=== PATIENT | female | born 1955 | race Caucasian/White ===

== ENCOUNTER 2018-03-16 14:16 | Emergency (ER) | payer MEDICAID, SELFPAY ==
[2018-03-16 14:21] VITALS: BP 152/84; PULSE 98; RESP 16; TEMP 36.8; O2SAT 98
--- NOTE | 2018-03-16 14:30 | W.ED.GENAD ---
Discharge Plan Disposition Patient Disposition: HOME Condition: Improving Discharge Details Chief Complaint: Abd Prob Clinical Impression: Odontalgia Primary Care Provider: Onur Liriano ED Provider: Armando Fong Home Meds and New Rx's Prescriptions: New ondansetron HCl [Zofran] 4 mg tablet 4 mg PO QID PRN (Reason: nausea and vomiting) Qty: 10 RF: 0 penicillin V potassium 500 mg tablet 500 mg PO TID 10 Days Qty: 30 RF: 0 No Action amlodipine [Norvasc] 10 MG tablet 10 mg PO DAILY RF: 0 albuterol sulfate [Proventil HFA] 6.7 GM HFA aerosol inhaler 1 - 2 puff Inhalation Q6H PRN RF: 0 losartan 100 MG tablet 100 mg PO DAILY RF: 0 fluticasone 16 GM spray,suspension 50 mcg NS BID RF: 0 levalbuterol tartrate [Xopenex HFA] 15 GM HFA aerosol inhaler 90 mcg Inhalation Q6H PRN RF: 0 Discharge Instructions Instructions: Toothache (ED) Additional Instructions: Home to rest today. Continue all regularly prescribed medications. Take antibiotics as prescribed. May use Zofran, as prescribed, as needed for nausea. Continue small, frequent sips of fluids to maintain hydration. Return to the emergency department for any acute concern Medical Decision Making 62-year-old female states that she had uneventful left upper molar extraction on March 14 and has been suffering with nausea and intermittent episodes of vomiting since that time. She feels lightheaded and dehydrated. She has not had documentation of objective fevers but has noted some chills. The patient had IV access established, given parenteral medications with antiemetic and analgesic as well as parenteral fluids. Patient subsequently felt better and was able to take liquids by mouth. I do feel she oughtr to be treated for residual odontalgia/tooth infection. Will also offer antiemetic for home. Patient stable, improved comfort for discharge at this time. HPI General Mode of arrival: ambulatory. Date/Time Provider Initiated Documentation: 03/16/18 14:17. Limitations to Documentation: no limitations. History of Present Illness 62 year old F presents to the emergency department with the chief complaint of Nausea and vomiting, I feel dehydrated, described as moderate, and is localized to the abdomen. Patient reports no radiation. Patient started experiencing this day(s) and it has been intermittent. No relieving factors improve symptom(s), Eating worsens symptoms . Patient notes no other symptoms.; denies fever/chills. Patient did receive the following treatments prior to arrival, none Related Data Home Medications Medication Instructions Recorded Confirmed albuterol sulfate [Proventil Hfa] 1 - 2 puff INHALATION Q6H PRN 05/21/15 inhaler amlodipine [Norvasc] 10 mg PO DAILY tab-cap 05/21/15 fluticasone 50 mcg NS BID spray 05/21/15 levalbuterol tartrate [Xopenex Hfa] 90 mcg INHALATION Q6H PRN inhaler 05/21/15 losartan 100 mg PO DAILY tab-cap 05/21/15 ondansetron HCl [Zofran] 4 mg PO QID PRN #10 tab 03/16/18 penicillin V potassium 500 mg PO TID 10 Days #30 tab 03/16/18 Previous Rx's Medication Instructions Recorded ondansetron HCl [Zofran] 4 mg PO QID PRN #10 tab 03/16/18 penicillin V potassium 500 mg PO TID 10 Days #30 tab 03/16/18 Allergies Allergy/AdvReac Type Severity Reaction Status Date / Time lisinopril Allergy Unverified 05/21/15 11:09 General Stated Complaint: Abd Prob SOLANGE: 3 Review of Systems Review of Systems 6 systems reviewed and otherwise negative [facility] Social History Smoking/Tobacco Use Status: Current-Occasional Exam Narrative Exam Narrative: GEN: awake, alert, oriented 3. Pleasant, well groomed, interactive. HEAD: Normocephalic, atraumatic ENT: Mucous membranes dry, oropharynx partially edentulous, no fluctuance or swelling appreciated, External ear exam unremarkable EYES: PERRL, EOMI NECK: Full ROM, no RETA, no menigismus CHEST/RESP: Nontender, clear to auscultation bilateral, no wheeze/rhonchi/rales CARDIOVASCULAR: RRR, no murmur, rub sherrie. 2+ Rad pulse bilateral ABDOMEN: Soft, nontender, no mass. +Bowel sounds EXT: Full ROM, no edema, no rash Neuro: Grossly normal neurologic exam, conversant, interactive. Psych: Speech fluent, thoughts congruent, affect normal Course Vital Signs Temperature 36.8 C 03/16/18 14:21 Pulse 98 H 03/16/18 14:21 Respiratory Rate 16 03/16/18 14:21 Blood Pressure 152/84 H 03/16/18 14:21 Pulse Oximetry 98 03/16/18 14:21 Temperature 36.8 C 03/16/18 14:21 Temperature Source Temporal Artery Scan 03/16/18 14:21 Pulse 98 H 03/16/18 14:21 Respiratory Rate 16 03/16/18 14:21 Respiratory Effort 03/16/18 14:23 Blood Pressure 152/84 H 03/16/18 14:21 Blood Pressure Position Sitting 03/16/18 14:21 Pulse Oximetry 98 03/16/18 14:21 Oxygen Delivery Method Room Air 03/16/18 14:21 Oxygen Flow Rate 0 03/16/18 14:21 Pain Level 7 03/16/18 14:21
--- NOTE | 2018-03-16 14:33 | ED.GENADUL_ITS ---
Discharge Plan Disposition Patient Disposition: HOME Condition: Improving Discharge Details Chief Complaint: Abd Prob Clinical Impression: Odontalgia Primary Care Provider: Onur Liriano ED Provider: Armando Fong Home Meds and New Rx's Prescriptions: New ondansetron HCl [Zofran] 4 mg tablet 4 mg PO QID PRN (Reason: nausea and vomiting) Qty: 10 RF: 0 penicillin V potassium 500 mg tablet 500 mg PO TID 10 Days Qty: 30 RF: 0 No Action amlodipine [Norvasc] 10 MG tablet 10 mg PO DAILY RF: 0 albuterol sulfate [Proventil HFA] 6.7 GM HFA aerosol inhaler 1 - 2 puff Inhalation Q6H PRN RF: 0 losartan 100 MG tablet 100 mg PO DAILY RF: 0 fluticasone 16 GM spray,suspension 50 mcg NS BID RF: 0 levalbuterol tartrate [Xopenex HFA] 15 GM HFA aerosol inhaler 90 mcg Inhalation Q6H PRN RF: 0 Discharge Instructions Instructions: Toothache (ED) Additional Instructions: Home to rest today. Continue all regularly prescribed medications. Take antibiotics as prescribed. May use Zofran, as prescribed, as needed for nausea. Continue small, frequent sips of fluids to maintain hydration. Return to the emergency department for any acute concern Medical Decision Making 62-year-old female states that she had uneventful left upper molar extraction on March 14 and has been suffering with nausea and intermittent episodes of vomiting since that time. She feels lightheaded and dehydrated. She has not had documentation of objective fevers but has noted some chills. The patient had IV access established, given parenteral medications with antiemetic and analgesic as well as parenteral fluids. Patient subsequently felt better and was able to take liquids by mouth. I do feel she oughtr to be treated for residual odontalgia/tooth infection. Will also offer antiemetic for home. Patient stable, improved comfort for discharge at this time. HPI General Mode of arrival: ambulatory . Date/Time Provider Initiated Documentation: 03/16/18 14:17 . Limitations to Documentation: no limitations . History of Present Illness 62 year old F presents to the emergency department with the chief complaint of Nausea and vomiting, I feel dehydrated, described as moderate, and is localized to the abdomen. Patient reports no radiation. Patient started experiencing this day(s) and it has been intermittent. No relieving factors improve symptom(s), Eating worsens symptoms . Patient notes no other symptoms.; denies fever/chills. Patient did receive the following treatments prior to arrival, none Related Data Home Medications Medication Instructions Recorded Confirmed albuterol sulfate [Proventil Hfa] 1 - 2 puff INHALATION Q6H PRN 05/21/15 inhaler amlodipine [Norvasc] 10 mg PO DAILY tab-cap 05/21/15 fluticasone 50 mcg NS BID spray 05/21/15 levalbuterol tartrate [Xopenex Hfa] 90 mcg INHALATION Q6H PRN inhaler 05/21/15 losartan 100 mg PO DAILY tab-cap 05/21/15 ondansetron HCl [Zofran] 4 mg PO QID PRN #10 tab 03/16/18 penicillin V potassium 500 mg PO TID 10 Days #30 tab 03/16/18 Previous Rx's Medication Instructions Recorded ondansetron HCl [Zofran] 4 mg PO QID PRN #10 tab 03/16/18 penicillin V potassium 500 mg PO TID 10 Days #30 tab 03/16/18 Allergies Allergy/AdvReac Type Severity Reaction Status Date / Time lisinopril Allergy Unverified 05/21/15 11:09 General Stated Complaint: Abd Prob SOLANGE: 3 Review of Systems Review of Systems 6 systems reviewed and otherwise negative [facility] Social History Smoking/Tobacco Use Status: Current-Occasional Exam Narrative Exam Narrative: GEN: awake, alert, oriented 3. Pleasant, well groomed, interactive. HEAD: Normocephalic, atraumatic ENT: Mucous membranes dry, oropharynx partially edentulous, no fluctuance or swelling appreciated, External ear exam unremarkable EYES: PERRL, EOMI NECK: Full ROM, no RETA, no menigismus CHEST/RESP: Nontender, clear to auscultation bilateral, no wheeze/rhonchi/rales CARDIOVASCULAR: RRR, no murmur, rub sherrie. 2+ Rad pulse bilateral ABDOMEN: Soft, nontender, no mass. +Bowel sounds EXT: Full ROM, no edema, no rash Neuro: Grossly normal neurologic exam, conversant, interactive. Psych: Speech fluent, thoughts congruent, affect normal Course Vital Signs Temperature 36.8 C 03/16/18 14:21 Pulse 98 H 03/16/18 14:21 Respiratory Rate 16 03/16/18 14:21 Blood Pressure 152/84 H 03/16/18 14:21 Pulse Oximetry 98 03/16/18 14:21 Temperature 36.8 C 03/16/18 14:21 Temperature Source Temporal Artery Scan 03/16/18 14:21 Pulse 98 H 03/16/18 14:21 Respiratory Rate 16 03/16/18 14:21 Respiratory Effort 03/16/18 14:23 Blood Pressure 152/84 H 03/16/18 14:21 Blood Pressure Position Sitting 03/16/18 14:21 Pulse Oximetry 98 03/16/18 14:21 Oxygen Delivery Method Room Air 03/16/18 14:21 Oxygen Flow Rate 0 03/16/18 14:21 Pain Level 7 03/16/18 14:21
[2018-03-16 14:56] LABS: Abs Immature Grans 0.05 k/cumm (0.0-0.09); Absolute Basophil Count 0.03 k/cumm (0.0-0.2); Absolute Eosinophil Count 0.02 k/cumm (0.0-0.7); Absolute Lymphocyte Count 2.95 k/cumm (1.2-3.4); Basophils % 0.2; Eosinophils % 0.1; HCT 46.2 % (36.0-46.0); HGB 15.8 g/dL (12.0-15.5); Immature Grans % 0.3; Lymphocytes % 18.5; Mean Corp. HGB Concentration 34.2 g/dL (32.0-36.0); Mean Corpuscular Hemoglobin 28.8 pg (27.0-33.0); Mean Corpuscular Volume 84.2 fL (80-95); Mean Platelet Volume 9.7 fL (8.0-11.0); Monocytes % 3.4; Neutrophils % 77.5; Platelet Count 374 x1000/uL (130-400); RBC 5.49 m/cumm (4.00-5.20); RBC Distribution Width 12.6 % (11.7-14.6); White Blood Cell Count 15.95 k/cumm (4.4-10.8)
[2018-03-16 14:57] LABS: Absolute Monocyte Count 0.54 k/cumm (0.11-0.7); Absolute Neutrophil Count 12.36 k/cumm (1.2-6.7)
[2018-03-16 15:03] LABS: Anion Gap 12.6 mmol/L (3-11); BUN 33 mg/dL (7-18); CO2 28.4 mmol/L (21.0-32.0); CREATININE 1.18 mg/dL (0.55-1.02); Calcium 9.8 mg/dL (8.5-10.1); Chloride 92 mmol/L (98-107); Estimated GFR 46.57 (mL/min/1.73m2); Glucose 349 mg/dL (70-100); Potassium 3.7 mmol/L (3.5-5.1); Sodium 133 mmol/L (136-145)
[2018-03-16] MEDS: LORazepam 2 MG/ML VIAL 1 MG IVP (15:11)
[2018-03-16] MEDS: Ondansetron 4 MG/2 ML VIAL IVP (15:11)
[2018-03-16] MEDS: Lactated Ringers 1,000 ML 1000 ML IV (15:11)
[2018-03-16] MEDS: Ketorolac 30 MG/ML VIAL IVP (15:12)
== END 2018-03-16 16:49 | disposition home or self-care (01) ==
LOC: ER 17:58
PROVIDERS: Emergency Provider Emergency Medicine; PCP Internal Medicine
DX: K08.89 Other specified disorders of teeth and supporting structures (principal); Z98.890 Other specified postprocedural states; F17.210 Nicotine dependence, cigarettes, uncomplicated
CPT/HCPCS: 36415; 80048; 96361; 96374; 96375; 99284; 85025; 99283; J1885; J2060; J2405

== ENCOUNTER 2018-11-28 10:03 | Inpatient (IN) | payer MEDICAID, SELFPAY ==
[2018-11-28] VITALS (41 sets, daily range): BP systolic 124–177; BP diastolic 76–95; PULSE 92–116; RESP 9–39; TEMP 36.6–36.8; O2SAT 91–100
--- NOTE | 2018-11-28 10:47 | DI.RAD_ITS ---
SYMPTOM/DIAGNOSIS: S/P FALL, R/O ACUTE FRACTURE LEFT HIP: 11/28 Two views of the hip and pelvis were obtained. There are degenerative changes of the hips and SI joints. There is no evidence of acute fracture.
--- NOTE | 2018-11-28 10:47 | DI.RAD_ITS ---
SYMPTOM/DIAGNOSIS; CHEST TIGHTNESS R/O ACUTE DISEASE PA AND LATERAL CHEST : 11/28 The heart is normal in size. The lungs are clear. The mediastinal structures and pleura appear intact. CONCLUSION: Normal chest.
--- NOTE | 2018-11-28 10:56 | ED.GENADUL_ITS ---
Discharge Plan Disposition Patient Disposition: [facility] INPATIENT Condition: Stable Discharge Details Chief Complaint: Chest Pain Clinical Impression: Acute kidney injury, Dehydration, Contusion of left hip, Cognitive decline Admit Date/Time: 11/28/18 16:32 Admit Provider: Onur Liriano Attending Provider: Onur Liriano Primary Care Provider: Onur Liriano ED Provider: Alannah Beal Discharge Data Discharge Date/Time-TO BE ENTERED AT DEPARTURE: 11/28/18 18:03 Medical Decision Making 1030 -- 63-year-old female with history of hypertension diabetes who presents with left hip pain and lower back pain since a fall 3 weeks ago. Also admits to chest tightness which she attributes to anxiety for the past 2 days due to the hip pain. Heart rate 116. Blood pressure 156/94. Lungs clear. Abdomen soft nontender. No pain with range of motion in hips bilaterally without evidence of trauma. Midline T/L-spine nontender. No focal deficits. Neurovascular intact. EKG notes a rate of 118, sinus with no acute ST T wave ischemic changes. She denies any chest pain at present. Presentation does not appear consistent with ACS. Suspect most likely left hip spasms/contusion/less likely fracture. Do not suspect PE but will do a cardiac work-up, d-dimer and chest x-ray in addition to left hip and pelvis x-ray, dose of prednisone, Toradol and Valium and reassess. 1315 -- Labs and imaging reviewed. Creatinine 2.45 which is significantly different from last creatinine of 1.18 in February 2018. GFR 19. Glucose 304. pH on VBG 7.3, bicarb 23. Left hip and pelvis and chest x-ray negative. Patient states she feels significantly better after pain meds. She states she would like to go home if possible. We will give 2 L IV fluids, food and reassess. 1545 --repeat BMP notes worsening renal function after 2 L IV fluids. Creatinine now 2.85, GFR 16. Will admit patient for IV fluids, continued monitoring, repeat labs in the a.m. Discussed with hospitalist -accepts patient for admission. Daughter now states she is concerned about patient's memory and what she perceives as cognitive decline over the last 2 months, even worsening since last night. She has no focal deficits. Patient denies head injury with fall a few weeks ago. Symptoms could possibly be due to or exacerbated by dehydration. This was discussed with patient/daughter while hospitalist in room. Plan will be for CT head and cervical spine to rule out any acute process. 11/28/18 pm -- After pt transfer to floor: Per [facility] radiology - CT head noted lacunar infarction of unknown age but no acute findings; CT cervical spine noted DDD but no acute findings. 11/29/18 am -- pt on floor: Per review of CT head by staff radiologist Dr. Velasquez - MRI brain suggested to assess for acute vs subacute infarction periventricular white matter. This was discussed with hospitalist. Medical Records Medical records reviewed: Yes I reviewed the patient's medical records. Imaging Data Radiologic Study: Radiologist's impression: LEFT HIP: 11/28 Two views of the hip and pelvis were obtained. There are degenerative changes of the hips and SI joints. There is no evidence of acute fracture. PA AND LATERAL CHEST : 11/28 The heart is normal in size. The lungs are clear. The mediastinal structures and pleura appear intact. CONCLUSION: Normal chest. Lab Data Lab results reviewed: Yes I reviewed the patient's lab results. Laboratory Tests Range/Units 11/28/18 11/28/18 11/28/18 10:25 10:25 10:25 WBC (4.4-10.8) k/cumm 11.65 H RBC (4.00-5.20) m/cumm 5.54 H Hgb (12.0-15.5) g/dL 15.7 H Hct (36.0-46.0) % 45.5 MCV (80-95) fL 82.1 MCH (27.0-33.0) pg 28.3 MCHC (32.0-36.0) g/dL 34.5 RDW (11.7-14.6) % 13.3 Plt Count (130-400) x1000/uL 367 MPV (8.0-11.0) fL 9.8 Immature Gran % 0.3 Neutrophils % 68.2 Lymphocytes % 23.0 Monocytes % 6.8 Eosinophils % 1.4 Basophils % 0.3 Absolute Neutrophils (1.2-6.7) k/cumm 7.95 H Absolute Lymphocytes (1.2-3.4) k/cumm 2.68 Absolute Monocytes (0.11-0.7) k/cumm 0.79 H Absolute Eosinophils (0.0-0.7) k/cumm 0.16 Absolute Basophils (0.0-0.2) k/cumm 0.03 PT (9.3-11.0) sec 9.9 INR (0.9-1.1) 1.0 APTT (21.0-31.4) sec 22.5 D-Dimer (<500) ng/mlFEU VBG pH (7.32-7.43) VBG pCO2 (34-47) mm/Hg VBG pO2 (28-44) mm/Hg VBG HCO3 (22-28) mmol/L VBG Total CO2 (22-29) mmol/L VBG O2 Saturation (70-80) % VBG Base Excess (-3-3) mmol/L Sodium (136-145) mmol/L 131 L Potassium (3.5-5.1) mmol/L 3.5 Chloride (98-107) mmol/L 94 L Carbon Dioxide (21.0-32.0) mmol/L 20.7 L Anion Gap (3-11) mmol/L 16.3 H BUN (7-18) mg/dL 39 H Creatinine (0.55-1.02) mg/dL 2.47 H Estimated GFR/1.73 m2 (mL/min/1.73m2) 19.79 Glucose (70-100) mg/dL 304 H Calcium (8.5-10.1) mg/dL 9.1 Magnesium (1.8-2.4) mg/dL 1.9 Total Bilirubin (0.2-1.0) mg/dL 0.7 AST (15-37) U/L 12 L ALT (14-59) U/L 26 Alkaline Phosphatase (46-116) U/L 84 Troponin I (0.00-0.06) ng/mL < 0.05 Total Protein (6.4-8.2) g/dL 7.8 Albumin (3.4-5.0) g/dL 3.7 Range/Units 11/28/18 11/28/18 11/28/18 11:14 13:22 15:25 WBC (4.4-10.8) k/cumm RBC (4.00-5.20) m/cumm Hgb (12.0-15.5) g/dL Hct (36.0-46.0) % MCV (80-95) fL MCH (27.0-33.0) pg MCHC (32.0-36.0) g/dL RDW (11.7-14.6) % Plt Count (130-400) x1000/uL MPV (8.0-11.0) fL Immature Gran % Neutrophils % Lymphocytes % Monocytes % Eosinophils % Basophils % Absolute Neutrophils (1.2-6.7) k/cumm Absolute Lymphocytes (1.2-3.4) k/cumm Absolute Monocytes (0.11-0.7) k/cumm Absolute Eosinophils (0.0-0.7) k/cumm Absolute Basophils (0.0-0.2) k/cumm PT (9.3-11.0) sec INR (0.9-1.1) APTT (21.0-31.4) sec D-Dimer (<500) ng/mlFEU 306 VBG pH (7.32-7.43) 7.39 VBG pCO2 (34-47) mm/Hg 38 VBG pO2 (28-44) mm/Hg 48 H VBG HCO3 (22-28) mmol/L 23 VBG Total CO2 (22-29) mmol/L 20 L VBG O2 Saturation (70-80) % 84 H VBG Base Excess (-3-3) mmol/L -2.1 Sodium (136-145) mmol/L 131 L Potassium (3.5-5.1) mmol/L 4.6 D Chloride (98-107) mmol/L 98 Carbon Dioxide (21.0-32.0) mmol/L 21.8 Anion Gap (3-11) mmol/L 11.2 H BUN (7-18) mg/dL 41 H Creatinine (0.55-1.02) mg/dL 2.85 H Estimated GFR/1.73 m2 (mL/min/1.73m2) 16.78 Glucose (70-100) mg/dL 410 H D Calcium (8.5-10.1) mg/dL 7.9 L Magnesium (1.8-2.4) mg/dL Total Bilirubin (0.2-1.0) mg/dL AST (15-37) U/L ALT (14-59) U/L Alkaline Phosphatase (46-116) U/L Troponin I (0.00-0.06) ng/mL Total Protein (6.4-8.2) g/dL Albumin (3.4-5.0) g/dL ECG Data Attestation: I personally reviewed and interpreted this ECG (s) as follows: Interpretation: Rate of 118, sinus, no acute ST elevation or depression. FL 144. QTc 468. QRS 96. HPI General Mode of arrival: ambulatory . Date/Time Provider Initiated Documentation: 11/28/18 10:22 . Limitations to Documentation: no limitations . Information obtained by: patient . HPI Narrative: Patient is a 63-year-old female with history of hypertension diabetes who presents with left hip pain and lower back pain since a fall 3 weeks ago. Patient states she slipped and tripped over something on stairs a few weeks ago and fell down 9 steps onto her left hip. She denies head injury, neck pain, back pain, or other extremity injury. She states she has used Lidoderm patch and aspirin but has not taken any other medication for pain. She also admits to chest tightness which she attributes to anxiety for the past 2 days due to the hip pain. She states she mainly needs a dose of Valium to help with her chest tightness and anxiety. Related Data Home Medications Medication Instructions Recorded Confirmed albuterol sulfate [Proventil HFA] 1 - 2 puff INHALATION Q6H PRN 05/21/15 inhaler fluticasone propionate 50 mcg NS BID spray 05/21/15 11/28/18 levalbuterol tartrate [Xopenex HFA] 90 mcg INHALATION Q6H PRN inhaler 05/21/15 11/28/18 ondansetron HCl [Zofran] 4 mg PO QID PRN #10 tab 03/16/18 11/28/18 aspirin [Aspirin Low Dose] 81 mg PO DAILY 11/28/18 11/28/18 irbesartan 300 mg DAILY 11/28/18 11/28/18 metformin 1,000 mg BID 11/28/18 11/28/18 triamterene-hydrochlorothiazid 1 cap DAILY 11/28/18 11/28/18 Previous Rx's Medication Instructions Recorded ondansetron HCl [Zofran] 4 mg PO QID PRN #10 tab 03/16/18 Allergies Allergy/AdvReac Type Severity Reaction Status Date / Time lisinopril Allergy Unverified 05/21/15 11:09 General Stated Complaint: Chest Pain SOLANGE: 2 Review of Systems Review of Systems All systems reviewed & are unremarkable except as noted in HPI and below Constitutional Reports as per HPI, Denies chills and Denies fever(s) Eyes Denies blurry vision ENT Denies dizziness, Denies sore throat and Denies throat swelling Cardiovascular Reports chest pain and Denies dyspnea Respiratory Denies cough and Denies dyspnea Gastrointestinal Denies abdominal pain, Denies diarrhea and Denies vomiting Genitourinary Denies hematuria and Denies dysuria Musculoskeletal Reports back pain, Denies numbness and Reports other (L hip pain) Integumentary/Breasts Denies lesions and Denies rash Neurologic Denies dizziness, Denies focal weakness and Denies numbness Allergic/Immunologic Denies throat swelling PFSH Medical History Chronic kidney disease (CKD) stage G3a/A1, moderately decreased glomerular filtration rate (GFR) between 45-59 mL/min/1.73 square meter and albuminuria creatinine ratio less than 30 mg/g (Acute) Diabetes (Chronic) HTN (hypertension) (Chronic) Surgical History No significant past surgical history (Acute) Social History Smoking/Tobacco Use Status: Former Tobacco Use Alcohol Intake: never Drug use: Never Do you feel safe at home: Yes Do you feel safe in your relationship?: Yes Exam Const General: cooperative, healthy appearing and no acute distress [facility] Head: normal to inspection Face and sinus: normal facial exam Eyes General: appearance normal, both eyes and all related structures EOM: EOM intact bilaterally Neck Neck: normal visual inspection and No submandibular swelling Lymphatic: no lymphadenopathy noted Chest Chest: normal inspection of the chest and no tenderness Resp Effort & Inspection: normal respiratory effort and able to speak in complete sentences Auscultation: clear to auscultation bilaterally Cardio Rate: regular rate Rhythm: regular rhythm GI Inspection: normal to inspection Palpation: soft, not firm, not rigid and nontender Auscultation: normal bowel sounds Back/Spine/Pelvis Thoracic/Lumbar Spine: thoracic and lumbar spine normal to inspection, No thoracic spinal tenderness and No lumbar spinal tenderness Pelvis: no pain with anterior-posterior compression Skin General skin exam: no rashes or lesions noted Neuro General: alert, awake and oriented x3 Cognition: normal cognition Speech: speech normal Motor: muscle tone normal throughout and strength 5/5 throughout Sensory Exam: no sensory deficits noted DTR's: Rt Patellar: 1+, Lt Patellar: 1+, Rt Ankle: 1+ and Lt Ankle: 1+ Plantar Reflexes: Equivocal: bilateral (Negative Babinski bilaterally.) Extrem General: normal to inspection, full ROM, normal capillary refill, no calf tenderness bilaterally and no edema Other: No pain with range of motion of bilateral hips. No evidence of trauma to bilateral hips. No tenderness to palpation of bilateral buttocks or midline lumbar spine. Bilateral DP/PT pulses intact. Psych Appearance: grossly normal Mental Status: mental status grossly normal Speech and Movement: speech and movement normal Affect: normal affect Course Vital Signs Temperature 98.2 F 11/28/18 10:18 Pulse 116 H 11/28/18 10:18 Respiratory Rate 12 11/28/18 10:18 Blood Pressure 156/94 H 11/28/18 10:18 Pulse Oximetry 100 11/28/18 10:18 Temperature 98.2 F 11/28/18 10:18 Temperature Source Skin 11/28/18 10:18 Pulse 116 H 11/28/18 10:18 Respiratory Rate 12 11/28/18 10:18 Blood Pressure 156/94 H 11/28/18 10:18 Blood Pressure Position Supine 11/28/18 10:18 Pulse Oximetry 100 11/28/18 10:18 Oxygen Delivery Method Room Air 11/28/18 10:18 Oxygen Flow Rate 0 11/28/18 10:18 Pain Level 9 11/28/18 10:18 Comment 11/28/18 10:18
[2018-11-28 11:02] LABS: Abs Immature Grans 0.04 k/cumm (0.0-0.09); Absolute Basophil Count 0.03 k/cumm (0.0-0.2); Absolute Eosinophil Count 0.16 k/cumm (0.0-0.7); Absolute Lymphocyte Count 2.68 k/cumm (1.2-3.4); Absolute Monocyte Count 0.79 k/cumm (0.11-0.7); Absolute Neutrophil Count 7.95 k/cumm (1.2-6.7); Basophils % 0.3; Eosinophils % 1.4; HCT 45.5 % (36.0-46.0); HGB 15.7 g/dL (12.0-15.5); Immature Grans % 0.3; Mean Corp. HGB Concentration 34.5 g/dL (32.0-36.0); Mean Corpuscular Hemoglobin 28.3 pg (27.0-33.0); Mean Corpuscular Volume 82.1 fL (80-95); Mean Platelet Volume 9.8 fL (8.0-11.0); Monocytes % 6.8; Neutrophils % 68.2; Platelet Count 367 x1000/uL (130-400); RBC 5.54 m/cumm (4.00-5.20); RBC Distribution Width 13.3 % (11.7-14.6); White Blood Cell Count 11.65 k/cumm (4.4-10.8)
[2018-11-28] MEDS: diazePAM 5 MG TAB PO (11:03)
[2018-11-28] MEDS: predniSONE 20 MG TAB 60 MG PO (11:03)
[2018-11-28] MEDS: Ketorolac 30 MG/ML VIAL IVP (11:04)
[2018-11-28 11:15] LABS: PTT Activated 22.5 sec (21.0-31.4); Prothrombin Time 9.9 sec (9.3-11.0)
[2018-11-28 11:19] LABS: ALT 26 U/L (14-59); AST 12 U/L (15-37); Albumin 3.7 g/dL (3.4-5.0); Alkaline Phosphatase 84 U/L (46-116); Anion Gap 16.3 mmol/L (3-11); BUN 39 mg/dL (7-18); Bilirubin, Total 0.7 mg/dL (0.2-1.0); CO2 20.7 mmol/L (21.0-32.0); CREATININE 2.47 mg/dL (0.55-1.02); Calcium 9.1 mg/dL (8.5-10.1); Chloride 94 mmol/L (98-107); Estimated GFR 19.79 (mL/min/1.73m2); Glucose 304 mg/dL (70-100); Magnesium 1.9 mg/dL (1.8-2.4); Potassium 3.5 mmol/L (3.5-5.1); Sodium 131 mmol/L (136-145); Total Protein 7.8 g/dL (6.4-8.2)
[2018-11-28 11:28] LABS: Troponin I < 0.05 ng/mL (0.00-0.06)
[2018-11-28 11:54] LABS: D-Dimer 306 ng/mlFEU (<500)
[2018-11-28] MEDS: Normal Saline 1,000 ML 1000 ML IV ×2 (12:10→13:20)
[2018-11-28 13:29] LABS: BE (Venous) -2.1 mmol/L (-3-3); HCO3 (Venous) 23 mmol/L (22-28); O2 Sat (Venous) 84 % (70-80); TCO2 (Venous) 20 mmol/L (22-29); pCO2 (Venous) 38 mm/Hg (34-47); pH (Venous) 7.39 (7.32-7.43); pO2 (Venous) 48 mm/Hg (28-44)
[2018-11-28 15:41] LABS: Anion Gap 11.2 mmol/L (3-11); BUN 41 mg/dL (7-18); CO2 21.8 mmol/L (21.0-32.0); CREATININE 2.85 mg/dL (0.55-1.02); Calcium 7.9 mg/dL (8.5-10.1); Chloride 98 mmol/L (98-107); Estimated GFR 16.78 (mL/min/1.73m2); Glucose 410 mg/dL (70-100); Sodium 131 mmol/L (136-145)
[2018-11-28 15:45] LABS: Potassium 4.6 mmol/L (3.5-5.1)
--- NOTE | 2018-11-28 16:09 | DI.CT_ITS ---
SYMPTOM/DIAGNOSIS: S/P FALL, PROGRESSIVE DECLINE, R/O ACUTE DISEASE CERVICAL SPINE CT: 11/28 CT examination of the cervical spine was performed utilizing multi slice acquisition and multi planar reconstruction. Tracheolaryngeal structures appear intact. No gross cervical mass or adenopathy. There is a torticollis to the right. There is multi level disc space narrowing of the lower cervical spine and there are moderate hypertrophic degenerative changes involving the facet joints and vertebral end plates. No evidence of acute fracture or dislocation. CONCLUSION: No evidence of acute cervical spine fracture or dislocation. CRANIAL CT: 11/[address] was performed. There is mild generalized cerebral atrophy. There are patchy areas of decreased attenuation in periventricular white matter consistent with microvascular ischemic change. Question more focal asymmetric area of decreased attenuation in periventricular white matter medial to the lateral ventricle posteriorly, question of acute or subacute infarct. Probable lacunar infarct present in the right thalamus as well. No evidence of acute intracranial hemorrhage, mass effect or midline shift. The orbital and temporal bone structures appear intact. Mastoid air cells and paranasal sinuses appear well aerated as visualized. CONCLUSION: No evidence of acute intracranial hemorrhage. Question focal white matter decreased attenuation right periventricular occipital region as described above. MRI suggested to rule out acute/subacute infarction.
--- NOTE | 2018-11-28 16:51 | W.PM.HP.N ---
Date of service: 11/28/18 Time of Service: 16:52 Assessment and Plan (1) Acute kidney injury: Current visit: Yes Status: Acute I suspect that she has an element of chronic kidney disease from poorly controlled diabetes and hypertension in the past. More recently has made significant lifestyle changes to improve the control of both of these problems. Superimposed on this is probably an element of dehydration/prerenal azotemia. I think it is unlikely her recent fall, other than resulting in decreased oral intake secondary to nausea secondary to pain, is contributing to her renal insufficiency. She is not on any new medications and has not been taking NSAIDs except for those just given today in the ER. Diagnostically check urinalysis and renal ultrasound. Therapeutically hold diuretic, hold ARB, IV hydration overnight and recheck labs in the morning. Avoid nephrotoxic drugs. (2) Memory deficit: Current visit: Yes Status: Acute Subtle changes in memory recently, may reflect dehydration and nothing more. CT scan to rule out chronic subdural. Check B12, TSH. Monitor clinically and if increased concerns consider MRI, consider neuro consult. (3) Chronic kidney disease (CKD) stage G3a/A1, moderately decreased glomerular filtration rate (GFR) between 45-59 mL/min/1.73 square meter and albuminuria creatinine ratio less than 30 mg/g: Current visit: Yes Status: Acute With history of poorly controlled hypertension and diabetes for many years I suspect there is an element of chronic kidney disease from these 2 etiologies. Management as per acute kidney injury for now. (4) Left hip pain: Current visit: Yes Status: Acute No fractures on x-ray. I wonder if she may have radicular pain contributing? PT consult. Topical lidocaine. I do not want to use NSAIDs given her acute kidney injury. I do not want a repeat prednisone given her diabetes. I discussed the use of opiates with her and she does not wish to use opiates if at all possible. Acetaminophen as needed. (5) Diabetes: Current visit: No Status: Chronic Historically poorly controlled. Metformin contraindicated in light of acute kidney injury. Check hemoglobin A1c. Monitor blood sugars. I am starting her on a low-dose of Levemir and short acting insulin in the short-term. prosthodontist/educator consultation placed that she may need to go home on insulin. (6) HTN (hypertension): Current visit: No Status: Chronic Diuretic and ARB on hold temporarily. I will cover her with amlodipine and monitor blood pressure response. I think resuming irbesartan once kidney function improved is reasonable. If a second agent needed for blood pressure control, perhaps avoiding diuretic and using a calcium channel jennie. History of Present Illness Chief Complaint: Left hip pain, acute kidney injury, memory deficit Narrative: 63-year-old woman with poorly controlled high blood pressure and diabetes presented to the emergency room because of increasing left hip pain. Her daughter also expressed concerns about acute on more subtle or subacute memory changes. About 2 weeks ago she slipped on a water balloon on the top of the stairs falling down a flight, striking her left foot and hip. She is quite sure she did not hit her head. She was dealing with the pain on her own and with the assistance of acupuncture but pain became progressively worse. Last evening she had a meal with her daughter who noted that she was confused, seem to be glassy eyed and had increased trouble walking. Her daughter was able to convince her to come to the emergency room today for further evaluation. Debi herself denies any progressive problems with memory. She does acknowledge last night that she was feeling quite tired. She has not been eating or drinking well since she fell because of the pain and associated nausea. She has not vomited. She has not had diarrhea. She has continued to take her diuretic, metformin and ARB. She is had no hematuria or dysuria. There is been no loss of consciousness, no seizure. ER evaluation notable for absence of any fractures on x-ray but initial labs were notable for a BUN of 39 and a creatinine of 2.47 whereas these have been 33 and 1.18 in February. She has not had any medication changes since February. She reports taking no NSAIDs to help with her left hip pain following this injury. She received Toradol, prednisone and Valium in the ER to help manage her pain. Subsequent lab work 5 hours after the original had BUN up to 41 and creatinine up to 2.85 and blood sugar up to 410. Her bicarb remain normal, her venous pH was normal. She is being admitted now for further assessment of her acute kidney injury and memory changes as well as ongoing management of her hypertension and diabetes. Review of Systems Review of Systems No headache. No vision changes. No trouble swallowing. No paresthesias. No focal weakness. No recent fevers. No cough or wheeze. No chest pain or palpitations. No presyncope. No dysuria or hematuria. No bowel or bladder incontinence. No recent rashes. She has not developed any bruises on the areas where she fell. All systems reviewed & are unremarkable except as noted in HPI and below PFSH Medical History Chronic kidney disease (CKD) stage G3a/A1, moderately decreased glomerular filtration rate (GFR) between 45-59 mL/min/1.73 square meter and albuminuria creatinine ratio less than 30 mg/g (Acute) Diabetes (Chronic) HTN (hypertension) (Chronic) Surgical History No significant past surgical history (Acute) Social History Smoking/Tobacco Use Status: Former Tobacco Use Alcohol Intake: never Drug use: Never Do you feel safe at home: Yes Do you feel safe in your relationship?: Yes Meds Home Medications Medication Instructions Recorded Confirmed Type albuterol sulfate [Proventil HFA] 1 - 2 puff INHALATION Q6H PRN 05/21/15 History inhaler fluticasone propionate 50 mcg NS BID spray 05/21/15 11/28/18 History levalbuterol tartrate [Xopenex HFA] 90 mcg INHALATION Q6H PRN inhaler 05/21/15 11/28/18 History ondansetron HCl [Zofran] 4 mg PO QID PRN #10 tab 03/16/18 11/28/18 Rx aspirin [Aspirin Low Dose] 81 mg PO DAILY 11/28/18 11/28/18 History irbesartan 300 mg DAILY 11/28/18 11/28/18 History metformin 1,000 mg BID 11/28/18 11/28/18 History triamterene-hydrochlorothiazid 1 cap DAILY 11/28/18 11/28/18 History Allergies Allergy/AdvReac Type Severity Reaction Status Date / Time lisinopril Allergy Unverified 05/21/15 11:09 Exam Narrative Exam Narrative: Awake talkative immediately recognizes me (I have seen her once or twice in the office). Sinus tachycardia on monitor with blood pressure 1 50-1 60 systolic. Temperature 36.8 SaO2 on room air 94%. There is no bruising on her face or scalp. Pupils 3 to 4 mm equal and reactive, extraocular movements are normal. Tongue midline. Facial movements normal. No complaints of discomfort with neck movement. No JVD. Lungs clear. Regular heart rhythm without murmur S3 or S4. There is no tenderness to palpation over the thoracic or lumbar spine. No bruising in the flank areas. No CVA tenderness. Abdomen is soft obese nontender with active bowel sounds. Pelvic and rectal exams were not done. She has no tenderness over the left hip area or greater trochanter. No bruising. She has pain-free range of motion (examined after she received pain medication) of the left hip. There is no pain or effusion of the knees. No ankle swelling. Good pulses in both feet. Cold touch sensation slightly diminished in the left lower leg compared to right. No DTR at the left knee or ankle 1+ at the right knee absent at the right ankle. She sits up unassisted. Has symmetric movement of all extremities. Negative straight leg raising bilaterally. Results Pelvic and hip x-rays mild degenerative changes of the hips and SI joints no fracture. CT scan of the head without contrast pending. Urinalysis pending Labs : 11/28/18 10:25 11/28/18 15:25 Laboratory Results - last 24 hr 11/28/18 11/28/18 11/28/18 10:25 10:25 10:25 WBC 11.65 H RBC 5.54 H Hgb 15.7 H Hct 45.5 MCV 82.1 MCH 28.3 MCHC 34.5 RDW 13.3 Plt Count 367 MPV 9.8 Immature Gran % 0.3 Neutrophils % 68.2 Lymphocytes % 23.0 Monocytes % 6.8 Eosinophils % 1.4 Basophils % 0.3 Absolute Neutrophils 7.95 H Absolute Lymphocytes 2.68 Absolute Monocytes 0.79 H Absolute Eosinophils 0.16 Absolute Basophils 0.03 PT 9.9 INR 1.0 APTT 22.5 D-Dimer VBG pH VBG pCO2 VBG pO2 VBG HCO3 VBG Total CO2 VBG O2 Saturation VBG Base Excess Sodium 131 L Potassium 3.5 Chloride 94 L Carbon Dioxide 20.7 L Anion Gap 16.3 H BUN 39 H Creatinine 2.47 H Estimated GFR/1.73 m2 19.79 Glucose 304 H Calcium 9.1 Magnesium 1.9 Total Bilirubin 0.7 AST 12 L ALT 26 Alkaline Phosphatase 84 Troponin I < 0.05 Total Protein 7.8 Albumin 3.7 11/28/18 11/28/18 11/28/18 11:14 13:22 15:25 WBC RBC Hgb Hct MCV MCH MCHC RDW Plt Count MPV Immature Gran % Neutrophils % Lymphocytes % Monocytes % Eosinophils % Basophils % Absolute Neutrophils Absolute Lymphocytes Absolute Monocytes Absolute Eosinophils Absolute Basophils PT INR APTT D-Dimer 306 VBG pH 7.39 VBG pCO2 38 VBG pO2 48 H VBG HCO3 23 VBG Total CO2 20 L VBG O2 Saturation 84 H VBG Base Excess -2.1 Sodium 131 L Potassium 4.6 D Chloride 98 Carbon Dioxide 21.8 Anion Gap 11.2 H BUN 41 H Creatinine 2.85 H Estimated GFR/1.73 m2 16.78 Glucose 410 H D Calcium 7.9 L Magnesium Total Bilirubin AST ALT Alkaline Phosphatase Troponin I Total Protein Albumin Last Vital Signs Temp 36.8 C 11/28/18 10:18 Pulse 101 H 11/28/18 15:20 Resp 28 H 11/28/18 15:21 BP 156/89 H 11/28/18 15:20 Pulse Ox 91 L 11/28/18 15:21
--- NOTE | 2018-11-28 18:20 | DI.VRAD_ITS ---
EXAM: CT Head Without Contrast EXAM DATE/TIME: 11/28/2018 4:10 PM CLINICAL HISTORY: 63 years old, female; Altered mental status/memory loss; Other: Dizziness, incontinence TECHNIQUE: Imaging protocol: Computed tomography of the head without contrast. COMPARISON: No relevant prior studies available. FINDINGS: Brain: No acute intracranial hemorrhage. There is mild diffuse heterogeneity of the white matter attenuation, consistent with chronic white matter ischemic changes. Mild cerebral atrophy Lacunar infarction in the right pelvis of unknown age.. Ventricles: Normal. No ventriculomegaly. Bones/joints: Unremarkable. No acute fracture. Sinuses: Visualized sinuses are unremarkable. No fluid levels. Mastoid air cells: Visualized mastoid air cells are well aerated. Soft tissues: Unremarkable. IMPRESSION: 1. No acute intracranial hemorrhage. 2. 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 EXAM: CT Cervical Spine Without Contrast EXAM DATE/TIME: 11/28/2018 4:10 PM CLINICAL HISTORY: 63 years old, female; Altered mental status/memory loss; Other: Dizziness, incontinence TECHNIQUE: Imaging protocol: Computed tomography images of the cervical spine without contrast. COMPARISON: No relevant prior studies available. FINDINGS: Vertebrae: No acute fracture of the cervical spine. No subluxation or dislocation of the cervical spine. Anterior osteophyte formation C4-C7 Degenerative changes in the facets at multiple levels Discs/Spinal canal/Neural foramina: Intervertebral disc space narrowing C4-C7 may represent degenerative disc disease.. Posterior osteophyte formation C4-C7 Degenerative changes at C1/C2 Soft tissues: Unremarkable. Thyroid: The thyroid is unremarkable Lungs: Lung apices are normal. IMPRESSION: 1. No acute fracture of the cervical spine. 2. No subluxation or dislocation of the cervical spine. 3. Intervertebral disc space narrowing C4-C7 may represent degenerative disc disease. Recommend MRI if clinically indicated. Dictated and Authenticated by: Giselle Ahn MD. Ordering:MARGI Jaffe MD
[2018-11-28] MEDS: Lactated Ringers 1,000 ML 150 ML IV (18:33)
[2018-11-28] MEDS: Insulin Aspart 300 UNITS/3 ML PEN SC (19:06)
--- NOTE | 2018-11-28 22:00 | NUR.NOTE ---
11/28/18 @ 1600--unable to verify medications as pt states she does not have a med list and does not know any of her meds, stating her daughter takes care of her meds and her daughter is not available to verify them at this time. Nursing Note:
[2018-11-29] VITALS (8 sets, daily range): BP systolic 138–188; BP diastolic 91–104; PULSE 72–91; RESP 16–19; TEMP 36–36.8; O2SAT 97–98
[2018-11-29] MEDS: Lactated Ringers 1,000 ML 150 ML IV ×3 (01:28→18:06)
[2018-11-29 07:47] LABS: Anion Gap 12.3 mmol/L (3-11); BUN 50 mg/dL (7-18); CO2 21.7 mmol/L (21.0-32.0); CREATININE 2.14 mg/dL (0.55-1.02); Calcium 7.8 mg/dL (8.5-10.1); Chloride 105 mmol/L (98-107); Estimated GFR 23.35 (mL/min/1.73m2); Glucose 258 mg/dL (70-100); Potassium 3.2 mmol/L (3.5-5.1); Sodium 139 mmol/L (136-145); TSH (W/Ref FT4) 0.79 uIU/mL (0.36-3.74)
[2018-11-29] MEDS: Acetaminophen 325 MG TAB 650 MG PO ×3 (07:48→23:15)
[2018-11-29] MEDS: Aspirin E.C. 81 MG TABEC PO (07:49)
[2018-11-29] MEDS: dilTIAZem CD 180 MG CAPCR PO (07:49)
[2018-11-29] MEDS: Normal Saline Flush 10 ML SYR IVP (07:50)
[2018-11-29] MEDS: Insulin Aspart 300 UNITS/3 ML PEN SC ×3 (07:50→17:53)
--- NOTE | 2018-11-29 08:00 | DI.US_ITS ---
SYMPTOM/DIAGNOSIS: ACUTE KIDNEY INJURY RENAL ULTRASOUND: 11/29 Renal ultrasound was performed according to the usual protocol. The kidneys are normal in size and shape. There is question of slight right hydronephrosis. No left hydronephrosis. No nephrolithiasis on either side. Pre and post void urinary bladder volume measurements are 457 cc and 444 cc respectively. Ureteral jets were not visualized on either side. CONCLUSION: Question mild right hydronephrosis. If clinically indicated additional evaluation with CT urogram may be considered.
[2018-11-29 08:06] LABS: Hemoglobin A1C 12.7 % (4.5-6.2)
[2018-11-29 08:34] LABS: Vitamin B12 613 pg/mL (193-986)
--- NOTE | 2018-11-29 10:05 | INITIAL_ITS ---
- If Service Date Differs Date of service: 11/29/18 Time of Service: 10:05 Care Management Initial Assess REASON FOR HOSPITALIZATION:: Acute Kidney Injury PAST MEDICAL HISTORY/PAST SURGICAL HISTORY:: Medical History . Chronic kidney disease (CKD) stage G3a/A1, moderately decreased glomerular filtration rate (GFR) between 45-59 mL/min/1.73 square meter and albuminuria creatinine ratio less than 30 mg/g (Acute). Diabetes (Chronic). HTN (hypertension) (Chronic). Surgical History . 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 She also has a son who is in the . Debi is independent with all care and ADLs and continues to drive. 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 CURRENT FUNCTIONAL STATUS:: Debi was sitting up in bed when CM came to visit. She had just returned from MRI and was in quite a lot of pain. She stated that she had been medicated with Tylenol and was starting to feel better. Debi s hared that she had fallen down the stairs about a month ago and has been in pain since. She has been using topical ointments and mild, non-narcotic medication to control the pain but on the night of admission, it was out of control so she came to the ED.She does not anticipate needing any services at discharge. ADVANCE DIRECTIVES:: None on file CODE STATUS:: Full Code INSURANCE COVERAGE / FINANCIAL ISSUES:: Medicaid [place] CURRENT HOME/COMMUNITY SERVICES/EQUIPMENT:: none PRIMARY CARE PHYSICIAN:: Onur Liriano MD POTENTIAL DISCHARGE NEEDS:: follow up with PCP and discharge plan of care PATIENT/FAMILY EDUCATION NEEDS:: Discharge plan, limitations, follow up plan. Ask Me Three. ANTICIPATED BARRIERS TO DISCHARGE:: none identified TRANSPORTATION:: via private vehicle with family PLAN:: Debi will likely discharge home with no services when ready. She will transport with family via private vehicle. Debi will follow up with her PCP and discharge plan of care. CM will continue to provide support to patient, family and dicharge planning needs.
--- NOTE | 2018-11-29 12:25 | PHARADMIT ---
Addendum entered by Murray Holder III 12/04/18 10:51: Pharmacy Note Subjective MD still tweaking BP meds Objective BP-168/80 HR-91 K+3.5 Mag-1.7 FSBS- 177 Assessment Chlorthalidone added to BP med regimen. Plan Discharge tomorrow, either home or SNF pending family decision. Addendum entered by Murray Holder III 12/03/18 14:27: Pharmacy Note Subjective MD working on BP and Diabetes, PT continues Objective BP-160/93 HR-91 K+3.4 Mag-1.6 QzD6n-52.7% FSBS-242 Assessment K+ & Mag PO given, to delisa on ASA & Plavix therapy Norvasc DC'd, Irbesartan started Insulins asfdjusted Plan Family to decide Wednesday SNF vs Home Addendum entered by Murray Holder III 12/02/18 15:46: Pharmacy Note Subjective Sub-acute CVA, receiving PT & OT Objective BP-177/85 HR-79 No Labs BM today Assessment Receiving both ASA & Plavix Norvasc & Diltiazem-CD, Insulin covrage while here. Plan Will need a rehab stay and an event monitor upon discharge Addendum entered by Danika Galvez 11/30/18 15:56: Pharmacy Note Subjective Objective BP 160/79, EF 60-65%, Scr 1.23 Assessment MRI revealed new infarct consistent with left hemiparesis - will load with plavix and continue aspirin for dual antiplatelet tx Uncontrolled DM upon admission - better now, levemir increased to 12u at hs Plan Nutrition/signal and communications maintainer consult upon discharge Consider restarting ARB/ACEI upon improvement of LIZETH Original Note: Admission Pharmacy Clinical Review LIZETH, Left hip pain (s/p fall down stairs ~2 weeks ago), memory impairment (observation) Code Status Full Code Current Weight 77.3 kg Renally Cleared and Narrow Therapeutic Index Meds CrCl~24.5ml/min QTc Value / Action Taken QTC 468 BP Control, Fever BP 177/100, Afebrile Pain 7/10 Electrolytes reviewed K+ 3.2 (30meq po x1) Mag 1.9 DVT Prophylaxis NONE Opiate Usage / Scheduled Bowel Regimen Ordered Plt/SCr for Heparin / Enoxaparin Plt 367 SCr 2.14 (down from 2.85)....?dehydration INR for Warfarin INR 1.0 H/H stable, WBC/Bands H/H 15.7/45.5 WBC 11.65 Antibiotic appropriateness Cultures and Sensitivities Surgical ABX d/c within 24 hr DM control / Insulin Dosing BG 258 H1C 12.7 (Levemir/Novolog scale) Heart Failure (Check EF%) (CAPRI's, B-Block, Diuretics) Diltiazem CD 180mg Amlodipine 5mg x1 yesterday....MD knows it's not daily IV to PO Switch Home Meds Reviewed Home Meds Not Ordered Fluticasone, Irbesartan (held for LIZETH), Levalbuterol, Metformin, Dyazide. Home meds Losartan and Amlodipine dc'd by 11/28/18 Comments Renal ultrasound today: question mild right hydromephrosis, may need CT CT of head today: no hemorrhage, unremarkable CT spine: no fractures Hip Xray: no fractures
[2018-11-29] MEDS: POTASSIUM CHLORIDE 20 MEQ, POTASSIUM CHLORIDE 10 MEQ 30 MEQ PO (12:51)
--- NOTE | 2018-11-29 13:52 | DI.MRI_ITS ---
SYMPTOMS/DIAGNOSIS: ACUTE MENTAL STATUS CHANGE, NEW INFARCTS ON CT BRAIN MRI: MRI examination of the brain was performed according to the usual protocol. There is moderate generalized cerebral atrophy. There are patchy areas of abnormal signal in periventricular white matter consistent with microvascular ischemic changes. There is an area of abnormal signal in the left cerebellar hemisphere inferiorly, which shows high signal on T1 and T2 weighted images. This shows decreased signal on diffusion weighted imaging and no abnormality on susceptibility weighted imaging. The findings are most consistent with an old area of infarction. There is an area of abnormal signal on T2 and FLAIR images in the periventricular white matter posteriorly on the right and there are associated areas of abnormal signal in the thalamus on the right. These areas both correspond to areas of diffusion restricted on diffusion weighted imaging consistent with acute or subacute infarction. Decreased signal noted on ADC mapping. Other areas of abnormal diffusion seen in right occipital lobe, also corresponding to decreased signal on ADC map. The findings as described are consistent with acute or subacute infarction in distributions of posterior cerebral arteries and thalamic perforating arteries. No other significant signal abnormality seen. Orbital and temporal bone structures appear intact. There is grossly normal flow in the [place] vasculature including the basilar and posterior cerebral arteries. CONCLUSION: Findings consistent with acute or subacute posterior circulation infarcts as described above on the right. Probable old left cerebellar hemisphere inferiorly located infarct.
--- NOTE | 2018-11-29 15:33 | CHAPLAIN ---
Debi was resting in bed when I visited. She easily engaged in a conversation, sharing personal history. 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 She talked about the challenges of taking care of someone with autism, as well as fostering kids. Debi said she prays to her mom for support and patience, as her mom was a strong example for her. Debi lives in [place] near [facility].
--- NOTE | 2018-11-29 15:34 | W.NEUROCONSU ---
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 Esparza is a 63-year-old, right-handed woman who was admitted for confusion found to have acute on chronic renal insufficiency as well as a subacute ischemic infarct in the right posterior cerebral artery territory including the right occipital lobe and right thalamus manifested by a left homonymous hemianopsia, mild left hemineglect, and mild left hemiparesis. She has also had a previous left cerebellar stroke of which she was unaware. The etiology of her stroke is unknown. The differential includes small vessel disease, large vessel disease, and embolic. I recommend further work-up including an MRA head and neck without contrast as well as a TTE. She should be placed on telemetry. I also recommend an updated lipid panel. I discussed with her the role of diabetes in stroke and the hospitalist team is working on this. Unfortunately we do not have a nutritional services director available at the hospital this week. She will need a nutrition consult as an outpatient. Additionally, I recommend loading 300 mg of Plavix now and continuing 75 mg Plavix daily along with aspirin 81 mg daily for secondary stroke prevention. ADRs were discussed. She will continue this for 30 days pending the previously mentioned work-up which may change the recommendations. I am also starting her on a high-dose statin medication in the acute stroke period (40mg rather than 80mg due to renal status). Continue permissive hypertension through tomorrow at which time her blood pressure medications could be slowly reintroduced. She should also be on fall precautions and will need to physical therapy and Occupational Therapy consultations. Finally, we discussed that she should not drive due to her left homonymous hemianopsia. I will continue to follow along. DISCLAIMER: This note was created using [employer] voice recognition software. History of Present Illness Chief Complaint: stroke Narrative: Handedness: right. HPI: Ms. Esparza is a 63-year-old woman with a past medical history of hypertension and poorly controlled type 2 diabetes. Approximately 2 to 3 weeks ago, she tripped on a water balloon at the top of the stairs. She fell down the stairs and has had increased left hip and low back pain ever since. On the evening of 11/28/2018, her daughter came over to eat dinner with her. She noted significant confusion. She seemed out of it but also when they were navigating the house, the daughter noted that she was not seeing things to the left, particularly the stairs which were on her left. Her daughter brought her to the [facility] emergency room yesterday evening. Her blood pressure was 156/94 and her glucose was greater than 300. She had a white blood cell count of 11.65 and a sodium of 131. Her creatinine was 2.47 compared to a baseline of 1.18 in February 2018. She underwent a CT head which I was able to review and shows an old left cerebellar infarct as well as an evolving infarct in the right occipital lobe and thalamus. She was admitted for further work-up for confusion and acute renal insufficiency. She is on an 81 mg aspirin daily at home. Per daughter, there has been no improvement in her confusion today. Daughter has noted what she calls normal age-related memory problems over the last several months and finds that her mom often asks the same questions repeatedly. This has been worse in the last 24 hours. She underwent a brain MRI earlier this afternoon. I was able to review the images personally. She has a subacute infarct in the right occipital lobe and thalamus with an area of punctate ischemia in the midbrain; all in the right [place] artery distribution. She has an old left cerebellar infarct and fairly extensive white matter disease changes. Further laboratory work-up includes a hemoglobin A1c of 12.7 and a normal B12 and TSH. Consults Requesting physician: Kushal Schmidt Review of Systems Review of Systems All systems reviewed & are unremarkable except as noted in HPI and below PFSH Medical History ADD (attention deficit disorder) (Acute) Asthma (Chronic) Chronic kidney disease (CKD) stage G3a/A1, moderately decreased glomerular filtration rate (GFR) between 45-59 mL/min/1.73 square meter and albuminuria creatinine ratio less than 30 mg/g (Acute) Diabetes (Chronic) HTN (hypertension) (Chronic) Surgical History No significant past surgical history (Acute) Social History (Updated 11/29/18 @ 16:31 by Peg Grewal MD) Smoking/Tobacco Use Status: Former Tobacco Use Alcohol Intake: never Drug use: Never 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 Visit Medication and Allergies Active Medications Generic Name Dose Route Start Last Admin Trade Name Freq PRN Reason Stop Dose Admin Acetaminophen 650 mg 11/28/18 16:32 11/29/18 14:09 Tylenol PO 650 mg Q4H PRN PRN Administration Aspirin 81 mg 11/29/18 08:30 11/29/18 07:49 Ecotrin PO 81 mg DAILY CHANELLE Administration Dextrose 0 gm 11/28/18 16:46 Insta-Glucose PO DIRECTED PRN Dextrose/Water 0 gm 11/28/18 16:46 IVP DIRECTED PRN Diltiazem HCl 180 mg 11/29/18 08:30 11/29/18 07:49 Cardizem Cd PO 180 mg DAILY CHANELLE Administration Dimethicone/Zinc Oxide 0 gm 11/28/18 16:32 Christophe Protect Cream TP PRN PRN Docusate Sodium 100 mg 11/28/18 16:32 Colace PO TID PRN PRN Ringer's Solution 1,000 mls @ 150 mls/hr 11/28/18 16:45 11/29/18 07:51 IV 150 mls/hr INFUSION CHANELLE Administration IV Miscellaneous Supplies 1 each 11/28/18 16:45 IV DIRECTED [facility] Insulin Aspart 0 units 11/28/18 17:00 11/29/18 12:06 Novolog Flexpen SC 6 units 0800,1200,1700 [facility] Administration Protocol Insulin Detemir 10 units 11/28/18 22:00 11/28/18 21:07 Levemir Flextouch Pen SC 10 unit HS CHANELLE Administration Ondansetron HCl 4 mg 11/28/18 16:39 Zofran PO QID PRN PRN nausea and vomiting Polyethylene Glycol 17 gm 11/28/18 16:32 Miralax PO DAILY PRN PRN Constipation Sodium Chloride 0 ml 11/28/18 16:32 11/29/18 07:50 Saline Flush 10 Ml Syringe IVP 10 ml PRN PRN Administration Allergies lisinopril Allergy (Unverified 05/21/15 11:09) Exam Narrative Exam Narrative: Physical Exam: Gen: Patient of apparent stated age, NAD; pressured speech, somewhat tangential Head and face: no facial or cranial abnormalities Neck: Supple, no meningismus, no occipital tenderness CV: + S1, S2, RRR, no murmur Resp: CTA B/L Abd: soft, nontender, nondistended Ext: No edema. No clubbing or cyanosis. No bony deformity. Neuro Exam: Language: fluency, naming, repetition, and comprehension intact; Mental Status: AAOx3, some confusion on current events; initially told me she had been in the hospital multiple nights; Speech: no dysarthria Cranial nerves: Funduscopy: not performed CN II: left homonymous hemianopsia CN III, IV, : extraocular movements intact, no nystagmus, pupils symmetric and reactive to light CN V: face sensation intact to LT and PP CN VII: no facial asymmetry noted CN VIII: hearing intact bilaterally CN IX, X: palate rises symmetrically CN XI: trapezius/SCM 5/5 bilaterally CN XII: protrudes tongue symmetrically Sensory: intact to LT, PP, and joint position in all extremities; absent vibration in the toes bilaterally; mild left hemineglect noted with double simultaneous stimulation; Motor: bulk and tone intact. Fine motor movements reduced on the left. L pronator drift. Strength 5/5 throughout with subtle left proximal hemiparesis 4++/5 which may be part of the hemineglect. Reflexes: 2+ at the biceps, triceps, brachioradialis, and patella; reduced at the achilles tendons bilaterally; Left toe equivocal; toe down going on the right; Coordination: FTN and HTS intact bilaterally Gait: briefly saw out of bed tangled in IV using walker; MMSE 1.Orientation a.Place (Country, State, City, Building, Floor) 07/24 b.Time (Year, Season, Month, Date, day of the week) 07/24 2.Immediate Recall (3 objects) 05/22 3.Attention (Serial 7s or spell world backwards) 07/24 4.Delayed Recall (3 objects) 05/22 5.Language a.Naming (watch and pencil) 2/2 b.Repetition 03/22 c.Comprehension (3-step command) 3/3 d.Reading (Close your eyes) 03/22 e.Writing (sentence) 0/0 6.Visuospatial/Executive (copy drawing) 0/0 TOTAL: Results Last Vital Signs Temp 36.7 C 11/29/18 09:16 Pulse 91 H 11/29/18 09:16 Resp 18 11/29/18 09:16 BP 177/100 H 11/29/18 09:16 Pulse Ox 98 11/29/18 09:16 Labs : 11/28/18 10:25 11/29/18 06:55 Laboratory Results - last 24 hr 11/28/18 11/29/18 11/29/18 15:25 05:35 06:55 Sodium 131 L Cancelled Potassium 4.6 D Cancelled Chloride 98 Cancelled Carbon Dioxide 21.8 Cancelled Anion Gap 11.2 H Cancelled BUN 41 H Cancelled Creatinine 2.85 H Cancelled Estimated GFR/1.73 m2 16.78 Cancelled Glucose 410 H D Cancelled Hemoglobin A1c 12.7 H Calcium 7.9 L Cancelled Vitamin B12 TSH 11/29/18 06:55 Sodium 139 Potassium 3.2 L D Chloride 105 Carbon Dioxide 21.7 Anion Gap 12.3 H BUN 50 H D Creatinine 2.14 H D Estimated GFR/1.73 m2 23.35 Glucose 258 H D Hemoglobin A1c Calcium 7.8 L Vitamin B12 613 TSH 0.79
[2018-11-29 15:58] LABS: Bilirubin Negative (Negative); Blood Negative (Negative); Clarity Clear (Clear); Glucose Negative (Negative); Ketones Negative (Negative); Leukocyte Esterase Negative (Negative); Nitrite Negative (Negative); Urobilinogen 0.2 EU/dL (Up TO 0.2)
[2018-11-29] MEDS: Clopidogrel 300 MG TAB PO (16:22)
--- NOTE | 2018-11-29 16:40 | DI.MRI_ITS ---
SYMPTOM/DIAGNOSIS: NEW CVA MRA NECK: A 2D time of flight study was performed. The exam is quite limited by patient motion. The common, internal and external carotid arteries as well as vertebral arteries are normal in diameter throughout. There is no evidence of dissection, significant stenosis or occlusion. IMPRESSION: Negative MRA of the neck. MRA [place]: A 3D time of flight study was performed. The distal carotid arteries as well as basilar artery show normal diameter. The exam is mildly limited by motion at the level of the [place]. The anterior and middle cerebral arteries are normal in diameter. The posterior cerebral arteries are difficult to evaluate due to transverse orientation and small vessel diameter. There appears to be asymmetry of the posterior cerebral arteries, with the right showing reduced diameter and a question of an area of stenosis within the proximal portion versus artifact. IMPRESSION: Question of severe stenosis versus artifact of the right posterior cerebral artery.
--- NOTE | 2018-11-29 17:17 | DI.VRAD_ITS ---
EXAM: MR Angiography Neck Without Contrast EXAM DATE/TIME: 11/29/2018 4:42 PM CLINICAL HISTORY: 63 years old, female; Dizziness and giddiness; Patient HX: New CVA right post circ distr. TECHNIQUE: Imaging protocol: Magnetic resonance angiography of the neck without contrast. 3D rendering: MIP reconstructed images were created and reviewed. COMPARISON: CT Private^HEAD FACE CSPINE (Adult) 11/28/2018 5:46 PM FINDINGS: Right common carotid artery: Unremarkable. No stenosis. No dissection or occlusion. Right internal carotid artery: Unremarkable extracranial segment. No stenosis. No dissection or occlusion. Right external carotid artery: Unremarkable. No stenosis. No dissection or occlusion of the origin. Right vertebral artery: Unremarkable. No stenosis. No dissection or occlusion. Flow in the right superior cerebellar artery is noted but not the left Left common carotid artery: Unremarkable. No stenosis. No dissection or occlusion. Left internal carotid artery: Unremarkable extracranial segment. No stenosis. No dissection or occlusion. Left external carotid artery: Unremarkable. No stenosis. No dissection or occlusion of the origin. Left vertebral artery: Unremarkable. No stenosis. No dissection or occlusion. IMPRESSION: No hemodynamically significant stenosis. COMMENT: Reference per NASCET criteria for degree of stenosis: Mild: less than 50% stenosis. Moderate: 50-69% stenosis. Severe: 70-94% stenosis. Near occlusion: 95-99% stenosis. Dictated and Authenticated by: Kushal Walker MD. Ordering:DEVORAH Fatima MD
--- NOTE | 2018-11-29 17:23 | DI.VRAD_ITS ---
EXAM: MR Angiogram Head Without Contrast, Arteries EXAM DATE/TIME: 11/29/2018 4:51 PM CLINICAL HISTORY: 63 years old, female; Cognitive deficit; Type not specified; Patient HX: New CVA right post. Circ dist. TECHNIQUE: Imaging protocol: MR angiogram head without contrast. Exam focused on the arteries. 3D rendering: MIP reconstructed images were created and reviewed. COMPARISON: MR HEAD^ROUTINE WO 11/29/2018 1:30 PM FINDINGS: Right internal carotid artery: Unremarkable. Intracranial segment is patent with no significant stenosis. No aneurysm. Right anterior cerebral artery: Unremarkable. No occlusion or significant stenosis. No aneurysm. Right middle cerebral artery: Unremarkable. No occlusion or significant stenosis. No aneurysm. There may be a very tiny right posterior communicating artery. Right posterior cerebral artery: The initial 8 mm of the right posterior cerebral artery is patent but then it appears to become occluded for approximately 4 mm and then reconstituted by collaterals. The peripheral flow is markedly decreased compared to the contralateral side. Right vertebral artery: Unremarkable. No occlusion or significant stenosis. No aneurysm. Left internal carotid artery: Unremarkable. Intracranial segment is patent with no significant stenosis. No aneurysm. Left anterior cerebral artery: Unremarkable. No occlusion or significant stenosis. No aneurysm. Left middle cerebral artery: Unremarkable. No occlusion or significant stenosis. No aneurysm. Left posterior cerebral artery: Unremarkable. No occlusion or significant stenosis. No aneurysm. There is a tiny left posterior taking artery. Left vertebral artery: Unremarkable. No occlusion or significant stenosis. No aneurysm. Basilar artery: Unremarkable. No occlusion or significant stenosis. No aneurysm. IMPRESSION: Occlusion of the proximal right posterior cerebral artery with reconstitution distally. SIGNIFICANT FINDING REPORT Dictated and Authenticated by: Kushal Walker MD. Ordering:DEVORAH Fatima MD
--- NOTE | 2018-11-29 17:24 | PT.INNT ---
Date of service: 11/29/18 Time of Service: 01:25 PT Notes Patient not available upon PT arrival to designated room. Nurse stated that patient was sent down for testing for Brain MRI. Patient will be seen tomorrow morning for physical therapy evaluation and treatment as ordered. Thank you very much for this referral. Kaylee Marie PT, DPT, CLT [facility]
[2018-11-29] MEDS: Lidocaine 5% Patch 1 PATCH TP (17:53)
--- NOTE | 2018-11-29 18:17 | PGE_ITS ---
Date of Service Date of service: 11/29/18 Time of Service: 18:17 Assessment and Plan (1) Left hemiparesis: Current visit: Yes Status: Acute New infarct found on MRI consistent with her left hemiparesis. Plan is for telemetry monitoring, echocardiogram, MRA of the neck, MRA of the brain, Plavix load, continue aspirin therapy (dual antiplatelet x30 days), PT, OT. We will switch her to a regular admit as she will be here a few more days getting rehab. (2) Jhonny-neglect of left side: Current visit: Yes Status: Acute New right sided posterior circulation infarcts as described on the MRI. (3) Left homonymous hemianopsia: Current visit: Yes Status: Acute She has a left-sided neglect. Will work with PT and OT to help her comp ensate. She is at an increased risk for falls. 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 Looking for paroxysmal atrial fibrillation. (5) Memory deficit: Current visit: Yes Status: Acute Patient had normal cognitive testing. (6) Left hip pain: Current visit: Yes Status: Acute Left hip and coccyx pain from the fall over a week ago. There is no evidence of a fracture. Will start on a Lidoderm patch. (7) Diabetes: Current visit: No Status: Chronic Very poor glycemic control. Her blood sugars have come down nicely here on a diabetic diet and current insulin regimen we will continue to monitor her blood sugars. (8) Discharge planning issues: Current visit: Yes Status: Acute Switch to a regular inpatient admission. She will need ongoing PT and OT. She may require a rehab at a rehabilitation center. Subjective Patient reports: feels better and tolerating a regular diet Interval history since last seen: Patient is quite extremely verbose. She is adamant that she follows a diabetic diet and cannot understand why her blood sugars and hemoglobin A1c are running so high. She does not give any history of a left-sided neglect, problem with recurrent falls, any evidence of weakness. She states the fall she had a week ago was because she slipped on a water balloon. She fell down a flight of stairs and was having a significant amount of pain and it was only at her daughter's urging that she presented to the emergency room a week later. Today she had an MRI of the head and follow-up of an abnormal head CT. This led to a neurology consult. He also had a renal ultrasound that demonstrated significant urinary retention. Exam Narrative Exam Narrative: On exam she has somewhat pressured speech. She requires interruption in order to get any communication between us. Her overall lung exam is grossly normal she has still some pain in the left upper chest region but there is no outward sign of bruising or deformity. Her left leg and coccyx region are still somewhat tender but there is no obvious bruising or deformity she demonstrates the ability to flex at the left hip by holding her foot and pulling it in an upright position in front of her without apparent pain. Neurologic testing by Dr. Grewal shows that she has a left homonymous hemianopsia and a left-sided neglect. She has a mild left hemiparesis. Objective Objective Clinical Data: Abnormal lab results 11/29/18 11/29/18 Range/Units 06:55 06:55 Potassium 3.2 L D (3.5-5.1) mmol/L Anion Gap 12.3 H (3-11) mmol/L BUN 50 H D (7-18) mg/dL Creatinine 2.14 H D (0.55-1.02) mg/dL Glucose 258 H D (70-100) mg/dL Hemoglobin A1c 12.7 H (4.5-6.2) % Calcium 7.8 L (8.5-10.1) mg/dL Vital Signs Temperature 36.8 C 11/29/18 15:39 Temperature Source Tympanic 11/29/18 15:39 Pulse 72 11/29/18 15:39 Pulse Rhythm Regular 11/29/18 15:33 Pulse 106 H 11/28/18 17:10 Respiratory Rate 19 11/29/18 15:39 Respiratory Effort 11/29/18 15:33 Respiratory Depth Normal 11/29/18 15:33 Respiratory Pattern Normal 11/29/18 15:33 Blood Pressure 158/91 H 11/29/18 15:39 Blood Pressure Mean 108 11/28/18 17:01 Blood Pressure Position Supine 11/28/18 10:18 Pulse Oximetry 97 11/29/18 15:39 Oxygen Delivery Method Room Air 11/29/18 15:39 Oxygen Flow Rate 0 11/29/18 15:39 Pain Level 0 11/29/18 15:39 Comment 11/28/18 10:18 Intake & Output 11/28/18 11/29/18 11/29/18 23:59 11:59 23:59 Intake Total 1999 1957.5 / 3437.5 1480 / 3437.5 Output Total 300 / 300 Balance 19997.5 / 3137.5 1180 / 3137.5 Weight 77.3 kg Intake: IV 1999 1957.5 / 2957.5 1000 / 2957.5 Oral 480 / 480 Output: Urine 300 / 300 Other: Urine Color Yellow Yellow Yellow Urine Appearance Clear Clear Clear Urine Odor Strong Comment Patient missed hat Voiding Methods Toilet Toilet Toilet Laboratory Results WBC 11.65 k/cumm (4.4-10.8) H 11/28/18 10:25 RBC 5.54 m/cumm (4.00-5.20) H 11/28/18 10:25 Hgb 15.7 g/dL (12.0-15.5) H 11/28/18 10:25 Hct 45.5 % (36.0-46.0) 11/28/18 10:25 MCV 82.1 fL (80-95) 11/28/18 10:25 MCH 28.3 pg (27.0-33.0) 11/28/18 10:25 MCHC 34.5 g/dL (32.0-36.0) 11/28/18 10:25 RDW 13.3 % (11.7-14.6) 11/28/18 10:25 Plt Count 367 x1000/uL (130-400) 11/28/18 10:25 MPV 9.8 fL (8.0-11.0) 11/28/18 10:25 Immature Gran % 0.3 11/28/18 10:25 68.2 11/28/18 10:25 23.0 11/28/18 10:25 6.8 11/28/18 10:25 1.4 11/28/18 10:25 0.3 11/28/18 10:25 Absolute Neutrophils 7.95 k/cumm (1.2-6.7) H 11/28/18 10:25 Absolute Lymphocytes 2.68 k/cumm (1.2-3.4) 11/28/18 10:25 Absolute Monocytes 0.79 k/cumm (0.11-0.7) H 11/28/18 10:25 Absolute Eosinophils 0.16 k/cumm (0.0-0.7) 11/28/18 10:25 Absolute Basophils 0.03 k/cumm (0.0-0.2) 11/28/18 10:25 PT 9.9 sec (9.3-11.0) 11/28/18 10:25 INR 1.0 (0.9-1.1) 11/28/18 10:25 APTT 22.5 sec (21.0-31.4) 11/28/18 10:25 306 ng/mlFEU (<500) 11/28/18 11:14 VBG pH 7.39 (7.32-7.43) 11/28/18 13:22 VBG pCO2 38 mm/Hg (34-47) 11/28/18 13:22 VBG pO2 48 mm/Hg (28-44) H 11/28/18 13:22 VBG HCO3 23 mmol/L (22-28) 11/28/18 13:22 VBG Total CO2 20 mmol/L (22-29) L 11/28/18 13:22 VBG O2 Saturation 84 % (70-80) H 11/28/18 13:22 VBG Base Excess -2.1 mmol/L (-3-3) 11/28/18 13:22 Sodium 139 mmol/L (136-145) 11/29/18 06:55 Potassium 3.2 mmol/L (3.5-5.1) L D 11/29/18 06:55 Chloride 105 mmol/L (98-107) 11/29/18 06:55 Carbon Dioxide 21.7 mmol/L (21.0-32.0) 11/29/18 06:55 12.3 mmol/L (3-11) H 11/29/18 06:55 BUN 50 mg/dL (7-18) H D 11/29/18 06:55 2.14 mg/dL (0.55-1.02) H D 11/29/18 06:55 23.35 (mL/min/1.73m2) 11/29/18 06:55 Glucose 258 mg/dL (70-100) H D 11/29/18 06:55 12.7 % (4.5-6.2) H 11/29/18 06:55 Calcium 7.8 mg/dL (8.5-10.1) L 11/29/18 06:55 Magnesium 1.9 mg/dL (1.8-2.4) 11/28/18 10:25 0.7 mg/dL (0.2-1.0) 11/28/18 10:25 AST 12 U/L (15-37) L 11/28/18 10:25 ALT 26 U/L (14-59) 11/28/18 10:25 84 U/L (46-116) 11/28/18 10:25 < 0.05 ng/mL (0.00-0.06) 11/28/18 10:25 7.8 g/dL (6.4-8.2) 11/28/18 10:25 3.7 g/dL (3.4-5.0) 11/28/18 10:25 Vitamin B12 613 pg/mL (193-986) 11/29/18 06:55 TSH 0.79 uIU/mL (0.36-3.74) 11/29/18 06:55 Yellow (Yellow) 11/29/18 15:46 Clear (Clear) 11/29/18 15:46 5.0 (5-8) 11/29/18 15:46 Ur Specific [place] 1.010 (1.005-1.025) 11/29/18 15:46 Negative mg/dL (Negative) 11/29/18 15:46 Negative mg/dL (Negative) 11/29/18 15:46 Negative (Negative) 11/29/18 15:46 Negative (Negative) 11/29/18 15:46 Negative (Negative) 11/29/18 15:46 0.2 EU/dL (Up TO 0.2) 11/29/18 15:46 Ur Leukocyte Esterase Negative (Negative) 11/29/18 15:46 Negative mg/dL (Negative) 11/29/18 15:46 Objective Narrative Objective Narrative: The MRI of the head today showed right-sided posterior circulation infarcts as well as an old left cerebellar infarct.
[2018-11-29] MEDS: Atorvastatin 40 MG TAB PO (21:07)
[2018-11-30] VITALS (11 sets, daily range): BP systolic 160–216; BP diastolic 75–110; PULSE 60–89; RESP 16–18; TEMP 36–36.7; O2SAT 96–99
[2018-11-30] MEDS: Lactated Ringers 1,000 ML 150 ML IV ×2 (00:30→06:48)
[2018-11-30] MEDS: Acetaminophen 325 MG TAB 650 MG PO ×4 (03:22→21:45)
[2018-11-30] MEDS: dilTIAZem CD 180 MG CAPCR PO (05:53)
[2018-11-30 07:24] LABS: Abs Immature Grans 0.02 k/cumm (0.0-0.09); Absolute Basophil Count 0.04 k/cumm (0.0-0.2); Absolute Eosinophil Count 0.25 k/cumm (0.0-0.7); Absolute Lymphocyte Count 3.06 k/cumm (1.2-3.4); Absolute Monocyte Count 0.45 k/cumm (0.11-0.7); Absolute Neutrophil Count 5.53 k/cumm (1.2-6.7); Basophils % 0.4; Eosinophils % 2.7; HGB 12.8 g/dL (12.0-15.5); Immature Grans % 0.2; Lymphocytes % 32.7; Mean Corp. HGB Concentration 33.7 g/dL (32.0-36.0); Mean Corpuscular Hemoglobin 28.3 pg (27.0-33.0); Mean Corpuscular Volume 83.9 fL (80-95); Mean Platelet Volume 9.8 fL (8.0-11.0); Monocytes % 4.8; Neutrophils % 59.2; Platelet Count 316 x1000/uL (130-400); RBC 4.53 m/cumm (4.00-5.20); RBC Distribution Width 13.2 % (11.7-14.6); White Blood Cell Count 9.35 k/cumm (4.4-10.8)
[2018-11-30 07:33] LABS: Calculated LDL 140 mg/dL; Cholesterol 216 mg/dL (50-200); HDL Cholesterol 26 mg/dL (40-60); Triglyceride 254 mg/dL (30-150)
[2018-11-30 07:43] LABS: Anion Gap 9.5 mmol/L (3-11); BUN 31 mg/dL (7-18); CO2 26.5 mmol/L (21.0-32.0); CREATININE 1.23 mg/dL (0.55-1.02); Calcium 8.4 mg/dL (8.5-10.1); Chloride 107 mmol/L (98-107); Estimated GFR 44.24 (mL/min/1.73m2); Glucose 181 mg/dL (70-100); Potassium 3.4 mmol/L (3.5-5.1); Sodium 143 mmol/L (136-145)
[2018-11-30] MEDS: Aspirin E.C. 81 MG TABEC PO (07:54)
[2018-11-30] MEDS: Insulin Aspart 300 UNITS/3 ML PEN SC ×3 (07:54→17:08)
[2018-11-30] MEDS: Clopidogrel 75 MG TAB PO (07:54)
--- NOTE | 2018-11-30 09:28 | CMPROGNOTE_ITS ---
- If Service Date Differs Date of service: 11/30/18 Time of Service: 09:28 Care Management Progress Note S/O:Debi was sitting up in a recliner during CM visit. She was pleasant and friendly and readily engaged in conversation. She stated that she thinks that she had a mild stroke last Wednesday night. She described sitting up in the chair and feeling a sharp pain in her leg, followed by difficulty breathing and facial numbness. She states she took 3 aspirins and waited until her breathing got easier before she got up. When asked, she stated that Dr. Schmidt has not shared her test results with her yet, so no further discussion on the subject ensued. Debi did bring up the subject of her diabetes. She acknowledged that she does not know much about it and would like more education. A request for a consult with the extension educator was requested by CM. A: Debi is a pleasant 63 year old woman admitted to [facility] on 11/29/18 with LIZETH and memory impairment. P: Debi is undergoing testing to identify the cause of her memory and renal issues. She may need STR upon discharge to regain balance and strength. A consult with the certified lactation educator has been requested by CM. CM will continue to support patient, family and discharge planning needs.
--- NOTE | 2018-11-30 12:25 | MERGE_ITS ---
*[facility]* *[facility]* [address] [place] [address] Date of study: 11/30/2018 Transthoracic Echocardiography M-mode, complete 2D, complete spectral Doppler, and color Doppler *STUDY CONCLUSIONS* Summary: 1. Left ventricle: The cavity size was normal. Wall thickness was increased in a pattern of moderate LVH. Systolic function was normal. The estimated ejection fraction was 60-65%. There was no dynamic obstruction. Wall motion was normal; there were no regional wall motion abnormalities. 2. Mitral valve: Mildly calcified annulus. Mildly thickened leaflets. 3. Left atrium: The atrium was mildly dilated. 4. Right ventricle: The cavity size was normal. Wall thickness was normal. Systolic function was normal. 5. Atrial septum: A patent foramen ovale cannot be excluded. *PATIENT PRESENTATION* Height: 165.1cm (65in ) S/D Pressure: 160 / 79 Weight: 77.1kg (169.6lb ) BSA: 1.9m^2 Test start time: 12:30 PM. Test stop time: 01:30 PM. PERFORMING Unknown PERFORMING [facility] CONSULTING Peg Grewal ORDERING Peg Grewal REFERRING Peg Grewal NEUROLOGY EPILEPSY PHYSICIAN RT Marcos (R)(IVAN), [place] *PROCEDURE DATA* Procedure information: The patient was identified by two identifiers. This study was interpreted by [facility]. Pertinent images and digital data are archived for permanent storage and are available for subsequent review. No prior study was available for comparison. Study status: Routine. Transthoracic echocardiography. M-mode, complete 2D, complete spectral Doppler, and color Doppler. A Transthoracic Echocardiogram was performed. Scanning was performed from the parasternal, apical, subcostal, and suprasternal notch acoustic windows. Images were obtained using an [id number] cardiac ultrasound machine. Image quality was adequate. Study completion: The patient tolerated the procedure well. There were no complications. History: PMH: Stroke *CARDIAC ANATOMY* Left ventricle: The cavity size was normal. Wall thickness was increased in a pattern of moderate LVH. Systolic function was normal. The estimated ejection fraction was 60-65%. There was no dynamic obstruction. Wall motion was normal; there were no regional wall motion abnormalities. Findings consistent with diastolic dysfunction. Aortic valve: Trileaflet; normal thickness leaflets. Mobility was not restricted. Doppler: Transvalvular velocity was within the normal range. There was no stenosis. There was trivial regurgitation. VTI ratio of LVOT to aortic valve: 0.52. Valve area (VTI): 1.7cm^2. Indexed valve area (VTI): 0.9cm^2/m^2. Peak velocity ratio of LVOT to aortic valve: 0.57. Valve area (Vmax): 1.8cm^2. Indexed valve area (Vmax): 1cm^2/m^2. Mean velocity ratio of LVOT to aortic valve: 0.6. Valve area (Vmean): 1.9cm^2. Indexed valve area (Vmean): 1cm^2/m^2. Mean gradient (S): 8.9mm Hg. Peak gradient (S): 16.5mm Hg. Aorta: Aortic root: The aortic root was normal in size. Ascending aorta: The ascending aorta was normal in size. Mitral valve: Mildly calcified annulus. Mildly thickened leaflets. Mobility was not restricted. Doppler: Transvalvular velocity was within the normal range. There was no evidence for stenosis. There was trivial regurgitation. Valve area by pressure half-time: 3.2cm^2. Indexed valve area by pressure half-time: 1.7cm^2/m^2. Peak gradient (D): 2.4mm Hg. Left atrium: The atrium was mildly dilated. Atrial septum: A patent foramen ovale cannot be excluded. Right ventricle: The cavity size was normal. Wall thickness was normal. Systolic function was normal. Pulmonic valve: Doppler: Transvalvular velocity was within the normal range. There was no evidence for stenosis. There was no significant regurgitation. Tricuspid valve: Structurally normal valve. Doppler: Transvalvular velocity was within the normal range. There was no evidence for stenosis. There was trivial regurgitation. Pulmonary artery: Pulmonary systolic pressure was within the normal range, in the range of 25mm Hg to 30mm Hg. Right atrium: The atrium was normal in size. Pericardium: There was no pericardial effusion. Systemic veins: Inferior vena cava: Well visualized. The vessel was patent and normal in size. The respirophasic diameter changes were in the normal range (greater than or equal to 50%). Baseline ECG: Normal sinus rhythm. Measurements Left ventricle Value Reference LV ID, ED, PLAX 3.9 cm 3.5 - 6.0 LV ID, ES, PLAX 2.5 cm 2.1 - 4.0 LV PW thickness, ED, PLAX 1.5 cm LV end-diastolic volume, 1-p A2C 54 ml LV ejection fraction, 1-p A2C 61 % LV end-diastolic volume, 1-p A4C 49 ml LV ejection fraction, 1-p A4C 60 % LV e', lateral 0.059 m/sec LV E/e', lateral 13 LV e', medial 0.043 m/sec LV E/e', medial 18 LV e', average 0.051 m/sec LV E/e', average 15 Ventricular septum Value Reference IVS thickness, ED, PLAX 1.5 cm LVOT Value Reference LVOT ID, A-P 2.0 cm LVOT area 3.2 cm^2 LVOT peak velocity, S 1.16 m/sec LVOT mean velocity, S 0.85 m/sec LVOT VTI, S 23.1 cm LVOT peak gradient, S 5.3 mm Hg LVOT mean gradient, S 3.2 mm Hg Stroke volume (SV), LVOT DP 74 ml Stroke index (SV/bsa), LVOT DP 39 ml/m^2 Aortic valve Value Reference Aortic valve peak velocity, S 2 m/sec Aortic valve mean velocity, S 1.4 m/sec Aortic valve VTI, S 44.0 cm Aortic mean gradient, S 8.9 mm Hg Aortic peak gradient, S 16.5 mm Hg VTI ratio, LVOT/AV 0.52 Aortic valve area, VTI 1.7 cm^2 Velocity ratio, peak, LVOT/AV 0.57 Aortic valve area, peak velocity 1.8 cm^2 Velocity ratio, mean, LVOT/AV 0.6 Aortic valve area, mean velocity 1.9 cm^2 Aortic valve area/bsa, mean velocity 1 cm^2/m^2 Aorta Value Reference Aortic root ID, ED 3.1 cm Ascending aorta ID, A-P, S 3.4 cm Left atrium Value Reference LA ID, A-P, ES 2.8 cm LA ID/bsa, A-P 1.5 cm/m^2 <=2.2 LA volume/bsa, ES, 1-p A4C 22 ml/m^2 LA volume, ES, 2-p 33 ml LA volume/bsa, ES, 2-p 18 ml/m^2 LA/aortic root ratio 0.93 Mitral valve Value Reference Mitral E-wave peak velocity 0.77 m/sec Mitral A-wave peak velocity 1.05 m/sec Mitral deceleration time (H) 237 ms 150 - 230 Mitral pressure half-time 69 ms Mitral peak gradient, D 2.4 mm Hg Mitral E/A ratio, peak 0.74 Mitral valve area, PHT, DP 3.2 cm^2 Pulmonary veins Value Reference Pulmonary vein peak velocity, S 0.59 m/sec Pulmonary vein peak velocity, D 0.32 m/sec Pulmonary vein velocity ratio, peak, 1.85 S/D Tricuspid valve Value Reference Tricuspid regurg peak velocity 2.4 m/sec Tricuspid peak RV-RA gradient 22.7 mm Hg Right atrium Value Reference RA area, ES, A4C 10.3 cm^2 8.3 - 19.5 Legend: (L) and (H) em values outside specified reference range. I have personally reviewed the images and have reviewed and edited the reported findings. Electronically signed by Hal Anthony 11/30/2018 14:44
[2018-11-30] MEDS: Lidocaine 5% Patch 1 PATCH TP (16:03)
--- NOTE | 2018-11-30 16:09 | W.PM.PROGNOT ---
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 Esparza is a 63-year-old, right-handed woman admitted for confusion found to have acute on chronic renal insufficiency as well as a subacute ischemic infarct in the right posterior cerebral artery territory including the right occipital lobe and right thalamus manifested by a left homonymous hemianopsia, mild left hemineglect, and mild left hemiparesis. She has also had a previous left cerebellar stroke of which she was unaware. The etiology of her stroke remains unknown but most likely due to large vessel thrombosis from poorly controlled hypertension and diabetes. An embolic phenomenon cannot be ruled out and is particularly concerning given mildly dilated LA seen on TTE. I recommend a DAGO and 30 day cardiac monitoring as further work-up. Continue aspirin 81mg plus Plavix 75mg daily x 30 days at which point she should stop aspirin and continue Plavix alone. Continue atorvastatin with a long-term LDL goal of <70. Her goal A1c is less than 7. Ok to re-start anti-hypertensives with goal of slowly reducing BP over time to 120-140/80-90. Continue PT/OT. We discussed potential inpatient rehabilitation. She was somewhat reluctant. Again discussed no driving. She should follow-up in the neurology clinic in 4-6 weeks. Please call with any further questions or concerns. DISCLAIMER: This note was created using [email or web address] voice recognition software. Subjective Interval history since last seen: No events overnight. No real clinical improvement. BPs have been running high. Peaked at 210s systolic early this am. Telemetry has been unremarkable. She underwent an MRA head and neck which I was able to review. 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 She underwent a TTE which showed LVH, EF 60-65%, no wall motion abnormalities, and a mildly dilated LA. LDL was 140. Tolerating Plavix and atorvastatin. I was able to watch her walk with PT. She is having significant problems navigating. Exam Narrative Exam Narrative: Physical Exam: Constitutional: Patient of apparent stated age, well nourished, well developed, no acute distress Neuro: MS/Language/Speech: Alert, oriented, clear language (fluency and comprehension), no dysarthria CN: EOMI, left homonymous hemianopsia, trigeminal sensation intact, no facial asymmetry, hearing intact Motor: Normal bulk and tone. FMM slightly reduced on the left with a subtle left pronator drift. 5/5 strength in right hemibody and in LUE. Still proximal RLE 4+/5 weakness - complicated by neglect. Sensation: extinction to DSS on the left Coordination: Finger to nose performed without dysmetria Gait: narrow base; rolling walker; difficulty navigating running into things left and right; Objective Objective Clinical Data: Abnormal lab results 11/30/18 11/30/18 Range/Units 06:30 06:30 Potassium 3.4 L (3.5-5.1) mmol/L BUN 31 H D (7-18) mg/dL Creatinine 1.23 H D (0.55-1.02) mg/dL Glucose 181 H D (70-100) mg/dL Calcium 8.4 L (8.5-10.1) mg/dL Triglycerides 254 H (30-150) mg/dL Total Cholesterol 216 H (50-200) mg/dL HDL Cholesterol 26 L (40-60) mg/dL Vital Signs Temperature 36.5 C 11/30/18 07:10 Temperature Source Tympanic 11/30/18 07:10 Pulse 80 11/30/18 16:01 Pulse Rhythm Regular 11/30/18 09:58 Pulse 106 H 11/28/18 17:10 Respiratory Rate 17 11/30/18 07:10 Respiratory Effort Non-Labored 11/30/18 09:58 Respiratory Depth Normal 11/30/18 09:58 Respiratory Pattern Normal 11/30/18 09:58 Blood Pressure 160/79 H 11/30/18 07:10 Blood Pressure Mean 108 11/28/18 17:01 Blood Pressure Position Supine 11/28/18 10:18 Pulse Oximetry 97 11/30/18 07:10 Oxygen Delivery Method Room Air 11/30/18 07:10 Oxygen Flow Rate 0 11/30/18 07:10 Pain Level 6 11/30/18 16:03 Comment 11/30/18 05:36 Intake & Output 09/01/0711/30/18 11/30/18 23:59 11:59 23:59 Intake Total 2230 / 4187.5 3235 / 4715 1480 / 4715 Output Total 550 / 550 2075 / 2775 700 / 2775 Balance 1680 / 3637.5 1160 / 1940 780 / 1940 Intake: IV 1000 / 2957.5 1905 / 2905 1000 / 2905 Oral 1230 / 1230 1330 / 1810 480 / 1810 Output: Urine 300 / 300 1550 / 2250 700 / 2250 Post Void Residual 250 / 250 525 / 525 Other: Urine Color Yellow Yellow Yellow Urine Appearance Clear Clear Clear Urine Odor Normal Normal Normal Comment Patient voided large amount in toilet Pt voided immediately following straight cath of 150ml. 100 ml void in toilet. Voiding Methods Toilet Toilet Toilet Laboratory Results WBC 9.35 k/cumm (4.4-10.8) 11/30/18 06:30 RBC 4.53 m/cumm (4.00-5.20) 11/30/18 06:30 Hgb 12.8 g/dL (12.0-15.5) D 11/30/18 06:30 Hct 38.0 % (36.0-46.0) 11/30/18 06:30 MCV 83.9 fL (80-95) 11/30/18 06:30 MCH 28.3 pg (27.0-33.0) 11/30/18 06:30 MCHC 33.7 g/dL (32.0-36.0) 11/30/18 06:30 RDW 13.2 % (11.7-14.6) 11/30/18 06:30 Plt Count 316 x1000/uL (130-400) 11/30/18 06:30 MPV 9.8 fL (8.0-11.0) 11/30/18 06:30 Immature Gran % 0.2 11/30/18 06:30 59.2 11/30/18 06:30 32.7 11/30/18 06:30 4.8 11/30/18 06:30 2.7 11/30/18 06:30 0.4 11/30/18 06:30 Absolute Neutrophils 5.53 k/cumm (1.2-6.7) 11/30/18 06:30 Absolute Lymphocytes 3.06 k/cumm (1.2-3.4) 11/30/18 06:30 Absolute Monocytes 0.45 k/cumm (0.11-0.7) 11/30/18 06:30 Absolute Eosinophils 0.25 k/cumm (0.0-0.7) 11/30/18 06:30 Absolute Basophils 0.04 k/cumm (0.0-0.2) 11/30/18 06:30 PT 9.9 sec (9.3-11.0) 11/28/18 10:25 INR 1.0 (0.9-1.1) 11/28/18 10:25 APTT 22.5 sec (21.0-31.4) 11/28/18 10:25 306 ng/mlFEU (<500) 11/28/18 11:14 VBG pH 7.39 (7.32-7.43) 11/28/18 13:22 VBG pCO2 38 mm/Hg (34-47) 11/28/18 13:22 VBG pO2 48 mm/Hg (28-44) H 11/28/18 13:22 VBG HCO3 23 mmol/L (22-28) 11/28/18 13:22 VBG Total CO2 20 mmol/L (22-29) L 11/28/18 13:22 VBG O2 Saturation 84 % (70-80) H 11/28/18 13:22 VBG Base Excess -2.1 mmol/L (-3-3) 11/28/18 13:22 Sodium 143 mmol/L (136-145) 11/30/18 06:30 Potassium 3.4 mmol/L (3.5-5.1) L 11/30/18 06:30 Chloride 107 mmol/L (98-107) 11/30/18 06:30 Carbon Dioxide 26.5 mmol/L (21.0-32.0) 11/30/18 06:30 9.5 mmol/L (3-11) 11/30/18 06:30 BUN 31 mg/dL (7-18) H D 11/30/18 06:30 1.23 mg/dL (0.55-1.02) H D 11/30/18 06:30 44.24 (mL/min/1.73m2) 11/30/18 06:30 Glucose 181 mg/dL (70-100) H D 11/30/18 06:30 12.7 % (4.5-6.2) H 11/29/18 06:55 Calcium 8.4 mg/dL (8.5-10.1) L 11/30/18 06:30 Magnesium 1.9 mg/dL (1.8-2.4) 11/28/18 10:25 0.7 mg/dL (0.2-1.0) 11/28/18 10:25 AST 12 U/L (15-37) L 11/28/18 10:25 ALT 26 U/L (14-59) 11/28/18 10:25 84 U/L (46-116) 11/28/18 10:25 < 0.05 ng/mL (0.00-0.06) 11/28/18 10:25 7.8 g/dL (6.4-8.2) 11/28/18 10:25 3.7 g/dL (3.4-5.0) 11/28/18 10:25 Triglycerides 254 mg/dL (30-150) H 11/30/18 06:30 216 mg/dL (50-200) H 11/30/18 06:30 LDL Cholesterol, Calc 140 mg/dL 11/30/18 06:30 26 mg/dL (40-60) L 11/30/18 06:30 Vitamin B12 613 pg/mL (193-986) 11/29/18 06:55 TSH 0.79 uIU/mL (0.36-3.74) 11/29/18 06:55 Yellow (Yellow) 11/29/18 15:46 Clear (Clear) 11/29/18 15:46 5.0 (5-8) 11/29/18 15:46 Ur Specific [place] 1.010 (1.005-1.025) 11/29/18 15:46 Negative mg/dL (Negative) 11/29/18 15:46 Negative mg/dL (Negative) 11/29/18 15:46 Negative (Negative) 11/29/18 15:46 Negative (Negative) 11/29/18 15:46 Negative (Negative) 11/29/18 15:46 0.2 EU/dL (Up TO 0.2) 11/29/18 15:46 Ur Leukocyte Esterase Negative (Negative) 11/29/18 15:46 Negative mg/dL (Negative) 11/29/18 15:46
--- NOTE | 2018-11-30 17:00 | IN_ITS ---
Date of service: 11/30/18 Time of Service: 11:06 PT Notes Inpatient Physical Therapy Evaluation Date: 11/30/2018 Referring Doctor: Onur Liriano MD PT Orders: PT CONSULT: Limited ability Precautions: Fall. Standard. Activity as tolerated. Patient Profile/Admitting Diagnosis: Patient is a 63-year-old female with past medical history significant for poorly controlled diabetes mellitus and hypertension who presented to the ED on 11/28/2017 with chief complaints of left hip and lower back pain sustained from a fall 3 weeks ago; she also reported chest tightness while at the ED. Patient was negative for fracture in the hip. 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 PMHX: Medical History Chronic kidney disease (CKD) stage G3a/A1, moderately decreased glomerular filtration rate (GFR) between 45-59 mL/min/1.73 square meter and albuminuria creatinine ratio less than 30 mg/g (Acute) Diabetes (Chronic) HTN (hypertension) (Chronic) Social History/Home Situation: Ms. Patel reports she lives with her son in a two story home in [place]. She stated there are six steps to enter the home with bilateral rails, and one set of 10 stairs inside. Patient was independent with all aspects of ADLs without the need for an assitive ambulatory device nor adaptive equipment. Equipment Owned/DME: [facility] Subjective: Debi reports 0/10 pain and denies dizziness, headache and lightheadedness. She says she is happy to participate in PT. She reports an eagerness to begin walking. Objective: General Observation: Debi is seen sitting in a recliner chair with an IV in the L UE (disconnected). Bilateral TEDS on. Mental Status: Alert and oriented x 4 Pain: 0/10. Patient reported mild pain in the back upon standing the first time which she seemed to have subsided with walking activity. ROM: Right Upper Extremity: Shoulder Flexion WFL. Shoulder abduction WFL. Elbow flexion WFL. Wrist flexion WFL. Functional opening and closing of hand WFL. Left Upper Extremity: Shoulder Flexion WFL. Shoulder abduction WFL. Elbow flexion WFL. Wrist flexion WFL. Functional opening and closing of hand WFL. Right Lower Extremity: Hip flexion WFL. Hip abduction WFL. Knee flexion WFL. Ankle dorsiflexion WFL. Ankle plantarflexion WFL. Left Lower Extremity: Hip flexion WFL. Hip abduction WFL. Knee flexion WFL. Ankle dorsiflexion WFL. Ankle plantarflexion WFL. Strength: Right Upper Extremity: Shoulder flexors 5/5. Shoulder abductors 5/5. Elbow flexors 5/5. Elbow extensors 5/5. 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 Left Upper Extremity: Shoulder flexors 4/5. Shoulder abductors 5/5. Elbow flexors 5/5. Elbow extensors 4/5. 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 Right Lower Extremity: Hip flexors 5/5. Hip abductors 5/5. Knee flexors 5/5. Knee extensors 5/5. Ankle dorsiflexors 5/5. Ankle plantarflexors 5/5. Left Lower Extremity:Hip flexors 5/5. Hip abductors 5/5. Knee flexors 5/5. Knee extensors 5/5. Ankle dorsiflexors 4/5. Ankle plantarflexors 5/5. Bed Mobility/Transfers: Bed Mobility/Transfers: Rolling I Supine to sit I Sit to supine I Sit to stand I Stand to sit I Bed to chair CGA Chair to bed CGA Gait: Debi was able to ambulate using a reciprocal gait pattern with a FWW and CGA. She appears to have some muna-neglect causing her to not notice obstacles on her left side. She is also mildly unsteady. She has a decreased tono and gait speed but adequate step length. Mild scissoring noted to Sarahi WOODARD. Balance: Static Sitting: Normal Dynamic Sitting: Normal Static Standing: Fair Dynamic Standing: Fair Special Tests: Mobility Limitations Standardized Measure [facility]-PAC 6 clicks Basic Mobility Inpatient Short Form: Raw Score: 20 CMS Score: 36% Additional Testing: Smooth pursuit: Normal Two-Target VOR: Negative Alternating Hand Coordination: Unable to perform rapid alternating movement. Patient continues to exhibit neglect of left hand. Dysmetria: Positive 4-stage Balance: Completed 2/4 stages indicating risk of falls. Informed Consent/Education: Patient instructed in purpose of PT consult and plan of care. Assessment: Patient is a 63 year old female s/p lacunar stroke day 1. She is a very motivated individual who describes herself as very active. She appears to have difficulty following directions. She tested positive for dysmetria, and shows signs of L muna-neglect. Her daughter has been worried about her potentially declining cognitively over the last couple of months. Patient presents with clinical signs and symptoms consistent with current/admitting diagnoses that have resulted to mobility limitations, gait instability, generalized weakness, and impairment of motor control as demonstrated by the following impairment level findings: 1. Decreased strength to L ankle dorsiflexors, L shoulder flexors, L elbow extensors 2. Impaired standing balance 3. Impaired activity tolerance Impairments are contributing to the following functional limitations: 1. Dependent bed mobility skills 2. Increased dependence with transfers 3. Inability to safely ambulate without assistive device and physical assistance 4. Increase completion time for mobility ADL performance 5. Increased fall risk 6. Inability to negotiate steps alone safely Patient is assessed as a moderate complexity based on the following: History: Patient was diagnosed with subacute ischemic infarct in the right WILLOW WORKER, right occipital lobe, and right thalamus, acute on chronic renal insufficiency, and memory deficit. Examination: Demonstrable impairment in strength, balance, and range of motion with underlying impairments and functional limitations as documented above Presentation: Evolving Decision Making: Moderate complexity Goals: Goals X1 week 1. Supine-Sit independent 2. Sit-Supine independent 3. Sit-Stand independent 4. Stand-Sit independent 5. Bed-Chair independent 6. Chair-Bed independent 7. Independent gait on level surface with use of least restrictive device for at least 300 feet without report of pain nor dyspnea 8. Independent stair negotiation while holding onto bilateral rails for at least 10 steps without report of pain nor dyspnea 9. Independent with home exercise program 10. Good static and dynamic standing balance/tolerance Plan of Care/Treatment Plan: 1-2x/day, 7 days/week x 1 week. Plan of care has been reviewed with the COPY TECHNICIAN providing the service under Physical Therapy direction. Initiate Physical Therapy intervention for strengthening, bed mobility, transfers, gait, stairs, balance training, use of assistive device. DISCHARGE RECOMMENDATIONS: Patient will benefit from half-way facility placement in order to to continue improving coordination, decrease the impairments associated with the muna-neglect as well as to progress mobility level, strength, and balance in preparation for a safe discharge to home. Patient will be recommended to receive home health services. TREATMENT CODE/TIME: 98200 x 32 minutes Thank you very much for this referral. Donnie Pina [facility] With the supervision of: Kaylee Marie PT, DPT, CLT [facility]
[2018-11-30] MEDS: Potassium Chloride 20 MEQ TABCR PO (17:08)
--- NOTE | 2018-11-30 18:44 | W.PM.PROGNOT ---
Date of Service Date of service: 11/30/18 Time of Service: 18:44 Assessment and Plan (1) Left hemiparesis: Current visit: Yes Status: Acute Mild weakness in the left lower extremity. She is ambulating well but the left-sided neglect is considerable and puts her at a high fall risk. Physical therapy and neurology feel that she will probably need correction care after discharge. (2) Left homonymous hemianopsia: Current visit: Yes Status: Acute She has complete left-sided neglect. She is missing objects and tripping. She will need continued physical therapy and Occupational Therapy to help her compensate for this. 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 The plan is for her to get a 30-day event monitor and an outpatient transesophageal echocardiogram. (4) Diabetes: Current visit: No Status: Chronic Very poor diabetic control. She does not seem to be grasping the need for daily insulin in addition to dietary measures. We will set her up for outpatient diabetic education. She will likely go home on Levemir 12 units daily and aspart correction. (5) Discharge planning issues: Current visit: Yes Status: Acute Continue to monitor in acute care on telemetry. Continue to work with physical therapy and Occupational Therapy acutely. Diabetic teaching. Probable referral to correction facility at discharge. Subjective Interval history since last seen: Patient seems to be grasping the new diagnosis of stroke but only partially. She accepts that she cannot drive but would like to ride her horse. She works with physical therapy displaying overt left-sided neglect. She is hugging the right side of the hallway and describes the hallway as crowded. She is not aware of objects to the left of her. She does not seem aware of any significant left-sided weakness. She offers no new complaints today. She reiterates that she is quite careful with her diet. She is asking for more diabetic teaching. Exam Narrative Exam Narrative: On exam visual wadsworth were again reassessed. She has no evident vision on the left of midline consistent with home ominous hemianopsia. Her lower extremity demonstrates slight weakness on the left leg to straight leg raising versus the right. Gl Accountant strength is 5/5 and equal in the upper extremities. Objective Objective Clinical Data: Abnormal lab results 11/30/18 11/30/18 Range/Units 06:30 06:30 Potassium 3.4 L (3.5-5.1) mmol/L BUN 31 H D (7-18) mg/dL Creatinine 1.23 H D (0.55-1.02) mg/dL Glucose 181 H D (70-100) mg/dL Calcium 8.4 L (8.5-10.1) mg/dL Triglycerides 254 H (30-150) mg/dL Total Cholesterol 216 H (50-200) mg/dL HDL Cholesterol 26 L (40-60) mg/dL Vital Signs Temperature 36.5 C 11/30/18 07:10 Temperature Source Tympanic 11/30/18 07:10 Pulse 80 11/30/18 16:01 Pulse Rhythm Regular 11/30/18 16:27 Pulse 106 H 11/28/18 17:10 Respiratory Rate 17 11/30/18 07:10 Respiratory Effort Non-Labored 11/30/18 16:27 Respiratory Depth Normal 11/30/18 16:27 Respiratory Pattern Normal 11/30/18 16:27 Blood Pressure 160/79 H 11/30/18 07:10 Blood Pressure Mean 108 11/28/18 17:01 Blood Pressure Position Supine 11/28/18 10:18 Pulse Oximetry 97 11/30/18 07:10 Oxygen Delivery Method Room Air 11/30/18 07:10 Oxygen Flow Rate 0 11/30/18 07:10 Pain Level 6 11/30/18 16:03 Comment 11/30/18 05:36 Intake & Output 11/29/18 11/30/18 11/30/18 23:59 11:59 23:59 Intake Total 2230 / 4187.5 3235 / 4715 1480 / 4715 Output Total 550 / 550 2075 / 2775 700 / 2775 Balance 1680 / 3637.5 1160 / 1940 780 / 1940 Intake: IV 1000 / 2957.5 1905 / 2905 1000 / 2905 Oral 1230 / 1230 1330 / 1810 480 / 1810 Output: Urine 300 / 300 1550 / 2250 700 / 2250 Post Void Residual 250 / 250 525 / 525 Other: Urine Color Yellow Yellow Yellow Urine Appearance Clear Clear Clear Urine Odor Normal Normal Normal Comment Patient voided large amount in toilet Pt voided immediately following straight cath of 150ml. 100 ml void in toilet. Voiding Methods Toilet Toilet Toilet Laboratory Results WBC 9.35 k/cumm (4.4-10.8) 11/30/18 06:30 RBC 4.53 m/cumm (4.00-5.20) 11/30/18 06:30 Hgb 12.8 g/dL (12.0-15.5) D 11/30/18 06:30 Hct 38.0 % (36.0-46.0) 11/30/18 06:30 MCV 83.9 fL (80-95) 11/30/18 06:30 MCH 28.3 pg (27.0-33.0) 11/30/18 06:30 MCHC 33.7 g/dL (32.0-36.0) 11/30/18 06:30 RDW 13.2 % (11.7-14.6) 11/30/18 06:30 Plt Count 316 x1000/uL (130-400) 11/30/18 06:30 MPV 9.8 fL (8.0-11.0) 11/30/18 06:30 Immature Gran % 0.2 11/30/18 06:30 59.2 11/30/18 06:30 32.7 11/30/18 06:30 4.8 11/30/18 06:30 2.7 11/30/18 06:30 0.4 11/30/18 06:30 Absolute Neutrophils 5.53 k/cumm (1.2-6.7) 11/30/18 06:30 Absolute Lymphocytes 3.06 k/cumm (1.2-3.4) 11/30/18 06:30 Absolute Monocytes 0.45 k/cumm (0.11-0.7) 11/30/18 06:30 Absolute Eosinophils 0.25 k/cumm (0.0-0.7) 11/30/18 06:30 Absolute Basophils 0.04 k/cumm (0.0-0.2) 11/30/18 06:30 PT 9.9 sec (9.3-11.0) 11/28/18 10:25 INR 1.0 (0.9-1.1) 11/28/18 10:25 APTT 22.5 sec (21.0-31.4) 11/28/18 10:25 306 ng/mlFEU (<500) 11/28/18 11:14 VBG pH 7.39 (7.32-7.43) 11/28/18 13:22 VBG pCO2 38 mm/Hg (34-47) 11/28/18 13:22 VBG pO2 48 mm/Hg (28-44) H 11/28/18 13:22 VBG HCO3 23 mmol/L (22-28) 11/28/18 13:22 VBG Total CO2 20 mmol/L (22-29) L 11/28/18 13:22 VBG O2 Saturation 84 % (70-80) H 11/28/18 13:22 VBG Base Excess -2.1 mmol/L (-3-3) 11/28/18 13:22 Sodium 143 mmol/L (136-145) 11/30/18 06:30 Potassium 3.4 mmol/L (3.5-5.1) L 11/30/18 06:30 Chloride 107 mmol/L (98-107) 11/30/18 06:30 Carbon Dioxide 26.5 mmol/L (21.0-32.0) 11/30/18 06:30 9.5 mmol/L (3-11) 11/30/18 06:30 BUN 31 mg/dL (7-18) H D 11/30/18 06:30 1.23 mg/dL (0.55-1.02) H D 11/30/18 06:30 44.24 (mL/min/1.73m2) 11/30/18 06:30 Glucose 181 mg/dL (70-100) H D 11/30/18 06:30 12.7 % (4.5-6.2) H 11/29/18 06:55 Calcium 8.4 mg/dL (8.5-10.1) L 11/30/18 06:30 Magnesium 1.9 mg/dL (1.8-2.4) 11/28/18 10:25 0.7 mg/dL (0.2-1.0) 11/28/18 10:25 AST 12 U/L (15-37) L 11/28/18 10:25 ALT 26 U/L (14-59) 11/28/18 10:25 84 U/L (46-116) 11/28/18 10:25 < 0.05 ng/mL (0.00-0.06) 11/28/18 10:25 7.8 g/dL (6.4-8.2) 11/28/18 10:25 3.7 g/dL (3.4-5.0) 11/28/18 10:25 Triglycerides 254 mg/dL (30-150) H 11/30/18 06:30 216 mg/dL (50-200) H 11/30/18 06:30 LDL Cholesterol, Calc 140 mg/dL 11/30/18 06:30 26 mg/dL (40-60) L 11/30/18 06:30 Vitamin B12 613 pg/mL (193-986) 11/29/18 06:55 TSH 0.79 uIU/mL (0.36-3.74) 11/29/18 06:55 Yellow (Yellow) 11/29/18 15:46 Clear (Clear) 11/29/18 15:46 5.0 (5-8) 11/29/18 15:46 Ur Specific [place] 1.010 (1.005-1.025) 11/29/18 15:46 Negative mg/dL (Negative) 11/29/18 15:46 Negative mg/dL (Negative) 11/29/18 15:46 Negative (Negative) 11/29/18 15:46 Negative (Negative) 11/29/18 15:46 Negative (Negative) 11/29/18 15:46 0.2 EU/dL (Up TO 0.2) 11/29/18 15:46 Ur Leukocyte Esterase Negative (Negative) 11/29/18 15:46 Negative mg/dL (Negative) 11/29/18 15:46 Objective Narrative Objective Narrative: Echocardiogram today shows LV systolic function is normal, LVH, EF 60 to 65%. Triglycerides 254, cholesterol 216, LDL 140, HDL 26.
[2018-11-30] MEDS: Atorvastatin 40 MG TAB PO (20:46)
[2018-12-01] VITALS (8 sets, daily range): BP systolic 158–187; BP diastolic 89–98; PULSE 68–85; RESP 17–19; TEMP 36.4–37.1; O2SAT 96–99
[2018-12-01] MEDS: Acetaminophen 325 MG TAB 650 MG PO ×3 (03:39→14:25)
[2018-12-01] MEDS: Normal Saline Flush 10 ML SYR IVP (06:36)
[2018-12-01 07:15] LABS: Potassium 3.7 mmol/L (3.5-5.1)
[2018-12-01] MEDS: Clopidogrel 75 MG TAB PO (07:51)
[2018-12-01] MEDS: dilTIAZem CD 180 MG CAPCR PO (07:51)
[2018-12-01] MEDS: Aspirin E.C. 81 MG TABEC PO (07:52)
[2018-12-01] MEDS: Insulin Aspart 300 UNITS/3 ML PEN SC ×3 (07:56→16:50)
--- NOTE | 2018-12-01 09:32 | W.PM.PROGNOT ---
Date of Service Date of service: 12/01/18 Time of Service: 09:32 Assessment and Plan Assessment and plan (1) Left hemiparesis: Status: Acute Assessment and plan: secondary to embolic stroke, improving, working with PT (2) 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: Status: Acute Assessment and plan: cont asprin, statin, plavix, event monitor and DAGO as outpatient (3) HTN (hypertension): Status: Chronic Assessment and plan: she is out of the 24hr window following acute stroke, will start low dose amlodipine for gradual BP lowering (4) Diabetes: Status: Chronic Assessment and plan: glucose remains above goal, will slightly increase long acting insulin (5) Acute kidney injury: Status: Acute Assessment and plan: improving from time of admission Subjective Subjective Interval history since last seen: ANTONY overnight, Hypertensive to 180s/90s. Continues to work with PT and is improving greatly. continues to endorse some visual deficits although states this is improving as well. Exam Narrative Exam Narrative: GEN: NAD, appears stated age HEENT: NCAT, EOMI, PERRL CV: RRR, nl s1 and s2 LUNGS: CTAB, no w/r/r ABD: soft, NT, ND NEURO: strength is 5/5 in the b/l UE and LE, sensation is intact, cerbellar testing is intact Objective Objective Clinical Data: Vital Signs Temperature 36.4 C L 12/01/18 07:45 Temperature Source Tympanic 12/01/18 07:45 Pulse 74 12/01/18 07:48 Pulse Rhythm Regular 12/01/18 01:07 Pulse 106 H 11/28/18 17:10 Respiratory Rate 12/01/18 07:45 Respiratory Effort Non-Labored 12/01/18 01:07 Respiratory Depth Normal 12/01/18 01:07 Respiratory Pattern Normal 12/01/18 01:07 Blood Pressure 187/98 H 12/01/18 07:45 Blood Pressure Mean 108 11/28/18 17:01 Blood Pressure Position Supine 11/28/18 10:18 Pulse Oximetry 97 12/01/18 07:45 Oxygen Delivery Method Room Air 12/01/18 07:45 Oxygen Flow Rate 0 12/01/18 07:45 Pain Level 7 12/01/18 07:58 Comment 11/30/18 05:36 Intake & Output 11/30/18 11/30/1819 11:59 23:59 11:59 Intake Total 3235 / 4955 1720 / 4955 Output Total 2075 / 3575 1500 / 3575 500 / 500 Balance 1160 / 1380 220 / 1380 -490 / -490 Intake: IV 1905 / 2905 1000 / 2905 Oral 1330 / 2050 720 / 2050 Output: Urine 1550 / 3050 1500 / 3050 500 / 500 Post Void Residual 525 / 525 Other: Urine Color Yellow Yellow Yellow Urine Appearance Clear Clear Clear Urine Odor Normal Normal None Comment Pt voided immediately following straight cath of 150ml. 100 ml void in toilet. Patient missed hat Voiding Methods Toilet Toilet Toilet Laboratory Results WBC 9.35 k/cumm (4.4-10.8) 11/30/18 06:30 RBC 4.53 m/cumm (4.00-5.20) 11/30/18 06:30 Hgb 12.8 g/dL (12.0-15.5) D 11/30/18 06:30 Hct 38.0 % (36.0-46.0) 11/30/18 06:30 MCV 83.9 fL (80-95) 11/30/18 06:30 MCH 28.3 pg (27.0-33.0) 11/30/18 06:30 MCHC 33.7 g/dL (32.0-36.0) 11/30/18 06:30 RDW 13.2 % (11.7-14.6) 11/30/18 06:30 Plt Count 316 x1000/uL (130-400) 11/30/18 06:30 MPV 9.8 fL (8.0-11.0) 11/30/18 06:30 Immature Gran % 0.2 11/30/18 06:30 Neutrophils % 59.2 11/30/18 06:30 Lymphocytes % 32.7 11/30/18 06:30 Monocytes % 4.8 11/30/18 06:30 Eosinophils % 2.7 11/30/18 06:30 Basophils % 0.4 11/30/18 06:30 Absolute Neutrophils 5.53 k/cumm (1.2-6.7) 11/30/18 06:30 Absolute Lymphocytes 3.06 k/cumm (1.2-3.4) 11/30/18 06:30 Absolute Monocytes 0.45 k/cumm (0.11-0.7) 11/30/18 06:30 Absolute Eosinophils 0.25 k/cumm (0.0-0.7) 11/30/18 06:30 Absolute Basophils 0.04 k/cumm (0.0-0.2) 11/30/18 06:30 PT 9.9 sec (9.3-11.0) 11/28/18 10:25 INR 1.0 (0.9-1.1) 11/28/18 10:25 APTT 22.5 sec (21.0-31.4) 11/28/18 10:25 D-Dimer 306 ng/mlFEU (<500) 11/28/18 11:14 VBG pH 7.39 (7.32-7.43) 11/28/18 13:22 VBG pCO2 38 mm/Hg (34-47) 11/28/18 13:22 VBG pO2 48 mm/Hg (28-44) H 11/28/18 13:22 VBG HCO3 23 mmol/L (22-28) 11/28/18 13:22 VBG Total CO2 20 mmol/L (22-29) L 11/28/18 13:22 VBG O2 Saturation 84 % (70-80) H 11/28/18 13:22 VBG Base Excess -2.1 mmol/L (-3-3) 11/28/18 13:22 Sodium 143 mmol/L (136-145) 11/30/18 06:30 Potassium 3.7 mmol/L (3.5-5.1) 12/01/18 06:30 Chloride 107 mmol/L (98-107) 11/30/18 06:30 Carbon Dioxide 26.5 mmol/L (21.0-32.0) 11/30/18 06:30 Anion Gap 9.5 mmol/L (3-11) 11/30/18 06:30 BUN 31 mg/dL (7-18) H D 11/30/18 06:30 Creatinine 1.23 mg/dL (0.55-1.02) H D 11/30/18 06:30 Estimated GFR/1.73 m2 44.24 (mL/min/1.73m2) 11/30/18 06:30 Glucose 181 mg/dL (70-100) H D 11/30/18 06:30 Hemoglobin A1c 12.7 % (4.5-6.2) H 11/29/18 06:55 Calcium 8.4 mg/dL (8.5-10.1) L 11/30/18 06:30 Magnesium 1.9 mg/dL (1.8-2.4) 11/28/18 10:25 Total Bilirubin 0.7 mg/dL (0.2-1.0) 11/28/18 10:25 AST 12 U/L (15-37) L 11/28/18 10:25 ALT 26 U/L (14-59) 11/28/18 10:25 Alkaline Phosphatase 84 U/L (46-116) 11/28/18 10:25 Troponin I < 0.05 ng/mL (0.00-0.06) 11/28/18 10:25 Total Protein 7.8 g/dL (6.4-8.2) 11/28/18 10:25 Albumin 3.7 g/dL (3.4-5.0) 11/28/18 10:25 Triglycerides 254 mg/dL (30-150) H 11/30/18 06:30 Total Cholesterol 216 mg/dL (50-200) H 11/30/18 06:30 LDL Cholesterol, Calc 140 mg/dL 11/30/18 06:30 HDL Cholesterol 26 mg/dL (40-60) L 11/30/18 06:30 Vitamin B12 613 pg/mL (193-986) 11/29/18 06:55 TSH 0.79 uIU/mL (0.36-3.74) 11/29/18 06:55 Urine Color Yellow (Yellow) 11/29/18 15:46 Urine Clarity Clear (Clear) 11/29/18 15:46 Urine pH 5.0 (5-8) 11/29/18 15:46 Ur Specific [place] 1.010 (1.005-1.025) 11/29/18 15:46 Urine Protein Negative mg/dL (Negative) 11/29/18 15:46 Urine Ketones Negative mg/dL (Negative) 11/29/18 15:46 Urine Blood Negative (Negative) 11/29/18 15:46 Urine Nitrite Negative (Negative) 11/29/18 15:46 Urine Bilirubin Negative (Negative) 11/29/18 15:46 Urine Urobilinogen 0.2 EU/dL (Up TO 0.2) 11/29/18 15:46 Ur Leukocyte Esterase Negative (Negative) 11/29/18 15:46 Urine Glucose Negative mg/dL (Negative) 11/29/18 15:46
[2018-12-01 09:44] LABS: Anion Gap 9.4 mmol/L (3-11); BUN 23 mg/dL (7-18); CO2 27.6 mmol/L (21.0-32.0); CREATININE 1.18 mg/dL (0.55-1.02); Calcium 8.5 mg/dL (8.5-10.1); Chloride 105 mmol/L (98-107); Estimated GFR 46.41 (mL/min/1.73m2); Glucose 198 mg/dL (70-100); Sodium 142 mmol/L (136-145)
[2018-12-01] MEDS: amLODIPine 5 MG TAB PO (09:49)
--- NOTE | 2018-12-01 14:36 | W.INDIABCONS ---
Date of service: 12/01/18 Time of Service: 14:38 Diabetes Inpatient Consult DESCRIPTION/ASSESSMENT: Appreciate diabetes consult for Debi Esparza who is hospitalized with acute kidney injury. BMI 28 A1c 12.7 today She has been managed here with 12u Detemir and moderate insulin correction. Blood sugars recovered below 200 today at breakfast and lunch after 3-400 blood sugars on admission 11/28. She is eating 50-100% of her meals with 40-50 grams carbohydrate at recorded meals. Patient Employment Educational Coord has helped her with her food choices, but she is interested in learning more. Attempted to visit her today and she states she is too tired. Will follow up tomorrow AM with her. INTERVENTION: Postponed at this time. Unclear if insulin injection instruction is appropriate if she is going to fdc. Will assess in AM. PLAN: Will follow blood sugars and meet with her in the morning. Time Spent in Nutritional Counseling and Treatment: 2 minutes
--- NOTE | 2018-12-01 15:46 | PDOC.CMPRO ---
- If Service Date Differs Date of service: 12/01/18 Time of Service: 15:46 Care Management Progress Note S/O:Debi was sitting up in a chair when CM came to visit. She was pleasant and cooperative and engaged readily with CM. Debi shared details of the conversations she had with both Dr. Viveros and Dr. Schmidt. She talked about having had a stroke and the impact this may have on her life. She verbalized that she was a bit angry and upset yesterday but is coming to terms with it and feels fortunate that she is doing as well as she is. She stated that her son and daughter are working on making modest changes at home to make it easier for her to get around once she returns. Debi also informed CM that she is willing to go to rehab since Polo Abrams strongly recommended that she do so. She requested that CM send a referral to [facility]. A: Debi is a pleasant 63 year old woman admitted to [facility] on 11/29/18 with LIZETH and memory impairment. P: Debi is undergoing testing to identify the cause of her memory and renal issues. She will likely need STR upon discharge to regain balance and strength. A referral has been sent to [facility] at Debi's request. A consult with the senior health educator has been requested. CM will continue to support patient, family and discharge planning needs.
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
--- NOTE | 2018-12-01 17:00 | PT.INTREAT ---
Date of service: 12/01/18 Time of Service: 13:17 PT Notes Inpatient Physical Therapy Treatment Note [facility] Date: 12/01/2018 PRECAUTIONS: Standard. Falls. L Hemineglect. SUBJECTIVE: In the morning, Debi says she has really been enjoying PT treatment sessions stating thaat she is getting more confident nd more aware of her left side especially during ambulation activity. Patient denies having any pain and says she has been excited for physical therapy. She agreed to treatment and denied any headache, dizziness, or lightheadedness. She reports that her depth perception has been ?off? but feels she is getting better. In the second session, she says she has a sad afternoon as she said goodbye to her foster daughter today, but took a nap and is now agreeable to PT treatment. OBJECTIVE: Patient continues to be on telemetry monitoring. Bilateral TEDS on. PAIN: 0/10 BED MOBILITY/TRANSFERS Rolling L/R: I Supine-sit: I Sit-supine: I Sit-stand: SBA Stand-sit: SBA Bed-Chair: CGA in the AM; SBA in the PM Chair-bed: CGA in the AM; SBA in the PM GAIT Assistive Device: FWW Weight bearing: FWB Assist: CGA Distance: 120 x 2 Deviation: Patient uses a reciprocal gait pattern with decreased tono and step length. She is still showing signs of hemineglect on the left side. Her L foot has increased tendency to cross midline more than the R specially with fatigue. Patient was unable to prevent the left front wheel of walker from gently hitting the leg of a chair in the hallway and the left door frame of the therapy in-patient room. She also has is less able to discriminate available navigation area on the left side until her arm or her walker touches the wall. THEREX: Bilateral Side-stepping x 18 to increase awareness with L LE movements Ball (foam) toss focusing on L UE catching and throwing 4 minutes to increase with L UE movements Long arc quads with 3 lb ankle weight and mirroring: x 10 ASSESSMENT: Patient is a 63 year old female s/p acute lacunar stroke day 3. She is a highly-motivated individual with a zest for activity. She is very conscientious about things that could make her fall, but only on her right side, as she is continuing to exhibit signs of left hemineglect. Her prognosis is fair. She is showing signs and symptoms consistent with her current/admitting condition. PLAN: 2x/day, 7 days/week, 1 week. Patient is recommended to be discharged to SNF when medically stable. TREATMENT CODE/TIME: 9753 0 x 28 minutes beginning at 13:17 p.m.
[2018-12-01] MEDS: Lidocaine 5% Patch 1 PATCH TP (17:37)
[2018-12-01] MEDS: Atorvastatin 40 MG TAB PO (20:26)
--- NOTE | 2018-12-01 21:38 | OTIE_ITS ---
Occupational Therapy Notes Inpatient Occupational Therapy Evaluation Date: 12/01/18 Referring Doctor:Dr. Grewal OT Orders: Urgent-stroke; (L) HH, (L) hemineglect, mild left hemiparesis Precautions: Fall, Contact PATIENT PROFILE/ADMITTING DIAGNOSIS: Pt is a 63 year old female who was admitted through the ER for dx of hip pain, Acute kidney injury, Dehydration, Contusion of left hip, Cognitive decline with a later dx of Stroke with symptoms related to (L) muna neglect and mild (L) hemiparesis. Past Medical History: Medical History Chronic kidney disease (CKD) stage G3a/A1, moderately decreased glomerular filtration rate (GFR) between 45-59 mL/min/1.73 square meter and albuminuria cre atinine ratio less than 30 mg/g (Acute) Diabetes (Chronic) HTN (hypertension) (Chronic) Surgical History No significant past surgical history (Acute) Social History/Home Situation: Pt lives alone in a private home, she notes that she is totally (I) at baseline and her son and daughter are currently at home and there to (A) her as needed. Pt states that she is able to drive but not at this time per recommendation of MD. 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 Equipment owned/DME: grab bars. SUBJECTIVE: Pt was sitting in chair when OT arrived. She was agreeable to OT session reporting that she has had an interesting journey to get where she is t gianna. Pt states that this all started with hip pain s/p a fall on a water balloon to keep her dog from getting the [employer] man. She states that she thought she was ok but states that she has been confirmed to have had a stroke. OBJECTIVE: General Observation: Pleasant, telemetry, IV (R) UE Mental Status: A&Ox3 pt is consistent with dx of her stroke with minor discrepancies Pain: c/o pain in lower back and hip ROM: RUE AROM WNL L UE AROM WNL STRENGTH: RUE 5/5 throughout LUE 5/5 throughout FUNCTIONAL MOBILITY/ADLS: BATHING Sitting in chair Bathing UE (I) Washing face and (B) UE Bathing LE NT DRESSING Sitting in chair Dressing LE (I) don and doffing (B) socks. GROOMING Sitting in chair (I) With brushing teeth with min vc TOILETING NT EATING Sitting in chair (I) with bringing cup to mouth for liquids with ideal technique. BALANCE: Static sitting Normal Dynamic Sitting Normal Static Standing NT Dynamic Standing NT SPECIAL TESTS: Daily Activity Limitations Standardized Measure [facility] AM -PAC ?6 clicks? Daily Activity Inpatient Short Form: Raw score: 22 INFORMED CONSENT/EDUCATION: Pt instructed in purpose of OT Consult and plan of care. ASSESSMENT: Patient is a 63-year-old female referred to occupational therapy services with diagnosis of of hip pain, Acute kidney injury, Dehydration, Contusion of left hip, Cognitive decline with a later dx of Stroke with symptoms related to (L) muna neglect and mild (L) hemiparesis.. Patient presents with clinical signs and symptoms consistent with dx, as demonstrated by the following impairment level findings/functional limitations: Decreased functional mobility, decreased functional activity tolerance, decreased gross and fine motor control of (B) UE, (L) hemineglect with UE. AMPAC score 22 Patient is assessed as a Low 31533 complexity based on the following: History: See Above Examination: See Functional limitations as listed above Presentation: Evolving Decision Making: AMPAC score 22 GOALS Goals x1 week 1. Transfers LRD (S) 2. Dressing in sitting (I) UE/LE 3. Bathing in sitting (I) UE/LE 4. Toileting (I) on toilet 5. Eating (I) PLAN OF CARE/TREATMENT PLAN: 1x/day, 5 days/ week x 1week Initiate Occupational Therapy Services for bathing, dressing, grooming, toileting, eating, transfer training. DISCHARGE RECOMMENDATIONS Based on pts current level of function OT recommends that pt return home with HHOT when medically cleared per MD for assessment of ADLS in home environment. OT recommends that pt have a transfer bench for tub/shower combination to increase safety and functional (I) in bathing routine. TREATMENT TIME/MINUTES/CODES 00064, 38502, 30 minutes (07:30) Monserrat Carrion OTR/[facility]
[2018-12-02] VITALS (8 sets, daily range): BP systolic 139–177; BP diastolic 79–90; PULSE 62–150; RESP 16–19; TEMP 36.6–36.7; O2SAT 96–97
[2018-12-02] MEDS: Acetaminophen 325 MG TAB 650 MG PO ×2 (03:00→20:17)
[2018-12-02] MEDS: Clopidogrel 75 MG TAB PO (07:44)
[2018-12-02] MEDS: Aspirin E.C. 81 MG TABEC PO (07:45)
[2018-12-02] MEDS: dilTIAZem CD 180 MG CAPCR PO (07:45)
[2018-12-02] MEDS: amLODIPine 5 MG TAB PO (07:45)
[2018-12-02] MEDS: Normal Saline Flush 10 ML SYR IVP ×3 (07:50→16:47)
[2018-12-02] MEDS: Insulin Aspart 300 UNITS/3 ML PEN SC ×4 (07:59→16:47)
--- NOTE | 2018-12-02 10:41 | OTTR_ITS ---
Date of service: 12/02/18 Time of Service: 10:00 Occupational Therapy Notes Occupational Therapy Inpatient Treatment Note Date: 12/02/18 PRECAUTIONS: Fall, Standard SUBJECTIVE: Pt was sitting in chair when OT arrived. She wanted to take a shower today and was agreeable to OT session. OBJECTIVE: PAIN:slight pain in lower back FUNCTIONAL MOBILITY Sit-stand: (S) Stand-sit: (S) Bed-Chair: SBA BATHING: In shower sitting on shower bench Upper Body: (I) with hair, face, (B) UE, abdomen and underarms Lower Body: (I) jeancarlos area, (B) LE and (B) feet DRESSING: Sitting on shower bench Upper Extremity: min (A) don and doffing [facility] gown and robe Lower Extremity: (I) don and doffing (B) socks ASSESSMENT/PLAN: Pt demonstrated increased (I) in bathing routine, she was able to perform UE and LE bathing with increased (I). Pt does have a slight decline in safety awareness in terms of spilling shampoo and not knowing etc.. However pt is able to perform this with min vc provided throughout. Transfer into tub with bench was ideal and pt was able to perform this with min vc for leg placement and grabbing of handrail on (L) side with ideal grasp and release. TREATMENT CODES/TIME: [id number], 40 minutes (10:00) RAYSA June/[facility]
--- NOTE | 2018-12-02 16:27 | W.DIABETESNO ---
Date of service: 12/02/18 Time of Service: 16:28 Diabetes Note NOTE: Follow up visit with Debi. Reviewed food guide for diabetes. Discussed monitoring blood sugars. She has glucometer but has difficulty obtaining sufficient blood. Her son will bring in glucometer tomorrow (Wednesday) and I will follow up with her to troubleshoot barriers to monitoring blood sugars. Will initiate insulin teaching if appropriate per Hospitalist. Time Spent in Nutritional Counseling and Treatment: 15 minutes face to face
[2018-12-02] MEDS: Lidocaine 5% Patch 1 PATCH TP (16:31)
--- NOTE | 2018-12-02 16:40 | W.PM.PROGNOT ---
Date of Service Date of service: 12/02/18 Time of Service: 16:41 Assessment and Plan Assessment and plan (1) CVA (cerebral vascular accident): Status: Chronic Assessment and plan: Evidence of a subacute CVA in the right [employer] territory, with subsequent left homonymous hemianopsia, mild left hemineglect, and left hemiparesis. Also with evidence of a prior left cerebellar CVA. - Etiology of current CVA potentially on the basis of large vessel thrombosis, with evidence of potential severe right [employer] stenosis by MRA in the setting of poorly controlled HTN and DM. - Also with recommendations for an outpatient DAGO to exclude possibility of embolic disease in the setting of a mildly dilated LA on TTE. - Continue DAPT for 30 days, with plans to change to Clopidogrel alone following. Will also plan for outpatient 30 day cardiac monitoring at discharge. - Aim for improved bp with slow decrease in values following some degree of permissive hypertension. Will also need improved glycemic control. - Plan for either SNF vs. Home with PT pending physical therapy recommendations. (2) HTN (hypertension): Status: Chronic Assessment and plan: Continue Cardizem - patient also started on amlodipine, which will be discontinued given chronic Calcium Channel Dee use. Plan on reinitiation of ARB tomorrow as LIZETH seems essentially resolved. (3) Diabetes: Status: Chronic Assessment and plan: Initiated on Insulin with sliding scale coverage. Blood sugars appear improved. Needs vast improvement in control given her current A1C value of 12.7% and evidence of CVA. (4) Acute kidney injury: Status: Acute Assessment and plan: Improved and likely prerenal in etiology. (5) DVT prophylaxis: Status: Acute Assessment and plan: Initiate SC Enoxaparin. Will also initiate PPI therapy given need for DAPT. Subjective Subjective Interval history since last seen: 63-year-old woman with a history of uncontrolled HTN and DM, admitted from [facility] Emergency Department on 11/29, eventually diagnosed with a Subacute CVA and LIZETH. Mrs. Patel has a past Medical History significant for HTN, DM, and CKD. Her comorbidities appear poorly controlled, with an elevated blood pressure and HgA1C of 12.7%. She initially presented to the ED with noted confusion at home that was noted by her daughter, with difficulty with ambulation and note of potential left sided neglect. She also reported a fall approximately 2 weeks prior, with a poor appetite and worsening oral intake since due to pain. Work-up in the ED was significant for LIZTEH, with a creatinine of 2.4 above patient's baseline of approximately 1. There was also a question of a focal white matter change in the right occipital region with request for further work-up. The patient was referred for admission for further evaluation and treatment. Subsequent Neurology evaluation with likely old infarct in the left cerebellum by CT, as well as an evolving infarct in the right occipital lobe and thalamus. MRI of the brain confirmed a subacute right occipital lobe and thalamus infarct, with an area of punctate ischemia in the midbrain all in the distribution of the right posterior cerebral artery. ECHO was unremarkable with the exception of a mildly dilated Left Atrium. She has continued to work with PT, and has no complaints this morning. No overnight events were reported. Exam Narrative Exam Narrative: General: Patient appears comfortable, AAOX3, NAD Neck: Supple CV: Regular, nontachycardic, S1S2, No rubs, murmurs, or gallops. Pulmonary: Clear to auscultation bilaterally, no crackles, wheezing, or rhonchi Abdomen: + Bowel Sounds, soft, nontender, nondistended Vascular: No lower extremity edema Psych: Normal mood and affect. Objective Objective Clinical Data: Vital Signs Temperature 36.7 C 12/02/18 15:56 Temperature Source Tympanic 12/02/18 15:56 Pulse 86 12/02/18 16:10 Pulse Rhythm Regular 12/02/18 15:09 Pulse 106 H 11/28/18 17:10 Respiratory Rate 19 12/02/18 15:56 Respiratory Effort Non-Labored 12/02/18 15:09 Respiratory Depth Normal 12/02/18 15:09 Respiratory Pattern Normal 12/02/18 15:09 Blood Pressure 148/90 H 12/02/18 15:56 Blood Pressure Mean 108 11/28/18 17:01 Blood Pressure Position Supine 11/28/18 10:18 Pulse Oximetry 97 12/02/18 15:56 Oxygen Delivery Method Room Air 12/02/18 15:56 Oxygen Flow Rate 0 12/02/18 15:56 Pain Level 0 12/02/18 07:20 Comment 12/01/18 09:44 Intake & Output 12/01/18 12/02/18 12/02/18 23:59 11:59 23:59 Intake Total 10 / 140 250 / 490 240 / 490 Output Total 1450 / 2150 400 / 800 400 / 800 Balance -1440 / -2010 -150 / -310 -160 / -310 Intake: IV Oral 240 / 480 240 / 480 Output: Urine 1400 / 2100 400 / 800 400 / 800 Post Void Residual 50 / 50 Other: Urine Color Yellow Yellow Yellow Urine Appearance Clear Clear Clear Urine Odor Normal Normal Comment scanned for a max of 675cc post void. straight cathed for 50cc. rebladder scannded for a max of 641cc Stool Size Moderate Stool Characteristics Brown Voiding Methods Toilet Toilet Toilet Laboratory Results WBC 9.35 k/cumm (4.4-10.8) 11/30/18 06:30 RBC 4.53 m/cumm (4.00-5.20) 11/30/18 06:30 Hgb 12.8 g/dL (12.0-15.5) D 11/30/18 06:30 Hct 38.0 % (36.0-46.0) 11/30/18 06:30 MCV 83.9 fL (80-95) 11/30/18 06:30 MCH 28.3 pg (27.0-33.0) 11/30/18 06:30 MCHC 33.7 g/dL (32.0-36.0) 11/30/18 06:30 RDW 13.2 % (11.7-14.6) 11/30/18 06:30 Plt Count 316 x1000/uL (130-400) 11/30/18 06:30 MPV 9.8 fL (8.0-11.0) 11/30/18 06:30 Immature Gran % 0.2 11/30/18 06:30 Neutrophils % 59.2 11/30/18 06:30 Lymphocytes % 32.7 11/30/18 06:30 Monocytes % 4.8 11/30/18 06:30 Eosinophils % 2.7 11/30/18 06:30 Basophils % 0.4 11/30/18 06:30 Absolute Neutrophils 5.53 k/cumm (1.2-6.7) 11/30/18 06:30 Absolute Lymphocytes 3.06 k/cumm (1.2-3.4) 11/30/18 06:30 Absolute Monocytes 0.45 k/cumm (0.11-0.7) 11/30/18 06:30 Absolute Eosinophils 0.25 k/cumm (0.0-0.7) 11/30/18 06:30 Absolute Basophils 0.04 k/cumm (0.0-0.2) 11/30/18 06:30 PT 9.9 sec (9.3-11.0) 11/28/18 10:25 INR 1.0 (0.9-1.1) 11/28/18 10:25 APTT 22.5 sec (21.0-31.4) 11/28/18 10:25 D-Dimer 306 ng/mlFEU (<500) 11/28/18 11:14 VBG pH 7.39 (7.32-7.43) 11/28/18 13:22 VBG pCO2 38 mm/Hg (34-47) 11/28/18 13:22 VBG pO2 48 mm/Hg (28-44) H 11/28/18 13:22 VBG HCO3 23 mmol/L (22-28) 11/28/18 13:22 VBG Total CO2 20 mmol/L (22-29) L 11/28/18 13:22 VBG O2 Saturation 84 % (70-80) H 11/28/18 13:22 VBG Base Excess -2.1 mmol/L (-3-3) 11/28/18 13:22 Sodium 142 mmol/L (136-145) 12/01/18 06:30 Potassium 3.7 mmol/L (3.5-5.1) 12/01/18 06:30 Chloride 105 mmol/L (98-107) 12/01/18 06:30 Carbon Dioxide 27.6 mmol/L (21.0-32.0) 12/01/18 06:30 Anion Gap 9.4 mmol/L (3-11) 12/01/18 06:30 BUN 23 mg/dL (7-18) H 12/01/18 06:30 Creatinine 1.18 mg/dL (0.55-1.02) H 12/01/18 06:30 Estimated GFR/1.73 m2 46.41 (mL/min/1.73m2) 12/01/18 06:30 Glucose 198 mg/dL (70-100) H 12/01/18 06:30 Hemoglobin A1c 12.7 % (4.5-6.2) H 11/29/18 06:55 Calcium 8.5 mg/dL (8.5-10.1) 12/01/18 06:30 Magnesium 1.9 mg/dL (1.8-2.4) 11/28/18 10:25 Total Bilirubin 0.7 mg/dL (0.2-1.0) 11/28/18 10:25 AST 12 U/L (15-37) L 11/28/18 10:25 ALT 26 U/L (14-59) 11/28/18 10:25 Alkaline Phosphatase 84 U/L (46-116) 11/28/18 10:25 Troponin I < 0.05 ng/mL (0.00-0.06) 11/28/18 10:25 Total Protein 7.8 g/dL (6.4-8.2) 11/28/18 10:25 Albumin 3.7 g/dL (3.4-5.0) 11/28/18 10:25 Triglycerides 254 mg/dL (30-150) H 11/30/18 06:30 Total Cholesterol 216 mg/dL (50-200) H 11/30/18 06:30 LDL Cholesterol, Calc 140 mg/dL 11/30/18 06:30 HDL Cholesterol 26 mg/dL (40-60) L 11/30/18 06:30 Vitamin B12 613 pg/mL (193-986) 11/29/18 06:55 TSH 0.79 uIU/mL (0.36-3.74) 11/29/18 06:55 Urine Color Yellow (Yellow) 11/29/18 15:46 Urine Clarity Clear (Clear) 11/29/18 15:46 Urine pH 5.0 (5-8) 11/29/18 15:46 Ur Specific [place] 1.010 (1.005-1.025) 11/29/18 15:46 Urine Protein Negative mg/dL (Negative) 11/29/18 15:46 Urine Ketones Negative mg/dL (Negative) 11/29/18 15:46 Urine Blood Negative (Negative) 11/29/18 15:46 Urine Nitrite Negative (Negative) 11/29/18 15:46 Urine Bilirubin Negative (Negative) 09/10/19 15:46 Urine Urobilinogen 0.2 EU/dL (Up TO 0.2) 11/29/18 15:46 Ur Leukocyte Esterase Negative (Negative) 11/29/18 15:46 Urine Glucose Negative mg/dL (Negative) 11/29/18 15:46
--- NOTE | 2018-12-02 17:45 | PDOC.CMPRO ---
- If Service Date Differs Date of service: 12/02/18 Time of Service: 17:45 Care Management Progress Note S/O:Debi was sitting up in bed during CM visit. She voiced being optimistic about her future and accepting of her diagnoses. 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 She is going to another caregiver's home. Debi stated that she feels a real sense of relief that her client will be well cared for and that she does not have to be the one providing the care. Her children have assured her that she will be fine financially, so she is looking forward to fci. A: Debi is a pleasant 63 year old woman admitted to [facility] on 11/29/18 with LIZETH and memory impairment. P: Debi is undergoing testing to identify the cause of her memory and renal issues. She will likely need STR upon discharge to regain balance and strength. A referral has been sent to [facility] at Debi's request. A consult with the supervisor water treatment plant has been requested. CM will continue to support patient, family and discharge planning needs.
--- NOTE | 2018-12-02 18:00 | PTTR_ITS ---
Date of service: 12/02/18 Time of Service: 11:43 PT Notes Inpatient Physical Therapy Treatment Note [facility] Date: 12/02/2018 PRECAUTIONS: Standard. Falls. L Hemineglect. SUBJECTIVE: In the morning, Debi says she has really been enjoying PT treatment sessions stating thaat she is getting more confident nd more aware of her left side especially during ambulation activity. Patient denies having any pain and says she has been excited for physical therapy. She agreed to treatment and denied any headache, dizziness, or lightheadedness. She reports that her depth perception has been ?off? but feels she is getting better. In the second session, she says she has a sad afternoon as she said goodbye to her foster daughter today, but took a nap and is now agreeable to PT treatment. OBJECTIVE: Patient continues to be on telemetry monitoring. Bilateral TEDS on. PAIN: 0/10 BED MOBILITY/TRANSFERS Rolling L/R: I Supine-sit: I Sit-supine: I Sit-stand: SBA Stand-sit: SBA Bed-Chair: CGA in the AM; SBA in the PM Chair-bed: CGA in the AM; SBA in the PM GAIT Assistive Device: FWW Weight bearing: FWB Assist: SBA Distance: 120 feet x 2 Deviation: Patient uses a reciprocal gait pattern with decreased tono and step length. She is still showing signs of hemineglect on the left side. In the morning, she was unable to prevent the left front wheel of walker from gently hitting the leg of a chair in the hallway and the left door frame of the therapy in-patient room. In the afternoon, with just minimal instrcutions to increase mindfulness/awareness on the L side, patient was able to manage walker without any unnecessary impact against objects in the hallway. THEREX: Session 1 Bilateral Side-stepping x 18 to increase awareness with L LE movements Ball (foam) toss focusing on L UE catching and throwing 4 minutes to increase with L UE movements Long arc quads with 3 lb ankle weight and mirroring: x 10 Session 2 Bilateral step ups: x 10 w/ 4lbs ankle weights with target for left foot to increase awareness of L LE in space during movement. Step ups on left x 10 w/ 4 lb AW with smaller target to increase precision. ASSESSMENT: Patient is a 63 year old female s/p acute lacunar stroke day 4. She is a highly-motivated individual with a zest for activity. She is very conscientious about things that could make her fall, but only on her right side, as she is continuing to exhibit signs of left hemineglect. Her prognosis is fair. She is showing signs and symptoms consistent with her current/admitting condition. PLAN: 2x/day, 7 days/week, 1 week. Patient is recommended to be discharged to SNF when medically stable. TREATMENT CODE/TIME: Session 1- 32453 x 26 minutes beginning at 11:43 AM Session 2- [id number] x 31 minutes beginning at 16:02 PM [facility] With the supervision of: Kaylee Marie PT, DPT, CLT [facility]
[2018-12-02] MEDS: Atorvastatin 40 MG TAB PO (19:41)
[2018-12-03] VITALS (7 sets, daily range): BP systolic 128–170; BP diastolic 71–101; PULSE 66–91; RESP 16–18; TEMP 36.3–36.7; O2SAT 96–100
[2018-12-03 06:53] LABS: Abs Immature Grans 0.03 k/cumm (0.0-0.09); Absolute Basophil Count 0.06 k/cumm (0.0-0.2); Absolute Eosinophil Count 0.39 k/cumm (0.0-0.7); Absolute Monocyte Count 0.64 k/cumm (0.11-0.7); Basophils % 0.5; Eosinophils % 3.5; HCT 40.6 % (36.0-46.0); HGB 13.8 g/dL (12.0-15.5); Immature Grans % 0.3; Lymphocytes % 38.1; Mean Corpuscular Hemoglobin 28.9 pg (27.0-33.0); Mean Corpuscular Volume 84.9 fL (80-95); Mean Platelet Volume 9.3 fL (8.0-11.0); Monocytes % 5.8; Neutrophils % 51.8; Platelet Count 320 x1000/uL (130-400); RBC 4.78 m/cumm (4.00-5.20); RBC Distribution Width 13.2 % (11.7-14.6); White Blood Cell Count 11.02 k/cumm (4.4-10.8)
[2018-12-03 06:55] LABS: Absolute Neutrophil Count 5.71 k/cumm (1.2-6.7)
[2018-12-03 07:31] LABS: Anion Gap 9.9 mmol/L (3-11); BUN 22 mg/dL (7-18); CO2 26.1 mmol/L (21.0-32.0); CREATININE 1.07 mg/dL (0.55-1.02); Calcium 8.4 mg/dL (8.5-10.1); Chloride 105 mmol/L (98-107); Estimated GFR 51.96 (mL/min/1.73m2); Glucose 242 mg/dL (70-100); Magnesium 1.6 mg/dL (1.8-2.4); Potassium 3.4 mmol/L (3.5-5.1); Sodium 141 mmol/L (136-145)
[2018-12-03] MEDS: Acetaminophen 325 MG TAB 650 MG PO ×2 (08:11→20:20)
[2018-12-03] MEDS: dilTIAZem CD 180 MG CAPCR PO (08:12)
[2018-12-03] MEDS: Aspirin E.C. 81 MG TABEC PO (08:13)
[2018-12-03] MEDS: Pantoprazole 40 MG TABCR PO (08:13)
[2018-12-03] MEDS: Clopidogrel 75 MG TAB PO (08:13)
[2018-12-03] MEDS: Enoxaparin 40 MG/0.4 ML SYR SC (08:15)
[2018-12-03] MEDS: Insulin Aspart 300 UNITS/3 ML PEN SC ×3 (08:15→16:56)
--- NOTE | 2018-12-03 12:33 | PT.INTREAT ---
PT Notes Inpatient Physical Therapy Treatment Note [facility] Date: 12/03/18 PRECAUTIONS:Fall, standard and left muna neglect SUBJECTIVE: Feel I am doing better today. Need to focus on my left side more. OBJECTIVE: PAIN: Back pain yesterday after PT. Thinks the weight on her ankles was too much. Requested to skip that exercise today. BED MOBILITY/TRANSFERS Supine-sit: I Sit-supine: I Sit-stand: SBA Stand-sit: SBA GAIT Assistive Device: FWW Weight bearing: FWB Assist: CGA Distance: 80' and 120', worked on looking to the left and right while amubating. THEREX: Focus on static and dynamic balane exercises today. Performed static standing with feet together and in tandem with eyes open and closed. Also, performed rhythmic stabilization activities in seated and standing positions against light resistance with patient able to maintain balance. Dynamic activities included side stepping, backward ambulation and heel to toe ambulation with contact guard. This was noted to be more complicated for patient. See flow sheet for details. STAIRS:UP / down 6 4 inch steps and 2 6 inch steps with handrails and CGA. Utilized reciprocal gait pattern with going up steps, but step to gait pattern going down. ASSESSMENT: Tolerated today's session well with good effort given. Dynamic standing balance is still a bit unstable. PLAN: Continue with current treatment plan, with focus on improved left side of body function and global strengthening for better functional mobility and safety. TREATMENT CODE/TIME: TA x 2, 9:10 to 9:45 (35')
--- NOTE | 2018-12-03 12:52 | PGE_ITS ---
Date of Service Date of service: 12/03/18 Time of Service: 12:52 Assessment and Plan Assessment and plan (1) CVA (cerebral vascular accident): Status: Chronic Assessment and plan: Evidence of a subacute CVA in the right NIGHT SHIFT SUPERVISOR territory, with subsequent left homonymous hemianopsia, mild left hemineglect, and left hemiparesis. Also with evidence of a prior left cerebellar CVA. - Etiology of current CVA potentially on the basis of large vessel thrombosis, with evidence of potential severe right NIGHT SHIFT SUPERVISOR stenosis by MRA in the setting of poorly controlled HTN and DM. - Also with recommendations for an outpatient DAGO to exclude possibility of embolic disease in the setting of a mildly dilated LA on TTE, per neuro recommendations. - Continue DAPT for 30 days, with plans to change to Clopidogrel alone following. Will also plan for outpatient 30 day cardiac monitoring at discharge. - Aim for improved bp with slow decrease in values following some degree of permissive hypertension. Will also need improved glycemic control. - Plan currently for SNF on Wednesday. (2) HTN (hypertension): Status: Chronic Assessment and plan: Continue Cardizem - patient was also started on amlodipine, which will be discontinued given chronic Calcium Channel Dee use. ARB reinitiated this morning. Overall blood pressure is improved but remains suboptimal. Continue to monitor and adjust antihypertensive regimen as able. (3) Diabetes: Status: Chronic Assessment and plan: Initiated on Insulin with sliding scale coverage. Blood sugars appear improved. Will continue to adjust basal insulin. Needs vast improvement in control given her current A1C value of 12.7% and evidence of CVA. Will need insulin education. (4) Acute kidney injury: Status: Acute Assessment and plan: Improved and likely prerenal in etiology. Improved and near baseline. (5) DVT prophylaxis: Status: Acute Assessment and plan: Initiate SC Enoxaparin. Also initiated PPI therapy given need for DAPT. Subjective Subjective Interval history since last seen: 63-year-old woman with a history of uncontrolled HTN and DM, admitted from [facility] Emergency Department on 11/29, diagnosed with a Subacute CVA and LIZETH. Mrs. Patel has a past Medical History significant for HTN, DM, and CKD. Her comorbidities appear poorly controlled, with an elevated blood pressure and HgA1C of 12.7%. She initially presented to the ED with confusion at home that was noted by her daughter, with difficulty with ambulation and note of potential left sided neglect. She also reported a fall approximately 2 weeks prior, with a poor appetite and worsening oral intake since due to pain. Work-up in the ED was significant for LIZETH, with a creatinine of 2.4 above patient's baseline of approximately 1. There was also a question of a focal white matter change in the right occipital region with request for further work-up. The patient was referred for admission for further evaluation and treatment. Subsequent Neurology evaluation with likely old infarct in the left cerebellum by CT, as well as an evolving infarct in the right occipital lobe and thalamus. MRI of the brain confirmed a subacute right occipital lobe and thalamus infarct, with an area of punctate ischemia in the midbrain all in the distribution of the right posterior cerebral artery. MRA confirmed a question of severe stenosis of the right NIGHT SHIFT SUPERVISOR. ECHO was unremarkable with the exception of a mildly dilated Left Atrium. She has continued to work with PT, and has no complaints again this morning. No overnight events were reported. Exam Narrative Exam Narrative: General: Patient appears comfortable, AAOX3, NAD Neck: Supple CV: Regular, nontachycardic, S1S2, No rubs, murmurs, or gallops. Pulmonary: Clear to auscultation bilaterally, no crackles, wheezing, or rhonchi Abdomen: + Bowel Sounds, soft, nontender, nondistended Vascular: No lower extremity edema Psych: Normal mood and affect. Objective Objective Clinical Data: Abnormal lab results 12/03/18 12/03/18 Range/Units 06:42 06:42 WBC 11.02 H (4.4-10.8) k/cumm Absolute Lymphocytes 4.20 H (1.2-3.4) k/cumm Potassium 3.4 L (3.5-5.1) mmol/L BUN 22 H (7-18) mg/dL Creatinine 1.07 H (0.55-1.02) mg/dL Glucose 242 H (70-100) mg/dL Calcium 8.4 L (8.5-10.1) mg/dL Magnesium 1.6 L (1.8-2.4) mg/dL Vital Signs Temperature 36.7 C 12/03/18 08:12 Temperature Source Temporal Artery Scan 12/03/18 08:12 Pulse 91 H 12/03/18 08:12 Pulse Rhythm Regular 12/03/18 09:30 Pulse 106 H 11/28/18 17:10 Respiratory Rate 17 12/03/18 08:12 Respiratory Effort Non-Labored 12/03/18 09:30 Respiratory Depth Normal 12/03/18 09:30 Respiratory Pattern Normal 12/03/18 09:30 Blood Pressure 160/93 H 12/03/18 08:12 Blood Pressure Mean 108 11/28/18 17:01 Blood Pressure Position Supine 11/28/18 10:18 Pulse Oximetry 100 12/03/18 08:12 Oxygen Delivery Method Room Air 12/03/18 08:12 Oxygen Flow Rate 0 12/03/18 08:12 Pain Level 0 12/03/18 09:11 Comment 12/01/18 09:44 Intake & Output 12/02/18 12/03/18 12/03/18 23:59 11:59 23:59 Intake Total 490 / 740 Output Total 400 / 800 700 / 700 Balance 90 / -60 -700 / -700 Intake: IV Oral 480 / 720 Output: Urine 400 / 800 700 / 700 Other: Urine Color Yellow Yellow Urine Appearance Clear Clear Urine Odor Normal Strong Stool Size Moderate Stool Characteristics Brown Voiding Methods Toilet Toilet Laboratory Results WBC 11.02 k/cumm (4.4-10.8) H 12/03/18 06:42 RBC 4.78 m/cumm (4.00-5.20) 12/03/18 06:42 Hgb 13.8 g/dL (12.0-15.5) 12/03/18 06:42 Hct 40.6 % (36.0-46.0) 12/03/18 06:42 MCV 84.9 fL (80-95) 12/03/18 06:42 MCH 28.9 pg (27.0-33.0) 12/03/18 06:42 MCHC 34.0 g/dL (32.0-36.0) 12/03/18 06:42 RDW 13.2 % (11.7-14.6) 12/03/18 06:42 Plt Count 320 x1000/uL (130-400) 12/03/18 06:42 MPV 9.3 fL (8.0-11.0) 12/03/18 06:42 Immature Gran % 0.3 12/03/18 06:42 Neutrophils % 51.8 12/03/18 06:42 Lymphocytes % 38.1 12/03/18 06:42 Monocytes % 5.8 12/03/18 06:42 Eosinophils % 3.5 12/03/18 06:42 Basophils % 0.5 12/03/18 06:42 Absolute Neutrophils 5.71 k/cumm (1.2-6.7) 12/03/18 06:42 Absolute Lymphocytes 4.20 k/cumm (1.2-3.4) H 12/03/18 06:42 Absolute Monocytes 0.64 k/cumm (0.11-0.7) 12/03/18 06:42 Absolute Eosinophils 0.39 k/cumm (0.0-0.7) 12/03/18 06:42 Absolute Basophils 0.06 k/cumm (0.0-0.2) 12/03/18 06:42 PT 9.9 sec (9.3-11.0) 11/28/18 10:25 INR 1.0 (0.9-1.1) 11/28/18 10:25 APTT 22.5 sec (21.0-31.4) 11/28/18 10:25 D-Dimer 306 ng/mlFEU (<500) 11/28/18 11:14 VBG pH 7.39 (7.32-7.43) 11/28/18 13:22 VBG pCO2 38 mm/Hg (34-47) 11/28/18 13:22 VBG pO2 48 mm/Hg (28-44) H 11/28/18 13:22 VBG HCO3 23 mmol/L (22-28) 11/28/18 13:22 VBG Total CO2 20 mmol/L (22-29) L 11/28/18 13:22 VBG O2 Saturation 84 % (70-80) H 11/28/18 13:22 VBG Base Excess -2.1 mmol/L (-3-3) 11/28/18 13:22 Sodium 141 mmol/L (136-145) 12/03/18 06:42 Potassium 3.4 mmol/L (3.5-5.1) L 12/03/18 06:42 Chloride 105 mmol/L (98-107) 12/03/18 06:42 Carbon Dioxide 26.1 mmol/L (21.0-32.0) 12/03/18 06:42 Anion Gap 9.9 mmol/L (3-11) 12/03/18 06:42 BUN 22 mg/dL (7-18) H 12/03/18 06:42 Creatinine 1.07 mg/dL (0.55-1.02) H 12/03/18 06:42 Estimated GFR/1.73 m2 51.96 (mL/min/1.73m2) 12/03/18 06:42 Glucose 242 mg/dL (70-100) H 12/03/18 06:42 Hemoglobin A1c 12.7 % (4.5-6.2) H 11/29/18 06:55 Calcium 8.4 mg/dL (8.5-10.1) L 12/03/18 06:42 Magnesium 1.6 mg/dL (1.8-2.4) L 12/03/18 06:42 Total Bilirubin 0.7 mg/dL (0.2-1.0) 11/28/18 10:25 AST 12 U/L (15-37) L 11/28/18 10:25 ALT 26 U/L (14-59) 11/28/18 10:25 Alkaline Phosphatase 84 U/L (46-116) 11/28/18 10:25 Troponin I < 0.05 ng/mL (0.00-0.06) 11/28/18 10:25 Total Protein 7.8 g/dL (6.4-8.2) 11/28/18 10:25 Albumin 3.7 g/dL (3.4-5.0) 11/28/18 10:25 Triglycerides 254 mg/dL (30-150) H 11/30/18 06:30 Total Cholesterol 216 mg/dL (50-200) H 11/30/18 06:30 LDL Cholesterol, Calc 140 mg/dL 11/30/18 06:30 HDL Cholesterol 26 mg/dL (40-60) L 11/30/18 06:30 Vitamin B12 613 pg/mL (193-986) 11/29/18 06:55 TSH 0.79 uIU/mL (0.36-3.74) 11/29/18 06:55 Urine Color Yellow (Yellow) 11/29/18 15:46 Urine Clarity Clear (Clear) 11/29/18 15:46 Urine pH 5.0 (5-8) 11/29/18 15:46 Ur Specific [place] 1.010 (1.005-1.025) 11/29/18 15:46 Urine Protein Negative mg/dL (Negative) 11/29/18 15:46 Urine Ketones Negative mg/dL (Negative) 11/29/18 15:46 Urine Blood Negative (Negative) 11/29/18 15:46 Urine Nitrite Negative (Negative) 11/29/18 15:46 Urine Bilirubin Negative (Negative) 11/29/18 15:46 Urine Urobilinogen 0.2 EU/dL (Up TO 0.2) 11/29/18 15:46 Ur Leukocyte Esterase Negative (Negative) 11/29/18 15:46 Urine Glucose Negative mg/dL (Negative) 11/29/18 15:46
--- NOTE | 2018-12-03 15:25 | W.DIABETESNO ---
Date of service: 12/03/18 Time of Service: 15:25 Diabetes Note NOTE: Follow up with Debi regarding glucose monitoring. She does not have her glucometer here yet and this was not reviewed. Reviewed food choices with her again. Introduced her to insulin pens and the process for injecting insulin. Discussed hypoglycemia symptoms and treatments. PLAN: Will follow up prior to discharge regarding her self management needs. Time Spent in Nutritional Counseling and Treatment: 20 minutes face to face
[2018-12-03] MEDS: Lidocaine 5% Patch 1 PATCH TP (16:56)
--- NOTE | 2018-12-03 17:15 | PDOC.CMPRO ---
Care Management Progress Note S/O: Visitors in the room and I did not interrupt to interview today. clinical document improvement educator did meet with her today. A: Debi is a pleasant 63 year old woman admitted to [facility] on 11/29/18 with LIZETH and memory impairment. P: Debi will need short term SNF placement to regain balance and strength. Referral was made to [facility] at her request. Anticipate a bed offer on Wednesday if she is medically cleared for discharge.
[2018-12-03] MEDS: Atorvastatin 40 MG TAB PO (20:19)
[2018-12-04] VITALS (10 sets, daily range): BP systolic 118–168; BP diastolic 75–90; PULSE 76–110; RESP 16–18; TEMP 36.3–36.8; O2SAT 97–99
[2018-12-04 07:04] LABS: Abs Immature Grans 0.02 k/cumm (0.0-0.09); Absolute Basophil Count 0.06 k/cumm (0.0-0.2); Absolute Eosinophil Count 0.33 k/cumm (0.0-0.7); Absolute Lymphocyte Count 3.76 k/cumm (1.2-3.4); Absolute Monocyte Count 0.48 k/cumm (0.11-0.7); Absolute Neutrophil Count 5.35 k/cumm (1.2-6.7); Basophils % 0.6; Eosinophils % 3.3; HCT 41.9 % (36.0-46.0); HGB 13.9 g/dL (12.0-15.5); Immature Grans % 0.2; Lymphocytes % 37.6; Mean Corp. HGB Concentration 33.2 g/dL (32.0-36.0); Mean Corpuscular Hemoglobin 28.4 pg (27.0-33.0); Mean Corpuscular Volume 85.5 fL (80-95); Mean Platelet Volume 9.1 fL (8.0-11.0); Monocytes % 4.8; Neutrophils % 53.5; Platelet Count 325 x1000/uL (130-400); RBC Distribution Width 13.4 % (11.7-14.6)
[2018-12-04 07:18] LABS: Anion Gap 8.4 mmol/L (3-11); BUN 18 mg/dL (7-18); CO2 26.6 mmol/L (21.0-32.0); CREATININE 0.92 mg/dL (0.55-1.02); Calcium 8.3 mg/dL (8.5-10.1); Chloride 104 mmol/L (98-107); Glucose 181 mg/dL (70-100); Magnesium 1.7 mg/dL (1.8-2.4); Potassium 3.5 mmol/L (3.5-5.1); Sodium 139 mmol/L (136-145)
[2018-12-04] MEDS: Acetaminophen 325 MG TAB 650 MG PO ×2 (07:25→19:42)
[2018-12-04] MEDS: Pantoprazole 40 MG TABCR PO (07:26)
[2018-12-04] MEDS: Enoxaparin 40 MG/0.4 ML SYR SC (08:28)
[2018-12-04] MEDS: Insulin Aspart 300 UNITS/3 ML PEN SC ×3 (08:28→17:12)
[2018-12-04] MEDS: Chlorthalidone 25 MG TAB PO (08:29)
[2018-12-04] MEDS: dilTIAZem CD 180 MG CAPCR PO (08:29)
[2018-12-04] MEDS: Clopidogrel 75 MG TAB PO (08:29)
[2018-12-04] MEDS: Aspirin E.C. 81 MG TABEC PO (08:29)
[2018-12-04] MEDS: Magnesium Oxide 400 MG TAB 800 MG PO (08:43)
[2018-12-04] MEDS: Potassium Chloride 20 MEQ TABCR 40 MEQ PO (08:43)
--- NOTE | 2018-12-04 11:42 | PGE_ITS ---
Date of Service Date of service: 12/04/18 Time of Service: 11:42 Assessment and Plan Assessment and plan (1) CVA (cerebral vascular accident): Status: Chronic Assessment and plan: Evidence of a subacute CVA in the right CARDIAC EXERCISE PHYSIOLOGIST territory, with subsequent left homonymous hemianopsia, mild left hemineglect, and left hemiparesis. Also with evidence of a prior left cerebellar CVA. - Etiology of current CVA potentially on the basis of large vessel thrombosis, with evidence of potential severe right CARDIAC EXERCISE PHYSIOLOGIST stenosis by MRA in the setting of poorly controlled HTN and DM. - For an outpatient DAGO to exclude possibility of embolic disease in the setting of a mildly dilated LA on TTE, per neuro recommendations. - Continue DAPT for 30 days, with plans to change to Clopidogrel alone f ollowing. Will also plan for outpatient 30 day cardiac monitoring at discharge. - Aim for improved bp with slow decrease in values following some degree of permissive hypertension initially. Will also need improved glycemic control. - Plan currently for SNF on Wednesday. (2) HTN (hypertension): Status: Chronic Assessment and plan: Continue Cardizem - patient was also started on amlodipine, which was discontinued given chronic Calcium Channel Dee use. ARB reinitiated yesterday morning. Will initiate thiazide diuretic with chlorthalidone, and monitor electrolytes and renal function carefully. Overall blood pressure is improved but remains suboptimal on the whole. Continue to monitor and adjust antihypertensive regimen as able. (3) Diabetes: Status: Chronic Assessment and plan: Initiated on Insulin with sliding scale coverage. Blood sugars appear improved. Will continue to adjust basal insulin, with Detemir increased yesterday. Needs vast improvement in control given her current A1C value of 12.7% and evidence of CVA. Will need insulin education. (4) Acute kidney injury: Status: Acute Assessment and plan: Improved and likely prerenal in etiology. Improved and at baseline. (5) DVT prophylaxis: Status: Acute Assessment and plan: Continue SC Enoxaparin. Also initiated PPI therapy given need for DAPT. (6) Discharge planning issues: Status: Acute Assessment and plan: For SNF placement, potentially tomorrow. Subjective Subjective Interval history since last seen: 63-year-old woman with a history of uncontrolled HTN and DM, admitted from [facility] Emergency Department on 11/29, diagnosed with a Subacute CVA and LIZETH. Mrs. Patel has a past Medical History significant for HTN, DM, and CKD. Her comorbidities appear poorly controlled, with an elevated blood pressure and HgA1C of 12.7%. She initially presented to the ED with confusion at home that was noted by her daughter, with difficulty with ambulation and note of potential left sided neglect. She also reported a fall approximately 2 weeks prior, with a poor appetite and worsening oral intake since due to pain. Work-up in the ED was significant for LIZETH, with a creatinine of 2.4 above patient's baseline of approximately 1. There was also a question of a focal white matter change in the right occipital region with request for further work-up. The patient was referred for admission for further evaluation and treatment. Subsequent Neurology evaluation with likely old infarct in the left cerebellum by CT, as well as an evolving infarct in the right occipital lobe and thalamus. MRI of the brain confirmed a subacute right occipital lobe and thalamus infarct, with an area of punctate ischemia in the midbrain all in the distribution of the right posterior cerebral artery. MRA confirmed a question of severe stenosis of the right CARDIAC EXERCISE PHYSIOLOGIST. ECHO was unremarkable with the exception of a mildly dilated Left Atrium. She has continued to work with PT, and has no complaints again this morning - reports feeling improved overall. Blood pressure remains suboptimal, as does blood sugars - but both are overall improved. No overnight events were reported. Exam Narrative Exam Narrative: General: Patient appears comfortable, AAOX3, NAD Neck: Supple CV: Regular, nontachycardic, S1S2, No rubs, murmurs, or gallops. Pulmonary: Clear to auscultation bilaterally, no crackles, wheezing, or rhonchi Abdomen: + Bowel Sounds, soft, nontender, nondistended Vascular: No lower extremity edema Psych: Normal mood and affect. Objective Objective Clinical Data: Abnormal lab results 12/04/18 12/04/18 Range/Units 06:55 06:55 Absolute Lymphocytes 3.76 H (1.2-3.4) k/cumm Glucose 181 H (70-100) mg/dL Calcium 8.3 L (8.5-10.1) mg/dL Magnesium 1.7 L (1.8-2.4) mg/dL Vital Signs Temperature 36.3 C L 12/04/18 11:33 Temperature Source Tympanic 12/04/18 11:33 Pulse 98 H 12/04/18 11:33 Pulse Rhythm Regular 12/04/18 09:07 Pulse 106 H 11/28/18 17:10 Respiratory Rate 18 12/04/18 11:33 Respiratory Effort Non-Labored 12/04/18 09:07 Respiratory Depth Normal 12/04/18 09:07 Respiratory Pattern Normal 12/04/18 09:07 Blood Pressure 128/86 12/04/18 11:33 Blood Pressure Mean 108 11/28/18 17:01 Blood Pressure Position Supine 11/28/18 10:18 Pulse Oximetry 98 12/04/18 11:33 Oxygen Delivery Method Room Air 12/04/18 11:33 Oxygen Flow Rate 0 12/04/18 11:33 Pain Level 0 12/04/18 11:33 Comment 12/03/18 23:33 Intake & Output 12/03/18 12/03/18 12/04/18 11:59 23:59 11:59 Intake Total 600 / 600 740 / 740 Output Total 700 / 1550 850 / 1550 500 / 500 Balance -700 / -950 -250 / -950 240 / 240 Intake: Oral 600 / 600 740 / 740 Output: Urine 700 / 1550 850 / 1550 500 / 500 Other: Urine Color Yellow Yellow Yellow Urine Appearance Clear Clear Clear Urine Odor Strong Normal Voiding Methods Toilet Toilet Toilet Laboratory Results WBC 10.00 k/cumm (4.4-10.8) 12/04/18 06:55 RBC 4.90 m/cumm (4.00-5.20) 12/04/18 06:55 Hgb 13.9 g/dL (12.0-15.5) 12/04/18 06:55 Hct 41.9 % (36.0-46.0) 12/04/18 06:55 MCV 85.5 fL (80-95) 12/04/18 06:55 MCH 28.4 pg (27.0-33.0) 12/04/18 06:55 MCHC 33.2 g/dL (32.0-36.0) 12/04/18 06:55 RDW 13.4 % (11.7-14.6) 12/04/18 06:55 Plt Count 325 x1000/uL (130-400) 12/04/18 06:55 MPV 9.1 fL (8.0-11.0) 12/04/18 06:55 Immature Gran % 0.2 12/04/18 06:55 Neutrophils % 53.5 12/04/18 06:55 Lymphocytes % 37.6 12/04/18 06:55 Monocytes % 4.8 12/04/18 06:55 Eosinophils % 3.3 12/04/18 06:55 Basophils % 0.6 12/04/18 06:55 Absolute Neutrophils 5.35 k/cumm (1.2-6.7) 12/04/18 06:55 Absolute Lymphocytes 3.76 k/cumm (1.2-3.4) H 12/04/18 06:55 Absolute Monocytes 0.48 k/cumm (0.11-0.7) 12/04/18 06:55 Absolute Eosinophils 0.33 k/cumm (0.0-0.7) 12/04/18 06:55 Absolute Basophils 0.06 k/cumm (0.0-0.2) 12/04/18 06:55 PT 9.9 sec (9.3-11.0) 11/28/18 10:25 INR 1.0 (0.9-1.1) 11/28/18 10:25 APTT 22.5 sec (21.0-31.4) 11/28/18 10:25 D-Dimer 306 ng/mlFEU (<500) 11/28/18 11:14 VBG pH 7.39 (7.32-7.43) 11/28/18 13:22 VBG pCO2 38 mm/Hg (34-47) 11/28/18 13:22 VBG pO2 48 mm/Hg (28-44) H 11/28/18 13:22 VBG HCO3 23 mmol/L (22-28) 11/28/18 13:22 VBG Total CO2 20 mmol/L (22-29) L 11/28/18 13:22 VBG O2 Saturation 84 % (70-80) H 11/28/18 13:22 VBG Base Excess -2.1 mmol/L (-3-3) 11/28/18 13:22 Sodium 139 mmol/L (136-145) 12/04/18 06:55 Potassium 3.5 mmol/L (3.5-5.1) 12/04/18 06:55 Chloride 104 mmol/L (98-107) 12/04/18 06:55 Carbon Dioxide 26.6 mmol/L (21.0-32.0) 12/04/18 06:55 Anion Gap 8.4 mmol/L (3-11) 12/04/18 06:55 BUN 18 mg/dL (7-18) 12/04/18 06:55 Creatinine 0.92 mg/dL (0.55-1.02) 12/04/18 06:55 Estimated GFR/1.73 m2 >= 60.00 (mL/min/1.73m2) 12/04/18 06:55 Glucose 181 mg/dL (70-100) H 12/04/18 06:55 Hemoglobin A1c 12.7 % (4.5-6.2) H 11/29/18 06:55 Calcium 8.3 mg/dL (8.5-10.1) L 12/04/18 06:55 Magnesium 1.7 mg/dL (1.8-2.4) L 12/04/18 06:55 Total Bilirubin 0.7 mg/dL (0.2-1.0) 11/28/18 10:25 AST 12 U/L (15-37) L 11/28/18 10:25 ALT 26 U/L (14-59) 11/28/18 10:25 Alkaline Phosphatase 84 U/L (46-116) 11/28/18 10:25 Troponin I < 0.05 ng/mL (0.00-0.06) 11/28/18 10:25 Total Protein 7.8 g/dL (6.4-8.2) 11/28/18 10:25 Albumin 3.7 g/dL (3.4-5.0) 11/28/18 10:25 Triglycerides 254 mg/dL (30-150) H 11/30/18 06:30 Total Cholesterol 216 mg/dL (50-200) H 11/30/18 06:30 LDL Cholesterol, Calc 140 mg/dL 11/30/18 06:30 HDL Cholesterol 26 mg/dL (40-60) L 11/30/18 06:30 Vitamin B12 613 pg/mL (193-986) 11/29/18 06:55 TSH 0.79 uIU/mL (0.36-3.74) 11/29/18 06:55 Urine Color Yellow (Yellow) 11/29/18 15:46 Urine Clarity Clear (Clear) 11/29/18 15:46 Urine pH 5.0 (5-8) 11/29/18 15:46 Ur Specific [place] 1.010 (1.005-1.025) 11/29/18 15:46 Urine Protein Negative mg/dL (Negative) 11/29/18 15:46 Urine Ketones Negative mg/dL (Negative) 11/29/18 15:46 Urine Blood Negative (Negative) 11/29/18 15:46 Urine Nitrite Negative (Negative) 11/29/18 15:46 Urine Bilirubin Negative (Negative) 11/29/18 15:46 Urine Urobilinogen 0.2 EU/dL (Up TO 0.2) 11/29/18 15:46 Ur Leukocyte Esterase Negative (Negative) 11/29/18 15:46 Urine Glucose Negative mg/dL (Negative) 11/29/18 15:46
--- NOTE | 2018-12-04 13:17 | PT.INTREAT ---
Date of service: 12/04/18 Time of Service: 10:10 PT Notes Inpatient Physical Therapy Treatment Note [facility] Date: 12/04/18 PRECAUTIONS:Fall, Standard, and Left muna-neglect SUBJECTIVE: Feel like I am doing better with left foot and leg function. OBJECTIVE: PAIN: Stated her low back is doing better today. Prefers to not use ankle weights. BED MOBILITY/TRANSFERS Supine-sit: SBA Sit-supine: SBA Sit-stand: SBA Stand-sit: SBA GAIT Assistive Device: FWW Weight bearing: FWB Assist: CGA-SBA Distance: 300ft x 2 Neuro-Hugh: Performed side stepping, backward ambulation, heel to toe ambulation, toe tap on 4 inch step x 30 seconds and SLS for 3 reps x 5 seconds each leg. See flow sheet for details. CGA with each of these activities. Worked on turning to the left and slowing down to be in better control of her movements. STAIRS:Up/ down 3 4 inch and 2 6 inch steps with handrails and reciprical gait pattern with CGA. ASSESSMENT: Tolerated today's session very well, with good effort given. PLAN: Continue with current plan of care, with focus on improved safety with functional mobility. To be transferred to SNF tomorrow. TREATMENT CODE/TIME: TAx2, NRx1, 10:10 to 11:00 (50')
[2018-12-04] MEDS: Lidocaine 5% Patch 1 PATCH TP (15:06)
--- NOTE | 2018-12-04 16:19 | CMPROGNOTE_ITS ---
Care Management Progress Note S/O: Debi was working with PT and paused long enough to share that she was looking forward to going over to [facility] so that she could get her strength and balance back. Stated her mind was at ease because her 14 yo Foster son was doing great with taking care of the animals and a former foster son and his were going to move in with her for the winter to help keep the wood stoves going and help with things around the house. She said she hopes to be strong enough when she gets back home that she will be able to take walks outside and enjoy her property using a walker for balance. Says she also had a miniature horse and dog for comfort and support. A: Debi is a pleasant 63 year old woman admitted to [facility] on 11/29/18 with LIZETH and memory impairment. P: Debi will need short term SNF placement to regain balance and strength. Referral was made to [facility] at her request. Anticipate a bed offer on Wednesday if she is medically cleared for discharge.
[2018-12-04] MEDS: Atorvastatin 40 MG TAB PO (19:42)
[2018-12-05] VITALS (10 sets, daily range): BP systolic 151–172; BP diastolic 83–91; PULSE 70–97; RESP 14–20; TEMP 35.8–36.7; O2SAT 97–100
[2018-12-05] MEDS: Acetaminophen 325 MG TAB 650 MG PO ×2 (04:25→17:58)
[2018-12-05 07:07] LABS: Abs Immature Grans 0.02 k/cumm (0.0-0.09); Absolute Basophil Count 0.05 k/cumm (0.0-0.2); Absolute Eosinophil Count 0.35 k/cumm (0.0-0.7); Absolute Lymphocyte Count 3.36 k/cumm (1.2-3.4); Absolute Monocyte Count 0.52 k/cumm (0.11-0.7); Absolute Neutrophil Count 4.69 k/cumm (1.2-6.7); Basophils % 0.6; Eosinophils % 3.9; HCT 40.7 % (36.0-46.0); HGB 13.5 g/dL (12.0-15.5); Immature Grans % 0.2; Lymphocytes % 37.4; Mean Corp. HGB Concentration 33.2 g/dL (32.0-36.0); Mean Corpuscular Hemoglobin 28.5 pg (27.0-33.0); Mean Platelet Volume 9.5 fL (8.0-11.0); Monocytes % 5.8; Neutrophils % 52.1; Platelet Count 318 x1000/uL (130-400); RBC 4.73 m/cumm (4.00-5.20); RBC Distribution Width 13.2 % (11.7-14.6); White Blood Cell Count 8.99 k/cumm (4.4-10.8)
[2018-12-05 07:21] LABS: Anion Gap 9.7 mmol/L (3-11); BUN 21 mg/dL (7-18); CO2 26.3 mmol/L (21.0-32.0); CREATININE 0.95 mg/dL (0.55-1.02); Calcium 8.2 mg/dL (8.5-10.1); Chloride 106 mmol/L (98-107); Estimated GFR 59.61 (mL/min/1.73m2); Glucose 175 mg/dL (70-100); Magnesium 1.8 mg/dL (1.8-2.4); Potassium 3.5 mmol/L (3.5-5.1); Sodium 142 mmol/L (136-145)
[2018-12-05] MEDS: Enoxaparin 40 MG/0.4 ML SYR SC (08:08)
[2018-12-05] MEDS: dilTIAZem CD 180 MG CAPCR PO (08:09)
[2018-12-05] MEDS: Clopidogrel 75 MG TAB PO (08:09)
[2018-12-05] MEDS: Chlorthalidone 25 MG TAB PO (08:09)
[2018-12-05] MEDS: Pantoprazole 40 MG TABCR PO (08:09)
[2018-12-05] MEDS: Insulin Aspart 300 UNITS/3 ML PEN SC ×3 (08:09→16:48)
[2018-12-05] MEDS: Aspirin E.C. 81 MG TABEC PO (08:09)
--- NOTE | 2018-12-05 08:31 | PGE_ITS ---
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 Esparza is a 63-year-old, right-handed woman admitted for confusion found to have acute on chronic renal insufficiency as well as a subacute ischemic infarct in the right posterior cerebral artery territory including the right occipital lobe and right thalamus manifested by a left homonymous hemianopsia, mild left hemineglect, and mild left hemiparesis. She has also had a previous left cerebellar stroke of which she was unaware. The etiology of her stroke remains unknown but most likely due to large ve ssel thrombosis from poorly controlled hypertension and diabetes. An embolic phenomenon cannot be ruled out and is particularly concerning given mildly dilated LA seen on TTE. I recommend a DAGO and 30 day cardiac monitoring as further work-up. Continue aspirin 81mg plus Plavix 75mg daily x 30 days at which point she should stop aspirin and continue Plavix alone. Continue atorvastatin with a l rolando-term LDL goal of <70. Her goal A1c is less than 7. Her long-term BP goal is 120-140/80-90. Continue PT/OT. No driving. She should follow-up in the neurology clinic in 4-6 weeks. DISCLAIMER: This note was created using [employer] voice recognition software. Subjective Subjective Interval history since last seen: No events over the weekend. She reports improved mobility. Will be going to [employer] today. 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 Exam Narrative Exam Narrative: Physical Exam: Constitutional: Patient of apparent stated age, well nourished, well developed, no acute distress Neuro: MS/Language/Speech: Alert, oriented, clear language (fluency and comprehension), no dysarthria CN: left homonymous hemianopsia, trigeminal sensation intact, no facial asymmetry, hearing intact Motor: Normal bulk and tone. Subtle reduced FMM on the left, no pronator drift. 5/5 strength in bilateral upper and lower extremities. Still neglects the left side. Sensation: Intact to light touch throughout with reduced on the left to DSS Coordination: Finger to nose performed without dysmetria Gait: Stable, deferred Objective Objective Clinical Data: Abnormal lab results 12/05/18 Range/Units 06:37 BUN 21 H (7-18) mg/dL Glucose 175 H (70-100) mg/dL Calcium 8.2 L (8.5-10.1) mg/dL Vital Signs Temperature 36.6 C 12/05/18 08:16 Temperature Source Tympanic 12/05/18 08:16 Pulse 75 12/05/18 08:16 Pulse Rhythm Regular 12/05/18 00:15 Pulse 106 H 11/28/18 17:10 Respiratory Rate 18 12/05/18 08:16 Respiratory Effort 12/05/18 00:15 Respiratory Depth Normal 12/05/18 00:15 Respiratory Pattern Normal 12/05/18 00:15 Blood Pressure 172/91 H 12/05/18 08:16 Blood Pressure Mean 108 11/28/18 17:01 Blood Pressure Position Supine 11/28/18 10:18 Pulse Oximetry 98 12/05/18 08:16 Oxygen Delivery Method Room Air 12/05/18 08:16 Oxygen Flow Rate 0 12/05/18 08:16 Pain Level 0 12/05/18 08:16 Comment 12/05/18 03:40 Intake & Output 12/04/18 12/04/18 12/05/18 11:59 23:59 11:59 Intake Total 740 / 980 240 / 980 400 / 400 Output Total 500 / 500 Balance 240 / 480 240 / 480 400 / 400 Intake: Oral 740 / 980 240 / 980 400 / 400 Output: Urine 500 / 500 Other: Urine Color Yellow Yellow Urine Appearance Clear Clear Urine Odor Normal Comment Urine not measured but viewed before flushed. VOID X 1 IN TOILET AND FLUSHED Stool Size Moderate Stool Characteristics Formed Voiding Methods Toilet Toilet Toilet Laboratory Results WBC 8.99 k/cumm (4.4-10.8) 12/05/18 06:37 RBC 4.73 m/cumm (4.00-5.20) 12/05/18 06:37 Hgb 13.5 g/dL (12.0-15.5) 12/05/18 06:37 Hct 40.7 % (36.0-46.0) 12/05/18 06:37 MCV 86.0 fL (80-95) 12/05/18 06:37 MCH 28.5 pg (27.0-33.0) 12/05/18 06:37 MCHC 33.2 g/dL (32.0-36.0) 12/05/18 06:37 RDW 13.2 % (11.7-14.6) 12/05/18 06:37 Plt Count 318 x1000/uL (130-400) 12/05/18 06:37 MPV 9.5 fL (8.0-11.0) 12/05/18 06:37 Immature Gran % 0.2 12/05/18 06:37 Neutrophils % 52.1 12/05/18 06:37 Lymphocytes % 37.4 12/05/18 06:37 Monocytes % 5.8 12/05/18 06:37 Eosinophils % 3.9 12/05/18 06:37 Basophils % 0.6 12/05/18 06:37 Absolute Neutrophils 4.69 k/cumm (1.2-6.7) 12/05/18 06:37 Absolute Lymphocytes 3.36 k/cumm (1.2-3.4) 12/05/18 06:37 Absolute Monocytes 0.52 k/cumm (0.11-0.7) 12/05/18 06:37 Absolute Eosinophils 0.35 k/cumm (0.0-0.7) 12/05/18 06:37 Absolute Basophils 0.05 k/cumm (0.0-0.2) 12/05/18 06:37 PT 9.9 sec (9.3-11.0) 11/28/18 10:25 INR 1.0 (0.9-1.1) 11/28/18 10:25 APTT 22.5 sec (21.0-31.4) 11/28/18 10:25 D-Dimer 306 ng/mlFEU (<500) 11/28/18 11:14 VBG pH 7.39 (7.32-7.43) 11/28/18 13:22 VBG pCO2 38 mm/Hg (34-47) 11/28/18 13:22 VBG pO2 48 mm/Hg (28-44) H 11/28/18 13:22 VBG HCO3 23 mmol/L (22-28) 11/28/18 13:22 VBG Total CO2 20 mmol/L (22-29) L 11/28/18 13:22 VBG O2 Saturation 84 % (70-80) H 11/28/18 13:22 VBG Base Excess -2.1 mmol/L (-3-3) 11/28/18 13:22 Sodium 142 mmol/L (136-145) 12/05/18 06:37 Potassium 3.5 mmol/L (3.5-5.1) 12/05/18 06:37 Chloride 106 mmol/L (98-107) 12/05/18 06:37 Carbon Dioxide 26.3 mmol/L (21.0-32.0) 12/05/18 06:37 Anion Gap 9.7 mmol/L (3-11) 12/05/18 06:37 BUN 21 mg/dL (7-18) H 12/05/18 06:37 Creatinine 0.95 mg/dL (0.55-1.02) 12/05/18 06:37 Estimated GFR/1.73 m2 59.61 (mL/min/1.73m2) 12/05/18 06:37 Glucose 175 mg/dL (70-100) H 12/05/18 06:37 Hemoglobin A1c 12.7 % (4.5-6.2) H 11/29/18 06:55 Calcium 8.2 mg/dL (8.5-10.1) L 12/05/18 06:37 Magnesium 1.8 mg/dL (1.8-2.4) 12/05/18 06:37 Total Bilirubin 0.7 mg/dL (0.2-1.0) 11/28/18 10:25 AST 12 U/L (15-37) L 11/28/18 10:25 ALT 26 U/L (14-59) 11/28/18 10:25 Alkaline Phosphatase 84 U/L (46-116) 11/28/18 10:25 Troponin I < 0.05 ng/mL (0.00-0.06) 11/28/18 10:25 Total Protein 7.8 g/dL (6.4-8.2) 11/28/18 10:25 Albumin 3.7 g/dL (3.4-5.0) 11/28/18 10:25 Triglycerides 254 mg/dL (30-150) H 11/30/18 06:30 Total Cholesterol 216 mg/dL (50-200) H 11/30/18 06:30 LDL Cholesterol, Calc 140 mg/dL 11/30/18 06:30 HDL Cholesterol 26 mg/dL (40-60) L 11/30/18 06:30 Vitamin B12 613 pg/mL (193-986) 11/29/18 06:55 TSH 0.79 uIU/mL (0.36-3.74) 11/29/18 06:55 Urine Color Yellow (Yellow) 11/29/18 15:46 Urine Clarity Clear (Clear) 11/29/18 15:46 Urine pH 5.0 (5-8) 11/29/18 15:46 Ur Specific [place] 1.010 (1.005-1.025) 11/29/18 15:46 Urine Protein Negative mg/dL (Negative) 11/29/18 15:46 Urine Ketones Negative mg/dL (Negative) 11/29/18 15:46 Urine Blood Negative (Negative) 11/29/18 15:46 Urine Nitrite Negative (Negative) 11/29/18 15:46 Urine Bilirubin Negative (Negative) 11/29/18 15:46 Urine Urobilinogen 0.2 EU/dL (Up TO 0.2) 11/29/18 15:46 Ur Leukocyte Esterase Negative (Negative) 11/29/18 15:46 Urine Glucose Negative mg/dL (Negative) 11/29/18 15:46
[2018-12-05] MEDS: Magnesium Oxide 400 MG TAB PO (09:45)
[2018-12-05] MEDS: Potassium Chloride 20 MEQ TABCR 40 MEQ PO (09:45)
--- NOTE | 2018-12-05 10:14 | OT.INDS ---
Date of service: 12/05/18 Time of Service: 09:20 Occupational Therapy Notes Occupational Therapy Inpatient Discharge Summary Date: 12/05/18 Dates of Service: 12/01/18-12/05/18 Referring Doctor:Dr. Grewal OT Orders: Urgent-stroke; (L) HH, (L) hemineglect, mild left hemiparesis Precautions: Fall, Contact PATIENT PROFILE/ADMITTING DIAGNOSIS: Pt is a 63 year old female who was admitted through the ER for dx of hip pain, Acute kidney injury, Dehydration, Contusion of left hip, Cognitive decline with a later dx of Stroke with symptoms related to (L) muna neglect and mild (L) hemiparesis. Past Medical History: Medical History Chronic kidney disease (CKD) stage G3a/A1, moderately decreased glomerular filtration rate (GFR) between 45-59 mL/min/1.73 square meter and albuminuria creatinine ratio less than 30 mg/g (Acute) Diabetes (Chronic) HTN (hypertension) (Chronic) Surgical History No significant past surgical history (Acute) Social History/Home Situation: Pt lives alone in a private home, she notes that she is totally (I) at baseline and her son and daughter are currently at home and there to (A) her as needed. Pt states that she is able to drive but not at this time per recommendation of MD. 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 Equipment owned/DME: grab bars. SUBJECTIVE: Pt was sitting in chair when OT arrived. She was agreeable to OT session reporting that she believes she is being discharged today. She states that she is excepting the fact that she will require (A) at this time. She notes that this is hard for her but her daughter and other children are a huge support for her. OT and pt discuss the importance of asking for help and allowing herself to heal. OBJECTIVE: General Observation: Pleasant, telemetry, IV (R) UE Mental Status: Pt is alert and oriented and able to recall events. Pt does seem to have a slight cognitive deficit and tends to repeat stories throughout session. She has a decline in visual perception and tends to place objects too close or too far away. Pain: no c/o pain ROM: RUE AROM WNL L UE AROM WNL STRENGTH: RUE 5/5 throughout LUE 5/5 throughout FUNCTIONAL MOBILITY/ADLS: BATHING Not performed today, this is based on assessment from other day Bathing UE (I) Washing face, (B) UE, abdomen and underarms sitting on shower bench Bathing LE Sitting on shower bench (I) (B) legs and feet with ideal technique DRESSING Sitting in chair Dressing LE (I) don and doffing (B) socks. Dressing UE- (I) with [facility] hospital gown GROOMING Sitting in chair (I) With brushing teeth with min vc TOILETING on toilet (I) with use of grab bar around toilet for stability for sit-stand EATING Sitting in chair (I) BALANCE: Static sitting Normal Dynamic Sitting Normal Static Standing Good Dynamic Standing Good ASSESSMENT: Patient is a 63-year-old female referred to occupational therapy services with diagnosis of of hip pain, Acute kidney injury, Dehydration, Contusion of left hip, Cognitive decline with a later dx of Stroke with symptoms related to (L) muna neglect and mild (L) hemiparesis. Pt was seen for 4 skilled OT sessions. Pt functionally is able to demonstrate increased functional (I) in her ADL/IADL routines. She does require supervision and min vc at times. OT does feel that if pt returns home she will require HH services to assess her ADLs/IADL in her home environment and assess for safety and need for adaptive equipment in the home setting. Based on pts safety awareness and functional mobility, functional activity tolerance and visual deficit OT does feel that pt may benefit from short term stay at SNF for increased rehabilitation. Plan is for pt to be discharged today when medically cleared per MD. GOALS- Met 1. Transfers LRD (S) 2. Dressing in sitting (I) UE/LE 3. Bathing in sitting (I) UE/LE 4. Toileting (I) on toilet 5. Eating (I) PLAN OF CARE/TREATMENT PLAN: Plan is for pt to be discharged today when medically cleared per MD. DISCHARGE RECOMMENDATIONS OT recommends that pt have a transfer bench for tub/shower combination to increase safety and functional (I) in bathing routine. OT recommends that pt return home with HHOT services if plan is for pt to return home vs. short term stay at SNF due to pts visual and cognitive performance for safety and performance of ADLs/IADLs with increased (I). TREATMENT TIME/MINUTES/CODES [id number], 25 minutes (09:20) Monserrat Carrion OTR/L [facility]
--- NOTE | 2018-12-05 11:25 | W.DIABETESNO ---
Date of service: 12/05/18 Time of Service: 11:25 Diabetes Note NOTE: Attempted to visit Debi this morning but she was not in her room. Will follow up with review of insulin administration and glucose monitoring prior to discharge appreciating she may go to a skilled care facility. Time Spent in Nutritional Counseling and Treatment: 0
--- NOTE | 2018-12-05 13:30 | W.PM.PROGNOT ---
Date of Service Date of service: 12/05/18 Time of Service: 13:30 Assessment and Plan Assessment and plan (1) CVA (cerebral vascular accident): Status: Chronic Assessment and plan: Evidence of a subacute CVA in the right MUSIC COPYIST territory, with subsequent left homonymous hemianopsia, mild left hemineglect, and left hemiparesis. Also with evidence of a prior left cerebellar CVA. - Etiology of current CVA potentially on the basis of large vessel thrombosis, with evidence of potential severe right MUSIC COPYIST stenosis by MRA in the setting of poorly controlled HTN and DM. - For an outpatient DAGO to exclude possibility of embolic disease in the setting of a mildly dilated LA on TTE, per neuro recommendations. - Continue DAPT for 30 days, with plans to change to Clopidogrel alone following. Will also plan for outpatient 30 day cardiac monitoring at discharge. - Aim for improved bp with decrease in values following some degree of permissive hypertension initially. Will also need improved glycemic control. - Plan currently for SNF for continued rehab. (2) HTN (hypertension): Status: Chronic Assessment and plan: Continue Cardizem - patient was also started on amlodipine, which was discontinued given chronic Calcium Channel Dee use. ARB reinitiated, and patient was started on thiazide diuretic with chlorthalidone, and monitor electrolytes and renal function carefully. Overall blood pressure is improved but remains suboptimal on the whole. Continue to monitor and adjust antihypertensive regimen as able. (3) Diabetes: Status: Chronic Assessment and plan: Initiated on Insulin with sliding scale coverage. Blood sugars appear improved but remain suboptimal. Will continue to adjust basal insulin, with Detemir increased 2 days ago. Needs vast improvement in control given her current A1C value of 12.7% and evidence of CVA. Will need insulin education. (4) Acute kidney injury: Status: Acute Assessment and plan: Improved and likely prerenal in etiology. Improved and at baseline. (5) DVT prophylaxis: Status: Acute Assessment and plan: Continue SC Enoxaparin. Also initiated PPI therapy given need for DAPT. (6) Discharge planning issues: Status: Acute Assessment and plan: For SNF placement, potentially tomorrow. Subjective Subjective Interval history since last seen: 63-year-old woman with a history of uncontrolled HTN and DM, admitted from [facility] Emergency Department on 11/29, diagnosed with a Subacute CVA and LIZETH. Mrs. Patel has a past Medical History significant for HTN, DM, and CKD. Her comorbidities appear poorly controlled, with an elevated blood pressure and HgA1C of 12.7%. She initially presented to the ED with confusion at home that was noted by her daughter, with difficulty with ambulation and note of potential left sided neglect. She also reported a fall approximately 2 weeks prior, with a poor appetite and worsening oral intake since due to pain. Work-up in the ED was significant for LIZETH, with a creatinine of 2.4 above patient's baseline of approximately 1. There was also a question of a focal white matter change in the right occipital region with request for further work-up. The patient was referred for admission for further evaluation and treatment. Subsequent Neurology evaluation with likely old infarct in the left cerebellum by CT, as well as an evolving infarct in the right occipital lobe and thalamus. MRI of the brain confirmed a subacute right occipital lobe and thalamus infarct, with an area of punctate ischemia in the midbrain all in the distribution of the right posterior cerebral artery. MRA confirmed a question of severe stenosis of the right MUSIC COPYIST. ECHO was unremarkable with the exception of a mildly dilated Left Atrium. She has continued to work with PT, and has no complaints again this morning - reports feeling improved overall. Blood pressure remains suboptimal, as does blood sugars - but both are overall improved with recent medication titration. No overnight events were reported. Exam Narrative Exam Narrative: General: Patient appears comfortable, AAOX3, NAD Psych: Normal mood and affect. Objective Objective Clinical Data: Abnormal lab results 12/05/18 Range/Units 06:37 BUN 21 H (7-18) mg/dL Glucose 175 H (70-100) mg/dL Calcium 8.2 L (8.5-10.1) mg/dL Vital Signs Temperature 36.0 C L 12/05/18 11:35 Temperature Source Tympanic 12/05/18 08:16 Pulse 82 12/05/18 11:35 Pulse Rhythm Regular 12/05/18 10:11 Pulse 106 H 11/28/18 17:10 Respiratory Rate 14 12/05/18 11:35 Respiratory Effort 12/05/18 10:11 Respiratory Depth Normal 12/05/18 10:11 Respiratory Pattern Normal 12/05/18 10:11 Blood Pressure 154/83 H 12/05/18 11:35 Blood Pressure Mean 108 11/28/18 17:01 Blood Pressure Position Supine 11/28/18 10:18 Pulse Oximetry 99 12/05/18 11:35 Oxygen Delivery Method Room Air 12/05/18 11:35 Oxygen Flow Rate 0 12/05/18 11:35 Pain Level 0 12/05/18 11:35 Comment 12/05/18 11:35 Intake & Output 12/04/18 12/05/18 12/05/18 23:59 11:59 23:59 Intake Total 240 / 980 400 / 400 Balance 240 / 480 400 / 400 Intake: Oral 240 / 980 400 / 400 Other: Urine Color Yellow Yellow Urine Appearance Clear Urine Odor Normal Comment Urine not measured but viewed before flushed. in toilet per PT Stool Size Moderate Stool Characteristics Formed Voiding Methods Toilet Toilet Laboratory Results WBC 8.99 k/cumm (4.4-10.8) 12/05/18 06:37 RBC 4.73 m/cumm (4.00-5.20) 12/05/18 06:37 Hgb 13.5 g/dL (12.0-15.5) 12/05/18 06:37 Hct 40.7 % (36.0-46.0) 12/05/18 06:37 MCV 86.0 fL (80-95) 12/05/18 06:37 MCH 28.5 pg (27.0-33.0) 12/05/18 06:37 MCHC 33.2 g/dL (32.0-36.0) 12/05/18 06:37 RDW 13.2 % (11.7-14.6) 12/05/18 06:37 Plt Count 318 x1000/uL (130-400) 12/05/18 06:37 MPV 9.5 fL (8.0-11.0) 12/05/18 06:37 Immature Gran % 0.2 12/05/18 06:37 Neutrophils % 52.1 12/05/18 06:37 Lymphocytes % 37.4 12/05/18 06:37 Monocytes % 5.8 12/05/18 06:37 Eosinophils % 3.9 12/05/18 06:37 Basophils % 0.6 12/05/18 06:37 Absolute Neutrophils 4.69 k/cumm (1.2-6.7) 12/05/18 06:37 Absolute Lymphocytes 3.36 k/cumm (1.2-3.4) 12/05/18 06:37 Absolute Monocytes 0.52 k/cumm (0.11-0.7) 12/05/18 06:37 Absolute Eosinophils 0.35 k/cumm (0.0-0.7) 12/05/18 06:37 Absolute Basophils 0.05 k/cumm (0.0-0.2) 12/05/18 06:37 PT 9.9 sec (9.3-11.0) 11/28/18 10:25 INR 1.0 (0.9-1.1) 11/28/18 10:25 APTT 22.5 sec (21.0-31.4) 11/28/18 10:25 D-Dimer 306 ng/mlFEU (<500) 11/28/18 11:14 VBG pH 7.39 (7.32-7.43) 11/28/18 13:22 VBG pCO2 38 mm/Hg (34-47) 11/28/18 13:22 VBG pO2 48 mm/Hg (28-44) H 11/28/18 13:22 VBG HCO3 23 mmol/L (22-28) 11/28/18 13:22 VBG Total CO2 20 mmol/L (22-29) L 11/28/18 13:22 VBG O2 Saturation 84 % (70-80) H 11/28/18 13:22 VBG Base Excess -2.1 mmol/L (-3-3) 11/28/18 13:22 Sodium 142 mmol/L (136-145) 12/05/18 06:37 Potassium 3.5 mmol/L (3.5-5.1) 12/05/18 06:37 Chloride 106 mmol/L (98-107) 12/05/18 06:37 Carbon Dioxide 26.3 mmol/L (21.0-32.0) 12/05/18 06:37 Anion Gap 9.7 mmol/L (3-11) 12/05/18 06:37 BUN 21 mg/dL (7-18) H 12/05/18 06:37 Creatinine 0.95 mg/dL (0.55-1.02) 12/05/18 06:37 Estimated GFR/1.73 m2 59.61 (mL/min/1.73m2) 12/05/18 06:37 Glucose 175 mg/dL (70-100) H 12/05/18 06:37 Hemoglobin A1c 12.7 % (4.5-6.2) H 11/29/18 06:55 Calcium 8.2 mg/dL (8.5-10.1) L 12/05/18 06:37 Magnesium 1.8 mg/dL (1.8-2.4) 12/05/18 06:37 Total Bilirubin 0.7 mg/dL (0.2-1.0) 11/28/18 10:25 AST 12 U/L (15-37) L 11/28/18 10:25 ALT 26 U/L (14-59) 11/28/18 10:25 Alkaline Phosphatase 84 U/L (46-116) 11/28/18 10:25 Troponin I < 0.05 ng/mL (0.00-0.06) 11/28/18 10:25 Total Protein 7.8 g/dL (6.4-8.2) 11/28/18 10:25 Albumin 3.7 g/dL (3.4-5.0) 11/28/18 10:25 Triglycerides 254 mg/dL (30-150) H 11/30/18 06:30 Total Cholesterol 216 mg/dL (50-200) H 11/30/18 06:30 LDL Cholesterol, Calc 140 mg/dL 11/30/18 06:30 HDL Cholesterol 26 mg/dL (40-60) L 11/30/18 06:30 Vitamin B12 613 pg/mL (193-986) 11/29/18 06:55 TSH 0.79 uIU/mL (0.36-3.74) 11/29/18 06:55 Urine Color Yellow (Yellow) 11/29/18 15:46 Urine Clarity Clear (Clear) 11/29/18 15:46 Urine pH 5.0 (5-8) 11/29/18 15:46 Ur Specific [place] 1.010 (1.005-1.025) 11/29/18 15:46 Urine Protein Negative mg/dL (Negative) 11/29/18 15:46 Urine Ketones Negative mg/dL (Negative) 11/29/18 15:46 Urine Blood Negative (Negative) 11/29/18 15:46 Urine Nitrite Negative (Negative) 11/29/18 15:46 Urine Bilirubin Negative (Negative) 11/29/18 15:46 Urine Urobilinogen 0.2 EU/dL (Up TO 0.2) 11/29/18 15:46 Ur Leukocyte Esterase Negative (Negative) 11/29/18 15:46 Urine Glucose Negative mg/dL (Negative) 11/29/18 15:46
--- NOTE | 2018-12-05 15:59 | CMPROGNOTE_ITS ---
- If Service Date Differs Date of service: 12/05/18 Time of Service: 15:59 Care Management Progress Note S/O:Debi was sitting up in the chair when CM came to see her. She was smiling, pleasant and cooperative and readily engaged in conversation. Debi states she is looking forward to getting strong enough to go home. 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 He assured Debi that he would bring Flor by to see her and Precious, Debi's daughter, from time to time to continue the diaz that had formed during the 3 years that she was with them. Debi also shared that her son Hung, who is in the [employer], is trying to get her designated as a dependent to help defray Debi's lost income from the stroke. A: Debi is a pleasant 63 year old woman admitted to [facility] on 11/29/18 with LIZETH and memory impairment. P: Debi will likely transfer to [facility] tomorrow to regain balance and strength before returning home. CM will continue to support patient, family and discharge planning needs.
--- NOTE | 2018-12-05 16:00 | PT.INTREAT ---
Date of service: 12/05/18 PT Notes Inpatient Physical Therapy Treatment Note [facility] Date: 12/05/2018 PRECAUTIONS: Standard. Falls. Hemineglect. SUBJECTIVE: Patient denies pain, headache, dizziness, or lightheadedness for both the morning and afternoon sessions. She says she feels ready to go to SNF, and says she is becoming more aware of the things around her that could cause a fall. She says she very much feels inspired by the PT treatments and gains much enjoyment from them and is easily agreeable to treatment today. OBJECTIVE: Patient is seen sitting in recliner chair with alarm system. PAIN: 0/10 BED MOBILITY/TRANSFERS Rolling L/R: Supervision Supine-sit: Supervision Sit-supine: Supervision Sit-stand: Supervision Stand-sit: Supervision Bed-Chair: Supervision Chair-bed: Supervision GAIT Assistive Device: FWW Weight bearing: FWB Assist: SBA Distance: 20?+150?+30?+20? Deviation: Hemineglect improving but still not perfect. THEREX: For the monring session: Long-arc quads w/ 4lbs ankle weights: x 10 Standing hip abduction w/4lbs ankle weights x 10 Standing marches w/4lbs ankle weights x 10 Ball toss with emphasis of left hand catching and throwing x 5 minutes Kicking and stopping cylindrical bolster with L LE x 10 For the afternoon session: Sit to stand: x5 Sit to stand w/sidestep to L: x 5 Sit to stand w/sidestep to R: x 5 ASSESSMENT: Patient is a 63 year old female s/p acute lacunar stroke. She exhibits hemineglect on the L side and requires cues to avoid obstacles on her left during gait activities. She has family and friends to support her recovery, and is a very motivated individual. Her prognosis is good and she presents with signs and symptoms consistent with her admitting and current diagnoses. She is a very motivated individual, and enjoys physical activity and therapy. She desires to return home but is willing to go to SNF for continued therapy. Patient presents with signs and symptoms consistent with admitting diagnoses resulting in impairments such as decreased gait stability, hemineglect, and increased dependence during mobility-related tasks. PLAN: Patient will be discharged to SNF tomorrow (12/06/2018) for continued physical and occupational therapy to further enhance balance and stability during ADLs. Patient will continue developing strength and balance during activities of daily living and decrease the effects of the L hemineglect. TREATMENT CODE/TIME: Session 1- 48912 x 15 minutes, [id number] x 15 minutes beginning at 10:56 AM. Session 2- [id number] x 20 minutes beginning at 16:02 PM.
[2018-12-05] MEDS: Lidocaine 5% Patch 1 PATCH TP (16:19)
[2018-12-05] MEDS: Atorvastatin 40 MG TAB PO (19:19)
[2018-12-05] MEDS: Potassium Chloride 20 MEQ TABCR PO (19:19)
[2018-12-05] MEDS: Normal Saline Flush 10 ML SYR IVP (19:20)
[2018-12-06] VITALS (7 sets, daily range): BP systolic 129–157; BP diastolic 76–87; PULSE 80–140; RESP 16–18; TEMP 36.2–36.7; O2SAT 97–98
[2018-12-06] MEDS: Acetaminophen 325 MG TAB 650 MG PO (04:23)
[2018-12-06 06:52] LABS: Abs Immature Grans 0.03 k/cumm (0.0-0.09); Absolute Eosinophil Count 0.38 k/cumm (0.0-0.7); Absolute Monocyte Count 0.55 k/cumm (0.11-0.7); Absolute Neutrophil Count 4.95 k/cumm (1.2-6.7); HCT 42.5 % (36.0-46.0); HGB 14.1 g/dL (12.0-15.5); Immature Grans % 0.3; Lymphocytes % 37.5; Mean Corp. HGB Concentration 33.2 g/dL (32.0-36.0); Mean Corpuscular Hemoglobin 28.7 pg (27.0-33.0); Mean Corpuscular Volume 86.4 fL (80-95); Mean Platelet Volume 9.6 fL (8.0-11.0); Monocytes % 5.7; Neutrophils % 51.5; Platelet Count 349 x1000/uL (130-400); RBC 4.92 m/cumm (4.00-5.20); RBC Distribution Width 13.2 % (11.7-14.6); White Blood Cell Count 9.61 k/cumm (4.4-10.8)
[2018-12-06 06:55] LABS: Anion Gap 7.6 mmol/L (3-11); BUN 18 mg/dL (7-18); CO2 28.4 mmol/L (21.0-32.0); CREATININE 1.05 mg/dL (0.55-1.02); Calcium 8.6 mg/dL (8.5-10.1); Chloride 104 mmol/L (98-107); Glucose 194 mg/dL (70-100); Magnesium 1.8 mg/dL (1.8-2.4); Potassium 4.2 mmol/L (3.5-5.1); Sodium 140 mmol/L (136-145)
[2018-12-06] MEDS: Enoxaparin 40 MG/0.4 ML SYR SC (08:10)
[2018-12-06] MEDS: dilTIAZem CD 180 MG CAPCR PO (08:11)
[2018-12-06] MEDS: Clopidogrel 75 MG TAB PO (08:11)
[2018-12-06] MEDS: Chlorthalidone 25 MG TAB PO (08:11)
[2018-12-06] MEDS: Insulin Aspart 300 UNITS/3 ML PEN SC ×2 (08:11→12:00)
[2018-12-06] MEDS: Potassium Chloride 20 MEQ TABCR PO (08:11)
[2018-12-06] MEDS: Aspirin E.C. 81 MG TABEC PO (08:11)
[2018-12-06] MEDS: Pantoprazole 40 MG TABCR PO (08:11)
--- NOTE | 2018-12-06 14:15 | NUR.NOTE ---
Pt discharged from Acute to swingbed 1.Nursing Note:
--- NOTE | 2018-12-06 14:52 | DSE_ITS ---
Date of service: 12/06/18 Time of Service: 14:52 DS: Diagnosis Discharge Diagnosis (1) CVA (cerebral vascular accident): Status: Chronic (2) HTN (hypertension): Status: Chronic (3) Diabetes: Status: Chronic (4) Acute kidney injury: Status: Acute (5) Discharge planning issues: Status: Acute Discharge Plan Disposition Patient Disposition: [facility] SWING BED LEVEL 1 Condition: Stable Discharge Details Chief Complaint: Chest Pain Clinical Impression: Acute kidney injury, Dehydration, Contusion of left hip, Cognitive decline Reason For Visit: ACUTE KIDNEY INJURY, MEMORY IMPAIRMENT Admit Date/Time: 11/29/18 18:27 Admit Provider: Onur Liriano Attending Provider: Onur Liriano Primary Care Provider: Onur Liriano ED Provider: Alannah Beal Hospital Course Hospital Course: Chief Complaint: Confusion HPI: 63-year-old woman with a history of uncontrolled HTN and DM, admitted from [facility] Emergency Department on 11/29, diagnosed with a Subacute CVA and LIZETH. Mrs. Patel has a past Medical History significant for HTN, DM, and CKD. Her comorbidities appear poorly controlled, with an elevated blood pressure and HgA1C of 12.7%. She initially presented to the ED with confusion at home that was noted by her daughter, with difficulty with ambulation and note of potential left sided neglect. She also reported a fall approximately 2 weeks prior, with a poor appetite and worsening oral intake since due to pain. Work-up in the ED was significant for LIZETH, with a creatinine of 2.4 above patient's baseline of approximately 1. There was also a question of a focal white matter change in the right occipital region with request for further work-up. The patient was referred for admission for further evaluation and treatment. Subsequent Neurology evaluation with likely old infarct in the left cerebellum by CT, as well as an evolving infarct in the right occipital lobe and thalamus. MRI of the brain confirmed a subacute right occipital lobe and thalamus infarct, with an area of punctate ischemia in the midbrain all in the distribution of the right posterior cerebral artery. MRA confirmed a question of severe stenosis of the right [employer] [place]. ECHO was unremarkable with the exception of a mildly dilated Left Atrium. She has continued to work with PT, and has no complaints again this morning - reports feeling improved overall. Blood pressure remains suboptimal, as does blood sugars - but both are overall improved with recent medication titration. No overnight events were reported. Hospital Course: (1) CVA (cerebral vascular accident): Evidence of a subacute CVA in the right [employer] territory, with subsequent left homonymous hemianopsia, mild left hemineglect, and left hemiparesis. Also with evidence of a prior left cerebellar CVA. - Etiology of current CVA likely on the basis of large vessel thrombosis, with evidence of potential severe right [employer] stenosis by MRA in the setting of poorly controlled HTN and DM. - For an outpatient DAGO to exclude possibility of embolic disease in the setting of a mildly dilated LA on TTE, per neuro recommendations. - Continue DAPT for 30 days, with plans to change to Clopidogrel alone following - today is day #7 of DAPT. Will also plan for outpatient 30 day cardiac monitoring as well. - BP improved but remains suboptimal - Will also need improved glycemic control. - Plan currently for SNF for continued rehab. (2) HTN (hypertension): Continue Cardizem. ARB reinitiated following resolution of LIZETH, and patient was started on thiazide diuretic with chlorthalidone - will be changed to Triamterene / HCTZ. Recommend monitoring of renal function while patient remains in the hospital on Swing Bed status. Overall blood pressure is improved but remains suboptimal on the whole. Continue to monitor and adjust antihypertensive regimen as able. (3) Diabetes: Initiated on Insulin with sliding scale coverage. Blood sugars appear improved but remain suboptimal. Will continue to adjust basal insulin, with Detemir increased 3 days ago - will increase again today. Needs vast improvement in control given her current A1C value of 12.7% and evidence of CVA. Will need insulin education. (4) Acute kidney injury: Likely prerenal in etiology. Improved and at baseline. (5) DVT prophylaxis: Continue SC Enoxaparin. Also initiated PPI therapy given need for DAPT. (6) Discharge planning issues: Was not accepted at SNF due to insurance issues - Discharge to Swing Bed for continued physical therapy. Home Meds and New Rx's Prescriptions: No Action albuterol sulfate [Proventil HFA] 6.7 GM HFA aerosol inhaler 1 - 2 puff Inhalation Q6H PRN RF: 0 fluticasone propionate 16 GM spray,suspension 50 mcg NS BID RF: 0 levalbuterol tartrate [Xopenex HFA] 15 GM HFA aerosol inhaler 90 mcg Inhalation Q6H PRN RF: 0 ondansetron HCl [Zofran] 4 mg tablet 4 mg PO QID PRN (Reason: nausea and vomiting) Qty: 10 RF: 0 aspirin [Aspirin Low Dose] 81 mg Tablet,Delayed Release (Dr/Ec) 81 mg PO DAILY RF: 0 metformin 500 mg Tablet 1,000 mg BID RF: 0 triamterene-hydrochlorothiazid 37.5-25 mg Capsule 1 cap DAILY RF: 0 irbesartan 300 mg Tablet 300 mg DAILY RF: 0 Discharge Instructions Stand Alone Forms: Nursing Discharge Form Activity:: Activity as per PT Equipment/Supplies:: No Equipment Needed Diet:: Carb Counting Discharge Orders Discharge Orders: Discharge Order (Routine); Ordered 12/06/18 Ordered By: Luke Vazquez Other Ambulatory Orders: Cardiac Event Recorder (Outpt) (ONCE) Location: None Selected Ordered By: Luke Vazquez DS: Summary Status at Discharge Functional status at discharge: uses cane/walker Overall status at discharge: patient is back to baseline Mental Status: mental status grossly normal Speech and Movement: speech and movement normal Mood: congruent mood Affect: normal affect Exam Psych Mental Status: mental status grossly normal Speech and Movement: speech and movement normal Mood: congruent mood Affect: normal affect DS: Data Vitals/I&O Vitals and I&O: Vital Signs Temperature 36.3 C L 12/06/18 11:50 Temperature Source Tympanic 12/06/18 11:50 Pulse 140 H 12/06/18 11:57 Pulse Rhythm Regular 12/06/18 09:13 Pulse 106 H 11/28/18 17:10 Respiratory Rate 17 12/06/18 11:50 Respiratory Effort Non-Labored 12/06/18 09:13 Respiratory Depth Normal 12/06/18 09:13 Respiratory Pattern Normal 12/06/18 09:13 Blood Pressure 131/83 12/06/18 11:50 Blood Pressure Mean 108 11/28/18 17:01 Blood Pressure Position Supine 11/28/18 10:18 Pulse Oximetry 97 12/06/18 11:50 Oxygen Delivery Method Room Air 12/06/18 07:40 Oxygen Flow Rate 0 12/06/18 07:40 Pain Level 1 12/06/18 11:50 Comment 12/05/18 11:35 Intake & Output 12/05/18 12/06/18 12/06/18 23:59 11:59 23:59 Intake Total 730 / 1380 440 / 680 240 / 680 Balance 730 / 1380 440 / 680 240 / 680 Intake: IV Oral 720 / 1370 440 / 680 240 / 680 Other: Urine Color Yellow Yellow Urine Appearance Clear Urine Odor Normal Comment no hat in the toilet Voiding Methods Toilet Toilet Data Completed and Pending Completed studies during hospitalization [Text1]: Exam(s) 11/28 a RAD:XR chest 2V PA & lateral SYMPTOM/DIAGNOSIS; CHEST TIGHTNESS R/O ACUTE DISEASE PA AND LATERAL CHEST : 11/28 The heart is normal in size. The lungs are clear. The mediastinal structures and pleura appear intact. CONCLUSION: Normal chest. ------- Exam(s) 11/28 a RAD:XR hip LT complete & AP pelvis SYMPTOM/DIAGNOSIS: S/P FALL, R/O ACUTE FRACTURE LEFT HIP: 11/28 Two views of the hip and pelvis were obtained. There are degenerative changes of the hips and SI joints. There is no evidence of acute fracture. ------- Exam(s) a CT:CT head & cervical spine wo SYMPTOM/DIAGNOSIS: S/P FALL, PROGRESSIVE DECLINE, R/O ACUTE DISEASE CERVICAL SPINE CT: 11/28 CT examination of the cervical spine was performed utilizing multi slice acquisition and multi planar reconstruction. Tracheolaryngeal structures appear intact. No gross cervical mass or adenopa thy. There is a torticollis to the right. There is multi level disc space narrowing of the lower cervical spine and there are moderate hypertrophic degenerative changes involving the facet joints and vertebral end plates. No evidence of acute fracture or dislocation. CONCLUSION: No evidence of acute cervical spine fracture or dislocation. CRANIAL CT: 11/[address] was performed. There is mild generalized cerebral atrophy. There are patchy areas of decreased attenuation in periventricular white matter consistent with microvascular ischemic change. Question more focal asymmetric area of decreased attenuation in periventricular white matter medial to the lateral ventricle posteriorly, question of acute or subacute infarct. Probable lacunar infarct present in the right thalamus as well. No evidence of acute intracranial hemorrhage, mass effect or midline shift. The orbital and temporal bone structures appear intact. Mastoid air cells and paranasal sinuses appear well aerated as visualized. CONCLUSION: No evidence of acute intracranial hemorrhage. Question focal white matter decreased attenuation right periventricular occipital region as described above. MRI suggested to rule out acute/subacute infarction. -------- Exam(s) a US:US renal SYMPTOM/DIAGNOSIS: ACUTE KIDNEY INJURY RENAL ULTRASOUND: 11/29 Renal ultrasound was performed according to the usual protocol. The kidneys are normal in size and shape. There is question of slight right hydronephrosis. No left hydronephrosis. No nephrolithiasis on either side. Pre and post void urinary bladder volume measurements are 457 cc and 444 cc respectively. Ureteral jets were not visualized on either side. CONCLUSION: Question mild right hydronephrosis. If clinically indicated additional evaluation with CT urogram may be considered. -------- Exam(s) a MRI:MR brain wo SYMPTOMS/DIAGNOSIS: ACUTE MENTAL STATUS CHANGE, NEW INFARCTS ON CT BRAIN MRI: MRI examination of the brain was performed according to the usual protocol. There is moderate generalized cerebral atrophy. There are patchy areas of abnormal signal in periventricular white matter consistent with microvascular ischemic changes. There is an area of abnormal signal in the left cerebellar hemisphere inferiorly, which shows high signal on T1 and T2 weighted images. This shows decreased signal on diffusion weighted imaging and no abnormality on susceptibility weighted imaging. The findings are most consistent with an old area of infarction. There is an area of abnormal signal on T2 and FLAIR images in the periventric ular white matter posteriorly on the right and there are associated areas of abnormal signal in the thalamus on the right. These areas both correspond to areas of diffusion restricted on diffusion weighted imaging consistent with acute or subacute infarction. Decreased signal noted on ADC mapping. Other areas of abnormal diffusion seen in right occipital lobe, also corresponding to decreased signal on ADC map. The findings as described are consistent with acute or subacute infarction in distributions of posterior cerebral arteries and thalamic perforating arteries. No other significant signal abnormality seen. Orbital and temporal bone structures appear intact. There is grossly normal flow in the [place] vasculature including the basilar and posterior cerebral arteries. CONCLUSION: Findings consistent with acute or subacute posterior circulation infarcts as described above on the right. Probable old left cerebellar hemisphere inferiorly located infarct. -------- Exam(s) 11/29 a MRI:MR angio brain wo a MRI:MR angio neck wo SYMPTOM/DIAGNOSIS: NEW CVA MRA NECK: A 2D time of flight study was performed. The exam is quite limited by patient motion. The common, internal and external carotid arteries as well as vertebral arteries are normal in diameter throughout. There is no evidence of dissection, significant stenosis or occlusion. IMPRESSION: Negative MRA of the neck. MRA [place]: A 3D time of flight study was performed. The distal carotid arteries as well as basilar artery show normal diameter. The exam is mildly limited by motion at the level of the [place]. The anterior and middle cerebral arteries are normal in diameter. The posterior cerebral arteries are difficult to evaluate due to transverse orientation and small vessel diameter. There appears to be asymmetry of the posterior cerebral arteries, with the right showing reduced diameter and a question of an area of stenosis within the proximal portion versus artifact. IMPRESSION: Question of severe stenosis versus artifact of the right posterior cerebral artery. ------- Exam(s) a US:US echocardiogram *[facility]* *[facility]* [address] [place] [address] Date of study: 11/30/2018 Transthoracic Echocardiography M-mode, complete 2D, complete spectral Doppler, and color Doppler *STUDY CONCLUSIONS* Summary: 1. Left ventricle: The cavity size was normal. Wall thickness was increased in a pattern of moderate LVH. Systolic function was normal. The estimated ejection fraction was 60-65%. There was no dynamic obstruction. Wall motion was normal; there were no regional wall motion abnormalities. 2. Mitral valve: Mildly calcified annulus. Mildly thickened leaflets. 3. Left atrium: The atrium was mildly dilated. 4. Right ventricle: The cavity size was normal. Wall thickness was normal. Systolic function was normal. 5. Atrial septum: A patent foramen ovale cannot be excluded. Labs on day of discharge: Labs from last 24 hours 12/06/18 12/06/18 06:12 06:12 WBC 9.61 RBC 4.92 Hgb 14.1 Hct 42.5 MCV 86.4 MCH 28.7 MCHC 33.2 RDW 13.2 Plt Count 349 MPV 9.6 Immature Gran % 0.3 Neutrophils % 51.5 Lymphocytes % 37.5 Monocytes % 5.7 Eosinophils % 4.0 Basophils % 1.0 Absolute Neutrophils 4.95 Absolute Lymphocytes 3.60 H Absolute Monocytes 0.55 Absolute Eosinophils 0.38 Absolute Basophils 0.10 Sodium 140 Potassium 4.2 Chloride 104 Carbon Dioxide 28.4 Anion Gap 7.6 BUN 18 Creatinine 1.05 H Estimated GFR/1.73 m2 53.10 Glucose 194 H Calcium 8.6 Magnesium 1.8 [facility] Medical History ADD (attention deficit disorder) (Acute) Asthma (Chronic) Chronic kidney disease (CKD) stage G3a/A1, moderately decreased glomerular filtration rate (GFR) between 45-59 mL/min/1.73 square meter and albuminuria creatinine ratio less than 30 mg/g (Acute) Diabetes (Chronic) HTN (hypertension) (Chronic) Urinary retention with incomplete bladder emptying (Chronic) Surgical History No significant past surgical history (Acute) Social History Smoking/Tobacco Use Status: Former Tobacco Use Alcohol Intake: never Drug use: Never 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
[2018-12-06] MEDS: Lidocaine 5% Patch 1 PATCH TP (15:24)
--- NOTE | 2018-12-06 16:19 | INDS_ITS ---
Date of service: 12/06/18 Time of Service: 11:21 PT Notes Inpatient Physical Therapy Discharge Summary Date: 12/06/2018 Dates of Service: 11/30/2018 through 12/06/2018 Referring Doctor: Onur Liriano MD PT Orders: PT CONSULT: Limited ability Precautions: Fall. Standard. Activity as tolerated. Patient Profile/Admitting Diagnosis: Patient is discharged from acute bed level as of today and will be reevaluated under swing bed level 1. Patient is a 63-year-old female with past medical history significant for poorly controlled diabetes mellitus and hypertension who presented to the ED on 11/28/2017 with chief complaints of left hip and lower back pain sustained from a fall 3 weeks ago; she also reported chest tightness while at the ED. Patient was negative for fracture in the hip. 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 PMHX: Medical History Chronic kidney disease (CKD) stage G3a/A1, moderately decreased glomerular filtration rate (GFR) between 45-59 mL/min/1.73 square meter and albuminuria creatinine ratio less than 30 mg/g (Acute) Diabetes (Chronic) HTN (hypertension) (Chronic) Social History/Home Situation: Ms. Patel reports she lives with her son in a two story home in [place]. She stated there are six steps to enter the home with bilateral rails, and one set of 10 stairs inside. Patient was independent with all aspects of ADLs without the need for an assitive ambulatory device nor adaptive equipment. Equipment Owned/DME: [facility] Subjective: Patient is happy and looks contented after having a shower with ursing staff. Patient agreed to a conversion from acute care level to swing bed level as of today. Patient denies pain, headache, dizziness, or lightheadedness. Patient reports cramping pain on L LE last night which she attributes to strengthening exercises she had yesterday afternoon. This morning, she reports her L LE feels okay. Objective: General Observation: Debi is seen sitting in a recliner chair with alarm system. Bilateral TEDS on. Mental Status: Alert and oriented x 4 Pain: 0/10 ROM: Right Upper Extremity: Shoulder Flexion WFL. Shoulder abduction WFL. Elbow fle xion WFL. Wrist flexion WFL. Functional opening and closing of hand WFL. Left Upper Extremity: Shoulder Flexion WFL. Shoulder abduction WFL. Elbow flexion WFL. Wrist flexion WFL. Functional opening and closing of hand WFL. Right Lower Extremity: Hip flexion WFL. Hip abduction WFL. Knee flexion WFL. Ankle dorsiflexion WFL. Ankle plantarflexion WFL. Left Lower Extremity: Hip flexion WFL. Hip abduction WFL. Knee flexion WFL. Ankle dorsiflexion WFL. Ankle plantarflexion WFL. Strength: Right Upper Extremity: Shoulder flexors 5/5. Shoulder abductors 5/5. Elbow flexors 5/5. Elbow extensors 5/5. Business Solutions Consultant strong. Left Upper Extremity: Shoulder flexors 4/5. Shoulder abductors 5/5. Elbow flexors 5/5. Elbow extensors 4/5. Business Solutions Consultant strong. Right Lower Extremity: Hip flexors 5/5. Hip abductors 5/5. Knee flexors 5/5. Knee extensors 5/5. Ankle dorsiflexors 5/5. Ankle plantarflexors 5/5. Left Lower Extremity:Hip flexors 5/5. Hip abductors 5/5. Knee flexors 5/5. Knee extensors 5/5. Ankle dorsiflexors 4/5. Ankle plantarflexors 5/5. Bed Mobility/Transfers: Rolling I Supine to sit I Sit to supineI Sit to stand S Stand to sit S Bed to chair S Chair to bed S THEREX: In the morning- Worked on facilitating increased awareness and control of L UE during bilateral UE activities during reflexive activities of catching an object (ball, bolster) and kicking same ball one foot at a time. In the afternoon- NuStep x 5 minutes for aerobic exercise. Neuromuscular re- education utilizing the 4-stage balance test where patient required CGA in all 3 positions and minimal assist with position 4. Patient also was educated on exercises that she can do in her room consisting of: bilateral shoulder ER/IR and hip/knee flexion and extension with yellow theraband on the sole of her foot. GAIT Assistive Device: FWW Weight bearing: FWB Assist: SBA Distance: 15 feet +120 feet +15 feet Deviation: Hemineglect waning but still apparent with bilateral UE activities. Patient demonstrates increased awareness of her environment, is able to verbalize and identify obstacles on her left side, and has been able to reposition her walker for safety. Step height and length as well as gait velocity are now significantly improved. L LE has lesser tendency to cross midline. Balance: Static Sitting: Normal Dynamic Sitting: Normal Static Standing: Good Dynamic Standing: Fair Special Tests: Mobility Limitations Standardized Measure [facility] AM-PAC 6 clicks Basic Mobility Inpatient Short Form: Raw Score: 22 CMS Score: 21% Informed Consent/Education: Patient instructed in purpose of PT consult and plan of care. Assessment: Patient is a 63-year-old female status post right posterior cerebral artery, right thalamus, and right occipital lobe cerebrovascular accident with resulting left homonymous hemianopsia and left hemineglect. She is a very motivated individual who describes herself as very active. Patient continues to present with clinical signs and symptoms consistent with current/admitting diagnoses that have resulted to mobility limitations, gait instability, generalized weakness, and impairment of motor control as demonstrated by the following impairment level findings: 1. Decreased strength to L ankle dorsiflexors, L shoulder flexors, L elbow extensors 2. Impaired standing balance 3. Impaired activity tolerance Impairments are contributing to the following functional limitations: 1. Inability to safely ambulate without assistive device and physical assistance 2. Increase completion time for mobility ADL performance 3. Increased fall risk 4. Inability to negotiate steps alone safely Patient is assessed as a 76112 moderate complexity based on the following: History: Patient is diagnosed with subacute ischemic infarct in the right GIANT TIRE REPAIRER, right occipital lobe, and right thalamus, acute on chronic renal insufficiency, and memory deficit. Examination: Demonstrable impairment in strength, balance, and range of motion with underlying impairments and functional limitations as documented above Presentation: Evolving Decision Makin moderate complexity Goals: Goals X1 week 1. Supine-Sit independent NOT MET 2. Sit-Supine independent NOT MET 3. Sit-Stand independent NOT MET 4. Stand-Sit independent NOT MET 5. Bed-Chair independent NOT MET 6. Chair-Bed independent NOT MET 7. Independent gait on level surface with use of least restrictive device for at least 300 feet without report of pain nor dyspnea NOT MET 8. Independent stair negotiation while holding onto bilateral rails for at least 10 steps without report of pain nor dyspnea NOT MET 9. Independent with home exercise program NOT MET 10. Good static and dynamic standing balance/tolerance NOT MET DISCHARGE RECOMMENDATIONS: Patient will benefit from home health physical and occupational therapy services in order to continue improving coordination, decrease impairments associated with the muna-neglect as well as to progress mobility level, strength, and balance in preparation for a safe discharge to home. TREATMENT CODE/TIME: 65330 x 37 minutes beginning at 11:21 AM. Thank you very much for this referral. Kaylee Marie PT, DPT, CLT [facility]
== END 2018-12-06 15:12 | disposition swing bed (61) | DRG 65 ==
LOC: ER 16:19 → MS 18:01
PROVIDERS: Family Medicine; Psychiatry & Neurology Neurology; Admitting Provider Internal Medicine; Emergency Provider Physician Assistant; PCP Internal Medicine; Visit Provider Internal Medicine
DX: I63.331 Cerebral infarction due to thrombosis of right posterior cerebral artery (principal); N17.9 Acute kidney failure, unspecified; G81.94 Hemiplegia, unspecified affecting left nondominant side; R41.4 Neurologic neglect syndrome; H53.462 Homonymous bilateral field defects, left side; E11.65 Type 2 diabetes mellitus with hyperglycemia; E11.22 Type 2 diabetes mellitus with diabetic chronic kidney disease; R41.89 Other symptoms and signs involving cognitive functions and awareness; I12.9 Hypertensive chronic kidney disease with stage 1 through stage 4 chronic kidney disease, or unspecified chronic kidney disease; N18.3 Chronic kidney disease, stage 3 (moderate); N32.3 Diverticulum of bladder; R33.9 Retention of urine, unspecified; Z86.73 Personal history of transient ischemic attack (TIA), and cerebral infarction without residual deficits; S70.02XA Contusion of left hip, initial encounter; W10.8XXA Fall (on) (from) other stairs and steps, initial encounter; Z79.84 Long term (current) use of oral hypoglycemic drugs; Z71.3 Dietary counseling and surveillance; I51.7 Cardiomegaly
CPT/HCPCS: 36415; 70544; 70547; 76770; 80048; 80053; 80061; 82805; 93005; 96361; 96374; 97110; 97162; 97165; 97530; 97535; 99220; 99226; 99231; 99232; 99233; 99239; 99253; 99255; 99285; J1650; 70450; 70551; 71046; 72125; 73502; 81003; 82607; 83036; 83735; 84132; 84443; 84484; 85025; 85379; 85610; 85730; 93010; 93306; G0378; J1885; J3490; J7512

== ENCOUNTER 2018-12-06 15:26 | Inpatient (IN) | payer MEDICAID, SELFPAY ==
--- NOTE | 2018-12-06 14:59 | CM.SBPSYCH ---
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 She also has a son who is in the . Debi is independent with all care and ADLs and continues to drive. 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 - Education Highest Grade Completed:: 12 plus several college courses Where did you attend School:: [employer]. 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 - : No [place] Spouse: No - Scientologist Active Sabianist Member:: No Will Sabianist Members or [employer] Ic Layout Designer Visit:: No - Advance Directives for Healthcare If no AD, do you want more information:: Yes - Interests Hobbies:: boarding dogs, raising farm animals Crafts:: knitting Table Games:: none Sports:: four wheeling, skiing Music:: folk TV/Movies:: [employer] movies Outdoor Activities:: walk, ride Gardening:: yes Reading:: loves to read Other Activities:: likes to play pool, has a pool table - Present Functional Status Physical Abilities:: some residual left sided weakness from stroke Cognitive:: alert and oriented Communication:: good verbal communication Sensory Systems: no hearing aides or dentures - Medical History PAST MEDICAL HISTORY/PAST SURGICAL HISTORY:: Medical History . Chronic kidney disease (CKD) stage G3a/A1, moderately decreased glomerular filtration rate (GFR) between 45-59 mL/min/1.73 square meter and albuminuria creatinine ratio less than 30 mg/g (Acute). Diabetes (Chronic). HTN (hypertension) (Chronic). Surgical History . No significant past surgical history (Acute) General Health:: good Past Psychiatric Treatment:: none - Admission Data Reason for Swing Bed Admission:: strengthening, mobility, balance Discharge Plan:: home with new HH services of PT and possibly nursing Assessment: Debi is a very pleasant admitted with evidence of both old and new cerebral infarcts. There were some memory issues noted on admission but those seem to have improved. She is independent at baseline and is working hard with PT to return to that level of functioning. Truck Driving Instructor: Kina Jamil Date Assessment was completed:: 12/06/18
--- NOTE | 2018-12-06 15:27 | W.PM.HP.N ---
Date of service: 12/06/18 Time of Service: 15:28 History of Present Illness History of Present Illness Chief Complaint: Subacute CVA Narrative: Chief Complaint: Confusion HPI: 63-year-old woman with a history of uncontrolled HTN and DM, admitted from [facility] Emergency Department on 11/29, diagnosed with a Subacute CVA and LIZETH. Mrs. Patel has a past Medical History significant for HTN, DM, and CKD. Her comorbidities appear poorly controlled, with an elevated blood pressure and HgA1C of 12.7%. She initially presented to the ED with confusion at home that was noted by her daughter, with difficulty with ambulation and note of potential left sided neglect. She also reported a fall approximately 2 weeks prior, with a poor appetite and worsening oral intake since due to pain. Work-up in the ED was significant for LIZETH, with a creatinine of 2.4 above patient's baseline of approximately 1. There was also a question of a focal white matter change in the right occipital region with request for further work-up. The patient was referred for admission for further evaluation and treatment. Subsequent Neurology evaluation with likely old infarct in the left cerebellum by CT, as well as an evolving infarct in the right occipital lobe and thalamus. MRI of the brain confirmed a subacute right occipital lobe and thalamus infarct, with an area of punctate ischemia in the midbrain all in the distribution of the right posterior cerebral artery. MRA confirmed a question of severe stenosis of the right SENIOR CORPORATE ACCOUNTANT. ECHO was unremarkable with the exception of a mildly dilated Left Atrium. She has continued to work with PT, and has no complaints again this morning - reports feeling improved overall. Blood pressure remains suboptimal, as does blood sugars - but both are overall improved with recent medication titration. No overnight events were reported. Hospital Course: (1) CVA (cerebral vascular accident): Evidence of a subacute CVA in the right SENIOR CORPORATE ACCOUNTANT territory, with subsequent left homonymous hemianopsia, mild left hemineglect, and left hemiparesis. Also with evidence of a prior left cerebellar CVA. - Etiology of current CVA likely on the basis of large vessel thrombosis, with evidence of potential severe right SENIOR CORPORATE ACCOUNTANT stenosis by MRA in the setting of poorly controlled HTN and DM. - For an outpatient DAGO to exclude possibility of embolic disease in the setting of a mildly dilated LA on TTE, per neuro recommendations. - Continue DAPT for 30 days, with plans to change to Clopidogrel alone following - today is day #7 of DAPT. Will also plan for outpatient 30 day cardiac monitoring as well. - BP improved but remains suboptimal - Will also need improved glycemic control. - Plan currently for SNF for continued rehab. (2) HTN (hypertension): Continue Cardizem. ARB reinitiated following resolution of LIZETH, and patient was started on thiazide diuretic with chlorthalidone - will be changed to Triamterene / HCTZ. Recommend monitoring of renal function while patient remains in the hospital on Swing Bed status. Overall blood pressure is improved but remains suboptimal on the whole. Continue to monitor and adjust antihypertensive regimen as able. (3) Diabetes: Initiated on Insulin with sliding scale coverage. Blood sugars appear improved but remain suboptimal. Will continue to adjust basal insulin, with Detemir increased 3 days ago - will increase again today. Needs vast improvement in control given her current A1C value of 12.7% and evidence of CVA. Will need insulin education. (4) Acute kidney injury: Likely prerenal in etiology. Improved and at baseline. (5) DVT prophylaxis: Continue SC Enoxaparin. Also initiated PPI therapy given need for DAPT. (6) Discharge planning issues: Was not accepted at [facility] due to insurance issues - Discharge to Swing Bed for continued physical therapy. 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 Meds Home Medications and Allergies Home Medications Medication Instructions Recorded Confirmed Type albuterol sulfate [Proventil HFA] 1 - 2 puff INHALATION Q6H PRN 05/21/15 History inhaler fluticasone propionate 50 mcg NS BID spray 05/21/15 11/28/18 History levalbuterol tartrate [Xopenex HFA] 90 mcg INHALATION Q6H PRN inhaler 05/21/15 11/28/18 History ondansetron HCl [Zofran] 4 mg PO QID PRN #10 tab 03/16/18 11/28/18 Rx aspirin [Aspirin Low Dose] 81 mg PO DAILY 11/28/18 11/28/18 History irbesartan 300 mg DAILY 11/28/18 11/28/18 History metformin 1,000 mg BID 11/28/18 11/28/18 History triamterene-hydrochlorothiazid 1 cap DAILY 11/28/18 11/28/18 History Allergies Allergy/AdvReac Type Severity Reaction Status Date / Time lisinopril Allergy Unverified 05/21/15 11:09
--- NOTE | 2018-12-06 15:37 | CMSCP_ITS ---
- If Service Date Differs Date of service: 12/06/18 Time of Service: 15:37 Swingbed Plan of Care Plan of care: SWING BED PROGRAM ACTIVITIES/DISCHARGE PLAN OF CARE ACTIVITIES PLAN Date:12/06/18 Identified Need: individualized activity plan Intervention/Plan: Debi enjoys watching tv, visiting with friends and family and reading. She has books of her own and will be offered books from the [employer]. Debi also enjoys word finds and has been provided with a puzzle book from the activity cart. She will be offered music and pet therapy when available. She will also be given the opportunity to go out on pass for rides in the country and for short visits with friends and family. Initials [facility] DISCHARGE PLAN Date:12/06/18 Identified Need:safe Discharge plan Intervention/Plan: Debi with work with PT daily and more often when available to improve strength, mobility and ambulation. She will return home with new services and transport via private vehicle. Initials: [facility]
--- NOTE | 2018-12-06 15:46 | PT.INTREAT ---
Date of service: 12/06/18 Time of Service: 11:21 PT Notes Inpatient Physical Therapy Treatment Note [facility] Date: 12/06/2018 PRECAUTIONS: Standard. Falls. Hemineglect. SUBJECTIVE: Patient denies pain, headache, dizziness, or lightheadedness in the morning. Patient reports cramping pain on L LE last night which she attributes to strengthening exercises she had yesterday afternoon. OBJECTIVE: Patient is seen sitting in recliner chair with alarm system. PAIN: 0/10 BED MOBILITY/TRANSFERS Rolling L/R: Independent Supine-sit: Independent Sit-supine: Independent Sit-stand: Supervision Stand-sit: Supervision Bed-Chair: Supervision Chair-bed: Supervision GAIT Assistive Device: FWW Weight bearing: FWB Assist: SBA Distance: 65' from room to therapy gym Deviation: Hemineglect waning but still apparent with bilateral UE activities. THEREX: In the morning- Worked on facilitating increased awareness and control of L UE during bilateral UE activities during reflexive activities of catching an object (ball, bolster) and kicking same ball one foot at a time. In the afternoon- NuStep x 5 minutes for aerobic exercise. Neuromuscular re-education utilizing the 4-stage balance test where patient required CGA in all 3 positions and minimal assist with position 4. Patient also was educated on exercises that she can do in her room consisting of: bilateral shoulder ER/IR and hip/knee flexion and extension with yellow theraband on the sole of her foot. ASSESSMENT: Patient is a 63 year old female s/p acute lacunar stroke. She exhibits hemineglect on the L side and requires cues to avoid obstacles on her left during gait activities. She has family and friends to support her recovery, and is a very motivated individual. Her prognosis is good and she presents with signs and symptoms consistent with her admitting and current diagnoses. She is a very motivated individual, and enjoys physical activity and therapy. She desires to return home but is willing to go to SNF for continued therapy. Patient presents with signs and symptoms consistent with admitting diagnoses resulting in impairments such as decreased gait stability, hemineglect, and increased dependence during mobility-related tasks. PLAN: Patient decided to convert to swing level as of today for continued PT skilling to promote independence with ambulation/mobility performance TREATMENT CODE/TIME: Session 1- 24729 x 20 minutes, 77046 x 17 minutes beginning at 11:21 AM. Session 2- 59527 x 10 minutes, 40350 x 14 minutes beginning at 15:38 PM.
--- NOTE | 2018-12-06 15:50 | NUR.NOTE ---
Pt admitted from acute to swingbed Nursing Note:
--- NOTE | 2018-12-06 16:05 | CHAPLAIN ---
I had a few minutes to spend with Debi before she worked with PT this afternoon. She was happy about becoming a swing patient, getting to stay here and go out on pass to her home and see her horse. She said she is feeling happier, and was enthusiastic about working with PT. I will try to visit again tomorrow.
[2018-12-06] MEDS: Insulin Aspart 300 UNITS/3 ML PEN SC (16:49)
--- NOTE | 2018-12-06 17:09 | PT.INIE ---
Date of service: 12/06/18 Time of Service: 15:38 PT Notes Inpatient Physical Therapy Evaluation Date: 12/06/2018 Referring Doctor: Luke Vazquez MD PT Orders: PT CONSULT: Limited ability Precautions: Fall. Standard. Activity as tolerated. L hemineglect. Patient Profile/Admitting Diagnosis: Patient is reevaluated under swing bed level 1 as of today. Patient is a 63-year-old female with past medical history significant for poorly controlled diabetes mellitus and hypertension who presented to the ED on 11/28/2017 with chief complaints of left hip and lower back pain sustained from a fall 3 weeks ago; she also reported chest tightness while at the ED. Patient was negative for fracture in the hip. Patient was diagnosed with subacute ischemic infarct in the right [employer], right occipital lobe, and right thalamus, acute on chronic renal insufficiency, and memory deficit. PMHX: Medical History Chronic kidney disease (CKD) stage G3a/A1, moderately decreased glomerular filtration rate (GFR) between 45-59 mL/min/1.73 square meter and albuminuria creatinine ratio less than 30 mg/g (Acute) Diabetes (Chronic) HTN (hypertension) (Chronic) Social History/Home Situation: Ms. Patel reports she lives with her son in a two story home in [place]. She stated there are six steps to enter the home with bilateral rails, and one set of 10 stairs inside. Patient was independent with all aspects of ADLs without the need for an assitive ambulatory device nor adaptive equipment. Equipment Owned/DME: [facility] Subjective: Patient agreed to a conversion from acute care level to swing bed level as of today. She continues to deny pain, headache, dizziness, or lightheadedness. She states that her L hip got irritated a little bit from the exercises done early today which is why she requested for a Fentanyl patch. Objective: General Observation: Debi is seen resting in bed, alarm system on. Bilateral TEDS on. Mental Status: Alert and oriented x 4 Pain: 1/10 on L hip ROM: Right Upper Extremity: Shoulder Flexion WFL. Shoulder abduction WFL. Elbow flexion WFL. Wrist flexion WFL. Functional opening and closing of hand WFL. Left Upper Extremity: Shoulder Flexion WFL. Shoulder abduction WFL. Elbow flexion WFL. Wrist flexion WFL. Functional opening and closing of hand WFL. Right Lower Extremity: Hip flexion WFL. Hip abduction WFL. Knee flexion WFL. Ankle dorsiflexion WFL. Ankle plantarflexion WFL. Left Lower Extremity: Hip flexion WFL. Hip abduction WFL. Knee flexion WFL. Ankle dorsiflexion WFL. Ankle plantarflexion WFL. Strength: Right Upper Extremity: Shoulder flexors 5/5. Shoulder abductors 5/5. Elbow flexors 5/5. Elbow extensors 5/5. [employer] strong. Left Upper Extremity: Shoulder flexors 4/5. Shoulder abductors 5/5. Elbow flexors 5/5. Elbow extensors 4/5. [employer] strong. Right Lower Extremity: Hip flexors 5/5. Hip abductors 5/5. Knee flexors 5/5. Knee extensors 5/5. Ankle dorsiflexors 5/5. Ankle plantarflexors 5/5. Left Lower Extremity:Hip flexors 5/5. Hip abductors 5/5. Knee flexors 5/5. Knee extensors 5/5. Ankle dorsiflexors 4/5. Ankle plantarflexors 5/5. Bed Mobility/Transfers: Rolling I Supine to sit I Sit to supineI Sit to stand S Stand to sit S Bed to chair S Chair to bed S THEREX: In the morning- Worked on facilitating increased awareness and control of L UE during bilateral UE activities during reflexive activities of catching an object (ball, bolster) and kicking same ball one foot at a time. In the afternoon- NuStep x 5 minutes for aerobic exercise. Neuromuscular re-education utilizing the 4-stage balance test where patient required CGA in all 3 positions and minimal assist with position 4. Patient also was educated on exercises that she can do in her room consisting of: bilateral shoulder ER/IR and hip/knee flexion and extension with yellow theraband on the sole of her foot. GAIT Assistive Device: FWW Weight bearing: FWB Assist: SBA Distance: 65 feet from room to the gym Deviation: Hemineglect waning but still apparent with bilateral UE activities. Patient demonstrates increased awareness of her environment, is able to verbalize and identify obstacles on her left side, and has been able to reposition her walker for safety. Step height and length as well as gait velocity are now significantly improved. L LE has lesser tendency to cross midline. Balance: Static Sitting: Normal Dynamic Sitting: Normal Static Standing: Good Dynamic Standing: Fair Special Tests: Mobility Limitations Standardized Measure [facility]-PAC 6 clicks Basic Mobility Inpatient Short Form: Raw Score: 22 CMS Score: 21% Informed Consent/Education: Patient instructed in purpose of PT consult and plan of care. Patient was also educated on exercises that she can do inside her room consisting bilateral shoulder ER and IR using yellow Thera-Band as well as BLE unilateral push downs with yellow Thera-Band hinged on the sole of each foot to work on strengthening hip and knee extensors. Assessment: Patient is a 63-year-old female status post right posterior cerebral artery, right thalamus, and right occipital lobe cerebrovascular accident with resulting left homonymous hemianopsia and left hemineglect. She is a very motivated individual who describes herself as very active. Patient continues to present with clinical signs and symptoms consistent with current/admitting diagnoses that have resulted to mobility limitations, gait instability, generalized weakness, and impairment of motor control as demonstrated by the following impairment level findings: 1. Decreased strength to L ankle dorsiflexors, L shoulder flexors, L elbow extensors 2. Impaired standing balance 3. Impaired activity tolerance Impairments are contributing to the following functional limitations: 1. Inability to safely ambulate without assistive device and physical assistance 2. Increase completion time for mobility ADL performance 3. Increased fall risk 4. Inability to negotiate steps alone safely Patient is assessed as a 14682 moderate complexity based on the following: History: Patient is diagnosed with subacute ischemic infarct in the right [employer], right occipital lobe, and right thalamus, acute on chronic renal insufficiency, and memory deficit. Examination: Demonstrable impairment in strength, balance, and range of motion with underlying impairments and functional limitations as documented above Presentation: Evolving Decision Makin moderate complexity Goals: Goals X1 week 1. Sit-Stand independent 2. Stand-Sit independent 3. Bed-Chair independent 4.Chair-Bed independent 5. Independent gait on level surface with use of least restrictive device for at least 300 feet without report of pain nor dyspnea 6. Independent stair negotiation while holding onto bilateral rails for at least 10 steps without report of pain nor dyspnea 7. Independent with home exercise program 8. Good static and dynamic standing balance/tolerance DISCHARGE RECOMMENDATIONS: Patient will benefit from home health physical and occupational therapy services in order to continue improving coordination, decrease impairments associated with the muna-neglect as well as to progress mobility level, strength, and balance in preparation for a safe discharge to home. TREATMENT CODE/TIME: 9716 2 x 24 minutes beginning at 15:38 PM. Thank you very much for this referral. Kaylee Marie PT, DPT, CLT [facility] l
--- NOTE | 2018-12-06 17:28 | PHARADMIT ---
Addendum entered by Murray Holder III 12/08/18 12:50: Pharmacy Note Subjective Patient goes out to home on pass. Getting OT & PT here Objective VS-OK BP-123/80 HR-71 FSBS-240 No Labs Assessment no med changes Plan swing bed patient, PT thinks she can continue PT & OT from home at this point. Original Note: SWINGBED 12/06/18 for physical therapy Vitals ok, labs ok, SCr up 1.05, BG 194 CM seeking placement Addendum entered by Murray Holder III 12/04/18 10:51: Pharmacy Note Subjective MD still tweaking BP meds Objective BP-168/80 HR-91 K+3.5 Mag-1.7 FSBS- 177 Assessment Chlorthalidone added to BP med regimen. Plan Discharge tomorrow, either home or SNF pending family decision. Addendum entered by Murray Holder III 12/03/18 14:27: Pharmacy Note Subjective MD working on BP and Diabetes, PT continues Objective BP-160/93 HR-91 K+3.4 Mag-1.6 NoZ2i-17.7% FSBS-242 Assessment K+ & Mag PO given, to delisa on ASA & Plavix therapy Norvasc DC'd, Irbesartan started Insulins asfdjusted Plan Family to decide Wednesday SNF vs Home Addendum entered by Murray Holder III 12/02/18 15:46: Pharmacy Note Subjective Sub-acute CVA, receiving PT & OT Objective BP-177/85 HR-79 No Labs BM today Assessment Receiving both ASA & Plavix Norvasc & Diltiazem-CD, Insulin covrage while here. Plan Will need a rehab stay and an event monitor upon discharge Addendum entered by Danika Galvez 11/30/18 15:56: Pharmacy Note Subjective Objective BP 160/79, EF 60-65%, Scr 1.23 Assessment MRI revealed new infarct consistent with left hemiparesis - will load with plavix and continue aspirin for dual antiplatelet tx Uncontrolled DM upon admission - better now, levemir increased to 12u at hs Plan Nutrition/adaptive physical educator consult upon discharge Consider restarting ARB/ACEI upon improvement of LIZETH Original Note: Admission Pharmacy Clinical Review LIZETH, Left hip pain (s/p fall down stairs ~2 weeks ago), memory impairment (observation) Code Status Full Code Current Weight 77.3 kg Renally Cleared and Narrow Therapeutic Index Meds CrCl~24.5ml/min QTc Value / Action Taken QTC 468 BP Control, Fever BP 177/100, Afebrile Pain 7/10 Electrolytes reviewed K+ 3.2 (30meq po x1) Mag 1.9 DVT Prophylaxis NONE Opiate Usage / Scheduled Bowel Regimen Ordered Plt/SCr for Heparin / Enoxaparin Plt 367 SCr 2.14 (down from 2.85)....?dehydration INR for Warfarin INR 1.0 H/H stable, WBC/Bands H/H 15.7/45.5 WBC 11.65 Antibiotic appropriateness Cultures and Sensitivities Surgical ABX d/c within 24 hr DM control / Insulin Dosing BG 258 H1C 12.7 (Levemir/Novolog scale) Heart Failure (Check EF%) (CAPRI's, B-Block, Diuretics) Diltiazem CD 180mg Amlodipine 5mg x1 yesterday.... knows it's not daily IV to PO Switch Home Meds Reviewed Home Meds Not Ordered Fluticasone, Irbesartan (held for LIZETH), Levalbuterol, Metformin, Dyazide. Home meds Losartan and Amlodipine dc'd by 11/28/18 Comments Renal ultrasound today: question mild right hydromephrosis, may need CT CT of head today: no hemorrhage, unremarkable CT spine: no fractures Hip Xray: no fractures
[2018-12-06] MEDS: Atorvastatin 40 MG TAB PO (20:04)
[2018-12-06 21:30] VITALS: BP 124/82; PULSE 86; RESP 20; TEMP 36.7; O2SAT 98
[2018-12-07 07:30] VITALS: BP 163/99; PULSE 85; RESP 18; TEMP 36.6; O2SAT 99
[2018-12-07] MEDS: Enoxaparin 40 MG/0.4 ML SYR SC (08:10)
[2018-12-07] MEDS: Insulin Aspart 300 UNITS/3 ML PEN SC ×2 (08:11→16:50)
[2018-12-07] MEDS: Clopidogrel 75 MG TAB PO (08:12)
[2018-12-07] MEDS: Triamterene 37.5/HCTZ 25 CAP PO (08:12)
[2018-12-07] MEDS: dilTIAZem CD 180 MG CAPCR PO (08:12)
[2018-12-07] MEDS: Aspirin E.C. 81 MG TABEC PO (08:12)
[2018-12-07] MEDS: Pantoprazole 40 MG TABCR PO (08:13)
--- NOTE | 2018-12-07 09:39 | OTIE_ITS ---
Occupational Therapy Notes Inpatient Occupational Therapy Evaluation Date: 12/07/18 Referring Doctor: Luke Vazquez MD OT Orders: Urgent-stroke; (L) HH, (L) hemineglect, mild left hemiparesis Precautions: Fall, Contact PATIENT PROFILE/ADMITTING DIAGNOSIS: Pt is a 63 year old female who was admitted through the ER for dx of hip pain, Acute kidney injury, Dehydration, Contusion of left hip, Cognitive decline with a later dx of Stroke with symptoms related to (L) muna neglect and mild (L) hemiparesis. On 12/06/18 she transitioned to [facility] bed 1 status for 1 week and is seen for continued care. Past Medical History: Medical History Chronic kidney disease (CKD) stage G3a/A1, moderately decreased glomerular filtration rate (GFR) between 45-59 mL/min/1.73 square meter and albuminuria creatinine ratio less than 30 mg/g (Acute) Diabetes (Chronic) HTN (hypertension) (Chronic) Surgical History No significant past surgical history (Acute) Social History/Home Situation: Pt lives alone in a private home, she notes that she is totally (I) at baseline and her son and daughter are currently at home and there to (A) her as needed. Pt states that she is able to drive but not at this time per recommendation of MD. 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 She has a 14 year old foster son and a young lady who she cares for in her home who has autism. She has great community support and she states that she has a friend who is willing to (A) her with getting what she needs. Her son is getting ready to leave to return to the but she has a local 23 year old daughter who is helping facilitate services in her home at this time. Pt notes that she is receptive to services when she returns home. Equipment owned/DME: grab bars. SUBJECTIVE: Pt was sitting in bed when OT arrived. She reports that she has been working on her PT exercises and that she gets to go home for a couple hours today. She notes that she has been working on mindfulness and states that she is coming to terms with her stroke. She is getting rid of some of her animals like her goats and pig. She has friends in the room who indicate that the plan is for her to sit on her porch and not move. Pt states that she is a little nervous to leave the hospital but is excited to go home and breathe. OBJECTIVE: General Observation: Pleasant, heart monitor over breast bone being placed for 30 days Mental Status: A&Ox3 pt is consistent with dx of her stroke with minor discrepancies Pain:no c/o pain ROM: RUE AROM WNL L UE AROM WNL STRENGTH: RUE 5/5 throughout LUE 5/5 throughout FUNCTIONAL MOBILITY/ADLS: Functional mobility performed with FWW Sit-stand (S) Stand-sit (S) Chair-toilet (S) Toilet-chair (S) BATHING Standing at sink with FWW Bathing UE (I) Washing face and (B) UE Bathing LE Pt denied at todays session. DRESSING Sitting in chair Dressing LE (I) don and doffing (B) socks and (B) shoes. Pt required min (A) with don and doffing hospital pants. Dressing UE Min (A) with don and doffing hospital gown GROOMING Standing at sink with FWW (I) with brushing teeth with min vc for FWW placement and weight shifting functionally. TOILETING on toilet (I) with toileting and toileting hygiene with min vc EATING Sitting in chair (I) with bringing cup to mouth for liquids with ideal technique, (I) with cutting food BALANCE: Static sitting Normal Dynamic Sitting Normal Static Standing Good Dynamic Standing Good SPECIAL TESTS: Daily Activity Limitations Standardized Measure [facility] AM PAC ?6 clicks? Daily Activity Inpatient Short Form: Raw score: 22 INFORMED CONSENT/EDUCATION: Pt instructed in purpose of OT Consult and plan of care. ASSESSMENT: Patient is a 63-year-old female referred to occupational therapy services with diagnosis of of hip pain, Acute kidney injury, Dehydration, Contusion of left hip, Cognitive decline with a later dx of Stroke with symptoms related to (L) muna neglect and mild (L) hemiparesis. Pt was recently transitioned to [facility] bed 1 status. Patient presents with clinical signs and symptoms consistent with dx, as demonstrated by the following impairment level findings/functional limitations: Decreased functional mobility, decreased functional activity tolerance, decreased gross and fine motor control of (B) UE, (L) hemineglect with UE, slight cognitive deficit in functional sequencing, decreased safety awareness with ADLs/IADLs and functional activities. AMPAC score 22 Patient is assessed as a Low 49434 complexity based on the following: History: See Above Examination: See Functional limitations as listed above Presentation: Evolving Decision Making: AMPAC score 22 GOALS Goals x1 week 1. Transfers FWW (S) 2. Dressing in sitting (I) UE/LE 3. Bathing standing at sink with FWW (I) UE/LE 4. Pt will be able to (I) perform functional mobility to get dressing and bathing supplies 5. Pt will be able to demonstrate energy conservation techniques with ideal technique PLAN OF CARE/TREATMENT PLAN: 1x/day, 5 days/ week x 1week Initiate Occupational Therapy Services for bathing, dressing, grooming, toileting, eating, transfer training. DISCHARGE RECOMMENDATIONS Based on pts current level of function OT recommends that pt return home with HHOT when medically cleared per MD for assessment of ADLS in home environment. OT recommends that pt have a transfer bench for tub/shower combination to increase safety and functional (I) in bathing routine. TREATMENT TIME/MINUTES/CODES 57982, 73756, 37 minutes (09:00) Monserrat Carrion OTR/[facility]
--- NOTE | 2018-12-07 13:21 | W.DIABETESNO ---
Date of service: 12/07/18 Time of Service: 13:21 Diabetes Note NOTE: Attempted to visit Debi both yesterday and today and she was not in her room. Intend to continue diabetes self management support and review insulin injection and self monitoring of blood sugars. Blood sugars rise as the day progresses indicating inadequate mealtime insulin coverage. Suggest adding insulin:carbohydrate at 1 unit for 10 grams carbohydrate in addition to insulin correction. Additionally, increasing basal insulin is suggested insulin by 2 units to 19 units after initiation of mealtime Will continue to follow blood sugars and attempt to see her tomorrow. Time Spent in Nutritional Counseling and Treatment: 0
--- NOTE | 2018-12-07 16:00 | PT.INNT ---
Date of service: 12/07/18 Time of Service: 10:05 PT Notes Patient is unavailable as she is out of facility as of 10 am this morning. She will be seen for her afternoon session for continued skilled PT services.
[2018-12-07] MEDS: Lidocaine 5% Patch 1 PATCH TP (16:49)
[2018-12-07 17:20] VITALS: BP 124/87; PULSE 102; RESP 19; TEMP 36.3; O2SAT 99
[2018-12-07 19:30] VITALS: BP 126/88; PULSE 99; RESP 18; TEMP 36.9; O2SAT 97
[2018-12-07] MEDS: Atorvastatin 40 MG TAB PO (19:30)
[2018-12-08 03:40] VITALS: BP 103/71; PULSE 93; RESP 18; TEMP 36.8; O2SAT 99
--- NOTE | 2018-12-08 04:33 | PT.INTREAT ---
Date of service: 12/07/18 Time of Service: 16:10 PT Notes Inpatient Physical Therapy Treatment Note [facility] Date: 12/07/2018 PRECAUTIONS: Standard. Falls. L Hemineglect. SUBJECTIVE: Patient is expressing her gratefulness about being able to go home and have a feel of how she is going to be managing at home when she discharges from this hospital. She states that she will continue to be mindful and safe about her L side while doing her daily activities. She continues to be agreeable with HH PT/OT in order to ensure her smooth transition back to home. OBJECTIVE: Patient is seen sitting in recliner chair with alarm system in place. PAIN: 0/10 BED MOBILITY/TRANSFERS Rolling L/R: Independent Supine-sit: Independent Sit-supine: Independent Sit-stand: Independent Stand-sit: Independent Bed-Chair: Supervision Chair-bed: Supervision GAIT Assistive Device: FWW Weight bearing: FWB Assist: Supervision Distance: 65' from room to therapy gym Deviation: Hemineglect waning but still apparent with bilateral UE activities. THEREX: NuStep x 3 minutes for aerobic exercise. Neuromuscular re-education utilizing cones to increase step height and minimize base of support while maximizing awareness on L side and increasing dynamic standing balance. ASSESSMENT: Patient is a 63 year old female s/p acute lacunar stroke. She continues to exhibit hemineglect albeit less now on the L side and now only requires minimal cues to avoid obstacles on her left during gait activities. She has family and friends to support her recovery, and is a very motivated individual. Her prognosis is good. PLAN/DISCHARGE RECOMMENDATIONS: Continue with BID treatments to achive goals. Patient will benefit from home health PT services in order to progress mobility level using least restrictive assistive ambulatory device, assess home safety, identify additional equipment needs, and establish a functional maintenance program that will increase ability of patient to remain at home. TREATMENT CODE/TIME: Session 1- [id number] x minutes, [id number] x minutes beginning at PM.
[2018-12-08 07:30] VITALS: BP 123/80; PULSE 77; RESP 18; TEMP 36.6; O2SAT 99
[2018-12-08] MEDS: Triamterene 37.5/HCTZ 25 CAP PO (08:18)
[2018-12-08] MEDS: Clopidogrel 75 MG TAB PO (08:18)
[2018-12-08] MEDS: Enoxaparin 40 MG/0.4 ML SYR SC (08:18)
[2018-12-08] MEDS: Pantoprazole 40 MG TABCR PO (08:18)
[2018-12-08] MEDS: dilTIAZem CD 180 MG CAPCR PO (08:18)
[2018-12-08] MEDS: Aspirin E.C. 81 MG TABEC PO (08:19)
[2018-12-08] MEDS: Insulin Aspart 300 UNITS/3 ML PEN SC ×3 (08:19→17:06)
[2018-12-08] MEDS: Sodium Chloride-Nasal SPRAY-ADULT 44 ML BTL NS (08:20)
--- NOTE | 2018-12-08 09:34 | OT.INTREAT ---
Date of service: 12/08/18 Time of Service: 08:40 Occupational Therapy Notes Occupational Therapy Inpatient Treatment Note Date: 12/08/18 PRECAUTIONS: Fall, Standard SUBJECTIVE: Pt was sitting in chair, she reports that she wants to go home today for a couple hours and is reporting that she feels better. OBJECTIVE: PAIN:no c/o pain FUNCTIONAL MOBILITY Sit-stand: (S) FWW Stand-sit: (S) FWW Bed-Chair: (S) FWW Chair-bed: (S) FWW BATHING: Standing at sink with FWW Upper Body: (I) Lower Body: Pt denies reporting that she already performed prior to OT arrival. DRESSING: Upper Extremity: Sitting in chair (I) with don and doffing tank top with min (A) for getting tank top in right position. Lower Extremity: Sitting in chair (I) with don and doffing pants, (B) socks and shoes GROOMING: Standing at the sink with FWW and min vc for walker placement (I) with brushing teeth and hair. TOILETING: Pt verbalizes step by step cue to perform this out loud but is able to perform this with vc provided. Device: Toilet Assist: (I) EATING: (I) sitting in chair, able to cut her own food and food to mouth with ideal technique. ASSESSMENT/PLAN: Pt functionally is progressing in terms of her ADL/IADL routines. OT does feel that pt is able to return home with OT services at this time. OT does recommend a home assessment from and an assessment of pts home safety with concerns towards pt's (I) in cooking routines and bathing routine safely in the shower. With assessment I do feel that pt is appropriate to return home when medically cleared per MD. TREATMENT CODES/TIME: [id number], 25 minutes (08:40) Monserrat Carrion OTR/[facility]
--- NOTE | 2018-12-08 16:31 | PTTR_ITS ---
Date of service: 12/08/18 Time of Service: 11:41 PT Notes Inpatient Physical Therapy Treatment Note [facility] Date: 12/08/2018 PRECAUTIONS: Standard. Falls. L Hemineglect. SUBJECTIVE: Patient is agreeable to a second PT session this afternoon. She looks forward to going home tomorrow with HH PT/OT services in place. She also states that she has a lot of friends who will be able to help her out as she transitions back to home. She elaborates that she will not be alone in the house and will have somebody with her 12/10. OBJECTIVE: Patient is seen sitting in recliner chair with alarm system in place. PAIN: 0/10 BED MOBILITY/TRANSFERS Rolling L/R: Independent Supine-sit: Independent Sit-supine: Independent Sit-stand: Independent Stand-sit: Independent Bed-Chair: Independent Chair-bed: Independent GAIT IN AM Assistive Device: FWW Weight bearing: FWB Assist: Distant supervision Distance: 150' + 65' feet from room to therapy gym Deviation: Crossing of L LE through midline only with fatigue. Gait speed significantly improved. Minimal verbal cues for directions only from room to gym using the long route (through bigger nursing unit loop) as patient missed her two left turns to the gym. GAIT IN PM Assistive Device: FWW Weight bearing: FWB Assist: Distant supervision Distance: 150' + 65 feet from room to therapy gym Deviation: Crossing of L LE trough midline only with fatigue. Gait speed significantly improved. Minimal verbal cues for directions only from room to gym using the long route (through bigger nursing unit loop) as patient missed her tw o left turns to the gym. THERAEX IN AM NuStep x 3 minutes for aerobic exercise. Neuromuscular re-education utilizing the [id number] test to maximize awareness on L side while increasing dynamic standing balance. Patient required holding onto horizontal bar and maximum verbal, tactile, and visual cues for sequence, accuracy of movement and overall safety. THERA EX IN PM Combined neuromuscular re-education, B LE strengthening, and dynamic balance training working on kinesthetic awareness of the left side of the body in relation to space, facilitated trungin/directional changes left/right, side stepping while wearing 4 lb ankle weights to B sides. ASSESSMENT: Earl Cognitive Assessment (MOCA) done for patient today which yielded a score of 14/30 indicating moderate to severe cognitive impairment. A score of 26 or greater is considered normal. Patient will require supervision for safety at home. She will require continued skilling at discharge destination in order to reorient patient to home environment, progress patient to unassisted ambulation, and facilitate functional carryover. PLAN/DISCHARGE RECOMMENDATIONS: Continue with BID treatments to achieve goals. Patient will benefit from home health PT services in order to progress mobility level using least restrictive assistive ambulatory device, assess home safety, identify additional equipment needs, and establish a functional maintenance program that will increase ability of patient to remain at home. TREATMENT CODE/TIME: Session 1- 16476 x 10 minutes, 61490 x 35 minutes, 80720 x 10 beginning at 11:41 AM. Session 2- 99565 x 10 minutes, 37102 x 15 minutes, 99712 x 14 beginning at 15:41 PM.
[2018-12-08 16:36] VITALS: BP 130/83; PULSE 94; RESP 18; TEMP 36.2; O2SAT 97
[2018-12-08] MEDS: Lidocaine 5% Patch 1 PATCH TP (17:06)
--- NOTE | 2018-12-08 17:37 | PDOC.CMACT ---
- If Service Date Differs Date of service: 12/08/18 Time of Service: 17:37 Care Management Activity Note S/O: Debi continues to work with PT, and she is meeting goals that are being set for her. She has been able to go on drives with her friends and family who have picked her up and brought her home. She has enjoyed being able to sit on her porch in the sunshine. She communicated to CM that she is making changes to her lifestyle to accommodate her needs. She has been able to watch tv and visit with friends and family often. She was pleasant and engaged in conversation with CM, and is very happy about her care at [facility]. P: Debi is meeting her goals with PT and will return home when ready. CM is coordinating new orders for VNA, PT, OT & OCCUPATIONAL THERAPIST PER DIEM. CM is also sending a referral to [facility] for options counseling and [facility]. Debi is agreeable to the plan to return home and has identified many social supports including her son, daughter, and many neighbors and friends. CM will continue to follow.
[2018-12-08] MEDS: Atorvastatin 40 MG TAB PO (20:02)
[2018-12-08 21:55] VITALS: BP 122/75; PULSE 89; RESP 20; TEMP 37.2; O2SAT 95
[2018-12-08 22:10] VITALS: O2SAT 95
[2018-12-09 07:12] LABS: Platelet Count 339 x1000/uL (130-400)
[2018-12-09 07:25] LABS: Anion Gap 12.3 mmol/L (3-11); BUN 30 mg/dL (7-18); CO2 24.7 mmol/L (21.0-32.0); CREATININE 1.19 mg/dL (0.55-1.02); Calcium 8.9 mg/dL (8.5-10.1); Chloride 102 mmol/L (98-107); Estimated GFR 45.96 (mL/min/1.73m2); Glucose 226 mg/dL (70-100); Magnesium 1.9 mg/dL (1.8-2.4); Potassium 3.6 mmol/L (3.5-5.1); Sodium 139 mmol/L (136-145)
[2018-12-09 08:06] VITALS: BP 115/81; PULSE 95; RESP 20; TEMP 36.6; O2SAT 95
[2018-12-09] MEDS: Insulin Aspart 300 UNITS/3 ML PEN SC ×2 (08:09→17:03)
[2018-12-09] MEDS: dilTIAZem CD 180 MG CAPCR PO (08:11)
[2018-12-09] MEDS: Pantoprazole 40 MG TABCR PO (08:12)
[2018-12-09] MEDS: Triamterene 37.5/HCTZ 25 CAP PO (08:12)
[2018-12-09] MEDS: Clopidogrel 75 MG TAB PO (08:12)
[2018-12-09] MEDS: Aspirin E.C. 81 MG TABEC PO (08:12)
[2018-12-09] MEDS: Enoxaparin 40 MG/0.4 ML SYR SC (08:13)
--- NOTE | 2018-12-09 09:44 | OT.INDS ---
Date of service: 12/09/18 Time of Service: 09:05 Occupational Therapy Notes Occupational Therapy Inpatient Discharge Summary Date: 12/09/18 Dates of Service: 12/07/18-12/09/18 Referring Doctor: Luke Vazquez MD OT Orders: Urgent-stroke; (L) HH, (L) hemineglect, mild left hemiparesis Precautions: Fall, Contact PATIENT PROFILE/ADMITTING DIAGNOSIS: Pt is a 63 year old female who was admitted through the ER for dx of hip pain, Acute kidney injury, Dehydration, Contusion of left hip, Cognitive decline with a later dx of Stroke with symptoms related to (L) muna neglect and mild (L) hemiparesis. On 12/06/18 she transitioned to [facility] bed 1 status for 1 week and is seen for continued care. Past Medical History: Medical History Chronic kidney disease (CKD) stage G3a/A1, moderately decreased glomerular filtration rate (GFR) between 45-59 mL/min/1.73 square meter and albuminuria creatinine ratio less than 30 mg/g (Acute) Diabetes (Chronic) HTN (hypertension) (Chronic) Surgical History No significant past surgical history (Acute) Social History/Home Situation: Pt lives alone in a private home, she notes that she is totally (I) at baseline and her son and daughter are currently at home and there to (A) her as needed. Pt states that she is able to drive but not at this time per recommendation of MD. 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 She has a 14 year old foster son and a young lady who she cares for in her home who has autism. She has great community support and she states that she has a friend who is willing to (A) her with getting what she needs. Her son is getting ready to leave to return to the but she has a local 23 year old daughter who is helping facilitate services in her home at this time. Pt notes that she is receptive to HH services when she returns home. Equipment owned/DME: grab bars. SUBJECTIVE: Pt was sitting in chair when OT arrived. She reports that she is going home today and is looking forward to having HH services. She states that she is happy to be able to go home and notes that she is a little anxious about her medications. OBJECTIVE: General Observation: Pleasant, heart monitor over breast bone for next 30 days. Mental Status: A&Ox3 pt is consistent with dx of her stroke with multiple vc needed to remind her of tasks and performance of functional mobility and functional activities. Pain:no c/o pain ROM: RUE AROM WNL L UE AROM WNL STRENGTH: RUE 5/5 throughout LUE 5/5 throughout FUNCTIONAL MOBILITY/ADLS: Requires vc for visual deficit with (L) foot and performance of ADLs/IADLs. Functional mobility performed with FWW Sit-stand (S) Stand-sit (S) Chair-toilet (S) Toilet-chair (S) BATHING Performed (I) prior to OT session DRESSING Performed (I) prior to OT session GROOMING Pt states that she brushed her teeth (I) with FWW prior to OT session. TOILETING on toilet (I) with toileting and toileting hygiene with min vc EATING Sitting in chair (I) with bringing cup to mouth for liquids with ideal technique, (I) with cutting food Therapeutic Activities [id number]: OT educated pt on functional mobility with FWW in the kitchen. OT and pt performed a simulated situation which pt required vc throughout for performance of this. She is able to verbalize this if she can talk it out. OT also educated pt on energy conservation techniques. Pt was receptive to education and was able to demonstrate them in her room with ADL routines, utilizing walker, sitting when tired and being aware of her surroundings. Pt was able to demonstrate energy conservation techniques but did require vc in order to do this effectively. OT does feel that pt would benefit from a schedule planner scheduler to keep track of days and bills. OT educates pt to sit down with her daughter to make a plan for each month so that this can ease the responsibility from her daughter to manage bills of the home. BALANCE: Static sitting Normal Dynamic Sitting Normal Static Standing Good Dynamic Standing Good ASSESSMENT: Patient is a 63-year-old female referred to occupational therapy services with diagnosis of of hip pain, Acute kidney injury, Dehydration, Contusion of left hip, Cognitive decline with a later dx of Stroke with symptoms related to (L) muna neglect and mild (L) hemiparesis. Pt was recently transitioned to [facility] bed 1 status. Pt is motivated to be (I), she is receptive to all education and training and she is willing to participate in each session. Pts goal when she returns home is that she does not want to be a burden on her 23 year old daughter. Plan is for pt to be discharged home today with HH services. OT does feel that pt would benefit from assessment of her home and ADLs/IADLs in her home setting. OT will plan to formally discharge pt from skilled OT services at this time. GOALS-Met unless specified. 1. Transfers FWW (S) 2. Dressing in sitting (I) UE/LE 3. Bathing standing at sink with FWW (I) UE/LE 4. Pt will be able to (I) perform functional mobility to get dressing and bathing supplies-progressing pt requires vc for performance of this. 5. Pt will be able to demonstrate energy conservation techniques with ideal technique PLAN OF CARE/TREATMENT PLAN: Discharge pt from skilled OT services. DISCHARGE RECOMMENDATIONS Based on pts current level of function OT recommends that pt return home with HHOT when medically cleared per MD for assessment of ADLS in home environment. OT recommends that pt have a transfer bench for tub/shower combination to increase safety and functional (I) in bathing routine. TREATMENT TIME/MINUTES/CODES [id number], 30 minutes (09:05) [facility]
--- NOTE | 2018-12-09 09:54 | INDS_ITS ---
Date of service: 12/09/18
--- NOTE | 2018-12-09 09:54 | PT.INDS ---
Date of service: 12/09/18
--- NOTE | 2018-12-09 09:56 | INDS_ITS ---
Date of service: 12/09/18 Time of Service: 09:41 PT Notes Inpatient Physical Therapy Discharge Summary Dates: 12/09/2018 Dates of Service: 12/06/2018 through 12/09/2018 Referring Doctor: Luke Vazquez MD PT Orders: PT CONSULT: Limited ability Precautions: Fall. Standard. Activity as tolerated. L hemineglect. Patient Profile/Admitting Diagnosis: Patient is re-evaluated under swing bed level 1 as of 12/06/2018. Patient is a 63-year-old female with past medical history significant for poorly controlled diabetes mellitus and hypertension who presented to the ED on 11/28/2017 with chief complaints of left hip and lower back pain sustained from a fall 3 weeks ago; she also reported chest tightness while at the ED. Patient was negative for fracture in the hip. Patient was diagnosed with subacute ischemic infarct in the right SECTION [employer], right occipital lobe, and right thalamus, acute on chronic renal insufficiency, and memory deficit. PMHX: Medical History Chronic kidney disease (CKD) stage G3a/A1, moderately decreased glomerular filtration rate (GFR) between 45-59 mL/min/1.73 square meter and albuminuria creatinine ratio less than 30 mg/g (Acute) Diabetes (Chronic) HTN (hypertension) (Chronic) Social History/Home Situation: Ms. Patel reports she lives with her son in a two story home in [place]. She stated there are six steps to enter the home with bilateral rails, and one set of 10 stairs inside. Patient was independent with all aspects of ADLs without the need for an assitive ambulatory device nor adaptive equipment. Equipment Owned/DME: [facility] Subjective: Patient looks forward to going home today. She states that she has enough family, friends, and neighbors, on top of HH PT/OT, who will be there for her to help out when she goes home. She denies headache, dizziness, and chest pain throughout PT session. She continues to be very positive about her continued improvement in terms of functional mobility performance as well as strength, balance, and activity tolerance. Objective: General Observation: Debi is seen resting in bed, alarm system on. Bilateral TEDS on. Mental Status: Alert and oriented x 4 Pain: 0/10 ROM: Right Upper Extremity: Shoulder Flexion WFL. Shoulder abduction WFL. Elbow flexion WFL. Wrist flexion WFL. Functional opening and closing of hand WFL. Left Upper Extremity: Shoulder Flexion WFL. Shoulder abduction WFL. Elbow flexion WFL. Wrist flexion WFL. Functional opening and closing of hand WFL. Right Lower Extremity: Hip flexion WFL. Hip abduction WFL. Knee flexion WFL. Ankle dorsiflexion WFL. Ankle plantarflexion WFL. Left Lower Extremity: Hip flexion WFL. Hip abduction WFL. Knee flexion WFL. Ankle dorsiflexion WFL. Ankle plantarflexion WFL. Strength: Right Upper Extremity: Shoulder flexors 5/5. Shoulder abductors 5/5. Elbow flexors 5/5. Elbow extensors 5/5. Cylinder Block Hole Reliner strong. Left Upper Extremity: Shoulder flexors 4/5. Shoulder abductors 5/5. Elbow flexors 5/5. Elbow extensors 5/5. Cylinder Block Hole Reliner strong. Right Lower Extremity: Hip flexors 5/5. Hip abductors 5/5. Knee flexors 5/5. Knee extensors 5/5. Ankle dorsiflexors 5/5. Ankle plantarflexors 5/5. Left Lower Extremity: Hip flexors 5/5. Hip abductors 5/5. Knee flexors 5/5. Knee extensors 5/5. Ankle dorsiflexors 4/5. Ankle plantarflexors 5/5. Bed Mobility/Transfers: Rolling I Supine to sit I Sit to supineI Sit to stand I Stand to sit I Bed to chair I Chair to bed I THEREX: NuStep x 5 minutes for aerobic exercise. Neuromuscular re-education utilizing balance foam, changing base of support on level surface, and walking unsupported. Patient also tolerated. Patient also was educated on exercises that she can do in her room consisting of: bilateral shoulder ER/IR and hip/knee flexion and extension with yellow theraband on the sole of her foot. GAIT Assistive Device: FWW Weight bearing: FWB Assist: SBA Distance: 65 feet from room to the gym Deviation: Hemineglect waning but still apparent with bilateral UE activities. Patient demonstrates increased awareness of her environment, is able to ve rbalize and identify obstacles on her left side, and has been able to reposition her walker for safety. Step height and length as well as gait velocity are now significantly improved. L LE has lesser tendency to cross midline. Balance: Static Sitting: Normal Dynamic Sitting: Normal Static Standing: Good Dynamic Standing: Fair Special Tests: Mobility Limitations Standardized Measure [facility] AM-PAC 6 clicks Basic Mobility Inpatient Short Form: Raw Score: 22 CMS Score: 21% Informed Consent/Education: Patient instructed in purpose of PT consult and plan of care. Patient was also educated on exercises that she can do inside her room consisting bilateral shoulder ER and IR using yellow Thera-Band as well as BLE unilateral push downs with yellow Thera-Band hinged on the sole of each foot to work on strengthening hip and knee extensors. Assessment: Patient is a 63-year-old female status post right posterior cerebral artery, right thalamus, and right occipital lobe cerebrovascular accident with resulting left homonymous hemianopsia and left hemineglect. She is a very motivated individual who describes herself as very active. Patient continues to present with clinical signs and symptoms consistent with current/admitting diagnoses that have resulted to mobility limitations, gait instability, generalized weakness, and impairment of motor control as demo nstrated by the following impairment level findings: 1. Decreased strength to L ankle dorsiflexors, L shoulder flexors, L elbow extensors 2. Impaired standing balance 3. Impaired activity tolerance Impairments are contributing to the following functional limitations: 1. Inability to safely ambulate without assistive device and physical assistance 2. Increase completion time for mobility ADL performance 3. Increased fall risk 4. Inability to negotiate steps alone safely Patient is assessed as a 40115 moderate complexity based on the following: History: Patient is diagnosed with subacute ischemic infarct in the right SECTION [employer], right occipital lobe, and right thalamus, acute on chronic renal insufficiency, and memory deficit. Examination: Demonstrable impairment in strength, balance, and range of motion with underlying impairments and functional limitations as documented above Presentation: Evolving Decision Makin moderate complexity Goals: Goals X1 week 1. Sit-Stand independent 2. Stand-Sit independent 3. Bed-Chair independent 4.Chair-Bed independent 5. Independent gait on level surface with use of least restrictive device for at least 300 feet without report of pain nor dyspnea 6. Independent stair negotiation while holding onto bilateral rails for at least 10 steps without report of pain nor dyspnea 7. Independent with home exercise program 8. Good static and dynamic standing balance/tolerance DISCHARGE RECOMMENDATIONS: Patient will benefit from home health physical and occupational therapy services in order to continue improving coordination, decrease impairments associated with the muna-neglect as well as to progress mobility level, strength, and balance in preparation for a safe discharge to home. TREATMENT CODE/TIME: 59044 x 24 minutes beginning at 9:41 AM. Thank you very much for this referral. Kaylee Marie PT, DPT, CLT [facility]
[2018-12-09] MEDS: Potassium Chloride 20 MEQ TABCR 40 MEQ PO (10:44)
[2018-12-09] MEDS: Magnesium Oxide 400 MG TAB PO (10:44)
--- NOTE | 2018-12-09 12:13 | PT.INTREAT ---
Date of service: 12/09/18 Time of Service: 09:41 PT Notes Inpatient Physical Therapy Treatment Note [facility] Date: 12/09/2018 Precautions: Fall. Standard. Activity as tolerated. L hemineglect. Subjective: Patient looks forward to going home today. She states that she has enough family, friends, and neighbors, along with HH PT/OT, who will be there for her to help out when she goes home. She denies headache, dizziness, and chest pain throughout PT session. She continues to be very positive about her continued improvement in terms of functional mobility performance, strength, balance, and activity tolerance. Objective: General Observation: Debi is seen resting in bed, alarm system on. Bilateral TEDS on. Mental Status: Alert and oriented x 4 Pain: 0/10 Bed Mobility/Transfers: Rolling I Supine to sit I Sit to supineI Sit to stand I Stand to sit I Bed to chair I Chair to bed I GAIT Assistive Device: No AD Weight bearing: FWB Assist: SBA. Minimal verbal cues given for directions only. Distance: 65 feet from room to the gym. With FWW, at least 300 feet on [facility]. Deviation: Hemineglect waning but still apparent with bilateral UE activities. Patient demonstrates increased awareness of her environment, is able to verbalize and identify obstacles on her left side, and has been able to reposition her walker for safety. Step height and length as well as gait velocity are now significantly improved. L LE has lesser tendency to cross midline. THEREX: NuStep x 5 minutes for aerobic exercise. Neuromuscular re-education utilizing balance foam. balance retraining while changing base of support on level surface, and walking unsupported. Patient also tolerated shoulder/elbow flexion/extension with 6 lb DB; sit<>stand at EOB with 6 lb DB; trunk lateral flexion R/L with 6 lb DB. ASSESSMENT: Patient is made modified independent with FWW on [facility] as of today. DISCHARGE RECOMMENDATIONS: Patient will benefit from home health physical and occupational therapy services in order to continue improving coordination, decrease impairments associated with the muna-neglect as well as to progress mobility level, strength, and balance in preparation for a safe discharge to home. TREATMENT CODE/TIME: 9753 0 x 1 unit, 9711 0 x 1 unit beginning at 9:41 AM.
[2018-12-09 15:50] VITALS: BP 100/67; PULSE 94; RESP 16; TEMP 36.4; O2SAT 99
--- NOTE | 2018-12-09 16:30 | W.DIABETESNO ---
Date of service: 12/09/18 Time of Service: 16:30 Diabetes Note NOTE: Worked with Debi on insulin administration. She is able to do all necessary steps to inject, however she is unable to follow the written directions and unable to do all steps without coaching. I will come in Wednesday to work with her and her daughter on injection as well as glucometer testing. Time Spent in Nutritional Counseling and Treatment: 30 minutes
[2018-12-09] MEDS: Atorvastatin 40 MG TAB PO (20:16)
[2018-12-09] MEDS: Lidocaine 5% Patch 1 PATCH TP (20:16)
[2018-12-10 03:45] VITALS: BP 100/68; PULSE 97; RESP 18; TEMP 37.2; O2SAT 98
[2018-12-10 07:25] VITALS: BP 112/64; PULSE 95; RESP 18; TEMP 36.8; O2SAT 99
[2018-12-10] MEDS: dilTIAZem CD 180 MG CAPCR PO (08:12)
[2018-12-10] MEDS: Pantoprazole 40 MG TABCR PO (08:12)
[2018-12-10] MEDS: Aspirin E.C. 81 MG TABEC PO (08:12)
[2018-12-10] MEDS: Insulin Aspart 300 UNITS/3 ML PEN SC ×4 (08:13→17:14)
[2018-12-10] MEDS: Clopidogrel 75 MG TAB PO (08:13)
[2018-12-10] MEDS: Enoxaparin 40 MG/0.4 ML SYR SC (08:13)
[2018-12-10] MEDS: Triamterene 37.5/HCTZ 25 CAP PO (08:13)
--- NOTE | 2018-12-10 09:56 | PT.INTREAT ---
Date of service: 12/10/18 Time of Service: 09:56 PT Notes 12/10/18 SUBJECTIVE: Pt feeling well today. He is very motivated to improve on her condition. OBJECTIVE: Seated in recliner. Agreeable to PT treatment. TRANSFERS Sit to stand: I Stand to sit: I GAIT Pt ambulates 65' without assistive device, CGA with decreased stride length and wide LANCE. Pt ambulates 120' with FWW, supervision only without LOB or increase in fatigue. THEREX: Balance re-training program performed for dynamic gait activities, CGA throughout and min A at times for recovery of LOB with small LANCE activities. She also performs light LE strengthening, step ups and nustep x 8 minutes. See flow sheet for specifics. ASSESSMENT: Pt tolerating PT well and she is benefitting from advance balance exercise re-training. She is very aware of her unsteadiness and takes her time to avoid LOB or fall. PLAN: Continue current POC progressing toward's established goals. Treatment time: 30 minutes [id number] Angela Coy PTA Clinic location: [facility] [place], [place]
--- NOTE | 2018-12-10 11:17 | W.DIABETESNO ---
Date of service: 12/10/18 Time of Service: 11:17 Diabetes Note NOTE: Reviewed insulin injection procedure with Debi and she is able to perform insulin injection with limited coaching. Demonstrated use of One Touch Verio glucometer and she was able to return demonstration with some coaching. Blood sugars remain elevated with fasting in 200s. Suggest increasing Lantus dose by 2 units every 2 days until fasting blood sugar closer to 130mg/dl. Discussed her vision problems; explained she will need eye exam in the near future, especially when blood sugars are consistently closer to goal. PLAN: We will review both processes of injection and blood sugar monitoring Wednesday and will review with her daughter Wednesday when she comes in. SUGGEST 19units Lantus and consider insulin:carbohydrate for insulin correction to be effective. Time Spent in Nutritional Counseling and Treatment: 45 minutes face to face.
[2018-12-10 16:26] VITALS: BP 132/76; PULSE 94; RESP 17; TEMP 36.6; O2SAT 96
[2018-12-10] MEDS: Lidocaine 5% Patch 1 PATCH TP (19:41)
[2018-12-10] MEDS: Atorvastatin 40 MG TAB PO (19:41)
[2018-12-10 19:44] VITALS: BP 118/76; PULSE 94; RESP 16; TEMP 36.8; O2SAT 96
[2018-12-11 03:18] VITALS: BP 122/79; PULSE 95; RESP 17; TEMP 36.5; O2SAT 97
[2018-12-11 08:00] VITALS: BP 119/81; PULSE 107; RESP 18; TEMP 36.6; O2SAT 98
[2018-12-11] MEDS: Clopidogrel 75 MG TAB PO (08:04)
[2018-12-11] MEDS: Pantoprazole 40 MG TABCR PO (08:05)
[2018-12-11] MEDS: dilTIAZem CD 180 MG CAPCR PO (08:05)
[2018-12-11] MEDS: Aspirin E.C. 81 MG TABEC PO (08:05)
[2018-12-11] MEDS: Triamterene 37.5/HCTZ 25 CAP PO (08:05)
[2018-12-11] MEDS: Enoxaparin 40 MG/0.4 ML SYR SC (08:06)
[2018-12-11] MEDS: Insulin Aspart 300 UNITS/3 ML PEN SC ×4 (08:07→17:03)
--- NOTE | 2018-12-11 09:36 | PT.INTREAT ---
Date of service: 12/11/18 Time of Service: 09:36 PT Notes 12/11/18 SUBJECTIVE: Debi stating she is bored and has been up cleaning her room this morning. She notes she may want to get a commode for home so she does not have to go upstairs to use the bathroom. OBJECTIVE: Seated in recliner. Agreeable to PT treatment. TRANSFERS Sit to stand: I Stand to sit: I GAIT 120' with FWW, Supervision only 180' without assistive device, CGA with minor LOB with self recovery THEREX: Balance re-training exercises performed with CGA, light LE strengthening and cardiovascular re-training. See flow sheet. ASSESSMENT: Tolerating PT well today with increase in gait distance without use of assistive device. She continues to have minor LOB which she can self recover from. She would benefit from continued walker use with independent ambulation to avoid falls. PLAN: Continue current POC progressing toward's established goals. Treatment time: 35 minutes [id number] Angela Coy PTA Clinic location: [facility] [place], [place]
--- NOTE | 2018-12-11 15:24 | NUR.NOTE ---
Nursing Note: Patient left this AM around 0900 without letting this nurse know she planned on going out. Full nursing assessment not done prior to the patient leaving. Patient returned after 1400. Patient did not take her glucometer or ask how to address her blood glucose and insulin for lunch. When the patient was asked upon her return if she had checked her blood sugar she stated no, because the nurse did it before she left. Reminded again that she needed to do her blood sugar before every meal and take her insulin. Patient stated that she has no idea how to do the above but that she will do great on learning. This patient forgets every day that she had diabetic teaching the day before or even the hour before.
[2018-12-11 16:59] VITALS: BP 125/78; PULSE 107; RESP 18; TEMP 37; O2SAT 95
[2018-12-11] MEDS: Atorvastatin 40 MG TAB PO (20:28)
[2018-12-11] MEDS: Lidocaine 5% Patch 1 PATCH TP (20:29)
[2018-12-12 00:54] VITALS: BP 152/85; PULSE 97; RESP 17; TEMP 36.6; O2SAT 95
[2018-12-12 04:41] VITALS: BP 125/83; PULSE 91; RESP 17; TEMP 36.7; O2SAT 95
[2018-12-12] MEDS: Enoxaparin 40 MG/0.4 ML SYR SC (08:16)
[2018-12-12] MEDS: Triamterene 37.5/HCTZ 25 CAP PO (08:16)
[2018-12-12] MEDS: dilTIAZem CD 180 MG CAPCR PO (08:17)
[2018-12-12] MEDS: Aspirin E.C. 81 MG TABEC PO (08:17)
[2018-12-12] MEDS: Clopidogrel 75 MG TAB PO (08:17)
[2018-12-12] MEDS: Insulin Aspart 300 UNITS/3 ML PEN SC ×5 (08:17→17:17)
[2018-12-12] MEDS: Pantoprazole 40 MG TABCR PO (08:17)
[2018-12-12] MEDS: Acetaminophen 325 MG TAB 650 MG PO ×2 (08:25→15:55)
[2018-12-12 09:23] VITALS: BP 148/75; PULSE 91; RESP 18; TEMP 36.7; O2SAT 98
--- NOTE | 2018-12-12 15:02 | PTTR_ITS ---
Date of service: 12/12/18 Time of Service: 14:46 PT Notes Inpatient Physical Therapy Treatment Note [facility] Date: 12/12/2018 Precautions: Fall. Standard. Activity as tolerated. L hemineglect. Subjective: Patient reports that she has the bug saying that she has been having diarrhea episodes since last noc and that she was febrile last noc. She states I was sick last night and was dehydrated. She requested to be seen later today as she feels like she needed to rest. She reports thaty she wants to master insulin administration. She states that Rig built a railing on her stairs to make it safe for her at home. Objective: General Observation: Debi is seen resting in bed, alarm system on. Bilateral TEDS on. Mental Status: Alert and oriented as to person, place, time and purpose Pain: 0/10 Bed Mobility/Transfers: Rolling I Supine to sit I Sit to supineI Sit to stand I Stand to sit I Bed to chair I Chair to bed I GAIT Assistive Device: No AD Weight bearing: FWB Assist: SBA. Minimal verbal cues given for directions only. Distance: 65 feet from room to the gym. With FWW, at least 300 feet on [facility]. Deviation: Hemineglect waning but still apparent with bilateral UE activities. Patient demonstrates increased awareness of her environment, is able to verbalize and identify obstacles on her left side, and has been able to reposition her walker for safety. Step height and length as well as gait velocity are now significantly improved. L LE has lesser tendency to cross midline. THEREX: NuStep x 5 minutes for aerobic exercise. Neuromuscular re-education utilizing balance foam; balance retraining while changing base of support on level surface, and walking unsupported. Patient also tolerated shoulder/elbow flexion/extension with 6 lb DB; sit<>stand at EOB with 6 lb DB; trunk lateral flexion R/L with 6 lb DB. ASSESSMENT: Patient is made modified independent with FWW on [facility] as of today. DISCHARGE RECOMMENDATIONS: Patient will benefit from home health physical and occupational therapy services in order to continue improving coordination, decrease impairments associated with the muna-neglect as well as to progress mobility level, strength, and balance in preparation for a safe discharge to home. TREATMENT CODE/TIME: 9753 0 x 1 unit, 53611 x 1 unit beginning at 9:41 AM.
[2018-12-12 18:10] VITALS: BP 117/83; PULSE 93; RESP 18; TEMP 36.6; O2SAT 96
[2018-12-12] MEDS: Atorvastatin 40 MG TAB PO (20:07)
[2018-12-12] MEDS: Lidocaine 5% Patch 1 PATCH TP (20:10)
[2018-12-13] VITALS: BP 126/68; PULSE 84; RESP 17; TEMP 36.5; O2SAT 95
[2018-12-13] MEDS: Aspirin E.C. 81 MG TABEC PO (07:48)
[2018-12-13] MEDS: dilTIAZem CD 180 MG CAPCR PO (07:48)
[2018-12-13] MEDS: Pantoprazole 40 MG TABCR PO (07:48)
[2018-12-13] MEDS: Triamterene 37.5/HCTZ 25 CAP PO (07:48)
[2018-12-13] MEDS: Acetaminophen 325 MG TAB 650 MG PO ×2 (07:48→16:57)
[2018-12-13] MEDS: Enoxaparin 40 MG/0.4 ML SYR SC (07:49)
[2018-12-13] MEDS: Clopidogrel 75 MG TAB PO (07:49)
[2018-12-13] MEDS: Insulin Aspart 300 UNITS/3 ML PEN SC ×5 (07:55→17:08)
[2018-12-13 08:37] VITALS: BP 118/79; PULSE 96; RESP 18; TEMP 36.7; O2SAT 99
--- NOTE | 2018-12-13 10:44 | PT.INTREAT ---
Date of service: 12/13/18 Time of Service: 10:40 PT Notes Date: 12/13/2018 Precautions: Fall. Standard. Activity as tolerated. L hemineglect. Subjective: Patient reports she is feeling better today. She states that she received Tylenol at 7AM due to a headache. Sickness stuff, you know? Objective: General Observation: Debi is seen sitting in a recliner chair. Mental Status: Alert and oriented as to person, place, time and purpose Pain: 0/10 Bed Mobility/Transfers: Rolling I Supine to sit I Sit to supineI Sit to stand I Stand to sit I Bed to chair I Chair to bed I GAIT Assistive Device: No AD Weight bearing: FWB Assist: SBA. Minimal verbal cues given for directions only. Distance: 65 feet from room to the gym. Patient ambulated 125' with 4lbs ankle weights bilaterally with one LOB with recovery. Deviation: Increased gait velocity. Incident of L LE crossing midline now signiificantly reduced. THEREX: NuStep x 5 minutes for aerobic exercise. Visual search strategy training with 4 lbs ankle weights bilaterally x 5 minutes. Patient ambulated up and down three 4-inch steps, and two 6-inch steps. ASSESSMENT: Patient is a 63 year old female s/p lacunar stroke. She is functionally independent but has severe cognitive impairment which often scatters her train of thought. She moves well and is getting stronger and more conditioned. DISCHARGE RECOMMENDATIONS: Patient will benefit from home health physical and occupational therapy services in order to continue improving coordination, decrease impairments associated with the muna-neglect as well as to progress mobility level, strength, and balance in preparation for a safe discharge to home. TREATMENT CODE/TIME: 87000 x 2 units beginning at 10:35AM.
[2018-12-13 15:30] VITALS: BP 100/64; PULSE 86; RESP 18; TEMP 36.6; O2SAT 96
--- NOTE | 2018-12-13 18:00 | PT.INPN ---
Date of service: 12/13/18 Time of Service: 10:35 PT Notes Inpatient Physical Therapy Progress Note Date: 12/13/2018 Dates of Service: 12/06/2018 through 12/13/2018 Precautions: Fall. Standard. Activity as tolerated. L hemineglect. Subjective: Patient reports she is feeling better today. She states that she received Tylenol at 7AM due to a headache. Sickness stuff, you know? Patient Profile/Admitting Diagnosis: Patient is reevaluated under swing bed level 1 as of today. Patient is a 63-year-old female with past medical history significant for poorly controlled diabetes mellitus and hypertension who presented to the ED on 11/28/2017 with chief complaints of left hip and lower back pain sustained from a fall 3 weeks ago; she also reported chest tightness while at the ED. Patient was negative for fracture in the hip. Patient was diagnosed with subacute ischemic infarct in the right PRESCHOOL AIDE, right occipital lobe, and right thalamus, acute on chronic renal insufficiency, and memory deficit. PMHX: Medical History Chronic kidney disease (CKD) stage G3a/A1, moderately decreased glomerular filtration rate (GFR) between 45-59 mL/min/1.73 square meter and albuminuria creatinine ratio less than 30 mg/g (Acute) Diabetes (Chronic) HTN (hypertension) (Chronic) Objective: General Observation: Debi is seen sitting in a recliner chair. Mental Status: Alert and oriented as to person, place, time and purpose Pain: 0/10 ROM: Right Upper Extremity: Shoulder Flexion WFL. Shoulder abduction WFL. Elbow flexion WFL. Wrist flexion WFL. Functional opening and closing of hand WFL. Left Upper Extremity: Shoulder Flexion WFL. Shoulder abduction WFL. Elbow flexion WFL. Wrist flexion WFL. Functional opening and closing of hand WFL. Right Lower Extremity: Hip flexion WFL. Hip abduction WFL. Knee flexion WFL. Ankle dorsiflexion WFL. Ankle plantarflexion WFL. Left Lower Extremity: Hip flexion WFL. Hip abduction WFL. Knee flexion WFL. Ankle dorsiflexion WFL. Ankle plantarflexion WFL. Strength: Right Upper Extremity: Shoulder flexors 5/5. Shoulder abductors 5/5. Elbow flexors 5/5. Elbow extensors 5/5. 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 Left Upper Extremity: Shoulder flexors 5/5. Shoulder abductors 5/5. Elbow flexors 5/5. Elbow extensors 4/5. 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 Right Lower Extremity: Hip flexors 5/5. Hip abductors 5/5. Knee flexors 5/5. Knee extensors 5/5. Ankle dorsiflexors 5/5. Ankle plantarflexors 5/5. Left Lower Extremity:Hip flexors 5/5. Hip abductors 5/5. Knee flexors 5/5. Knee extensors 5/5. Ankle dorsiflexors 4/5. Ankle plantarflexors 5/5. Bed Mobility/Transfers: Rolling I Supine to sit I Sit to supineI Sit to stand I Stand to sit I Bed to chair I Chair to bed I GAIT Assistive Device: No AD Weight bearing: FWB Assist: SBA. Minimal verbal cues given for directions only. Distance: 65 feet from room to the gym. Patient ambulated 125' with 4lbs ankle weights bilaterally with one LOB with recovery. Deviation: Increased gait velocity. Incident of L LE crossing midline now signiificantly reduced. THEREX: NuStep x 5 minutes for aerobic exercise. Visual search strategy training with 4 lbs ankle weights bilaterally x 5 minutes. Patient ambulated up and down three 4-inch steps, and two 6-inch steps. Assessment: Patient is a 63-year-old female status post right posterior cerebral artery, right thalamus, and right occipital lobe cerebrovascular accident with resulting left homonymous hemianopsia and left hemineglect. She is a very motivated individual who describes herself as very active. Patient continues to present with clinical signs and symptoms consistent with current/admitting diagnoses that have resulted to mobility limitations, gait instability, generalized weakness, and impairment of motor control as demonstrated by the following impairment level findings: 1. Decreased strength to L ankle dorsiflexors, L shoulder flexors, L elbow extensors 2. Impaired standing balance 3. Impaired activity tolerance Impairments are contributing to the following functional limitations: 1. Inability to safely ambulate without assistive device and physical assistance 2. Increase completion time for mobility ADL performance 3. Increased fall risk 4. Inability to negotiate steps alone safely Patient is assessed as a 01889 moderate complexity based on the following: History: Patient is diagnosed with subacute ischemic infarct in the right PRESCHOOL AIDE, right occipital lobe, and right thalamus, acute on chronic renal insufficiency, and memory deficit. Examination: Demonstrable impairment in strength, balance, and range of motion with underlying impairments and functional limitations as documented above Presentation: Evolving Decision Makin moderate complexity Goals: Goals X1 week 1. Sit-Stand independent 2. Stand-Sit independent 3. Bed-Chair independent 4.Chair-Bed independent 5. Independent gait on level surface with use of least restrictive device for at least 300 feet without report of pain nor dyspnea 6. Independent stair negotiation while holding onto bilateral rails for at least 10 steps without report of pain nor dyspnea 7. Independent with home exercise program 8. Good static and dynamic standing balance/tolerance DISCHARGE RECOMMENDATIONS: Patient will benefit from home health physical and occupational therapy services in order to continue improving coordination, decrease impairments associated with the muna-neglect as well as to progress mobility level, strength, and balance in preparation for a safe discharge to home. TREATMENT CODE/TIME: 28861 x 2 units, 87927 x 1 unit beginning at 10:35 AM. Thank you very much for this referral. Kaylee Marie PT, DPT, CLT [facility] l
--- NOTE | 2018-12-13 19:01 | CMPROGNOTE_ITS ---
- If Service Date Differs Date of service: 12/13/18 Time of Service: 19:01 Care Management Progress Note S/O: CM met with Debi in her room she states she will be ready to discharged home on with support services. She states that her daughter Precious is going to help her with insulin they both have been able to meet with DM educator and Debi feels she becomes more confident throughout her stay. According to DM educator's note Debi is doing well with the teaching and with some coaching successful in checking and administering insulin. Debi will need ongoing supports from family and home health. P: Debi will plan to be discharged on with her daughter and new home health services through [facility], nursing, PT/OT and [employer].
[2018-12-13] MEDS: Lidocaine 5% Patch 1 PATCH TP (19:57)
[2018-12-13] MEDS: Atorvastatin 40 MG TAB PO (19:57)
[2018-12-13 23:33] VITALS: BP 109/69; PULSE 85; RESP 16; TEMP 36.9; O2SAT 96
[2018-12-14 07:16] LABS: Platelet Count 332 x1000/uL (130-400)
[2018-12-14 07:57] VITALS: BP 130/79; PULSE 88; RESP 17; TEMP 36.2; O2SAT 99
[2018-12-14] MEDS: Clopidogrel 75 MG TAB PO (08:30)
[2018-12-14] MEDS: Enoxaparin 40 MG/0.4 ML SYR SC (08:30)
[2018-12-14] MEDS: Aspirin E.C. 81 MG TABEC PO (08:30)
[2018-12-14] MEDS: Triamterene 37.5/HCTZ 25 CAP PO (08:30)
[2018-12-14] MEDS: dilTIAZem CD 180 MG CAPCR PO (08:30)
[2018-12-14] MEDS: Pantoprazole 40 MG TABCR PO (08:30)
[2018-12-14] MEDS: Insulin Aspart 300 UNITS/3 ML PEN SC ×2 (08:30→08:31)
[2018-12-14 10:15] VITALS: BP 152/42; PULSE 108; RESP 17; TEMP 36.2; O2SAT 98
--- NOTE | 2018-12-14 11:09 | DI.CT_ITS ---
EXAM: CT HEAD WO CLINICAL HISTORY: L facial paresthesias. TECHNIQUE: A cranial CT was carried out without contrast enhancement. COMPARISON: HEAD_FACE_CSPINE (adult) from 11/28/2018 FINDINGS: There is no evidence of an intra or extra-axial hemorrhage. There is no evidence of a mass. The cisneros- white matter differentiation is intact. The ventricles are unremarkable. There is no evidence of a skull fracture. The paranasal sinuses are intact. There is no mastoid effusion. IMPRESSION: Normal cranial CT. If there is further specific clinical question, then an MRI may be obtained.
[2018-12-14 11:25] LABS: Abs Immature Grans 0.02 k/cumm (0.0-0.09); Absolute Eosinophil Count 0.25 k/cumm (0.0-0.7); Absolute Lymphocyte Count 2.93 k/cumm (1.2-3.4); Absolute Monocyte Count 0.82 k/cumm (0.11-0.7); Absolute Neutrophil Count 6.89 k/cumm (1.2-6.7); Basophils % 0.5; Eosinophils % 2.3; HCT 42.1 % (36.0-46.0); HGB 14.4 g/dL (12.0-15.5); Immature Grans % 0.2; Lymphocytes % 26.7; Mean Corp. HGB Concentration 34.2 g/dL (32.0-36.0); Mean Corpuscular Hemoglobin 28.2 pg (27.0-33.0); Mean Corpuscular Volume 82.5 fL (80-95); Mean Platelet Volume 9.6 fL (8.0-11.0); Monocytes % 7.5; Neutrophils % 62.8; Platelet Count 362 x1000/uL (130-400); RBC Distribution Width 12.8 % (11.7-14.6); White Blood Cell Count 10.97 k/cumm (4.4-10.8)
[2018-12-14 11:26] LABS: Absolute Basophil Count 0.05 k/cumm (0.0-0.2)
[2018-12-14 11:34] LABS: BUN 28 mg/dL (7-18); Calcium 9.4 mg/dL (8.5-10.1); Chloride 96 mmol/L (98-107); Estimated GFR 50.33 (mL/min/1.73m2); Glucose 157 mg/dL (70-100); Magnesium 1.9 mg/dL (1.8-2.4); Potassium 3.3 mmol/L (3.5-5.1); Sodium 132 mmol/L (136-145)
[2018-12-14] MEDS: Potassium Chloride 20 MEQ TABCR 40 MEQ PO (12:16)
[2018-12-14 12:46] LABS: Troponin I < 0.05 ng/mL (0.00-0.06)
--- NOTE | 2018-12-14 13:40 | DI.MRI_ITS ---
EXAM: MR BRAIN WO CLINICAL HISTORY: suspected recurrent CVA. TECHNIQUE: Multiplanar multisequence MRI was performed. The examination was carried out according to the usual protocol without contrast enhancement. FINDINGS: Comparison with the previous study of 11/29/2018 shows no major interval change. Subacute ischemic in farcts are noted in the right posterior cerebral artery vascular territory, in the right thalamus, ri ght corpus callosum, right occipital lobe. Old chronic infarct is noted in the medial inferior left cerebellar hemisphere. There is moderate patchy periventricular leukomalacia in both cerebral hemisp heres. These findings would be consistent with chronic underlying small vessel ischemic disease. Th ere is mild age-appropriate cerebral atrophy. The ventricles are normal. No bony abnormality is seen. The soft tissues are unremarkable. The sinuses are normal as visualized. There is no evidence of a mastoid effusion. The orbits are unremarkable. IMPRESSION: Comparison to the previous MRI of 11/29/2018 shows no major interval change. Acute ischemic infarcts a re noted in the right posterior cerebral artery vascular territory and in the right thalamus, the rig ht corpus callosum and right occipital lobe. Old chronic infarct is noted in the medial inferior left cerebellar hemisphere. There is moderate patchy periventricular leukomalacia in both cerebral hemisp heres consistent with small vessel disease. Atrophic changes consistent with age-appropriate atrophy is demonstrated. There is no evidence of an acute intracerebral abnormality or injury.
[2018-12-14] MEDS: SITagliptin 100 MG TAB PO (14:28)
--- NOTE | 2018-12-14 15:27 | DI.VRAD_ITS ---
PROCEDURE INFORMATION: Exam: MR Head Without Contrast Exam date and time: 12/14/2018 1:40 PM Clinical history: 63 years old, female; Other: Suspected reccurent CVA TECHNIQUE: Imaging protocol: MR of the head without contrast. COMPARISON: MR HEAD^ROUTINE WO 11/29/2018 1:30 PM FINDINGS: Brain: Comparison to the previous MRI brain study from 11/29/2018 shows no major interval change. Subacute ischemic infarcts are noted in the right posterior cerebral artery vascular territory in the right thalamus, right corpus callosal rostrum and the right occipital lobe. An old chronic infarct is noted in the medial inferior left cerebellar hemisphere. Moderate patchy periventricular leukomalacia in both cerebral hemispheres, consistent with chronic underlying small vessel ischemic disease. Mild age-appropriate cerebral atrophy. Ventricles: Normal. No ventriculomegaly. Bones/joints: Unremarkable. Soft tissues: Unremarkable. Sinuses: Normal as visualized. No acute sinusitis. Mastoid air cells: Normal as visualized. No mastoid effusion. Orbits: Unremarkable. Other findings: No new acute intracerebral abnormality or injury. IMPRESSION: 1. Comparison to the previous MRI brain study from 11/29/2018 shows no major interval change. Subacute ischemic infarcts are noted in the right posterior cerebral artery vascular territory in the right thalamus, right corpus callosal rostrum and the right occipital lobe. An old chronic infarct is noted in the medial inferior left cerebellar hemisphere. Moderate patchy periventricular leukomalacia in both cerebral hemispheres, consistent with chronic underlying small vessel ischemic disease. Mild age-appropriate cerebral atrophy. 2. No new acute intracerebral abnormality or injury. Dictated and Authenticated by: Jules Whyte MD. Ordering:KIANNA Pereira MD
[2018-12-14 15:59] VITALS: BP 136/79; PULSE 101; RESP 18; TEMP 36.7; O2SAT 96
[2018-12-14] MEDS: Atorvastatin 40 MG TAB PO (19:23)
[2018-12-14 19:24] VITALS: BP 116/79; PULSE 96; RESP 16; TEMP 36.7; O2SAT 95
[2018-12-14] MEDS: Lidocaine 5% Patch 1 PATCH TP (19:24)
--- NOTE | 2018-12-14 19:33 | PGE_ITS ---
Date of Service Date of service: 12/14/18 Time of Service: 10:25 Assessment and Plan Assessment and plan (1) Paresthesias: Status: Acute Assessment and plan: No evidence of acute CVA. However, I wonder if the paresthesias of the face and hands could be related to the blood sugar which is relatively low for the patient (perhaps, 200's are when she starts to feel hypoglycemic). Alternatively, her hand symptoms could be explained by cervical stenosis, but this does not explain L facial paresthesias. Will monitor overnight. (2) CVA (cerebral vascular accident): Status: Chronic Assessment and plan: I spoke with Dr Grewal on the phone in regards to the patient's presentation today, and it sounds significantly improved since the day of her original CVA. MRI is negative for any acute CVA's. Continue monitoring with a cardiac event monitor. (3) Diabetes: Status: Chronic Assessment and plan: Discussed with Special Effects Technician - the patient's daughter can reliably be there to inject insulin once a day, but not with every meal. For this reason, we have started januvia today in addition to increasing basal insulin. I d/'heather corrective and scheduled prandial insulin in an attempt to see what her blood sugars would look like at home. (4) HTN (hypertension): Status: Chronic Assessment and plan: Controlled. No change in therapy. (5) Chronic kidney disease (CKD) stage G3a/A1, moderately decreased glomerular filtration rate (GFR) between 45-59 mL/min/1.73 square meter and albuminuria creatinine ratio less than 30 mg/g: Status: Acute Assessment and plan: Replete potassium and recheck lytes in am. (6) Discharge planning issues: Status: Acute Assessment and plan: Planned for discharge tomorrow Subjective Subjective Interval history since last seen: The patient states that she had had a GI bug over the weekend, had soaked through her sheets overnight, and this morning, at about 10 am, she started to have L facial tingling as well as tingling at the tips of the fingers in both her hands. She did report neck pain. Denied numbness/tingling/weakness/visual changes. Stated she had a slight headache earlier, but it was gone by the time I had examined her. Exam Narrative Exam Narrative: General: middle-aged female, appears to be seated in a strange position in a chair, A&Ox3 HEENT: EOMI, MMM, CN II-XII intact Heart: RRR, mildly tachycardic, no murmurs/rubs/gallops Lungs: CTAB GI: abdomen is soft, nontender, nondistended Extremities: no e/c/c BLE's, 5/5 strength throughout. Objective Objective Clinical Data: Abnormal lab results 12/14/18 12/14/18 Range/Units 11:10 11:10 WBC 10.97 H (4.4-10.8) k/cumm Absolute Neutrophils 6.89 H (1.2-6.7) k/cumm Absolute Monocytes 0.82 H (0.11-0.7) k/cumm Sodium 132 L (136-145) mmol/L Potassium 3.3 L (3.5-5.1) mmol/L Chloride 96 L (98-107) mmol/L BUN 28 H (7-18) mg/dL Creatinine 1.10 H (0.55-1.02) mg/dL Glucose 157 H (70-100) mg/dL Vital Signs Temperature 36.7 C 12/14/18 19:24 Temperature Source Tympanic 12/14/18 19:24 Pulse 96 H 12/14/18 19:24 Pulse Rhythm Regular 12/14/18 19:24 Respiratory Rate 16 12/14/18 19:24 Respiratory Effort Non-Labored 12/14/18 19:24 Respiratory Depth Normal 12/14/18 19:24 Respiratory Pattern Normal 12/14/18 19:24 Blood Pressure 116/79 12/14/18 19:24 Pulse Oximetry 95 12/14/18 19:24 Oxygen Delivery Method Room Air 12/14/18 19:24 Oxygen Flow Rate 0 12/14/18 19:24 Pain Level 0 12/14/18 19:24 Comment 12/10/18 03:45 Intake & Output 12/13/18 12/14/18 12/14/18 23:59 11:59 23:59 Intake Total 480 / 1320 650 / 900 250 / 900 Balance 480 / 1320 650 / 900 250 / 900 Intake: Oral 480 / 1320 650 / 900 250 / 900 Other: Urine Color Yellow Urine Appearance Clear Urine Odor Normal Comment voiding independently Voiding Methods Toilet Toilet Laboratory Results WBC 10.97 k/cumm (4.4-10.8) H 12/14/18 11:10 RBC 5.10 m/cumm (4.00-5.20) 12/14/18 11:10 Hgb 14.4 g/dL (12.0-15.5) 12/14/18 11:10 Hct 42.1 % (36.0-46.0) 12/14/18 11:10 MCV 82.5 fL (80-95) 12/14/18 11:10 MCH 28.2 pg (27.0-33.0) 12/14/18 11:10 MCHC 34.2 g/dL (32.0-36.0) 12/14/18 11:10 RDW 12.8 % (11.7-14.6) 12/14/18 11:10 Plt Count 362 x1000/uL (130-400) 12/14/18 11:10 MPV 9.6 fL (8.0-11.0) 12/14/18 11:10 Immature Gran % 0.2 12/14/18 11:10 Neutrophils % 62.8 12/14/18 11:10 Lymphocytes % 26.7 12/14/18 11:10 Monocytes % 7.5 12/14/18 11:10 Eosinophils % 2.3 12/14/18 11:10 Basophils % 0.5 12/14/18 11:10 Absolute Neutrophils 6.89 k/cumm (1.2-6.7) H 12/14/18 11:10 Absolute Lymphocytes 2.93 k/cumm (1.2-3.4) 12/14/18 11:10 Absolute Monocytes 0.82 k/cumm (0.11-0.7) H 12/14/18 11:10 Absolute Eosinophils 0.25 k/cumm (0.0-0.7) 12/14/18 11:10 Absolute Basophils 0.05 k/cumm (0.0-0.2) 12/14/18 11:10 Sodium 132 mmol/L (136-145) L 12/14/18 11:10 Potassium 3.3 mmol/L (3.5-5.1) L 12/14/18 11:10 Chloride 96 mmol/L (98-107) L 12/14/18 11:10 Carbon Dioxide 26.0 mmol/L (21.0-32.0) 12/14/18 11:10 Anion Gap 10.0 mmol/L (3-11) 12/14/18 11:10 BUN 28 mg/dL (7-18) H 12/14/18 11:10 Creatinine 1.10 mg/dL (0.55-1.02) H 12/14/18 11:10 Estimated GFR/1.73 m2 50.33 (mL/min/1.73m2) 12/14/18 11:10 Glucose 157 mg/dL (70-100) H 12/14/18 11:10 Calcium 9.4 mg/dL (8.5-10.1) 12/14/18 11:10 Magnesium 1.9 mg/dL (1.8-2.4) 12/14/18 11:10 Troponin I < 0.05 ng/mL (0.00-0.06) 12/14/18 11:10 CT head without contrast: Normal cranial CT. If there is further specific clinical question, then an MRI may be obtained. Comparison to the previous MRI of 11/29/2018 shows no major interval change. Subacute ischemic infarcts are noted in the right posterior cerebral artery vascular territory and in the right thalamus, the right corpus callosum and right occipital lobe. Old chronic infarct is noted in the medial inferior left cerebellar hemisphere. There is moderate patchy periventricular leukomalacia in both cerebral hemispheres consistent with small vessel disease. Atrophic changes consistent with age-appropriate atrophy is demonstrated. There is no evidence of an acute intracerebral abnormality or injury.
[2018-12-14] MEDS: Melatonin 3 MG TAB PO (21:21)
[2018-12-15 02:49] VITALS: BP 112/76; PULSE 83; RESP 16; TEMP 36; O2SAT 95
[2018-12-15 07:35] VITALS: BP 123/63; PULSE 51; RESP 16; TEMP 36.3; O2SAT 98
[2018-12-15 07:43] LABS: Anion Gap 9.1 mmol/L (3-11); BUN 32 mg/dL (7-18); CO2 27.9 mmol/L (21.0-32.0); CREATININE 1.29 mg/dL (0.55-1.02); Calcium 9.1 mg/dL (8.5-10.1); Estimated GFR 41.88 (mL/min/1.73m2); Glucose 245 mg/dL (70-100); Magnesium 1.9 mg/dL (1.8-2.4)
[2018-12-15 08:02] LABS: Chloride 97 mmol/L (98-107); Potassium 3.9 mmol/L (3.5-5.1); Sodium 134 mmol/L (136-145)
[2018-12-15] MEDS: Triamterene 37.5/HCTZ 25 CAP PO (09:34)
[2018-12-15] MEDS: Pantoprazole 40 MG TABCR PO (09:34)
[2018-12-15] MEDS: SITagliptin 100 MG TAB PO (09:34)
[2018-12-15] MEDS: dilTIAZem CD 180 MG CAPCR PO (09:34)
[2018-12-15] MEDS: Enoxaparin 40 MG/0.4 ML SYR SC (09:34)
[2018-12-15] MEDS: Aspirin E.C. 81 MG TABEC PO (09:34)
[2018-12-15] MEDS: Clopidogrel 75 MG TAB PO (09:34)
--- NOTE | 2018-12-15 10:37 | PT.INTREAT ---
Date of service: 12/15/18 Time of Service: 09:55 PT Notes Inpatient Physical Therapy Treatment Note [facility] Date: Precautions: Fall. Standard. Activity as tolerated. L hemineglect. Subjective: Patient reports she is feeling better today. She is agreeable toa PT session. Reports continued tingling sensation on her L half of face albeit less now. Objective: General Observation: Debi is seen sitting in a recliner chair. Mental Status: Alert and oriented as to person, place, time and purpose Pain: 0/10 Bed Mobility/Transfers: Rolling I Supine to sit I Sit to supineI Sit to stand I Stand to sit I Bed to chair I Chair to bed I GAIT Assistive Device: FWW from room to therapy fym. NO AD from room therapy gym back to room. Weight bearing: FWB Assist: To therapy gym I. Back to room supervision. Distance: 65 feet from room to the gym. Patient ambulated 125' with no AD without LOB nor L LE crossing midline. Deviation: Increased gait velocity. No crossing of L LE beyond midline observed. THEREX: NuStep x 5 minutes for aerobic exercise. Therapeutic activity to increase balance skills and awareness in space utilizing balance perturbations while on balance foam, sit<>stand activity with arms acros chest, tandem stance, and unassisted walking on level surface. patiet also toelrated dumbell squats usng 5 lb AW. ASSESSMENT: Patient is a 63 year old female s/p lacunar stroke. She is functionally independent but cotninues to have decreased high executive functioning requiring assiatnce with medication/insulin management to control diabetes. Patient continues to present with severe cognitive impairment which often scatters her train of thought. DISCHARGE RECOMMENDATIONS: Patient will benefit from home health physical and occupational therapy services in order to continue improving coordination, decrease impairments associated with the muna-neglect as well as to progress mobility level, strength, and balance in preparation for a safe discharge to home. TREATMENT CODE/TIME: 92991 x 1 unit, 71865 x 1 unit beginning at 9:55 AM.
--- NOTE | 2018-12-15 11:46 | W.PM.DS.N ---
Date of service: 12/15/18 Time of Service: 11:46 DS: Diagnosis Discharge Diagnosis (1) Paresthesias: Status: Acute (2) CVA (cerebral vascular accident): Status: Chronic (3) Diabetes: Status: Chronic (4) HTN (hypertension): Status: Chronic (5) Chronic kidney disease (CKD) stage G3a/A1, moderately decreased glomerular filtration rate (GFR) between 45-59 mL/min/1.73 square meter and albuminuria creatinine ratio less than 30 mg/g: Status: Acute (6) Discharge planning issues: Status: Acute Discharge Plan Disposition Patient Disposition: HOME W/HOME HEALTH SERVICE Condition: Improving Discharge Details Reason For Visit: SUBACUTE CVA Admit Date/Time: 12/06/18 15:26 Admit Provider: Luke Vazquez Attending Provider: Luke Vazquez Primary Care Provider: Onur Liriano Hospital Course Hospital Course: Debi Patel is a very pleasant 63-year-old female with a past medical history significant for uncontrolled hypertension and diabetes with a hemoglobin A1c of 12.7%, and chronic kidney disease. She presented to the emergency department on 11/28/2018 after her daughter went to visit her at home and found her to be confused and having difficulty with ambulation and possible left-sided neglect. At that time, she also reported a fall approximately 2 weeks prior and a subsequent leave poor appetite and worsening oral intake due to pain. In the emergency department, her work-up was significant for acute kidney injury with a creatinine of 2.4, with a baseline of approximately 1. There is a question on imaging of a focal white matter change in the right occipital region with request for further work-up. She was admitted to the [facility] floor. During her acute hospitalization, Subsequent Neurology evaluation with likely old infarct in the left cerebellum by CT, as well as an evolving infarct in the right occipital lobe and thalamus. MRI of the brain confirmed a subacute right occipital lobe and thalamus infarct, with an area of punctate ischemia in the midbrain all in the distribution of the right posterior cerebral artery. 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 ECHO was unremarkable with the exception of a mildly dilated Left Atrium. During her acute hospitalization, she worked with physical therapy, her hypertension was brought under control, she was initiated on an insulin regimen and her acute kidney injury improved. The plan was for her to be discharged to a halfway facility for ongoing rehab, however, she was not accepted due to apparent insurance issues. She transition to a swing bed status on 12/06/2018. She continued to work with physical therapy and progressed well. At the time of discharge, physical therapy states that this patient would benefit from home health physical and occupational therapy services in order to continue improving coordination, decrease impairments associated with the muna-neglect as well as to progress mobility level, strength, and balance. While on swing bed status, the day prior to her discharge home, she reported paresthesias of the face and hands, neurology was consulted. Dr. Grewal recommended repeat MRI brain. MRI was negative for acute CVA she recommended continuing cardiac catheterization technician. There is question as to whether the paresthesias of the face and hands could be related to her relatively low blood sugar, as compared to her baseline blood sugar. On the morning of discharge, her blood glucose was noted to be 219 and the patient did not have any increased paresthesias. Also consider cervical stenosis as a a possible contributor to the paresthesias of her hands. It was noted that the patient would have difficulty at home maintaining an insulin regimen that included multiple injections per day. The case was discussed with the adaptive physical educator, she was transitioned to once daily basal insulin injections as well as Januvia. She will not be discharged home with scheduled prandial or corrective short acting insulin. She will monitor her blood glucose at home. As mentioned previously, her blood glucose was in the low 200s this morning, it appears that this patient will need to slowly reduce her glucose. Debi is discharged home today, she will be referred to home health physical therapy, occupational therapy, nursing and social work. She is also arranging for additional help at home. She will follow-up with her primary care provider as scheduled on 12/20/2018. She will follow-up with neurology as scheduled. She is currently wearing an extended cardiac catheterization technician, this will be continued at discharge. Additional recommendations by neurology include DAGO and continuous cardiac monitoring, Continue aspirin 81mg plus Plavix 75mg daily x 30 days at which point she should stop aspirin and continue Plavix alone. Continue atorvastatin with a long-term LDL goal of <70. Her goal A1c is less than 7. Her long-term BP goal is 120-140/80-90. Continue PT/OT. No driving. Home Meds and New Rx's Prescriptions: New atorvastatin [Lipitor] 40 mg Tablet 40 mg PO QPM Qty: 30 RF: 0 diltiazem HCl 180 mg Capsule,Extended Release 24hr 180 mg PO DAILY Qty: 30 RF: 0 clopidogrel [Plavix] 75 mg Tablet 75 mg PO DAILY Qty: 30 RF: 0 Levemir FlexTouch U-100 Insuln 100 unit/mL (3 mL) Insulin Pen 30 unit subcut HS Qty: 300 RF: 0 (DME) blood-glucose meter [Blood Glucose Monitoring] Kit See Rx Instructions .ROUTE .MEDSUPPLY Qty: 1 RF: 0 (DME) lancets 30 gauge misc See Rx Instructions .ROUTE .MEDSUPPLY Qty: 100 RF: 0 Continued albuterol sulfate [Proventil HFA] 6.7 GM HFA aerosol inhaler 1 - 2 puff Inhalation Q6H PRN RF: 0 fluticasone propionate 16 GM spray,suspension 50 mcg NS BID RF: 0 levalbuterol tartrate [Xopenex HFA] 15 GM HFA aerosol inhaler 90 mcg Inhalation Q6H PRN RF: 0 ondansetron HCl [Zofran] 4 mg tablet 4 mg PO QID PRN (Reason: nausea and vomiting) Qty: 10 RF: 0 aspirin [Aspirin Low Dose] 81 mg Tablet,Delayed Release (Dr/Ec) 81 mg PO DAILY Qty: 30 RF: 0 triamterene-hydrochlorothiazid 37.5-25 mg Capsule 1 cap PO DAILY Qty: 30 RF: 0 irbesartan 300 mg Tablet 300 mg PO DAILY Qty: 30 RF: 0 Discontinued metformin 500 mg Tablet 1,000 mg PO BID RF: 0 Discharge Instructions Stand Alone Forms: Nursing Discharge Form Referrals: Onur Liriano MD [Primary Care Provider] - 12/20/18 10:30 am Peg Grewal MD [ [facility] STAFF PHYSICIAN] - (Please call the office to schedule an appointment) Activity:: Activity as Tolerated Equipment/Supplies:: No Equipment Needed Diet:: Carb Counting Discharge Orders Discharge Orders: Discharge Order (Routine); Ordered 12/15/18 Ordered By: Mariella Bonner Other Ambulatory Orders: Basic Metabolic Panel (Routine) Timeframe: 1 Week Location: None Selected Ordered By: Mariella Bonner DS: Summary Status at Discharge Functional status at discharge: uses cane/walker Overall status at discharge: patient is progressing back to baseline Mental Status: mental status grossly normal Speech and Movement: speech and movement normal Mood: congruent mood Affect: normal affect Exam Narrative Exam Narrative: General: Very pleasant, talkative female. Alert and oriented, answers questions appropriately, difficulty with short-term memory at times. Sitting up in the chair. HEENT: Normocephalic, atraumatic, pupils equal and round, EOMI, mucous membranes moist, speech clear and articulate, able to move all 4 extremities freely, decreased sensation to touch on left cheek. Neck: Supple, no JVD. Cardiovascular: Heart sounds regular, non-tachycardic, no murmur appreciated. Respiratory: Respirations appear even and unlabored, lung sounds clear to auscultation bilaterally. Speaking in complete sentences with no shortness of breath. Abdomen: Soft, nontender on palpation, nondistended. Extremities: No clubbing, cyanosis or edema. Pedal pulses are palpable bilaterally. Psych Mental Status: mental status grossly normal Speech and Movement: speech and movement normal Mood: congruent mood Affect: normal affect DS: Data Vitals/I&O Vitals and I&O: Vital Signs Temperature 36.3 C L 12/15/18 07:35 Temperature Source Tympanic 12/15/18 07:35 Pulse 51 L 12/15/18 07:35 Pulse Rhythm Regular 12/15/18 10:19 Respiratory Rate 16 12/15/18 07:35 Respiratory Effort Non-Labored 12/15/18 10:19 Respiratory Depth Normal 12/15/18 10:19 Respiratory Pattern Normal 12/15/18 10:19 Blood Pressure 123/63 12/15/18 07:35 Pulse Oximetry 98 12/15/18 07:35 Oxygen Delivery Method Room Air 12/15/18 07:35 Oxygen Flow Rate 0 12/15/18 07:35 Pain Level 0 12/15/18 07:35 Comment 12/10/18 03:45 Intake & Output 12/14/18 12/14/18 12/15/18 11:59 23:59 11:59 Intake Total 650 / 900 250 / 900 240 / 240 Balance 650 / 900 250 / 900 240 / 240 Intake: Oral 650 / 900 250 / 900 240 / 240 Other: Urine Color Yellow Urine Appearance Clear Clear Urine Odor Normal Comment voiding independently voiding independently in toilet Voiding Methods Toilet Data Completed and Pending Completed studies during hospitalization [Text1]: 12/14/18: EXAM: CT HEAD WO CLINICAL HISTORY: L facial paresthesias. TECHNIQUE: A cranial CT was carried out without contrast enhancement. COMPARISON: HEAD_FACE_CSPINE (adult) from 11/28/2018 FINDINGS: There is no evidence of an intra or extra-axial hemorrhage. There is no evidence of a mass. The icsneros-white matter differentiation is intact. The ventricles are unremarkable. There is no evidence of a skull fracture. The paranasal sinuses are intact. There is no mastoid effusion. IMPRESSION: Normal cranial CT. If there is further specific clinical question, then an MRI may be obtained. EXAM: MR BRAIN WO CLINICAL HISTORY: suspected recurrent CVA. TECHNIQUE: Multiplanar multisequence MRI was performed. The examination was carried out according to the usual protocol without contrast enhancement. FINDINGS: Comparison with the previous study of 11/29/2018 shows no major interval change. Subacute ischemic infarcts are noted in the right posterior cerebral artery vascular territory, in the right thalamus, right corpus callosum, right occipital lobe. Old chronic infarct is noted in the medial inferior left cerebellar hemisphere. There is moderate patchy periventricular leukomalacia in both cerebral hemispheres. These findings would be consistent with chronic underlying small vessel ischemic disease. There is mild age-appropriate cerebral atrophy. The ventricles are normal. No bony abnormality is seen. The soft tissues are unremarkable. The sinuses are normal as visualized. There is no evidence of a mastoid effusion. The orbits are unremarkable. IMPRESSION: Comparison to the previous MRI of 11/29/2018 shows no major interval change. Acute ischemic infarcts are noted in the right posterior cerebral artery vascular territory and in the right thalamus, the right corpus callosum and right occipital lobe. Old chronic infarct is noted in the medial inferior left cerebellar hemisphere. There is moderate patchy periventricular leukomalacia in both cerebral hemispheres consistent with small vessel disease. Atrophic changes consistent with age-appropriate atrophy is demonstrated. There is no evidence of an acute intracerebral abnormality or injury. *See acute account for additional testing* Labs on day of discharge: Labs from last 24 hours 12/15/18 12/14/18 07:07 11:10 Sodium 134 L 132 L Potassium 3.9 3.3 L Chloride 97 L 96 L Carbon Dioxide 27.9 26.0 Anion Gap 9.1 10.0 BUN 32 H 28 H Creatinine 1.29 H 1.10 H Estimated GFR/1.73 m2 41.88 50.33 Glucose 245 H D 157 H Calcium 9.1 9.4 Magnesium 1.9 1.9 Troponin I < 0.05 [facility] Medical History ADD (attention deficit disorder) (Acute) Asthma (Chronic) Chronic kidney disease (CKD) stage G3a/A1, moderately decreased glomerular filtration rate (GFR) between 45-59 mL/min/1.73 square meter and albuminuria creatinine ratio less than 30 mg/g (Acute) Diabetes (Chronic) HTN (hypertension) (Chronic) Urinary retention with incomplete bladder emptying (Chronic) Surgical History No significant past surgical history (Acute) Social History Smoking/Tobacco Use Status: Former Tobacco Use Alcohol Intake: never Drug use: Never 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
--- NOTE | 2018-12-15 13:29 | PDOC.HHF2F ---
Home Health Certification Home Health Certification: 1. Encounter Date and Reason I certify that KING ROSS was seen by Mariella Bonner on 12/15/18 and that I had a [id number] encounter with this patient that meets the physician face to face encounter requirements. 2. Clinical Findings Supporting Skilled Need and Homebound Status I certify that home health services are medically necessary, include either intermittent half-way and/or physical/speech therapy, and that this patient is homebound in that absences from the home require considerable and taxing effort and are infrequent or of short duration, or are attributable to the need to receive medical care. [X] (a) Attached documentation from encounter provides clinical findings supporting skilled need and homebound status (including what assistance patient requires to leave the home). The encounter with the patient was in whole, or in part, for the following medical condition, which is the primary reason for home health care: SUBACUTE CVA, HTN, diabetes Halfway: Needed for assistance with medication management, including diabetes education and insulin injection. As well as monitoring of medical conditions including hypertension, diabetes, status post CVA. Please draw basic metabolic panel on 12/19/2018, with results to primary care provider. Physical Therapy: Needed for ongoing therapy status post CVA to continue improving coordination, decrease impairments associated with the muna-neglect as well as to progress mobility level, strength, and balance. OT: Needed to evaluate home setting and make recommendations for assisted devices as needed. RED HAT LINUX ADMINISTRATOR: Needed for assistance with getting connected with resources in the community. Speech Therapy: Needed for speech and swallow evaluation status post CVA. Initially had difficulty with swallowing. Homebound: Unable to leave home without assistance. 3. Certification and Authentication I certify that I composed the above information based on my clinical judgement relating to this patient's medical condition and, if applicable, clinical findings communicated to me by the NPP or inpatient physician who performed the Home Health Referral. All further orders will be obtained through Dr. Liriano (Community Based Physician - PCP)
--- NOTE | 2018-12-15 17:08 | CMDISCH_ITS ---
- If Service Date Differs Date of service: 12/15/18 Time of Service: 17:08 LACE Index Scoring Tool - Questions: Length of Stay (in days): 14 or more Acuity (Admit via E.D.?): Yes Comorbidities: Cerebrovascular Disease, Diabetes w/o Complication, Liver or Renal Disease E.D. Visits: 2 - Answers: Total Score: 17 Risk of Readmission: High Risk Care Management Discharge Reason for Hospitalization: Acute kidney injury, CVA Discharge Plan: Debi is being discharged home with new home health services of PT, OT, RN and USER INTERFACE DEVELOPER. She will follow up with her PCP and discharge plan of care. Debi has an extensive support system at home which includes her daughter Precious and many friends and neighbors. Debi will transport home with her friend later today. Patient/Family Education Needs: Discharge plan, diabetic teaching including fi ngersticks and insulin administration, limitations, follow up plan and Ask Me Three.
--- NOTE | 2018-12-16 13:22 | PT.INDS ---
Date of service: 12/16/18 PT Notes Inpatient Physical Therapy Discharge Summary Dates: 12/16/2018 Dates of Service: 12/06/2018 through 12/15/2018 Referring Doctor: Luke Vazquez MD PT Orders: PT CONSULT: Limited ability Precautions: Fall. Standard. Activity as tolerated. L hemineglect. Patient Profile/Admitting Diagnosis: Patient is reevaluated under swing bed level 1 as of today. Patient is a 63-year-old female with past medical history significant for poorly controlled diabetes mellitus and hypertension who presented to the ED on 11/28/2017 with chief complaints of left hip and lower back pain sustained from a fall 3 weeks ago; she also reported chest tightness while at the ED. Patient was negative for fracture in the hip. Patient was diagnosed with subacute ischemic infarct in the right GEOSPATIAL ENGINEER, right occipital lobe, and right thalamus, acute on chronic renal insufficiency, and memory deficit. PMHX: Medical History Chronic kidney disease (CKD) stage G3a/A1, moderately decreased glomerular filtration rate (GFR) between 45-59 mL/min/1.73 square meter and albuminuria creatinine ratio less than 30 mg/g (Acute) Diabetes (Chronic) HTN (hypertension) (Chronic) Social History/Home Situation: Ms. Patel reports she lives with her son in a two story home in [place]. She stated there are six steps to enter the home with bilateral rails, and one set of 10 stairs inside. Patient was independent with all aspects of ADLs without the need for an assitive ambulatory device nor adaptive equipment. Equipment Owned/DME: [facility] Subjective: Patient looks forward to going home with support services in place. Today, she denies any tingling sensation on the lower half of her face. She feels more confident about her ability to manage her insulin medications and about having the help that she needs at home for it. Objective: General Observation: Debi is seen resting on recliner chair, alarm system on. Bilateral TEDS on. Mental Status: Alert and oriented x 4 Pain: 0/10 ROM: Right Upper Extremity: Shoulder Flexion WFL. Shoulder abduction WFL. Elbow flexion WFL. Wrist flexion WFL. Functional opening and closing of hand WFL. Left Upper Extremity: Shoulder Flexion WFL. Shoulder abduction WFL. Elbow flexion WFL. Wrist flexion WFL. Functional opening and closing of hand WFL. Right Lower Extremity: Hip flexion WFL. Hip abduction WFL. Knee flexion WFL. Ankle dorsiflexion WFL. Ankle plantarflexion WFL. Left Lower Extremity: Hip flexion WFL. Hip abduction WFL. Knee flexion WFL. Ankle dorsiflexion WFL. Ankle plantarflexion WFL. Strength: Right Upper Extremity: Shoulder flexors 5/5. Shoulder abductors 5/5. Elbow flexors 5/5. Elbow extensors 5/5. Microgrinder Operator strong. Left Upper Extremity: Shoulder flexors 4/5. Shoulder abductors 5/5. Elbow flexors 5/5. Elbow extensors 4/5. Microgrinder Operator strong. Right Lower Extremity: Hip flexors 5/5. Hip abductors 5/5. Knee flexors 5/5. Knee extensors 5/5. Ankle dorsiflexors 5/5. Ankle plantarflexors 5/5. Left Lower Extremity:Hip flexors 5/5. Hip abductors 5/5. Knee flexors 5/5. Knee extensors 5/5. Ankle dorsiflexors 4/5. Ankle plantarflexors 5/5. Bed Mobility/Transfers: Rolling I Supine to sit I Sit to supineI Sit to stand I Stand to sit I Bed to chair I Chair to bed I THEREX: Worked on facilitating increased awareness and dynamic standing balance on stable and unstable surfaces without an assistive device GAIT Assistive Device: FWW Weight bearing: FWB Assist: SBA Distance: 65 feet from room to the gym Deviation: Improved step height and length. Gait velocity improved. No crossing of left LE seen throughout gait activity today. Balance: Static Sitting: Normal Dynamic Sitting: Normal Static Standing: Good Dynamic Standing: Good Assessment: Patient is a 63-year-old female status post right posterior cerebral artery, right thalamus, and right occipital lobe cerebrovascular accident with resulting left homonymous hemianopsia and left hemineglect. She is a very motivated individual who describes herself as very active. Physical therapy interventions for this episode of care consisted of therapeutic exercises, therapeutic activity, neuromuscular reeducation, functional mobility training, balance training, patient/caregiver/family education training. Patient continues to present with clinical signs and symptoms consistent with current/admitting diagnoses that have resulted to mobility limitations, gait instability, generalized weakness, and impairment of motor control as demonstrated by the following impairment level findings: 1. Impaired activity tolerance Impairments are contributing to the following functional limitations: 1. Increase completion time for mobility ADL performance 2. Increased fall risk 3. Inability to negotiate steps alone safely Goals: Goals X1 week 1. Sit-Stand independent MET 2. Stand-Sit independent MET 3. Bed-Chair independent MET 4.Chair-Bed independent MET 5. Independent gait on level surface with use of least restrictive device for at least 300 feet without report of pain nor dyspnea MET 6. Independent stair negotiation while holding onto bilateral rails for at least 10 steps without report of pain nor dyspnea MET 7. Independent with home exercise program MET 8. Good static and dynamic standing balance/tolerance MET DISCHARGE RECOMMENDATIONS: Patient will benefit from home health physical and occupational therapy services in order to continue improving coordination, decrease impairments associated with the muna-neglect as well as to progress mobility level, strength, and balance in preparation for a safe discharge to home. TREATMENT CODE/TIME: 76361 x 37 minutes beginning at 9:55 AM. Thank you very much for this referral. Kaylee Marie PT, DPT, CLT [facility]
== END 2018-12-15 16:10 | disposition home health service (06) | DRG 65 ==
PROVIDERS: Internal Medicine; Admitting Provider Internal Medicine; PCP Internal Medicine; Visit Provider Psychiatry & Neurology Neurology
DX: I63.331 Cerebral infarction due to thrombosis of right posterior cerebral artery (principal); G81.94 Hemiplegia, unspecified affecting left nondominant side; R41.4 Neurologic neglect syndrome; R20.2 Paresthesia of skin; H53.462 Homonymous bilateral field defects, left side; E11.22 Type 2 diabetes mellitus with diabetic chronic kidney disease; R41.89 Other symptoms and signs involving cognitive functions and awareness; N18.3 Chronic kidney disease, stage 3 (moderate); I12.9 Hypertensive chronic kidney disease with stage 1 through stage 4 chronic kidney disease, or unspecified chronic kidney disease; N32.3 Diverticulum of bladder; R33.9 Retention of urine, unspecified; Z86.73 Personal history of transient ischemic attack (TIA), and cerebral infarction without residual deficits; Z79.84 Long term (current) use of oral hypoglycemic drugs; Z71.3 Dietary counseling and surveillance
CPT/HCPCS: 36415; 80048; 93270; 97110; 97112; 97162; 97165; 97530; 97535; 99239; 99305; 99310; 99316; J1650; NC; 36600; 70450; 70551; 83735; 84484; 85025; 85049; 93005; 93010; J3490

== ENCOUNTER 2018-12-30 00:16 | Outpatient (CLI) | payer MEDICAID, SELFPAY ==
--- NOTE | 2018-12-30 09:30 | DI.US_ITS ---
APPROVED REPORT EXAM: Comprehensive 2D, Doppler, and color-flow Echocardiogram Patient Location: Out-Patient City Treasurer: ELIJAH Card (AE) Indications: Stroke, CVA Left Ventricle The left ventricle is grossly normal size. Left ventricular systolic function is normal. There is nor mal left ventricular wall thickness. The posterior wall thickness is normal. There is normal LV segme ntal wall motion. There is indeterminant diastolic function. The Left Ventricular Ejection Fraction i s 70% Right Ventricle Right ventricle is grossly normal in size. Right ventricular systolic function is grossly normal. Atria The left atrium size is normal. The right atrium size is normal. Aortic Valve The aortic valve is normal in structure. Aortic valve is trileaflet. There is no aortic valvular sten osis. Trace aortic regurgitation. Mitral Valve The mitral valve is normal in structure. No evidence of mitral valve stenosis. Trace mitral regurgita tion. Tricuspid Valve Tricuspid valve is grossly normal in structure and function. There is no tricuspid valve stenosis. Tr josias tricuspid regurgitation. TR V-max =1.72 m/s. RVSP is within normal limits Pulmonic Valve Pulmonic valve is not well visualized. Great Vessels The aortic root is normal in size. The ascending aorta size is dilated. The IVC is normal in size and collapses >50% with inspiration. Pericardium No pericardial effusion. 2D Dimensions IVSd 0.8 cm F: 0.6-1.0 PWd 0.8 cm F: 0.6 - 1.0 LVDd 4.0 cm F: 3.9 - 5.3 LVDs 2.4 cm F: 2.2 - 3.5 Aortic Root 2.6 cm F: 2.7 - 3.3 Left Atrium 3.2 cm F: 2.7 - 3.8 LVOT 1.9 cm (M/F) 1.5-2.5 Ascending Aorta 3.8 cm F: 2.3 - 3.1 LVEF (Teich) 70.0 % LV Diastology E Decel Time 267.0 (160-240 msec) E/A Ratio 0.7 Aortic Valve LVOT Area 2.8 cm2 LVOT Peak Yimi. 1.0 m/s LVOT Mean Yimi. 0.6 m/s LVOT Peak Gr. 4.1 mmHg LVOT Mean Gr. 1.8 mmHg AoV Peak Yimi. 1.3 (0.5-1.3 m/s) AoV Mean Yimi. 0.9 m/s AO Peak GR. 7.1 mmHg AO Mean GR. 3.5 (<5 mmHg) ANNI (VTI) 2.5 (2.5-4.5 cm2) Mitral Valve MV E Max Yimi. 0.6 (0.4-1.3 m/s) MV A Velocity 0.9 (0.4-1.3 m/s) E/A Ratio 0.7 MV Decel. Time 267.0 (160-240 msec) Pulmonary Valve PV Peak Velocity 0.8 (0.5-1.5 m/s) Tricuspid Valve TR P. Velocity 1.7 m/s TR P. Gradient 11.8 mmHg Conclusion Left Ventricle : The left ventricle is grossly normal size. Left ventricular systolic function is no rmal. The Left Ventricular Ejection Fraction is 70% There is indeterminant diastolic function. Right Ventricle : Right ventricle is grossly normal in size. Atria : The left atrium size is normal. The right atrium size is normal. Aortic Valve : The aortic valve is normal in structure. Aortic valve is trileaflet. Trace aortic regu rgitation. There is no aortic valvular stenosis. Mitral Valve : The mitral valve is normal in structure. Trace mitral regurgitation. No evidence of mi tral valve stenosis. Tricuspid Valve : Tricuspid valve is grossly normal in structure and function. Trace tricuspid regurg itation. TR V-max =1.72 m/s. RVSP is within normal limits. Great Vessels : The IVC is normal in size and collapses >50% with inspiration.
--- NOTE | 2019-01-10 12:18 | W.CARDEVENT ---
Cardiac Event Recorder Cardiac Event Note: There is a 4-week event recorder worn for the indication of stroke. ?The predominant rhythm was normal sinus with and average heart rate of 104 bpm. ?There were no episodes of atrial fibrillation detected. ?There were no episodes of supraventricular tachycardia. ?There were no episodes of ventricular tachycardia. There were rare (less than 1%) ventricular ectopic beats. ?Patient triggered events were associated with sinus tachycardia. ?There were no pauses greater than 3 seconds and no instances of high degree heart block Date of service: 01/10/19 Time of Service: 12:18
== END 2018-12-30 00:36 ==
PROVIDERS: PCP Internal Medicine; Visit Provider Specialist/Technologist Athletic Trainer
DX: I63.9 Cerebral infarction, unspecified (principal); I35.8 Other nonrheumatic aortic valve disorders
CPT/HCPCS: 93306

== ENCOUNTER 2019-07-20 09:16 | Outpatient (REF) | payer MEDICAID, SELFPAY ==
[2019-07-20 20:52] LABS: ALT 46 U/L (14-59); AST 22 U/L (15-37); Albumin 4.1 g/dL (3.4-5.0); Alkaline Phosphatase 71 U/L (46-116); Anion Gap 8.1 mmol/L (3-11); BUN 31 mg/dL (7-18); Bilirubin, Total 0.4 mg/dL (0.2-1.0); CO2 27.9 mmol/L (21.0-32.0); CREATININE 1.13 mg/dL (0.55-1.02); Calcium 9.7 mg/dL (8.5-10.1); Chloride 103 mmol/L (98-107); Estimated GFR 48.63 (mL/min/1.73m2); Glucose 124 mg/dL (74-106); Potassium 4.7 mmol/L (3.5-5.1); Sodium 139 mmol/L (136-145); Total Protein 7.4 g/dL (6.4-8.2)
[2019-07-20 21:08] LABS: Hemoglobin A1C 6.2 % (3.8-5.6)
[2019-07-20 21:39] LABS: Calculated LDL 80 mg/dL (<100); Cholesterol 144 mg/dL (<200); HDL Cholesterol 43 mg/dL (40-60); Triglyceride 106 mg/dL (<150)
== END 2019-07-20 09:36 ==
LOC: NCHCN 09:16
PROVIDERS: PCP Internal Medicine; Visit Provider Nurse Practitioner Family
DX: E78.2 Mixed hyperlipidemia (principal); I10 Essential (primary) hypertension; E11.9 Type 2 diabetes mellitus without complications
CPT/HCPCS: 80053; 80061; 83036

== ENCOUNTER 2020-06-04 15:53 | Outpatient (REF) | payer MEDICAID, SELFPAY ==
[2020-06-04 12:28] LABS: ALT 29 U/L (14-59); AST 12 U/L (15-37); Albumin 3.7 g/dL (3.4-5.0); Alkaline Phosphatase 72 U/L (46-116); Anion Gap 6.3 mmol/L (3-11); BUN 24 mg/dL (7-18); Bilirubin, Total 0.3 mg/dL (0.2-1.0); CO2 30.7 mmol/L (21.0-32.0); CREATININE 1.2 mg/dL (0.55-1.02); Calcium 8.9 mg/dL (8.5-10.1); Chloride 105 mmol/L (98-107); Estimated GFR 45.37 (mL/min/1.73m2); Glucose 129 mg/dL (74-106); Potassium 3.9 mmol/L (3.5-5.1); Sodium 142 mmol/L (136-145)
== END 2020-06-04 15:54 | disposition home or self-care (01) ==
LOC: NCHCN 15:53
PROVIDERS: PCP Internal Medicine; Visit Provider Nurse Practitioner Family
DX: I10 Essential (primary) hypertension (principal)
CPT/HCPCS: 80053

== ENCOUNTER 2021-04-18 12:37 | Outpatient (REF) | payer MEDICAID, SELFPAY ==
[2021-04-18 16:03] LABS: ALT 63 U/L (14-59); AST 21 U/L (15-37); Alkaline Phosphatase 82 U/L (46-116); Anion Gap 11.4 mmol/L (3-11); BUN 25 mg/dL (7-18); Bilirubin, Total 0.3 mg/dL (0.2-1.0); CO2 26.6 mmol/L (21.0-32.0); Calcium 9.4 mg/dL (8.5-10.1); Chloride 101 mmol/L (98-107); Estimated GFR 55.82 (mL/min/1.73m2); Glucose 132 mg/dL (74-106); Potassium 3.4 mmol/L (3.5-5.1); Sodium 139 mmol/L (136-145); Total Protein 7.6 g/dL (6.4-8.2)
== END 2021-04-18 12:38 | disposition home or self-care (01) ==
LOC: NCHCN 12:37
PROVIDERS: PCP Internal Medicine; Visit Provider Nurse Practitioner Family
DX: N18.30 Chronic kidney disease, stage 3 unspecified (principal); E78.5 Hyperlipidemia, unspecified; I10 Essential (primary) hypertension; E11.319 Type 2 diabetes mellitus with unspecified diabetic retinopathy without macular edema
CPT/HCPCS: 80053

== ENCOUNTER → 2021-09-25 01:51 | Outpatient (CLI) | payer MEDICARE, MEDICAID, SELFPAY ==
--- NOTE | 2021-09-25 | DI.MAMMO_ITS ---
Exam(s) MAMMO SCREENING EXAM: MAMMO SCREENING CLINICAL HISTORY: SCREENING, Z12.31. TECHNIQUE: Bilateral full field digital CC and MLO mammographic images were obtained with 3D tomosyn thesis and utilizing computer aided detection (CAD). COMPARISON: None. Last mammogram was apparently 2010 and not available. FINDINGS: Benign calcified oil cysts noted bilaterally. There are no new spiculated masses nor malignant appearing microcalcification groups. There is no significant architectural distortion nor skin thickening-retraction. IMPRESSION: No radiographic evidence of malignancy. BI-RADS Category 1 - Negative Breast Density - Category B - Scattered areas of fibroglandular density Breast density Category C or D implies that the patient has dense breast tissue. Dense breast tissue can make it harder to find cancer on a mammogram. Dense breast tissue is also associated with an incr eased risk of breast cancer. This information about the result of the mammogram report was provided to the patient to raise their awareness. Use this report when you speak with the patient about their risks for breast cancer, which includes their family history. At that time, you may recommend additional screening tests (Ultrasoun d or MRI) as these tests may add significant information. A negative radiographic report should not delay biopsy if a dominant or clinically suspicious mass is present. Up to ten percent of cancers are not identified on mammography. A negative report may reinforce clinical impression. Adenosis and dense breasts may obscure an underlying neoplasm. False positive reports average 6 to 10%. Patient will receive a letter notifying them of these results.
== END ==
PROVIDERS: PCP Internal Medicine; Visit Provider Nurse Practitioner Family
DX: Z12.31 Encounter for screening mammogram for malignant neoplasm of breast (principal)
CPT/HCPCS: 77063; 77067

== ENCOUNTER 2022-01-29 18:25 | Outpatient (REF) | payer MEDICARE, MEDICAID, SELFPAY ==
[2022-01-29 15:09] LABS: ALT 45 U/L (14-59); AST 34 U/L (15-37); Albumin 4.2 g/dL (3.4-5.0); Alkaline Phosphatase 62 U/L (46-116); BUN 43 mg/dL (7-18); Bilirubin, Total 0.5 mg/dL (0.2-1.0); CREATININE 1.8 mg/dL (0.55-1.02); Calcium 9.4 mg/dL (8.5-10.1); Chloride 102 mmol/L (98-107); Estimated GFR 30.88 (mL/min/1.73m2); Glucose 125 mg/dL (74-106); Potassium 4.8 mmol/L (3.5-5.1); Sodium 142 mmol/L (136-145); Total Protein 7.5 g/dL (6.4-8.2)
== END 2022-01-29 18:26 | disposition home or self-care (01) ==
LOC: NCHCN 18:25
PROVIDERS: PCP Internal Medicine; Visit Provider Nurse Practitioner Family
DX: R74.8 Abnormal levels of other serum enzymes (principal)
CPT/HCPCS: 80053

== ENCOUNTER → 2022-03-02 09:26 | Outpatient (BNVA) | payer MEDICARE, MEDICAID, SELFPAY | PROVIDERS: PCP Internal Medicine; Referring Provider Internal Medicine; Visit Provider Physical Therapy Assistant | DX: Z12.11 Encounter for screening for malignant neoplasm of colon (principal) ==

== ENCOUNTER 2022-04-20 06:16 | Day surgery (SDC) | payer MEDICARE, MEDICAID, SELFPAY ==
--- NOTE | 2022-04-19 21:14 | W.COLOREPORT ---
Date of service: 04/20/22 Time of Service: 08:52 Colonoscopy Report Date of procedure: 04/20/22 Pre-op diagnosis general: Screening for colorectal cancer Post-op diagnosis procedure note: other (Colon polyps; diverticulosis) Procedure: 1. Colonoscopy 2. polypectomy by cold snare Surgeon: Fuentes Fisher Anesthesia Type: MAC Estimated blood loss (mL): 5 Pathology: other (1. cecal polyp 2. proximal transverse colon polyp 3. polyp @ 1m 4. polyp @40cm) Complications: None Disposition: same day Indications: Screening for colorectal cancer Prep: Miralax/Dulcolax Retraction Time: 38 minutes Findings: Small adenomatous-appearing polyps in the cecum, proximal transverse colon, at 1 meter, and at 40cm; Scattered very mild diverticulosis Procedure Description: After informed consent was obtained, the patient was taken to the procedure room and placed in a left decubitus position. Monitors were applied and a time out was done. The patient's name, date of , procedure, allergies to medications, and metal in their body were reviewed. The patient was then sedated. Once sedated and comfortable, a digital rectal exam was done. External exam revealed skin tags. Internal exam revealed normal sphincter tone, and no palpable masses or gross blood. The colonoscope was then introduced and advanced to the cecum under direct visualization without difficulty. The ileocecal valve and appendiceal orifice were visualized. The prep was adequate.? ?The scope was then slowly withdrawn over 38 minutes in a circumferential manner to the rectum. In doing so, polyps were encountered and resected by cold snare in the cecum, proximal transverse colon, at 1 meter, and at 40cm;.? There? was very mild sigmoid diverticulosis noted. The mucosa is pink and healthy.? In the rectum, the scope was retroflexed, and mild internal hemorrhoids were noted.? The scope was straightened and withdrawn from the anus. The patient tolerated the procedure well, and there were no immediate complications.? The patient was taken to the Day Surgery Unit recovery?area in good condition. Follow up: 3-5 years; await pathology
--- NOTE | 2022-04-19 21:19 | W.PREOPHP ---
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 She denies a family history of colon cancer. She denies any changes in bowel habits including bloody or black tarry stools, abdominal pain, diarrhea or constipation. She denies constitutional symptoms. Denies use of marijuana or any other recreational or illegal drugs. She denies chest pain, palpitations, dyspnea or dyspnea with exertion. She denies prior history or family history of adverse reactions or complications with anesthesia. The patient denies any history of? MO, seizures, bleeding or clotting disorders. She denies having any implanted metal in her body. 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 (Acute) Left homonymous hemianopsia (Acute) Jhonny-neglect of left side (Acute) Left hemiparesis (Acute) CVA (cerebral vascular accident) (Chronic) DVT prophylaxis (Acute) Paresthesias (Acute) Screening for colon cancer (Acute) Medical History Acute kidney injury ADD (attention deficit disorder) Asthma Chronic kidney disease (CKD) stage G3a/A1, moderately decreased glomerular filtration rate (GFR) between 45-59 mL/min/1.73 square meter and albuminuria creatinine ratio less than 30 mg/g Diabetes Discharge planning issues HTN (hypertension) Hyperlipidemia Left hip pain Urinary retention with incomplete bladder emptying Surgical History H/O section No significant past surgical history Family History Father Diabetes Mother Diabetes Brother Diabetes Social History (Updated 03/02/22 @ 12:53 by DA[address]) Smoking/Tobacco Use Status: Current-Occasional Tobacco Type: cigarettes Smoking risk assessment performed?: Yes Alcohol Intake: never Drug use: Daily Substance use type: marijuana Details: t-2 Household members: family Number of Children: 2 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 Meds Allergies and Home Medications Allergies Allergy/AdvReac Type Severity Reaction Status Date / Time lisinopril AdvReac Intermediate cough Unverified 04/20/22 06:43 Home Medications Medication Instructions Recorded Confirmed Type albuterol sulfate 90 mcg/actuation 1 - 2 puff inhalation Q6H PRN 05/21/15 04/20/22 History aerosol inhaler (Proventil HFA) fluticasone propionate 50 50 mcg NS BID 05/21/15 04/20/22 History mcg/actuation nasal spray,suspension levalbuterol tartrate 45 90 mcg inhalation Q6H PRN 05/21/15 04/20/22 History mcg/actuation aerosol inhaler (Xopenex HFA) atorvastatin 40 mg tablet (Lipitor) 40 mg PO QPM #30 tabs 12/15/18 04/20/22 Rx blood-glucose meter (Blood Glucose #1 ea 12/15/18 04/17/22 Rx Monitoring kit) clopidogrel 75 mg tablet (Plavix) 75 mg PO DAILY #30 tabs 12/15/18 04/20/22 Rx diltiazem HCl 180 mg 180 mg PO DAILY #30 caps 12/15/18 04/20/22 Rx capsule,extended release 24 hr irbesartan 300 mg tablet 300 mg PO DAILY #30 tabs 12/15/18 04/20/22 Rx lancets 30 gauge #100 ea 12/15/18 04/17/22 Rx triamterene 37.5 1 cap PO DAILY #30 caps 12/15/18 04/20/22 Rx mg-hydrochlorothiazide 25 mg capsule bisacodyl 5 mg tablet,delayed 5 mg PO ONCE colonscopy bowel prep 03/02/22 04/17/22 Rx release (Dulcolax (bisacodyl)) #4 tabs insulin detemir U-100 100 unit/mL 10 unit subcut HS 03/02/22 04/20/22 History (3 mL) subcutaneous pen (Levemir FlexTouch U-100 Insulin) polyethylene glycol 3350 17 238 g PO ONCE colonoscopy prep 03/02/22 04/17/22 Rx gram/dose oral powder #238 grams sitagliptin phosphate 100 mg 50 mg PO DAILY 03/02/22 04/20/22 History tablet (Januvia) Exam Const General: cooperative, healthy appearing, comfortable and no acute distress Orientation: alert, awake and oriented x3 Resp Effort & Inspection: normal respiratory effort and able to speak in complete sentences Auscultation: clear to auscultation bilaterally Cardio Rate: regular rate Rhythm: regular rhythm GI Palpation: soft, no guarding and nontender Auscultation: normal bowel sounds Psych Mental Status: mental status grossly normal
--- NOTE | 2022-04-19 21:23 | W.PM.DSUDISC ---
Date of service: 04/20/22 Time of Service: 08:58 Discharge Plan Disposition Patient Disposition: Home Condition: Stable Discharge Details Attending Provider: Fuentes Fisher Primary Care Provider: Milly Davies Home Meds and New Rx's Prescriptions: No Action Levemir FlexTouch U-100 Insuln 100 unit/mL (3 mL) insulin pen 10 unit subcut HS Rx Instructions: please dispense 3 levemir flextouch U-100 pens Januvia 100 mg tablet 50 mg PO DAILY polyethylene glycol 3350 17 gram/dose powder 238 g PO ONCE Qty: 238 0RF Rx Instructions: take per colonoscopy instructions bisacodyl [Dulcolax (bisacodyl)] 5 mg tablet,delayed release (DR/EC) 5 mg PO ONCE Qty: 4 0RF Rx Instructions: take per colonoscopy instructions albuterol sulfate [Proventil HFA] 6.7 GM HFA aerosol inhaler 1 - 2 puff Inhalation Q6H PRN fluticasone propionate 16 GM spray,suspension 50 mcg NS BID levalbuterol tartrate [Xopenex HFA] 15 GM HFA aerosol inhaler 90 mcg Inhalation Q6H PRN atorvastatin [Lipitor] 40 mg Tablet 40 mg PO QPM Qty: 30 0RF diltiazem HCl 180 mg Capsule,Extended Release 24hr 180 mg PO DAILY Qty: 30 0RF clopidogrel [Plavix] 75 mg Tablet 75 mg PO DAILY Qty: 30 0RF (DME) blood-glucose meter [Blood Glucose Monitoring] Kit See Rx Instructions .ROUTE .MEDSUPPLY Qty: 1 0RF Rx Instructions: As directed (DME) lancets 30 gauge misc See Rx Instructions .ROUTE .MEDSUPPLY Qty: 100 0RF Rx Instructions: As directed triamterene-hydrochlorothiazid 37.5-25 mg Capsule 1 cap PO DAILY Qty: 30 0RF irbesartan 300 mg Tablet 300 mg PO DAILY Qty: 30 0RF Discharge Instructions Instructions: Diverticulosis (DC), Colorectal Polyps (DC), Diverticulosis Diet (GEN), Colonoscopy (DC) Activity:: Activity as Tolerated Diet:: As Tolerated Discharge Orders Discharge Orders: Discharge Order (Routine); Ordered 04/20/22 Ordered By: Fuentes Fisher DS: Diagnosis Discharge Diagnosis (1) Colon polyps: Status: Acute Asessment and Plan: --await pathology --repeat colonoscopy in 3-5 years (2) Diverticulosis: Status: Acute Asessment and Plan: --high fiber diet --drink plenty of water
[2022-04-20 06:18] VITALS: BP 133/80; PULSE 83; RESP 18; TEMP 36.7; O2SAT 98
--- NOTE | 2022-04-20 07:02 | W.ANESPRE ---
General Info Date of Service Date Performed: 04/20/22 Height: 5 ft 5 in Weight: 71.2 kg Body Mass Index (BMI): 26.1 Surgical Procedure: Operation Date: 04/20/22 07:35 Proposed Procedure Side Surgeon zeus Fisher MD Meds Allergies and Home Medications Allergies Allergy/AdvReac Type Severity Reaction Status Date / Time lisinopril AdvReac Intermediate cough Unverified 04/20/22 06:43 Home Medication Medication Instructions Recorded albuterol sulfate 90 mcg/actuation 1 - 2 puff inhalation Q6H PRN 05/21/15 aerosol inhaler (Proventil HFA) fluticasone propionate 50 50 mcg NS BID 05/21/15 mcg/actuation nasal spray,suspension levalbuterol tartrate 45 90 mcg inhalation Q6H PRN 05/21/15 mcg/actuation aerosol inhaler (Xopenex HFA) atorvastatin 40 mg tablet (Lipitor) 40 mg PO QPM #30 tabs 12/15/18 blood-glucose meter (Blood Glucose #1 ea 12/15/18 Monitoring kit) clopidogrel 75 mg tablet (Plavix) 75 mg PO DAILY #30 tabs 12/15/18 diltiazem HCl 180 mg 180 mg PO DAILY #30 caps 12/15/18 capsule,extended release 24 hr irbesartan 300 mg tablet 300 mg PO DAILY #30 tabs 12/15/18 lancets 30 gauge #100 ea 12/15/18 triamterene 37.5 1 cap PO DAILY #30 caps 12/15/18 mg-hydrochlorothiazide 25 mg capsule bisacodyl 5 mg tablet,delayed 5 mg PO ONCE colonscopy bowel prep 03/02/22 release (Dulcolax (bisacodyl)) #4 tabs insulin detemir U-100 100 unit/mL 10 unit subcut HS 03/02/22 (3 mL) subcutaneous pen (Levemir FlexTouch U-100 Insulin) polyethylene glycol 3350 17 238 g PO ONCE colonoscopy prep 03/02/22 gram/dose oral powder #238 grams sitagliptin phosphate 100 mg 50 mg PO DAILY 03/02/22 tablet (Januvia) Current Visit Medications: Current Medications Generic Name Dose Route Start Last Admin Trade Name Freq PRN Reason Stop Dose Admin Ringer's Solution 1,000 mls @ 80 mls/hr 04/20/22 06:00 IV 04/20/22 23:59 INFUSION [facility] IV Miscellaneous Supplies 1 each 04/20/22 06:00 Iv Access IV 04/20/22 23:59 DIRECTED CHANELLE Sodium Chloride 0 ml 04/20/22 06:00 Normal Saline Flush 10 Ml Syr IV 04/20/22 23:59 PRN PRN Sodium Chloride 0 ml 04/20/22 06:00 Normal Saline 10 Ml Vial IJ 04/20/22 23:59 DIRECTED PRN Sterile Water 0 ml 04/20/22 06:00 Water,Injection,Sterile 10 Ml Vial IJ 04/20/22 23:59 DIRECTED PRN PFSH Active Problems Active Problems: Problem Status Onset Code Memory deficit R41.3 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 I63.331 Left homonymous hemianopsia H53.462 Jhonny-neglect of left side R41.4 Left hemiparesis G81.94 CVA (cerebral vascular accident) I63.9 DVT prophylaxis Z29.9 Paresthesias R20.2 Screening for colon cancer Z12.11 Medical History Medical History Acute kidney injury ADD (attention deficit disorder) Asthma Chronic kidney disease (CKD) stage G3a/A1, moderately decreased glomerular filtration rate (GFR) between 45-59 mL/min/1.73 square meter and albuminuria creatinine ratio less than 30 mg/g Diabetes Discharge planning issues HTN (hypertension) Hyperlipidemia Left hip pain Urinary retention with incomplete bladder emptying Surgical History Surgical History H/O section No significant past surgical history Tobacco Smoking/Tobacco Use Status: Current-Occasional Tobacco Type: cigarettes Alcohol Alcohol Intake: never Substance Use Substance use: Daily Substance use type: marijuana Details: t-2 Vital Signs and Lab Results Vital Signs Most Recent Vital Signs in EMR: Most Recent Vital Signs Temp Pulse Resp BP Pulse Ox 36.7 C 83 18 133/80 98 04/20/22 06:18 04/20/22 06:18 04/20/22 06:18 04/20/22 06:18 04/20/22 06:18 Point of Care Results Point of Care Results: Finger Stick Blood Glucose 141 04/20/22 06:49 Lab Results Blood Type / Crossmatch: No Data to Display Complete Blood Count: No Data to Display Complete Metabolic Panel: No Data to Display Liver Function Panel: No Data to Display Coagulation Panel: No Data to Display Cardiac Panel: No Data to Display Arterial Blood Gas: No Data to Display Venous Blood Gas: No Data to Display Pancreas Panel: No Data to Display Thyroid Panel: No Data to Display Infectious Disease: No Data to Display Blood Cultures: No Data to Display Toxicology Panel: No Data to Display Imaging and Studies Imaging and Studies Study information below may be from another EMR and interpreted by another provider. Please see original notes in EMR for more complete details. Echocardiogram Summary: Date of Exam: 12/30/18Sex: F Admission Date: 12/30/18 : 1955 Age: 63 Exam(s) a US:US echocardiogram APPROVED REPORT EXAM: Comprehensive 2D, Doppler, and color-flow Echocardiogram Patient Location: Out-Patient Casting Finisher: ELIJAH Card (AE) Indications: Stroke, CVA Left Ventricle The left ventricle is grossly normal size. Left ventricular systolic function is normal. There is normal left ventricular wall thickness. The posterior wall thickness is normal. There is normal LV segmental wall motion. There is indeterminant diastolic function. The Left Ventricular Ejection Fraction is 70% Right Ventricle Right ventricle is grossly normal in size. Right ventricular systolic function is grossly normal. Atria The left atrium size is normal. The right atrium size is normal. Aortic Valve The aortic valve is normal in structure. Aortic valve is trileaflet. There is no aortic valvular stenosis. Trace aortic regurgitation. Mitral Valve The mitral valve is normal in structure. No evidence of mitral valve stenosis. Trace mitral regurgitation. Tricuspid Valve Tricuspid valve is grossly normal in structure and function. There is no tricuspid valve stenosis. Trace tricuspid regurgitation. TR V-max =1.72 m/s. RVSP is within normal limits Pulmonic Valve Pulmonic valve is not well visualized. Great Vessels The aortic root is normal in size. The ascending aorta size is dilated. The IVC is normal in size and collapses >50% with inspiration. Pericardium No pericardial effusion. Carotid Artery Summary:: Date of Exam: 11/29/18Sex: F Admission Date: 11/29/18 : 1955 Age: 63 Exam(s) a MRI:MR angio brain wo a MRI:MR angio neck wo SYMPTOM/DIAGNOSIS: NEW CVA MRA NECK: A 2D time of flight study was performed. The exam is quite limited by patient motion. The common, internal and external carotid arteries as well as vertebral arteries are normal in diameter throughout. There is no evidence of dissection, significant stenosis or occlusion. IMPRESSION: Negative MRA of the neck. MRA [place]: A 3D time of flight study was performed. The distal carotid arteries as well as basilar artery show normal diameter. The exam is mildly limited by motion at the level of the [place]. The anterior and middle cerebral arteries are normal in diameter. The posterior cerebral arteries are difficult to evaluate due to transverse orientation and small vessel diameter. There appears to be asymmetry of the posterior cerebral arteries, with the right showing reduced diameter and a question of an area of stenosis within the proximal portion versus artifact. IMPRESSION: Question of severe stenosis versus artifact of the right posterior cerebral artery. Anesthesia Assessment and Plan Anesthesia History Personal History: No History of Anesthesia Complications Family History: Family History Unknown Exercise Tolerance Exercise Tolerance: Metabolic Equivalents>4 Pertinent Negatives Pertinent Negatives: No Symptoms of GERD and No Major Cardiovascular Symptoms or Complaints Cardiac & Pulmonary Exam Cardiac Exam: Normal S1/S2 Heart Sounds Pulmonary Exam: Clear Bilateral Breath Sounds Implantable Cardiac Device Does patient have a Pacemaker or an ICD?: No Airway Exam Known Difficult Airway: No Mallampati Class: 1 Mouth Opening: Normal (> 3cm) Thyromental Distance: Greater than 3 cm Neck Range of Motion: Full ROM Neck Circumference: Normal Teeth Condition: Removable Dentures/Plates Upper ASA Classification ASA Score: ASA 3 Emergency Case?: No NPO Status NPO Status: NPO Clears >2 hours, Solids >8 hours Anesthesia Plan Resuscitation Status: Full Code Anesthesia Technique: General Anesthesia Airway Planned: Natural Airway Monitors Used: Standard Monitors
[2022-04-20 07:05] VITALS: BMI 26.1
[2022-04-20] MEDS: Lactated Ringers 1,000 ML 80 ML IV (07:19)
--- NOTE | 2022-04-20 08:12 | BOWEL_PTH ---
PATIENT: Debi Patel LOC: CAN U#:[id number] AGE/SX: 66/F ROOM: RE04/20/[address]: Fuentes Fisher : 1955 BED: DIS: 04/20/2022 SPEC #: [id number] RECD: 04/20/22 12:44 STATUS: TAYE REQ #: [id number] KEISHA: 04/20/22 08:[address]: Fuentes Fisher DEPT: Surgical Specimen RECD BY: Edelmira Almaraz ENTERED: 04/20/22 12:45 SP TYPE: Bowel OTHR DR: Milly Davies Tissues: 1 - BIOPSY BOWEL 2 - BIOPSY BOWEL 3 - BIOPSY BOWEL 4 - BIOPSY BOWEL Procedures: GROSS AND MICRO LEVEL 4 Comments: [id number]
[2022-04-20 08:49] VITALS: BP 124/67; PULSE 72; RESP 16; TEMP 36.4; O2SAT 97
[2022-04-20 09:16] VITALS: BP 146/76; PULSE 65; RESP 16; TEMP 36.5; O2SAT 100
--- NOTE | 2022-04-20 09:23 | W.ANESPOSTOP ---
Postoperative Evaluation Date, Time and Location Date Performed: 04/20/22 Time Performed: 09:12 Patient Location: Day Surgery Unit Vital Signs Most Recent Imported Vital Signs: Most Recent Vital Signs Temp Pulse Resp BP Pulse Ox 36.5 C 65 16 146/76 H 100 04/20/22 09:16 04/20/22 09:16 04/20/22 09:16 04/20/22 09:16 04/20/22 09:16 Pain Score Most Recent Pain Score: Most Recent Pain Score Pain Level 0 04/20/22 09:16 Assessment Mental Status: Awake (Alert & Oriented to Patient Baseline) Airway and Respiratory Function: Patent airway with normal (patient baseline) respiratory exam Cardiovascular Function: Hemodynamically Stable Hydration Status: Adequately Hydrated Nausea & Vomiting: No Nausea or Vomiting Pain: Pt. Denies Any Pain Peripheral Nerve Block: Patient did not receive a nerve block
== END 2022-04-20 09:28 | disposition home or self-care (01) ==
PROVIDERS: PCP Nurse Practitioner Family; Visit Provider Surgery
PROC: 0DJD8ZZ Inspection of Lower Intestinal Tract, Via Natural or Artificial Opening Endoscopic (ICD-10-PCS; CPT 45378; principal; 2022-04-20 07:30)
DX: Z12.11 Encounter for screening for malignant neoplasm of colon (principal); K63.5 Polyp of colon; K57.30 Diverticulosis of large intestine without perforation or abscess without bleeding; N18.30 Chronic kidney disease, stage 3 unspecified; I12.9 Hypertensive chronic kidney disease with stage 1 through stage 4 chronic kidney disease, or unspecified chronic kidney disease; E11.22 Type 2 diabetes mellitus with diabetic chronic kidney disease
CPT/HCPCS: 45385; 88305

== ENCOUNTER 2022-07-06 09:12 | Outpatient (REF) | payer MEDICARE, MEDICAID, SELFPAY ==
--- NOTE | 2022-07-06 08:45 | PAPFT_PTH ---
PATIENT: Debi Patel LOC: [facility]#:[id number] AGE/SX: 67/F ROOM: RE07/06/[address]: Milly Davies : 1955 BED: DIS: 07/06/2022 SPEC #: [id number] RECD: 07/06/22 18:18 STATUS: TAYE REQ #: [id number] KEISHA: 07/06/22 08:[address]: Milly Davies DEPT: [facility] Cytology RECD BY: Edelmira Almaraz Tissues: 1 - CX/ENDOCX FOR PAP SMEARS Procedures: PAP THIN PREP/UVM Screening HPV DNA PROBE Comments: [id number]
== END 2022-07-06 09:13 | disposition home or self-care (01) ==
LOC: NCHCN 09:12
PROVIDERS: PCP Nurse Practitioner Family; Visit Provider Nurse Practitioner Family
DX: Z11.51 Encounter for screening for human papillomavirus (HPV) (principal); Z01.419 Encounter for gynecological examination (general) (routine) without abnormal findings
CPT/HCPCS: 88142; 87624

== ENCOUNTER 2022-08-21 13:19 | Outpatient (REF) | payer MEDICARE, MEDICAID, SELFPAY ==
[2022-08-21 14:44] LABS: ALT 31 U/L (14-59); AST 16 U/L (15-37); Albumin 4.3 g/dL (3.4-5.0); Alkaline Phosphatase 75 U/L (46-116); Anion Gap 6.5 mmol/L (3-11); BUN 21 mg/dL (7-18); Bilirubin, Total 0.6 mg/dL (0.2-1.0); CO2 30.5 mmol/L (21.0-32.0); CREATININE 1.2 mg/dL (0.55-1.02); Chloride 103 mmol/L (98-107); Estimated GFR 49.92 (mL/min/1.73m2); Glucose 136 mg/dL (74-106); Potassium 5.4 mmol/L (3.5-5.1); Sodium 140 mmol/L (136-145); Total Protein 7.8 g/dL (6.4-8.2)
[2022-08-21 15:08] LABS: Hemoglobin A1C 6.3 % (<5.7)
== END 2022-08-21 13:20 | disposition home or self-care (01) ==
LOC: NCHCN 13:19
PROVIDERS: PCP Nurse Practitioner Family; Visit Provider Nurse Practitioner Family
DX: E11.9 Type 2 diabetes mellitus without complications (principal); R74.8 Abnormal levels of other serum enzymes; N18.30 Chronic kidney disease, stage 3 unspecified
CPT/HCPCS: 80053; 83036

== ENCOUNTER 2022-10-29 18:26 | Outpatient (REF) | payer MEDICARE, MEDICAID, SELFPAY ==
[2022-10-29 16:38] LABS: Anion Gap 12.1 mmol/L (3-11); BUN 17 mg/dL (7-18); CO2 27.9 mmol/L (21.0-32.0); Calcium 9.7 mg/dL (8.5-10.1); Chloride 102 mmol/L (98-107); Estimated GFR 62.13 (mL/min/1.73m2); Glucose 156 mg/dL (74-106); Potassium 3.6 mmol/L (3.5-5.1); Sodium 142 mmol/L (136-145)
== END 2022-10-29 18:27 | disposition home or self-care (01) ==
LOC: NCHCN 18:26
PROVIDERS: PCP Nurse Practitioner Family; Visit Provider Nurse Practitioner Family
DX: I10 Essential (primary) hypertension (principal); E11.9 Type 2 diabetes mellitus without complications; E78.2 Mixed hyperlipidemia; N18.30 Chronic kidney disease, stage 3 unspecified
CPT/HCPCS: 80048

== ENCOUNTER 2023-08-13 17:42 | Outpatient (REF) | payer MEDICARE, MEDICAID, SELFPAY ==
[2023-08-13 21:22] LABS: ALT 37 U/L (14-59); AST 20 U/L (15-37); Albumin 4.1 g/dL (3.4-5.0); Alkaline Phosphatase 86 U/L (46-116); Anion Gap 7.6 mmol/L (3-11); BUN 19 mg/dL (7-18); Bilirubin, Total 0.4 mg/dL (0.2-1.0); CO2 29.4 mmol/L (21.0-32.0); CREATININE 1.2 mg/dL (0.55-1.02); Calcium 9.7 mg/dL (8.5-10.1); Calculated LDL 89 mg/dL (<100); Chloride 104 mmol/L (98-107); Cholesterol 172 mg/dL (<200); Estimated GFR 49.61 (mL/min/1.73m2); Glucose 135 mg/dL (74-106); HDL Cholesterol 55 mg/dL (40-60); Potassium 4.2 mmol/L (3.5-5.1); Sodium 141 mmol/L (136-145); Total Protein 8.2 g/dL (6.4-8.2); Triglyceride 140 mg/dL (<150)
== END 2023-08-13 17:43 | disposition home or self-care (01) ==
LOC: NCHCN 17:42
PROVIDERS: PCP Nurse Practitioner Family; Visit Provider Nurse Practitioner Family
DX: I10 Essential (primary) hypertension (principal)
CPT/HCPCS: 80053; 80061

== ENCOUNTER 2024-04-08 10:51 | Emergency (ER) | payer MEDICARE, MEDICAID, SELFPAY ==
[2024-04-08 10:54] VITALS: BP 190/108; PULSE 113; RESP 18; TEMP 36.4; O2SAT 94
[2024-04-08 11:14] VITALS: BP 190/108; PULSE 113; RESP 18; TEMP 36.4; O2SAT 94
[2024-04-08 11:29] LABS: Abs Immature Grans 0.07 10^3/uL (0.0-0.06); Absolute Basophil Count 0.06 10^3/uL (0.0-0.2); Absolute Eosinophil Count 0.21 10^3/uL (0.0-0.7); Absolute Lymphocyte Count 2.58 10^3/uL (1.2-3.4); Absolute Monocyte Count 0.67 10^3/uL (0.1-0.8); Absolute Neutrophil Count 8.53 10^3/uL (1.2-6.7); Basophils % 0.5 %; Eosinophils % 1.7 %; HCT 48.6 % (36.0-46.0); HGB 16.4 g/dL (11.2-15.7); Immature Grans % 0.6 %; Lymphocytes % 21.3 %; MCH 28.6 pg (27.0-33.0); MCHC 33.7 % (32.0-36.0); MCV 85 fL (80-95); MPV 9.3 fL (8.0-11.0); Monocytes % 5.5 %; Neutrophils % 70.4 %; Platelet Count 308 10^3/uL (130-400); RBC 5.74 10^6/uL (3.93-5.22); RDW 12.8 % (11.7-14.6); RDW-SD 39.5 fL; WBC 12.12 10^3/uL (4.4-10.8)
[2024-04-08 11:40] LABS: Hemoglobin A1C 10.2 % (<5.7)
[2024-04-08 11:45] LABS: ALT 37 U/L (14-59); AST 20 U/L (15-37); Albumin 3.9 g/dL (3.4-5.0); Alkaline Phosphatase 115 U/L (46-116); Anion Gap 10.9 mmol/L (3-11); BUN 19 mg/dL (7-18); Bilirubin, Total 0.75 mg/dL (0.2-1.0); CO2 28.1 mmol/L (21.0-32.0); CREATININE 1.2 mg/dL (0.55-1.02); Calcium 9.7 mg/dL (8.5-10.1); Chloride 98 mmol/L (98-107); Estimated GFR 49.61 (mL/min/1.73m2); Glucose 219 mg/dL (74-106); Potassium 3.9 mmol/L (3.5-5.1); Sodium 137 mmol/L (136-145); Total Protein 8.7 g/dL (6.4-8.2)
[2024-04-08 12:06] LABS: Bilirubin Negative (Negative); Blood Negative (Negative); Clarity Clear (Clear); Glucose Negative (Negative); Ketones Negative (Negative); Leukocyte Esterase Negative (Negative); Nitrite Negative (Negative); Specific Gravity <= 1.005 (1.005-1.025); Urobilinogen 0.2 mg/dL (Up to 0.2); pH 5.5 (5-8)
[2024-04-08 12:27] VITALS: BP 150/86; PULSE 95; RESP 14; O2SAT 97
--- NOTE | 2024-04-08 12:31 | ED.GENADUL_ITS ---
Discharge Plan Disposition Patient Disposition: Home Condition: Stable Discharge Details Clinical Impression: Hyperglycemia Primary Care Provider: Milly Davies ED Provider: Yasmine Santos Home Meds and New Rx's Prescriptions: New insulin detemir U-100 100 unit/mL (3 mL) insulin pen 30 unit subcut HS Qty: 15 0RF Continued Januvia 100 mg tablet 50 mg PO DAILY (DME) blood-glucose meter [Blood Glucose Monitoring] Kit See Rx Instructions .ROUTE .MEDSUPPLY Qty: 1 0RF Rx Instructions: As directed (DME) lancets 30 gauge misc See Rx Instructions .ROUTE .MEDSUPPLY Qty: 100 0RF Rx Instructions: As directed No Action polyethylene glycol 3350 17 gram/dose powder 238 g PO ONCE Qty: 238 0RF Rx Instructions: take per colonoscopy instructions bisacodyl [Dulcolax (bisacodyl)] 5 mg tablet,delayed release (DR/EC) 5 mg PO ONCE Qty: 4 0RF Rx Instructions: take per colonoscopy instructions albuterol sulfate [Proventil HFA] 6.7 GM HFA aerosol inhaler 1 - 2 puff Inhalation Q6H PRN diltiazem HCl [Tiadylt ER] 240 mg capsule,extended release 24 hr 240 mg PO DAILY cannabidiol 100 mg/mL solution 150 mg PO BID atorvastatin [Lipitor] 40 mg Tablet 40 mg PO QPM Qty: 30 0RF clopidogrel [Plavix] 75 mg Tablet 75 mg PO DAILY Qty: 30 0RF triamterene-hydrochlorothiazid 37.5-25 mg Capsule 1 cap PO DAILY Qty: 30 0RF irbesartan 300 mg Tablet 300 mg PO DAILY Qty: 30 0RF Discharge Instructions Instructions: High Blood Sugar, Adult ED Additional Instructions: Your hemoglobin A1c is 10 today I would recommend restarting your insulin and a prescription has been sent to the pharmacy for this. Continue your Januvia, please contact your primary care provider on Wednesday to schedule an appointment for further management and medication adjustments as needed Please check your blood sugar regularly and keep a log HPI General Date/Time Provider Initiated Documentation: 04/08/24 10:53 . Limitations to Documentation: no limitations . Information obtained by: patient . HPI Narrative: 68-year-old female with past medical history including CVA, diabetes presents for evaluation of elevated blood sugar. She reports that she has had a lot going on recently and has not been doing a good job taking her blood sugar. She was taken off insulin about a year ago but continues on oral medication. She states that she has been compliant with all of her medications. She states the last few days she has been feeling a little unwell and shaky. No vomiting, no abdominal pain, no fever. Reports that she does feel very thirsty. She checked her blood sugar has been running in the 200s. Related Data Home Medications ?Medication ?Instructions ?Recorded ?Confirmed albuterol sulfate 90 mcg/actuation 1 - 2 puff inhalation Q6H PRN 05/21/15 04/08/24 aerosol inhaler (Proventil HFA) atorvastatin 40 mg tablet (Lipitor) 40 mg PO QPM #30 tabs 12/15/18 04/08/24 clopidogrel 75 mg tablet (Plavix) 75 mg PO DAILY #30 tabs 12/15/18 04/08/24 irbesartan 300 mg tablet 300 mg PO DAILY #30 tabs 12/15/18 04/08/24 triamterene 37.5 1 cap PO DAILY #30 caps 12/15/18 04/08/24 mg-hydrochlorothiazide 25 mg capsule bisacodyl 5 mg tablet,delayed 5 mg PO ONCE colonscopy bowel prep 03/02/22 04/08/24 release (Dulcolax (bisacodyl)) #4 tabs polyethylene glycol 3350 17 238 g PO ONCE colonoscopy prep 03/02/22 04/08/24 gram/dose oral powder #238 grams sitagliptin phosphate 100 mg 50 mg PO DAILY 03/02/22 04/08/24 tablet (Januvia) diltiazem HCl 240 mg capsule,24 240 mg PO DAILY 08/26/23 04/08/24 hr,extended release (Tiadylt ER) cannabidiol 100 mg/mL oral solution 150 mg PO BID 02/23/24 04/08/24 blood-glucose meter (Blood Glucose #1 ea 04/08/24 Monitoring kit) insulin detemir U-100 100 unit/mL 30 unit (0.3 mL) subcut HS #15 mL 04/08/24 (3 mL) subcutaneous pen lancets 30 gauge #100 ea 04/08/24 Previous Rx's ?Medication ?Instructions ?Recorded atorvastatin 40 mg tablet (Lipitor) 40 mg PO QPM #30 tabs 12/15/18 clopidogrel 75 mg tablet (Plavix) 75 mg PO DAILY #30 tabs 12/15/18 irbesartan 300 mg tablet 300 mg PO DAILY #30 tabs 12/15/18 triamterene 37.5 1 cap PO DAILY #30 caps 12/15/18 mg-hydrochlorothiazide 25 mg capsule bisacodyl 5 mg tablet,delayed 5 mg PO ONCE colonscopy bowel prep 03/02/22 release (Dulcolax (bisacodyl)) #4 tabs polyethylene glycol 3350 17 238 g PO ONCE colonoscopy prep 03/02/22 gram/dose oral powder #238 grams blood-glucose meter (Blood Glucose #1 ea 04/08/24 Monitoring kit) insulin detemir U-100 100 unit/mL 30 unit (0.3 mL) subcut HS #15 mL 04/08/24 (3 mL) subcutaneous pen lancets 30 gauge #100 ea 04/08/24 Allergies Allergy/AdvReac Type Severity Reaction Status Date / Time lisinopril AdvReac Intermediate cough Unverified 04/08/24 10:59 General Stated Complaint: GenMedical SOLANGE: 3 Exam Narrative Exam Narrative: Review of Systems: All systems reviewed & are unremarkable except as noted in HPI and below Well-developed, no acute distress NCAT PERRL, normal conjunctiva RRR Unlabored respiratory effort Nondistended abdomen no focal neurologic deficits Course Vital Signs Vital signs: Vital Signs Temperature 36.4 C 04/08/24 10:54 Pulse 113 H 04/08/24 10:54 Respiratory Rate 18 04/08/24 10:54 Blood Pressure 190/108 H 04/08/24 10:54 Pulse Oximetry 94 04/08/24 10:54 Temperature 36.4 C 04/08/24 11:14 Pulse 95 H 04/08/24 12:27 Respiratory Rate 14 04/08/24 12:27 Blood Pressure 150/86 H 04/08/24 12:27 Pulse Oximetry 97 04/08/24 12:27 Lab/Test Results Lab/Test Results: Laboratory Tests Range/Units 04/08/24 04/08/24 11:12 11:55 WBC (4.4-10.8) 10^3/uL 12.12 H RBC (3.93-5.22) 10^6/uL 5.74 H Hgb (11.2-15.7) g/dL 16.4 H Hct (36.0-46.0) % 48.6 H MCV (80-95) fL 85 MCH (27.0-33.0) pg 28.6 MCHC (32.0-36.0) % 33.7 RDW (11.7-14.6) % 12.8 Plt Count (130-400) 10^3/uL 308 MPV (8.0-11.0) fL 9.3 Immature Gran % % 0.6 Neutrophils % % 70.4 Lymphocytes % % 21.3 Monocytes % % 5.5 Eosinophils % % 1.7 Basophils % % 0.5 Nucleated RBC % (0.0-0.3) % 0.0 Absolute Neutrophils (1.2-6.7) 10^3/uL 8.53 H Absolute Lymphocytes (1.2-3.4) 10^3/uL 2.58 Absolute Monocytes (0.1-0.8) 10^3/uL 0.67 Absolute Eosinophils (0.0-0.7) 10^3/uL 0.21 Absolute Basophils (0.0-0.2) 10^3/uL 0.06 Sodium (136-145) mmol/L 137 Potassium (3.5-5.1) mmol/L 3.9 Chloride (98-107) mmol/L 98 Carbon Dioxide (21.0-32.0) mmol/L 28.1 Anion Gap (3-11) mmol/L 10.9 BUN (7-18) mg/dL 19 H Creatinine (0.55-1.02) mg/dL 1.2 H Est GFR (CKD-EPI 2020) (mL/min/1.73m2) 49.61 Glucose (74-106) mg/dL 219 H Hemoglobin A1c (<5.7) % 10.2 H Calcium (8.5-10.1) mg/dL 9.7 Total Bilirubin (0.2-1.0) mg/dL 0.75 AST (15-37) U/L 20 ALT (14-59) U/L 37 Alkaline Phosphatase (46-116) U/L 115 Total Protein (6.4-8.2) g/dL 8.7 H Albumin (3.4-5.0) g/dL 3.9 Urine Color (Yellow) Yellow Urine Clarity (Clear) Clear Urine pH (5-8) 5.5 Ur Specific [place] (1.005-1.025) <= 1.005 Urine Protein (Neg-Trace) mg/dL Negative Urine Ketones (Negative) mg/dL Negative Urine Blood (Negative) Negative Urine Nitrite (Negative) Negative Urine Bilirubin (Negative) Negative Urine Urobilinogen (Up to 0.2) mg/dL 0.2 Ur Leukocyte Esterase (Negative) Negative Urine Glucose (Negative) mg/dL Negative Medical Decision Making Emergent evaluation of unwell feeling. Initial differential includes hyperglycemia, DKA, electrolyte derangement, dehydration. Patient is hemodynamically stable. She is slightly hypertensive at triage, but this improves when brought back to the room. She does have a history of CVA. She is currently only on an oral diabetes medication. Lab work was obtained. Mild leukocytosis though nonspecific given the also elevation of hemoglobin and hematocrit possible mild dehydration. Creatinine 1.2 is at baseline. Her glucose is elevated at 219 without evidence of DKA. An A1c was obtained and this is elevated at 10. Given this, we will restart insulin. I have sent a new prescription of the patient's prior regimen to the pharmacy. She will check her blood sugar and keep a log and has a scheduled follow-up appointment with her PCP. Return precautions advised. 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 (Acute) Left homonymous hemianopsia (Acute) Jhonny-neglect of left side (Acute) Left hemiparesis (Acute) CVA (cerebral vascular accident) (Chronic) DVT prophylaxis (Acute) Paresthesias (Acute) Screening for colon cancer (Acute) Medical History Retinopathy Genuine stress incontinence, female CKD (chronic kidney disease), stage III Constipation Allergic rhinitis Late effects of cerebrovascular disease Essential hypertension Hemiplegia Adjustment disorder Mixed hyperlipidemia Type 2 diabetes mellitus Hyperlipidemia Urinary retention with incomplete bladder emptying Discharge planning issues Asthma ADD (attention deficit disorder) Left hip pain Chronic kidney disease (CKD) stage G3a/A1, moderately decreased glomerular filtration rate (GFR) between 45-59 mL/min/1.73 square meter and albuminuria creatinine ratio less than 30 mg/g Acute kidney injury Diabetes HTN (hypertension) Surgical History Hx of cataract surgery History of colonoscopy (~03/2022) H/O section No significant past surgical history Family History Father Diabetes Stroke Mother Diabetes Kidney disorder Brother Diabetes Brother Hypertension Sister Cancer Diabetes Social History Smoking/Tobacco Use Status: Current-Occasional Tobacco Type: cigarettes Smoking risk assessment performed?: Yes Alcohol Intake: never Drug use: Daily Substance use type: marijuana Details: t-2 Household members: family Number of Children: 2 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
--- OUTSIDE RECORDS SUMMARY | 2024-04-08 12:34 | XMS_ITS | Encounter Summary ---
Author Organization [facility] Address [address] [place] [address] Care Team Providers Care Bandage Maker Name Role Phone Kaylah Raymundo PETER Primary Care Provider [phone] Reason for Visit * Reason Onset Date Comments Medications Refill 03/26/2014 Encounter Details Date Type Department Care Team (Late st Contact Info) Description 03/26/2014 Refill [facility] Ophthalmology [facility] [address] [place] [address] Kaila Pulido [address] [place] [address] Medications Refill Social History Tobacco Use Types Packs/Day Years Used Date Smoking Tobacco: Former Smokeless Tobacco: Never Alcohol Use Standard Drinks/Week Comments Not Asked 0 (1 standard drink = 0.6 oz pur e alcohol) Comments Unknown Sex and Gender Information Value Date Recorded Sex Assigned at Not on file Legal Sex Female 18:12 EST Gender Identity Not on file Sexual Orientation Not on file Occupation Industry Job Start Date Job End Date Not on file Not on file Not on file Not on file documented as of this encounter Ordered Prescriptions Prescription Sig Dispense Quantity Refills Last Filled Start Date End Date prednisoLONE (PRED FORTE) 1 % ophthalmic suspension Place 1 Drop into the right eye 4 times daily. 1 Bottle 0 03/26/2014 04/24/2014 documented in this encounter Miscellaneous Notes * Telephone Encounter - Kaila Pulido - 03/26/2014 1631 EST Pt called to get another bottle of Prednisolone Acetate as she lost her bottle. documented in this encounter Plan of Treatment Not on file documented as of this encounter Visit Diagnoses Not on filedocumented in this encounter Discontinued Medications Medication Sig Discontinue Reason Start Date End Da te prednisoLONE (PRED FORTE) 1 % ophthalmic suspension Place 1 Drop into the right eye 4 times daily. Reorder 03/26/2014 documented as of this encounter Care Teams Bandage Maker Relationship Specialty Start Date End Date Kaylah Raymundo FNP [address] [place] [address] PCP - General 09/12/13 documented as of this encounter
--- OUTSIDE RECORDS SUMMARY | 2024-04-08 12:34 | XMS_ITS | Encounter Summary ---
Author Organization [facility] Address [address] [place] [address] Care Team Providers Care Front Office Administrator Name Role Phone Kaylah Raymundo PETER Primary Care Provider [phone] Encounter Details Date Type Department Care Team (Late st Contact Info) Description 12/19/2018 Results Only [facility] - Main [place] [address] [place] [id number] Onur Liriano MD [address] [place] [id number] Social History Tobacco Use Types Packs/Day Years [...] on file documented as of this encounter Functional Status * Because of a physical, mental, or emotional condition, does this person have difficulty doing errands alone such as visiting a doctor's office or shopping? Answer Date of Assessment Author No 01/21/2015 11:39 EST documented as of this encounter Mental Status * Because of a physical, mental, or emotional condition, does this person have serious difficulty concentrating, remembering, or making decisions? Answer Entry Date Author No 01/21/2015 11:39 EST documented in this encounter Plan of Treatment Not on file documented as of this encounter Procedures Procedure Name Priority Date/Time Associated Diagnosis Comments BASIC METABOLIC PANEL (BMP) Routine 12/19/2018 14:15 EDT documented in this encounter Results * (ABNORMAL) BASIC METABOLIC PANEL (BMP) (12/19/2018 14:15 EDT) [place] [facility] [place](H) 10 - 26 mg/dL 12/19/2018 18:31 EDT [facility] CALCIUM [place] [facility] [place] 9.2 8.5 - 10.5 mg/dL 12/19/2018 18:31 EDT [facility] Chloride 99 96 - 110 mmol/L 12/19/2018 18:31 EDT [facility] CO2 Total 26 22 - 32 mEq/L 12/19/2018 18:31 [facility] CREATININE 1.98(H) 0.52 - 1.04 mg/dL 12/19[facility]2018 [facility] 26 12/19/2018 18:31 [facility] Comment: Stage 4: Severe renal impairment is defined as GFR 15-29 Multiply result by 1.210 for patients. eGFR calculated using the IDMS-traceable MDRD Study Equation. ??(effective 01/22/2014) Anion Gap 14 0 - 18 12/19/2018 18:31 [facility] GLUCOSE [place] [facility] [place] 156(H) 70 - 100 mg/dL 12/19/2018 18:31 [facility] Potassium 4.3 3.5 - 5.0 mEq/L 12/19/2018 18:31 [facility] Sodium 139 136 - 145 mEq/L 12/19/2018 18:31 [facility] 12/19/2018 14:1 5 EDT 12/19/2018 17:46 EDT us Onur Liriano MD CHEMISTRY & BLOOD GAS ORDERABL ES Final Result [facility] documented in this encounter Visit Diagnoses Not on filedocumented in this encounter Care Teams Front Office Administrator Relationship Specialty Start Date End Date Kaylah Raymundo FNP [address] [place] [address] PCP - General 09/12/13 documented as of this encounter
--- OUTSIDE RECORDS SUMMARY | 2024-04-08 12:34 | XMS_ITS | Encounter Summary ---
Author Organization [facility] Address [address] [place] [address] Care Team Providers Care Partition Assembler Name Role Phone Kaylah Raymundo PETER Primary Care Provider [phone] Encounter Details Date Type Department Care Team (Late st Contact Info) Description 10/05/2017 Historical Results Only [facility] - Main [address] [id number] Jules Mancini MD [address] [place] [id number] Social History Tobacco Use Types Packs/Day Years [...] Procedure Name Priority Date/Time Associated Diagnosis Comments POCT GLUCOSE, INTERFACED Routine 10/05/2017 20:37 EDT POCT GLUCOSE, INTERFACED Routine 10/05/2017 16:58 EDT POCT GLUCOSE, INTERFACED Routine 10/05/2017 11:06 EDT POCT GLUCOSE, INTERFACED Routine 10/05/2017 7:12 EDT COMPLETE BLOOD COUNT WITH DIFFERENTIAL (AUTO) Routine 10/05/2017 6:00 EDT MAGNESIUM Routine 10/05/2017 6:00 EDT BASIC METABOLIC PANEL (BMP) Routine 10/05/2017 6:00 EDT documented in this encounter Results * (ABNORMAL) POCT GLUCOSE (10/05/2017 20:37 EDT) Glucose, POC 249(H) 70 - 100 mg/dL 10/05/2017 20:40 EDT [facility] 10/05/2017 20:3 7 EDT 10/05/2017 20:40 EDT Jules Mancini MD POINT OF CARE TEST ORDERABL ES Final Result Performing Organization Address [facility]/ZIP Co de Phone Number [facility] * (ABNORMAL) POCT GLUCOSE (10/05/2017 16:58 EDT) Glucose, POC 239(H) 70 - 100 mg/dL 10/05/2017 16:59 EDT [facility] 10/05/2017 16:5 8 EDT 10/05/2017 16:59 EDT us Jules Mancini MD POINT OF CARE TEST ORDERABL ES Final Result Performing Organization Address [facility]/ZIP Co de Phone Number [facility] * (ABNORMAL) POCT GLUCOSE (10/05/2017 11:06 EDT) Glucose, POC 291(H) 70 - 100 mg/dL 10/05/2017 11:07 EDT [facility] 10/05/2017 11:0 6 EDT 10/05/2017 11:07 EDT us Robert Castañeda MD POINT OF CARE TEST OR DERABLES Final Result [facility] * (ABNORMAL) POCT GLUCOSE (10/05/2017 7:12 EDT) Glucose, POC 214(H) 70 - 100 mg/dL 10/05/2017 7:15 EDT [facility] 10/05/2017 7:12 EDT 10/05/2017 7:15 EDT us Robert Castañeda MD POINT OF CARE TEST OR DERABLES Final Result Performing Organization Address City/[facility]/ZIP Co de Phone Number [facility] * MAGNESIUM (10/05/2017 6:00 EDT) Magnesium 1.90 1.7 - 2.8 mg/dL 10/05/2017 7:32 EDT [facility] 10/05/2017 6:00 EDT 10/05/2017 6:43 EDT us Christoph Stockton MD CHEMISTRY & BLOOD GAS ORDERABLES Final Result [facility] * (ABNORMAL) BASIC METABOLIC PANEL (BMP) (10/05/2017 6:00 EDT) BUN - CV 24 10 - 26 mg/dL 10/05/2017 7:32 EDT [facility] CALCIUM - CV 9.1 8.5 - 10.5 mg/dL 10/05/2017 7:32 EDT [facility] Chloride 99 96 - 110 mmol/L 10/05/2017 7:32 EDT [facility] CO2 Total 27 22 - 32 mEq/L 10/05/2017 7:32 T [facility] CREATININE 0.63 0.52 - 1.04 mg/dL 10/05/2017 7:32 EDT [facility] eGFR >60 10/05/2017 7:32 [facility] Comment: Chronic renal impairment is defined as GFR <60 Multiply result by 1.210 for patients. eGFR calculated using the IDMS-traceable MDRD Study Equation. ??(effective 01/22/2014) Anion Gap 11 0 - 18 10/05/2017 7:32 EDT [facility] [place] [facility] [place](H) 70 - 100 mg/dL 10/05/2017 7:32 [facility] Potassium 3.6 3.5 - 5.0 mEq/L 10/05/2017 7:32 [facility] Sodium 137 136 - 145 mEq/L 10/05/2017 7:32 [facility] 10/05/2017 6:00 EDT 10/05/2017 6:43 EDT us Christoph Stockton MD CHEMISTRY & BLOOD GAS ORDERABLES Final Result [facility] * (ABNORMAL) COMPLETE BLOOD COUNT WITH DIFFERENTIAL (AUTO) (10/05/2017 6:00 EDT) ABSOLUTE NEUTROPHIL COUN - CV 16.86(H) 1.7 - 7.0 10e3/ul 10/05/2017 7:30 EDT [facility] BASO # - [facility] 0.02 0.0 - 0.3 10e3/uL 10/05/2017 7:30 EDT [facility] BASO % - [facility] 0 0 - 2 % 10/05/2017 7:30 [facility] EOS # - [facility] 0.02(L) 0.05 - 0.5 10e3/uL 10/05/2017 7:30 EDT [facility] EOS % - [facility] 0 0 - 5 % 10/05/2017 7:30 [facility] GRAN % - [facility] 76 40 - 80 % 10/05/2017 7:30 [facility] [place] [facility] [place] 43.3 34.0 - 47.0 % 10/05/2017 7:30 [facility] [place] [facility] [place] 14.9 11.2 - 15.7 g/dl 10/05/2017 7:30 [facility] IG# - [facility] 0.10(H) 0 - 0.07 10e3/uL 10/05/2017 7:30 [facility] IG% - MC 0.5 0 - 0.9 % 10/05/2017 7:30 [facility] LYMPH # - MC 3.92(H) 0.9 - 2.9 10e3/uL 10/05/2017 7:30 [facility] LYMPH% - [facility] 18(L) 20 - 40 % 10/05/2017 7:30 [facility] MEAN CORPUSCULAR HGB [place] [facility] [place] 28.8 26 - 34 pg 10/05/2017 7:30 [facility] MEAN CORPUSCULAR HGB CONC [place] [facility] [place] 34.4 31 - 36 g/dL 10/05/2017 7:30 [facility] MEAN CELL VOLUME [place] [facility] [place] 83.6 77 - 100 fl 10/05/2017 7:30 [facility] MONO # - [facility] 1.20(H) 0.3 - 0.9 10e3/uL 10/05/2017 7:30 [facility] MONO% - MC 5 0 - 12 % 10/05/2017 7:30 [facility] PLATELET COUNT 276 150 - 400 10e3/ul 10/05/2017 7:30 [facility] RED BLOOD [place] [facility] [place] 5.18 3.8 - 5.2 10e6/ul 10/05/2017 7:30 [facility] RED CELL DISTRI WIDTH [place] [facility] [place] 13.4 11.8 - 15.6 % 10/05/2017 7:30 [facility] WHITE BLOOD [place] [facility] 22.1(H) 3.5 - 10.5 10e3/ul 10/05/2017 7:30 EDT [facility] 10/05/2017 6:00 EDT 10/05/2017 6:43 EDT us Christoph Stockton MD HEMATOLOGY & PF4 O RDERABLES Final Result [facility] documented in this encounter Visit Diagnoses Not on filedocumented in this encounter Care Teams Partition Assembler Relationship Specialty Start Date End Date Kaylah Raymundo FNP [address] [place] [address] PCP - General 09/12/13 documented as of this encounter
--- OUTSIDE RECORDS SUMMARY | 2024-04-08 12:34 | XMS_ITS | Encounter Summary ---
Author Organization [facility] Address [address] [place] [address] Care Team Providers Care Commercial Management Accountant Name Role Phone Kaylah Raymundo PETER Primary Care Provider [phone] Reason for Visit * Reason Comments Post-OP Follow Up s/p CE/PCIOL, right eye Encounter Details Date Type Department Care Team (Late st Contact Info) Description 04/24/2014 8:30 EST Office Visit [facility] [address], [place] [id number] Carter Martinez MD [address] [place] [phone] Social History Tobacco Use Types Packs/Day Years [...] on file documented as of this encounter Progress Notes * Carter Martinez MD - 04/24/2014 0921 EST Chief Complaint: Pseudophakia, Cataract Post-Op Month 1, right eye(s) HPI POM #1 s/p CE/PCIOL, right eye(s). Location: Pain: Quality: Severity: Duration: Timing: Lasts: Context: Modifying factors: Associated Signs & Symptoms: Visual Fluctuations: Attestation: Not recorded IMPRESSION & PLAN: POM # 1 s/p CE/IOL, right eye (02/28/14) -The patient is doing well -Finished with eye drops -artifical tears as needed -Pt will return for refraction (no refraction today, pt recovering from sinus infection) -Return 1 year or sooner as needed I have reviewed the patient's past medical, family, social and surgical history. I have also reviewed the patient's medications, allergies, and problem list. I performed my own HPI and have reviewed the tech's ROS as well. I personally completed this exam myself. Carter Martinez MD documented in this encounter Plan of Treatment Not on file documented as of this encounter Visit Diagnoses Diagnosis Lens replaced by other means- Primary documented in this encounter Discontinued Medications Medication Sig Discontinue Reason Start Date End Da te ketOROLAC (ACULAR) 0.5 % ophthalmic solution Place 1 Drop into the right eye 4 times daily. Therapy completed 04/24/2014 ofloxacin (OCUFLOX) 0.3 % ophthalmic solution Place 1 Drop into the right eye 4 times daily. Therapy completed 04/24/2014 prednisoLONE (PRED FORTE) 1 % ophthalmic suspension Place 1 Drop into the right eye 4 times daily. Therapy completed 03/26/2014 04/24/2014 documented as of this encounter Eye Exam Visual Acuity (Snellen - Linear) Right eye Left eye Dist sc 20/25 +2 20/60 Tonometry (Applanation, 9:31) Right eye Left eye Pressure 16 Pupils Pupils APD Right eye PERRL None Left eye PERRL None Visual Elkins (Counting fingers) Right eye Left eye Full Full Extraocular Movement Right eye Left eye Full Full Neuro/Psych Oriented x3: Yes Mood/Affect: Normal Dilation Right eye: 1.0% Mydriacyl, 2 .5% Phenylephrine @ 9:31 Slit Lamp Exam Right eye Left eye Lids/Lashes Normal Normal Conjunctiva/Sclera White and quiet White and gene et Cornea Clear Clear Anterior Chamber Deep and quiet Deep and quiet Iris Round and reactive Round and parker ctive Lens Centered posterior c hamber intraocular lens Centered posterior chamber intraocular lens Vitreous Normal Fundus Exam Right eye Left eye Disc Normal C/D Ratio 0.3 Macula Normal Vessels Normal Periphery Normal Care Teams Commercial Management Accountant Relationship Specialty Start Date End Date Kaylah Raymundo FNP [address] [place] [address] PCP - General 09/12/13 documented as of this encounter
--- OUTSIDE RECORDS SUMMARY | 2024-04-08 12:34 | XMS_ITS | Encounter Summary ---
Author Organization [facility] Address [address] [place] [address] Care Team Providers Care Director Of Intercollegiate Athletics Name Role Phone Kaylah Raymundo PETER Primary Care Provider [phone] Encounter Details Date Type Department Care Team (Latest Contact Info) Description 10/04/2017 8:34 EDT - 10/04/2017 23:59 EDT Hospital Encounter [facility] [address] [place] [address] Unknown, Provider, MD Discharge Disposition: Home or Self Care Social History Tobacco Use Types Packs/Day Years [...] 01/21/2015 11:39 EST documented in this encounter Medications at Time of Discharge amLODIPine (NORVASC) 10 mg tablet Take 10 mg by mouth daily. chlorthalidone (HYGROTON) 25 mg tablet Take 25 mg by mouth daily. documented as of this encounter Discharge Disposition Disposition Code Departure Means Destination Home or Self Retirement documented in this encounter Plan of Treatment Not on file documented as of this encounter Visit Diagnoses Not on filedocumented in this encounter Care Teams Director Of Intercollegiate Athletics Relationship Specialty Start Date End Date Kaylah Raymundo FNP [address] [place] [address] PCP - General 09/12/13 documented as of this encounter
--- OUTSIDE RECORDS SUMMARY | 2024-04-08 12:34 | XMS_ITS | Referral Summary ---
Author Organization [facility] Address [address] [place] [address] Care Team Providers Care Informatica Mdm Developer Name Role Phone Kaylah Raymundo PETER Primary Care Provider [phone] Allergies No known active allergies Medications chlorthalidone (HYGROTON) 25 mg tablet Take 25 mg by mouth daily. Active amLODIPine (NORVASC) 10 mg tablet Take 10 mg by mouth daily. Active Active Problems No known active problems Social History Tobacco Use Types Packs/Day Years Used Date Smoking Tobacco: Former Smokeless Tobacco: Never Alcohol Use Standard Drinks/Week Comments Not Asked 0 (1 standard drink = 0.6 oz pur e alcohol) Interpersonal Safety Answer Date Record ed Physically Hurt Never 10/22/2019 Verbally Threaten Not on file 10/22/2019 Comments Unknown Sex and Gender Information Value Date Recorded Sex Assigned at Not on file Legal Sex Female 18:12 EST Gender Identity Not on file Sexual Orientation Not on file Occupation Industry Job Start Date Job End Date Not on file Not on file Not on file Not on file Functional Status * Because of a physical, mental, or emotional condition, does this person have difficulty doing errands alone such as visiting a doctor's office or shopping? Answer Date of Assessment Author No 01/21/2015 11:39 EST Mental Status * Because of a physical, mental, or emotional condition, does this person have serious difficulty concentrating, remembering, or making decisions? Answer Entry Date Author No 01/21/2015 11:39 EST Plan of Treatment Not on file Insurance [place]ARE [place] Care Teams Informatica Mdm Developer Relationship Specialty Start Date End Date Kaylah Raymundo FNP [address] [place] [address] PCP - General 09/12/13
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
--- OUTSIDE RECORDS SUMMARY | 2024-04-08 12:34 | XMS_ITS | Encounter Summary ---
Author Organization [facility] Address [address] [place] [address] Care Team Providers Care Truss Driver Helper Name Role Phone Kaylah Raymundo PETER Primary Care Provider [phone] Encounter Details Date Type Department Care Team (Late st Contact Info) Description 12/28/2018 Results Only [facility] - Main [place] [address] [place] [id number] Onur Liriano MD [address] [place] [phone] Social History Tobacco Use Types Packs/Day Years [...] Diagnosis Comments BASIC METABOLIC PANEL (BMP) Routine 12/28/2018 9:35 EDT documented in this encounter Results * (ABNORMAL) BASIC METABOLIC PANEL (BMP) (12/28/2018 9:35 EDT) BUN - [facility] 28(H) 10 - 26 mg/dL 12/28/2018 13:55 EDT [facility] CALCIUM - [facility] 9.1 8.5 - 10.5 mg/dL 12/28/2018 [facility] Chloride 104 96 - 110 mmol/L 12/28/2018 [facility] CO2 Total 26 22 - 32 mEq/L 12/28/2018 13:55 [facility] CREATININE 1.16(H) 0.52 - 1.04 mg/dL 12/28/2018 13:55 [facility] eGFR 47 12/28/2018 13:55 [facility] Comment: Stage 3: Moderate renal impairment is defined as GFR 30-59 Multiply result by 1.210 for patients. eGFR calculated using the IDMS-traceable MDRD Study Equation. ??(effective 01/22/2014) Anion Gap 12 0 - 18 12/28/2018 13:55 [facility] GLUCOSE - [facility] 113(H) 70 - 100 mg/dL 12/28/2018 13:55 [facility] Potassium 3.9 3.5 - 5.0 mEq/L 12/28/2018 13:55 [facility] Sodium 142 136 - 145 mEq/L 12/28/2018 13:55 [facility] 12/28/2018 9:35 EDT 12/28/2018 13:25 EDT us Onur Liriano MD CHEMISTRY & BLOOD GAS ORDERABL ES Final Result [facility] documented in this encounter Visit Diagnoses Not on filedocumented in this encounter Care Teams Truss Driver Helper Relationship Specialty Start Date End Date Kalyah Raymundo FNP [address] [place] [phone] PCP - General 09/12/13 documented as of this encounter
--- OUTSIDE RECORDS SUMMARY | 2024-04-08 12:34 | XMS_ITS | Encounter Summary ---
Author Organization [facility] Address [address] [place] [address] Care Team Providers Care Cooker Helper Name Role Phone Kaylah Raymundo PETER Primary Care Provider [phone] Encounter Details Date Type Department Care Team (Latest Contact Info) Description 07/07/2022 Lab Requisition [facility] Pathology & Laboratory Medicine - [facility] [address] [place] [address] Milly Davies, RESTAURANT AREA MANAGER [address] [phone] Encounter for gynecological examination (general) (routine) without abnormal findings; Encounter for screening for malignant neoplasm of cervix Social History Tobacco Use Types Packs/Day Years [...] Procedure Name Priority Date/Time Associated Diagnosis Comments PAP TEST Today 07/06/2022 8:45 EDT Encounter for gynecological examination (general) (routine) without abnormal findings Encounter for screening for malignant neoplasm of cervix HPV DNA DETECTION WITH GENOTYPING, PCR Today 07/06/2022 8:45 EDT Encounter for gynecological examination (general) (routine) without abnormal findings Encounter for screening for malignant neoplasm of cervix documented in this encounter Results * HUMAN PAPILLOMAVIRUS (HPV) DETECTION-HIGH RISK TYPES (07/06/2022 8:45 EDT) HPV other High Risk types, PCR Negative Negative 07/17/2022 15:54 EDT [facility] Comment:No E6 or E7 mRNA is detected from HPV types 16,18,31,33,35,39,45,51,52,56,58,59,66, and 68 by publication distributor mediated amplification. Papanicolaou smear specimen (specimen) CERVIX UTERI STRUCTURE / Unknown 07/06/2022 8:45 EDT 07/16/2022 10:24 EDT us Milly Davies RESTAURANT AREA MANAGER MICROBIOLOGY - GENERAL OR DERABLES Final Result Performing Organization Address City/State/[facility] Co de Phone Number [facility] [address] [place] [address] * PAP TEST (07/06/2022 8:45 EDT) Specimens A. Cervix and/or Endocervix , ThinPrep Imaging System with Manual Evaluation 07/17/2022 15:54 EDT [facility] Specimen Adequacy Satisfactory for Evaluation - assessment of transformation zone component not applicable ( e.g. atrophy, vaginal sample, hysterectomy) 07/17/2022 15:54 EDT [facility] General Categorization Negative for intraepithelial lesion or malignancy 07/17/2022 15:54 EDT [facility] Attestation . 07/17/2022 15:54 EDT [facility] at 1554 Clinical History SEE BELOW 07/18/19 15:54 EDT [facility] HPV The result for the Human Papillomavirus (HPV) Detection-High Risk Types is Negative. No E6 or E7 mRNA is detected from HPV types 16,18,31,33,35,39 ,45,51,52,56,58,5 9,66, and 68 by publication distributor mediated amplification.Shakira ting was performed on specimen [id number] and was resulted on 07/17/2022 1554 EDT by ESTEPHANIA, LAB INSTRUMENT RESULTS IN 07/17/2022 15:54 EDT [facility] Performing Lab [facility] 07/17/2022 15:54 EDT [facility] Scanned Images 07/17/2022 15:54 EDT [facility] Papanicolaou smear specimen (specimen) CERVIX UTERI STRUCTURE / Unknown 07/06/2022 8:45 EDT 07/07/2022 14:15 EDT us Milly Davies RESTAURANT AREA MANAGER PATHOLOGY ORDERABLES Divine thompson Result Performing Organization Address City/State/[facility] Co de Phone Number [facility] [address] [place] [address] documented in this encounter Visit Diagnoses Diagnosis Encounter for gynecological examination (general) (routine) without abnormal findings Encounter for screening for malignant neoplasm of cervix Screening for malignant neoplasm of the cervix documented in this encounter Care Teams Cooker Helper Relationship Specialty Start Date End Date Kaylah Raymundo FNP [address] [place] [address] PCP - General 09/12/13 documented as of this encounter
--- OUTSIDE RECORDS SUMMARY | 2024-04-08 12:34 | XMS_ITS | Encounter Summary ---
Author Organization [facility] Address [address] [place] [address] Care Team Providers Care Color Receiver Name Role Phone Kaylah Raymundo PETER Primary Care Provider [phone] Encounter Details Date Type Department Care Team (Late st Contact Info) Description 04/20/2022 Lab Requisition [facility] Pathology & Laboratory Medicine - [facility] [address] [place] [address] Fuentes Fisher MD Encounter for screening for malignant neoplasm of colon Social History Tobacco Use Types Packs/Day Years [...] Procedure Name Priority Date/Time Associated Diagnosis Comments SURGICAL PATHOLOGY Today 04/20/2022 8:12 EST Encounter for screening for malignant neoplasm of colon documented in this encounter Results * SURGICAL PATHOLOGY (04/20/2022 8:12 EST) Note to Patient The following pathology results have been interpreted by your pathologist and may be available to you before your health provider has had the opportunity to review them. Please allow time for your provider to receive these results and explore management options, if applicable. 04/23/2022 13:25 [facility] Final Diagnosis A. CECUM, BIOPSY: - Tubular adenoma B. PROXIMAL TRANSVERSE COLON, BIOPSY: - Tubular adenoma C. COLON, 1 METER, BIOPSY: - No significant pathologic abnormality - Deeper levels examined D. COLON, 40CM, BIOPSY: - Hyperplastic polyp - Deeper levels examined 04/23/2022 13:25 [facility] Attestation By the signature below, the attending physician certifies that they have 1) personally conducted a gross and/or microscopic examination of the described specimen(s), and/or personally interpreted the results of laboratory testing of the described specimen(s), and 2) personally rendered or confirmed the above diagnosis. 04/23/2022 13:25 [facility] at 1325 Clinical History Colorectal screening 04/23/2022 13:25 [facility] Gross Description A. Received in formalin labelled with proper patient identification (initials M, C) and cecal polyp is a single hollins tissue fragment (0.6 x 0.2 x 0.1 cm). Submitted intact in A1. B. Received in formalin labelled with proper patient identification (initials M, C) and proximal transverse colon polyp is a single hollins tissue fragment (0.5 x 0.2 x 0.1 cm). Submitted intact in B1. C. Received in formalin labelled with proper patient identification (initials M, C) and colon polyp at 1 meter is a single hollins tissue fragment (0.3 x 0.1 x 0.1 cm). Submitted intact in C1. D. Received in formalin labelled with proper patient identification (initials M, C) and colon polyp at 40 cm is a single hollins tissue fragment (0.4 x 0.1 x 0.1 cm). Submitted intact in D1. Ly Healyr 04/21/2022 5:35 04/23/2022 13:25 EST [facility] Performing Lab [facility] 04/23/2022 13:25 EST [facility] Scanned Images 04/23/2022 13:25 EST [facility] Tissue ENTIRE COLON / Unknown 04/20/2022 8:12 EST 04/20/2022 17:01 EST Tissue specimen (specimen) TRANSVERSE COLON STRUCTURE / Unknown 04/20/2022 8:12 EST 04/20/2022 17:01 EST Tissue specimen (specimen) COLON STRUCTURE / Unknown 04/20/2022 8:12 EST 04/20/2022 17:01 EST Tissue specimen (specimen) COLON STRUCTURE / Unknown 04/20/2022 8:12 EST 04/20/2022 17:01 EST us Fuentes Fisher MD PATHOLOGY ORDERABLES Final Resul t [facility] [address] [place] [address] documented in this encounter Visit Diagnoses Diagnosis Encounter for screening for malignant neoplasm of colon Special screening for malignant neoplasms, colon documented in this encounter Care Teams Color Receiver Relationship Specialty Start Date End Date Kaylah Raymundo FNP [address] [place] [address] PCP - General 09/12/13 documented as of this encounter
--- OUTSIDE RECORDS SUMMARY | 2024-04-08 12:34 | XMS_ITS | Encounter Summary ---
Author Organization [facility] Address [address] [place] [address] Care Team Providers Care Water Vessel Captain Name Role Phone Kaylah Raymundo PETER Primary Care Provider [phone] Encounter Details Date Type Department Care Team (Late st Contact Info) Description 10/04/2017 Historical Results Only [facility] Radiology Results [address] [place] [address] Ander Landeros MD [address] [place] [address] Social History Tobacco Use Types Packs/Day Years [...] Associated Diagnosis Comments POCT GLUCOSE, INTERFACED Routine 10/04/2017 20:44 EDT COMPLETE BLOOD COUNT WITH DIFFERENTIAL (AUTO) Routine 10/04/2017 18:00 EDT LACTIC ACID Routine 10/04/2017 18:00 EDT BASIC METABOLIC PANEL (BMP) Routine 10/04/2017 18:00 EDT POCT GLUCOSE, INTERFACED Routine 10/04/2017 16:22 EDT BLOOD CULTURE - [facility] Routine 10/04/2017 12:40 EDT BLOOD CULTURE - CV Routine 10/04/2017 12:30 EDT LACTIC ACID Routine 10/04/2017 12:30 EDT POCT GLUCOSE, INTERFACED Routine 10/04/2017 11:58 EDT TROPONIN I Routine 10/04/2017 11:45 EDT POCT GLUCOSE, INTERFACED Routine 10/04/2017 7:08 EDT COMPLETE BLOOD COUNT WITH DIFFERENTIAL (AUTO) Routine 10/04/2017 6:15 EDT PROCALCITONIN Routine 10/04/2017 6:15 EDT TROPONIN I Routine 10/04/2017 6:15 EDT LACTIC ACID Routine 10/04/2017 6:15 EDT ALDOSTERONE, SERUM Routine 10/04/2017 6: 15 EDT RENIN ACTIVITY, PLASMA Routine 8 6:15 EDT HEMOGLOBIN A1C Routine 10/04/2017 6:15 EDT COMPREHENSIVE METABOLIC PANEL (CMP) Routine 10/04/2017 6:15 EDT TRANSTHORACIC ECHO (TTE) COMPLETE 10/04/2017 6:14 EDT MISCELLANEOUS TEST, LAMAR Routine 10/04/2017 6:00 EDT MISCELLANEOUS TEST, LAMAR Routine 10/04/2017 6:00 EDT POCT GLUCOSE, INTERFACED Routine 10/04/2017 4:53 EDT URINALYSIS/COMPLETE - [facility] Routine 10/04/2017 4:20 EDT MISCELLANEOUS TEST, LAMAR Routine 10/04/2017 4:20 EDT LEGIONELLA ANTIGEN DETECTION, URINE Routine 10/04/2017 4:[address] ANGIO CHEST PE PROTOCOL 10/04/2017 4:12 EDT XR CHEST 1 VIEW 10/04/2017 3:09 EDT BLOOD GASES, VENOUS WITH CHEMISTRIES Routine 10/04/2017 2:40 EDT THYROID CASCADE Routine 10/04/2017 1:50 EDT D-DIMER Routine 10/04/2017 1:50 EDT T4 FREE Routine 10/04/2017 1:50 EDT COMPLETE BLOOD COUNT WITH DIFFERENTIAL (AUTO) Routine 10/04/2017 1:08 EDT TROPONIN I Routine 10/04/2017 1:08 EDT C REACTIVE PROTEIN Routine 10/04/2017 1: 08 EDT NT PRO BNP Routine 10/04/2017 1:08 EDT MAGNESIUM Routine 10/04/2017 1:08 EDT COMPREHENSIVE METABOLIC PANEL (CMP) Routine 10/04/2017 1:08 EDT documented in this encounter Results * (ABNORMAL) POCT GLUCOSE (10/04/2017 20:44 EDT) [facility] Glucose, POC 327(H) 70 - 100 mg/dL 10/04/2017 20:54 EDT [facility] 10/04/2017 20:4 4 EDT 10/04/2017 20:54 EDT us Robert Ulrich MD POINT OF CARE TEST OR DERABLES Final Result [facility] * (ABNORMAL) BASIC METABOLIC PANEL (BMP) (10/04/2017 18:00 EDT) [facility] BUN - [facility] 20 10 - 26 mg/dL 10/04/2017 18:23 [facility] CALCIUM - [facility] 9.0 8.5 - 10.5 mg/dL 10/04/2017 18:23 [facility] Chloride 97 96 - 110 mmol/L 10/04/2017 18:23 [facility] CO2 Total 26 22 - 32 mEq/L 10/04/2017 18:23 [facility] CREATININE 0.88 0.52 - 1.04 mg/dL 10/04/2017 18:23 [facility] eGFR >60 10/04/2017 18:23 [facility] Comment: Chronic renal impairment is defined as GFR <60 Multiply result by 1.210 for patients. eGFR calculated using the IDMS-traceable MDRD Study Equation. ??(effective 01/22/2014) Anion Gap 10 0 - 18 10/04/2017 18:23 [facility] GLUCOSE - [facility] 311(H) 70 - 100 mg/dL 10/04/2017 18:23 [facility] Potassium 3.5 3.5 - 5.0 mEq/L 10/04/2017 18:23 [facility] Sodium 133(L) 136 - 145 mEq/L 10/04/2017 18:23 EDT [facility] 10/04/2017 18:0 0 EDT 10/04/2017 18:04 EDT us Christoph Stockton MD CHEMISTRY & BLOOD GAS ORDERABLES Final Result [facility] * LACTIC ACID (10/04/2017 18:00 EDT) Pathologist [facility] LACTIC ACID - [facility] 1.9 <2.0 mmol/L 10/04/2017 18:22 EDT [facility] 10/04/2017 18:0 0 EDT 10/04/2017 18:04 EDT us Christoph Stockton MD CHEMISTRY & BLOOD GAS ORDERABLES Final Result Performing Organization Address City/[facility]/ZIP Co de Phone Number [facility] * (ABNORMAL) COMPLETE BLOOD COUNT WITH DIFFERENTIAL (AUTO) (10/04/2017 18:00 EDT) [facility] ABSOLUTE NEUTROPHIL COUN - [facility] 18.49(H) 1.7 - 7.0 10e3/ul 10/04/2017 18:12 EDT [facility] BASO # - [facility] 0.01 0.0 - 0.3 10e3/uL 10/04/2017 18:12 EDT [facility] BASO % - [facility] 0 0 - 2 % 10/04/2017 18:12 EDT [facility] EOS # - [facility] 0(L) 0.05 - 0.5 10e3/uL 10/04/2017 18:12 EDT [facility] EOS % - [facility] 0 0 - 5 % 10/04/2017 18:12 EDT [facility] GRAN % - [facility] 90(H) 40 - 80 % 10/04/2017 18:12 EDT [facility] HEMATOCRIT - [facility] 42.7 34.0 - 47.0 % 10/04/2017 18:12 [facility] HEMOGLOBIN - [facility] 14.5 11.2 - 15.7 g/dl 10/04/2017 18:12 [facility] IG# - [facility] 0.09(H) 0 - 0.07 10e3/uL 10/04/2017 18:12 [facility] IG% - [facility] 0.4 0 - 0.9 % 10/04/2017 18:12 [facility] LYMPH # - [facility] 1.68 0.9 - 2.9 10e3/uL 10/04/2017 18:12 [facility] LYMPH% - [facility] 8(L) 20 - 40 % 10/04/2017 18:12 [facility] MEAN CORPUSCULAR HGB - [facility] 28.3 26 - 34 pg 10/04/2017 18:12 [facility] MEAN CORPUSCULAR HGB CONC - [facility] 34.0 31 - 36 g/dL 10/04/2017 18:12 [facility] MEAN CELL VOLUME - [facility] 83.4 77 - 100 fl 10/04/2017 18:12 [facility] MONO # - [facility] 0.41 0.3 - 0.9 10e3/uL 10/04/2017 18:12 [facility] MONO% - [facility] 2 0 - 12 % 10/04/2017 18:12 [facility] PLATELET COUNT 272 150 - 400 10e3/ul 10/04/2017 18:12 [facility] RED BLOOD COUNT - [facility] 5.12 3.8 - 5.2 10e6/ul 10/04/2017 18:12 [facility] RED CELL DISTRI WIDTH - [facility] 13.3 11.8 - 15.6 % 10/04/2017 18:12 [facility] WHITE BLOOD COUNT - [facility] 20.7(H) 3.5 - 10.5 10e3/ul 10/04/2017 18:12 [facility] 10/04/2017 18:0 0 EDT 10/04/2017 18:04 EDT us Christoph Stockton MD HEMATOLOGY & PF4 O RDERABLES Final Result Performing Organization Address [facility]/ZIP Co de Phone Number [facility] * (ABNORMAL) POCT GLUCOSE (10/04/2017 16:22 EDT) Pathologist [facility] Glucose, POC 305(H) 70 - 100 mg/dL 10/04/2017 16:24 EDT [facility] 10/04/2017 16:2 2 EDT 10/04/2017 16:24 EDT us Robert Ulrich MD POINT OF CARE TEST OR DERABLES Final Result Performing Organization Address [facility] Co de Phone Number [facility] * BLOOD CULTURE - [facility] (10/04/2017 12:40 EDT) Pathologist [facility] BLOOD CULTURE - [facility] 10/09/2017 12:49 EDT [facility] BLOOD CULTURE - [facility] NO GROWTH AT 5 DAYS 10/09/2017 12:49 EDT [facility] 10/04/2017 12:4 0 EDT 10/04/2017 12:43 EDT Comment:PERIP Narrative [facility] - 10/09/2017 12:49 EDT SECOND SET, LEFT HAND us Christoph Stockton MD CHEMISTRY & BLOOD GAS ORDERABLES Edited Result - Final Performing Organization Address [facility]/ZIP Co de Phone Number [facility] * BLOOD CULTURE - [facility] (10/04/2017 12:30 EDT) Pathologist [facility] BLOOD CULTURE - [facility] 10/09/2017 12:49 EDT [facility] BLOOD CULTURE - [facility] NO GROWTH AT 5 DAYS 10/09/2017 12:49 EDT [facility] 10/04/2017 12:3 0 EDT 10/04/2017 12:43 EDT Comment:PERIP Narrative [facility] - 10/09/2017 12:49 EDT FIRST SET, LEFT AC us Christoph Stockton MD CHEMISTRY & BLOOD GAS ORDERABLES Edited Result - Final Performing Organization Address [facility]/ZIP Co de Phone Number [facility] * (ABNORMAL) LACTIC ACID (10/04/2017 12:30 EDT) [facility] LACTIC ACID - [facility] 3.7(HH) <2.0 mmol/L 10/04/2017 13:03 EDT [facility] Comment: Result called to MARCUS LESTER IN DSCU 10/04/17 1303 Result called by LG 10/04/2017 12:3 0 EDT 10/04/2017 12:42 EDT us Christoph Stcokton MD CHEMISTRY & BLOOD GAS ORDERABLES Final Result Performing Organization Address [facility]/ZIP Co de Phone Number [facility] * (ABNORMAL) POCT GLUCOSE (10/04/2017 11:58 EDT) [facility] Glucose, POC 364(H) 70 - 100 mg/dL 10/04/2017 12:04 EDT [facility] 10/04/2017 11:5 8 EDT 10/04/2017 12:04 EDT us Robert Ulrich MD POINT OF CARE TEST OR DERABLES Final Result Performing Organization Address [facility]/ZIP Co de Phone Number [facility] * TROPONIN I (10/04/2017 11:45 EDT) [facility] Troponin I (ng/mL) <0.012 0.000 - 0.034 ng/mL 10/04/2017 12:15 EDT [facility] Comment: Interpretation comments: ??Cutoff for a positive troponin result is set at the 99th percentile of the upper reference limit. ??Elevated troponin must always be interpreted in the context of the clinical presentation. ?Serial troponin testing 3-6 hr from baseline is favored over relying on a single troponin level. 10/04/2017 11:4 5 EDT 10/04/2017 11:45 EDT us Robert Ulrich MD CHEMISTRY & BLOOD GAS ORDERABLES Final Result [facility] * (ABNORMAL) POCT GLUCOSE (10/04/2017 7:08 EDT) [facility] Glucose, POC 408(H) 70 - 100 mg/dL [facility]2017 [facility] 10[facility]04/2017 7:08 EDT 10/04/2017 7:11 EDT Robert Ulrich MD POINT OF CARE TEST OR DERABLES Final Result Performing Organization Address City/[facility]/ZIP Co de Phone Number [facility] * (ABNORMAL) COMPREHENSIVE METABOLIC PANEL (CMP) (10/04/2017 6:15 EDT) [facility] Albumin % 3.3(L) 3.4 - 4.9 g/dL 10/04/2017 7:15 [facility] ALKALINE PHOSPHATASE - [facility] 83 38 - 126 U/L 10/04/2017 7:15 [facility] BILIRUBIN TOTAL 0.4 0.2 - 1.3 mg/dL 10/04/2017 7:15 [facility] BUN - [facility] 15 10 - 26 mg/dL 10/04/2017 7:15 [facility] CALCIUM - [facility] 8.9 8.5 - 10.5 mg/dL 10/04/2017 7:15 [facility] Chloride 99 96 - 110 mmol/L 10/04/2017 7:15 [facility] CO2 Total 27 22 - 32 mEq/L 10/04/2017 7:15 [facility] CREATININE 0.63 0.52 - 1.04 mg/dL 10/04/2017 7:15 [facility] eGFR >60 10/04/2017 7:15 EDT [facility] Comment: Chronic renal impairment is defined as GFR <60 Multiply result by 1.210 for patients. eGFR calculated using the IDMS-traceable MDRD Study Equation. ??(effective 01/22/2014) Anion Gap 10 0 - 18 10/04/2017 7:15 EDT [facility] GLUCOSE - [facility] 501(HH) 70 - 100 mg/dL 10/04/2017 7:53 EDT [facility] Comment: Result called to MARCUS LESTER RN ??(DSCU) 10/04/17 0753 Result called by MRW Potassium 3.8 3.5 - 5.0 mEq/L 10/04/2017 7:15 EDT [facility] Sodium 136 136 - 145 mEq/L 10/04/2017 7:15 EDT [facility] TOTAL PROTEIN - [facility] 6.1(L) 6.2 - 8.2 gm/dL 10/04/2017 7:15 EDT [facility] SGOT/AST - [facility] 38(H) 14 - 36 U/L 10/04/2017 7:15 [facility] SGPT/ALT - [facility] 76(H) 9 - 52 U/L 8 7:15 [facility] 10/04/2017 6:15 EDT 10/04/2017 6:19 EDT Narrative [facility] - 10/04/2017 7:53 EDT AOT: 10/04/17 1117: QFP- LAMAR Q FEVER ANTIBODY IGG,IGM us Robert Ulrich MD CHEMISTRY & BLOOD GAS ORDERABLES Final Result [facility] * TROPONIN I (10/04/2017 6:15 EDT) Troponin I (ng/mL) <0.012 0.000 - 0.034 ng/mL 10/04/2017 9:33 EDT [facility] Comment: Interpretation comments: ??Cutoff for a positive troponin result is set at the 99th percentile of the upper reference limit. ??Elevated troponin must always be interpreted in the context of the clinical presentation. ?Serial troponin testing 3-6 hr from baseline is favored over relying on a single troponin level. 10/04/2017 6:15 EDT 10/04/2017 6:19 EDT us Robert Ulrich MD CHEMISTRY & BLOOD GAS ORDERABLES Final Result Performing Organization Address [facility] Co de Phone Number [facility] * (ABNORMAL) HEMOGLOBIN A1C (10/04/2017 6:15 EDT) [facility] Hemoglobin A1c 12.7(H) 4.0 - 6.0 % 10/04/2017 12:41 EDT [facility] Est Avg Glucose 318 mg/dL 8 12:41 EDT [facility] 10/04/2017 6:15 EDT 10/04/2017 6:19 EDT us Robert Ulrich MD CHEMISTRY & BLOOD GAS ORDERABLES Final Result Performing Organization Address [facility] Phone Number [facility] * (ABNORMAL) LACTIC ACID (10/04/2017 6:15 EDT) [facility] LACTIC ACID - CV 2.4(HH) <2.0 mmol/L 10/04/2017 6:44 EDT [facility] Comment: Result called to JULIANN GUY IN DSCU 10/04/17 0644 Result called by 10/04/2017 6:15 EDT 10/04/2017 6:19 EDT us Robert Ulrich MD CHEMISTRY & BLOOD GAS ORDERABLES Final Result Performing Organization Address [facility] Co de Phone Number [facility] * PROCALCITONIN, INFECTIOUS DISEASE USE ONLY (10/04/2017 6:15 EDT) [facility] Procalcitonin 0.24 < or = 0.5 ng/mL 10/04/2017 7:51 T [facility] Comment: Interpretation: ??Systemic infection (sepsis) is not likely. Local bacterial infection is possible. 10/04/2017 6:15 EDT 10/04/2017 6:19 EDT us Robert Ulrich MD CHEMISTRY & BLOOD GAS ORDERABLES Final Result [facility] * (ABNORMAL) COMPLETE BLOOD COUNT WITH DIFFERENTIAL (AUTO) (10/04/2017 6:15 EDT) ABSOLUTE NEUTROPHIL COUN - [facility] 16.21(H) 1.7 - 7.0 10e3/ul 10/04/2017 6:31 [facility] BASO # - [facility] 0.03 0.0 - 0.3 10e3/uL 10/04/2017 6:31 [facility] BASO % - [facility] 0 0 - 2 % 10/04/2017 6:31 [facility] EOS # - [facility] 0(L) 0.05 - 0.5 10e3/uL 10/04/2017 6:31 [facility] EOS % - [facility] 0 0 - 5 % 10/04/2017 6:31 [facility] GRAN % - [facility] 92(H) 40 - 80 % 10/04/2017 6:31 [facility] HEMATOCRIT - [facility] 44.1 34.0 - 47.0 % 10/04/2017 6:31 [facility] HEMOGLOBIN - [facility] 14.9 11.2 - 15.7 g/dl 10/04/2017 6:31 [facility] IG# - [facility] 0.07 0 - 0.07 10e3/uL 10/04/2017 6:31 [facility] IG% - [facility] 0.4 0 - 0.9 % 10/04/2017 6:31 [facility] LYMPH # - [facility] 0.97 0.9 - 2.9 10e3/uL 10/04/2017 6:31 [facility] LYMPH% - [facility] 6(L) 20 - 40 % 10/04/2017 6:31 [facility] MEAN CORPUSCULAR HGB - [facility] 28.6 26 - 34 pg 10/04/2017 6:31 [facility] MEAN CORPUSCULAR HGB CONC - [facility] 33.8 31 - 36 g/dL 10/04/2017 6:31 [facility] MEAN CELL VOLUME - [facility] 84.6 77 - 100 fl 10/04/2017 6:31 [facility] MONO # - [facility] 0.31 0.3 - 0.9 10e3/uL 10/04/2017 6:31 [facility] MONO% - [facility] 2 0 - 12 % 10/04/2017 6:31 [facility] PLATELET COUNT 276 150 - 400 10e3/ul 10/04/2017 6:31 [facility] RED BLOOD COUNT - [facility] 5.21(H) 3.8 - 5.2 10e6/ul 10/04/2017 6:31 [facility] RED CELL DISTRI WIDTH - [facility] 13.4 11.8 - 15.6 % 10/04/2017 6:31 [facility] WHITE BLOOD COUNT - [facility] 17.6(H) 3.5 - 10.5 10e3/ul 10/04/2017 6:31 [facility] 10/04/2017 6:15 EDT 10/04/2017 6:19 EDT us Robert Ulrich MD HEMATOLOGY & PF4 AZEEM MAR Final Result [facility] * RENIN ACTIVITY, PLASMA (10/04/2017 6:15 EDT) Renin 1.1 () ng/mL/h 10/06/2017 19:46 [facility] Comment: REFERENCE VALUE (Peripheral vein specimen) Na-deplete, upright: ??Mean: 5.9 ??Range: 2.9-10.8 Na-replete, upright: ??Mean: 1.0 ??Range: < or =0.6-3.0 ADDITIONAL INFORMATION Testing performed by Liquid Chromatography-Tandem Mass Spectrometry (LC-MS/MS). This test was developed and its performance characteristics determined by [facility] in a manner consistent with CLIA requirements. This test has not been cleared or approved by the U.S. Food and Drug Administration. Test Performed by: [facility] - [address] [address] 10/04/2017 6:15 EDT 10/04/2017 6:19 EDT us Robert Ulrich MD CHEMISTRY & BLOOD GAS ORDERABLES Final Result [facility] * ALDOSTERONE, SERUM (10/04/2017 6:15 EDT) Aldosterone, S 4.9 <=21 ng/dL 10/06/2017 19:46 EDT [facility] Comment: ADDITIONAL INFORMATION Reference range for patients 11 years and older is based on upright A.M. collection from subjects without sodium restrictions. This test was developed and its performance characteristics determined by [facility] in a manner consistent with CLIA requirements. This test has not been cleared or approved by the U.S. Food and Drug Administration. Test Performed by: [facility] - [address] [address] 10/04/2017 6:15 EDT 10/04/2017 6:19 EDT us Robert Ulrich MD CHEMISTRY & BLOOD GAS ORDERABLES Final Result [facility] * TRANSTHORACIC ECHO (TTE) COMPLETE (10/04/2017 6:14 EDT) Anatomical Region Laterality Modality Ultrasound 10/04/2017 6:14 EDT Narrative 10/04/2017 6:14 EDT ?[facility] ?[address] [address] ? [id number] ? E C H O C A R D I O G R A M ? R E P O R T NAME: DEBI PATEL ? : 57 ? LOCATION: DSCU ? TELEPHONE: [phone] ?MR#: [id number] ? *[facility] [place]* *[facility]* [address] [place] [address] Date of study: 10/04/2017 Transthoracic Echocardiography M-mode, complete 2D, complete spectral Doppler, and color Doppler *STUDY CONCLUSIONS* Impressions: ??Severe LVH, preserved systolic LV function. Summary: 1. Left ventricle: The cavity size was at the lower limits of normal. ?? Wall thickness was increased in a pattern of severe LVH. Systolic ?? function was normal. Possible mild hypokinesis of the basalinferior ?? myocardium. 2. Right ventricle: The cavity size was normal. Wall thickness was ?? normal. Systolic function was normal. *PATIENT PRESENTATION* Height: ? 165.1cm ((65in) ) S/D Pressure: 145 / 75 Weight: ? 83.2kg ((183lb) ) BSA: ?1.98m S 2 Test start time: ??06:14 AM. Test stop time: ??07:26 AM. ORDERING ? Robert Ulrich REFERRING ?Robert Ulrich DIGITAL SOLUTION ARCHITECT ??Sue Gillis PERFORMING ?? [facility] [place]PROCEDURE DATA* Procedure information: ??The patient was identified by two identifiers. This study was interpreted by [facility]. Pertinent images and digital data are archived for permanent storage and are available for subsequent review. No prior study was available for comparison. ??Study status: Routine. Transthoracic echocardiography. ??M-mode, complete 2D, complete spectral Doppler, and color Doppler. A Transthoracic Echocardiogram was performed. Scanning was performed from the parasternal, apical, ?[facility] ?[facility] [address], [place] [address] ? [id number] ? E C H O C A R D I O G R A M ? R E P O R T NAME: DEBI PATEL ? : 57 ? [facility] ? TELEPHONE: [phone] ?MR#: [id number] ? subcostal, and suprasternal notch acoustic windows. Images were obtained using a [facility] IE33 1 cardiac ultrasound machine. Image quality was fair. Study completion: ??The patient tolerated the procedure well. *INDICATIONS AND HISTORY* Indications: ??DYSPNEA *CARDIAC ANATOMY* Left ventricle: ??The cavity size was at the lower limits of normal. Wall thickness was increased in a pattern of severe LVH. Systolic function was normal. The outflow tract was widely patent. ??Regional wall motion abnormalities: ?? Possible mild hypokinesis of the basalinferior myocardium. Aortic valve: ?? Trileaflet; mildly thickened leaflets. Mobility was not restricted. ??Doppler: ??Transvalvular velocity was within the normal range. There was no stenosis. There was no significant regurgitation. Aorta: ??Aortic root: The aortic root was normal in size. Ascending aorta: The ascending aorta was normal in size. Mitral valve: ?? Mildly thickened leaflets. Mobility was not restricted. Doppler: ??Transvalvular velocity was within the normal range. There was no evidence for stenosis. There was no significant regurgitation. Peak gradient (D): 4.2mm Hg. Left atrium: ??The atrium was at the upper limits of normal in size. Right ventricle: ??The cavity size was normal. Wall thickness was normal. Systolic function was normal. Pulmonic valve: ?? Poorly visualized. ??Doppler: ??Transvalvular velocity was within the normal range. There was no evidence for stenosis. There was no significant regurgitation. Tricuspid valve: ?? Structurally normal valve. ?Doppler: ??Transvalvular velocity was within the normal range. There was no evidence for stenosis. There was no significant regurgitation. Pulmonary artery: ?? Poorly visualized. ??Systolic pressure could not be accurately estimated. Right atrium: ??The atrium was normal in size. Pericardium: ??There was no pericardial effusion. Systemic veins: Inferior vena cava: The vessel was normal in size. The respirophasic diameter changes were in the normal range (greater than or equal to 50%), consistent with normal central venous pressure. Measurements Left ventricle ? Value ?Reference LV ID, ED, PLAX ?4.2 ?? cm ? 3.5 - 6.0 LV ID, ES, PLAX ?2.9 ?? cm ? 2.1 - 4.0 LV PW thickness, ED, PLAX ?1.6 ?? cm ?[facility] ?[address] [place], [place] [address] ? [id number] ? E C H O C A R D I O G R A M ? R E P O R T NAME: DEBI PATEL ? : 57 ? LOCATION: [facility] ? TELEPHONE: [phone] ?MR#: [id number] ? LV end-diastolic volume, 1-p A2C ? 51 ?ml ? LV end-diastolic volume, 1-p A4C ? 55 ?ml ? LV ejection fraction, 1-p A4C ?56 ?% ? LV e', medial ?0.1 ?? m/sec ?? LV E/e', medial ?10 ? Ventricular septum ? Value ?Reference IVS thickness, ED, PLAX ?1.7 ?? cm ? Aorta ?Value ?Reference Aortic root ID ? 3.1 ?? cm ? Ascending aorta ID, A-P ?3.0 ?? cm ? Ascending aorta ID, A-P, S ? 3.0 ?? cm ? Left atrium ?Value ?Reference LA ID, A-P, ES ? 3.2 ?? cm ? LA ID/bsa, A-P ? 1.6 ?? cm/m S 2 <=2.2 LA area, ES, A4C ? 19.8 ??cm S 2 ?? 8.8 - 23.4 LA area, ES, A2C ? 19 ?cm S 2 ?? LA volume, ES, 2-p ? 54 ?ml ? LA volume/bsa, ES, 2-p ? 27 ?ml/m S 2 LA/aortic root ratio ? 1.03 ? Mitral valve ? Value ?Reference Mitral E-wave peak velocity ?1.03 ??m/sec ?? Mitral deceleration time ? 208 ?? ms ? 150 - 230 Mitral peak gradient, D ?4.2 ?? mm Hg ?? Systemic veins ? Value ?Reference Estimated CVP ?10 ?mm Hg ?? Legend: (L) ??and ??(H) ??em values outside specified reference range. I have personally reviewed the images and have reviewed and edited the reported findings. Electronically signed by Mary Sylvester 10/04/2017 13:34 Procedure Note Mary Sylvester MD - 01/08/2019 [facility] [address] [place] [address] [phone] [id number] E C H O C A R D I O G R A M R E P O R T NAME: DEBI PATEL : 57LOCATION: [facility] TELEPHONE: [phone] MR#: [id number] *[facility] [place]* *[facility]* [address] [place] [address] Date of study: 10/04/2017 Transthoracic Echocardiography M-mode, complete 2D, complete spectral Doppler, and color Doppler *STUDY CONCLUSIONS* Impressions: Severe LVH, preserved systolic LV function. Summary: 1. Left ventricle: The cavity size was at the lower limits of normal. Wall thickness was increased in a pattern of severe LVH. Systolic function was normal. Possible mild hypokinesis of the basalinferior myocardium. 2. Right ventricle: The cavity size was normal. Wall thickness was normal. Systolic function was normal. *PATIENT PRESENTATION* Height: 165.1cm ((65in) ) S/D Pressure: 145 / 75 Weight: 83.2kg ((183lb) ) BSA: 1.98m S 2 Test start time: 06:14 AM. Test stop time: 07:26 AM. ORDERING Robert Ulrich REFERRING Robert Ulrich DIGITAL SOLUTION ARCHITECT Sue Gillis PERFORMING [employer] *PROCEDURE DATA* Procedure information: The patient was identified by two identifiers. This study was interpreted by [facility] [place] [facility]. Pertinent images and digital data are archived for permanent storage and are available for subsequent review. No prior study was available for comparison. Study status: Routine. Transthoracic echocardiography. M-mode, complete 2D, complete spectral Doppler, and color Doppler. A Transthoracic Echocardiogram was performed. Scanning was performed from the parasternal, apical, [facility] [address] [place], [place] [address] [id number] E C H O C A R D I O G R A M R E P O R T NAME: VARSHASANDYNGOZIDEBI Castaneda : 57LOCATION: [facility] TELEPHONE: [phone] MR#: [id number] subcostal, and suprasternal notch acoustic windows. Images were obtained using a [facility] IE33 1 cardiac ultrasound machine. Image quality was fair. Study completion: The patient tolerated the procedure well. *INDICATIONS AND HISTORY* Indications: DYSPNEA *CARDIAC ANATOMY* Left ventricle: The cavity size was at the lower limits of normal. Wall thickness was increased in a pattern of severe LVH. Systolic function was normal. The outflow tract was widely patent. Regional wall motion abnormalities: Possible mild hypokinesis of the basalinferior myocardium. Aortic valve: Trileaflet; mildly thickened leaflets. Mobility was not restricted. Doppler: Transvalvular velocity was within the normal range. There was no stenosis. There was no significant regurgitation. Aorta: Aortic root: The aortic root was normal in size. Ascending aorta: The ascending aorta was normal in size. Mitral valve: Mildly thickened leaflets. Mobility was not restricted. Doppler: Transvalvular velocity was within the normal range. There was no evidence for stenosis. There was no significant regurgitation. Peak gradient (D): 4.2mm Hg. Left atrium: The atrium was at the upper limits of normal in size. Right ventricle: The cavity size was normal. Wall thickness was normal. Systolic function was normal. Pulmonic valve: Poorly visualized. Doppler: Transvalvular velocity was within the normal range. There was no evidence for stenosis. There was no significant regurgitation. Tricuspid valve: Structurally normal valve. Doppler: Transvalvular velocity was within the normal range. There was no evidence for stenosis. There was no significant regurgitation. Pulmonary artery: Poorly visualized. Systolic pressure could not be accurately estimated. Right atrium: The atrium was normal in size. Pericardium: There was no pericardial effusion. Systemic veins: Inferior vena cava: The vessel was normal in size. The respirophasic diameter changes were in the normal range (greater than or equal to 50%), consistent with normal central venous pressure. Measurements Left ventricle Value Reference LV ID, ED, PLAX 4.2 cm 3.5 - 6.0 LV ID, ES, PLAX 2.9 cm 2.1 - 4.0 LV PW thickness, ED, PLAX 1.6 cm [facility] [address] [place] [id number] E C H O C A R D I O G R A M R E P O R T NAME: DEBI PATEL : 56[facility] TE[facility]PHONE: [phone] MR#: [id number] [facility]#:[id number] LV end-diastolic volume, 1-p A2C 51 ml LV end-diastolic volume, 1-p A4C 55 ml LV ejection fraction, 1-p A4C 56 % LV e', medial 0.1 m/sec LV E/e', medial 10 Ventricular septum Value Reference IVS thickness, ED, PLAX 1.7 cm Aorta Value Reference Aortic root ID 3.1 cm Ascending aorta ID, A-P 3.0 cm Ascending aorta ID, A-P, S 3.0 cm Left atrium Value Reference LA ID, A-P, ES 3.2 cm LA ID/bsa, A-P 1.6 cm/m S 2 <=2.2 LA area, ES, A4C 19.8 cm S 2 8.8 - 23.4 LA area, ES, A2C 19 cm S 2 LA volume, ES, 2-p 54 ml LA volume/bsa, ES, 2-p 27 ml/m S 2 LA/aortic root ratio 1.03 Mitral valve Value Reference Mitral E-wave peak velocity 1.03 m/sec Mitral deceleration time 208 ms 150 - 230 Mitral peak gradient, D 4.2 mm Hg Systemic veins Value Reference Estimated CVP 10 mm Hg Legend: (L) and (H) em values outside specified reference range. I have personally reviewed the images and have reviewed and edited the reported findings. Electronically signed by Mary Sylvester 10/04/2017 13:34 us Provider Unknown CARDIAC ECHO ORDERABLES Divine thompson Result * MISCELLANEOUS TEST, LAMAR (10/04/2017 6:00 EDT) [facility] MISCELLANEOUS TEST - [facility] SEE BELOW () 10/06/2017 19:46 EDT [facility] Comment: Test ? Result ?? Flag ??Unit ??RefValue Q Fever Ab, IgG and IgM, S ??Q Fever Phase I Ab, IgG ?<1:16 ?<1:16 ?Q Fever Phase II Ab, IgG ? <1:16 ?<1:16 ?Q Fever Phase I Ab, IgM ?<1:16 ?<1:16 ?Q Fever Phase II Ab, IgM ? <1:16 ?<1:16 ?Interpretation ? SEE BELOW Negative. No antibody detected. This result is seen in persons with either no previous C. burnetii infection or with early infection. If early acute Q-fever infection is suspected, obtain a second serum sample 2-3 weeks later and retest. Test Performed by: [facility] [place] [address] 10/04/2017 6:00 EDT 10/04/2017 11:17 EDT Narrative [facility] - 10/06/2017 19:46 EDT AOT: 10/04/17 1117: [facility] Q FEVER ANTIBODY IGG,IGM us Robert Ulrich MD CHEMISTRY & BLOOD GAS ORDERABLES Final Result [facility] * MISCELLANEOUS TEST, PRYOR (10/04/2017 6:00 EDT) [facility] MISCELLANEOUS TEST - [facility] SEE BELOW () 10/06/2017 7:43 EDT [facility] Comment: Test ? Result ?? Flag ??Unit ??RefValue Cryptococcus Ag Screen ? Negative ? Negative ??w/Titer, S A single negative result does not exclude the diagnosis of cryptococcosis. Repeat testing on a new sample if clinically indicated. Test Performed by: [facility] [address], [place] [address] 10/04/2017 6:00 EDT 10/04/2017 11:18 EDT Narrative [facility] - 10/06/2017 7:43 EDT AOT: 10/04/17 1118: [facility] CRYPTOCOCCUS AG SERUM Robert Ulrich MD CHEMISTRY & BLOOD GAS ORDERABLES Final Result Performing Organization Address [facility]/ZIP Co de Phone Number [facility] * (ABNORMAL) POCT GLUCOSE (10/04/2017 4:53 EDT) [facility] Glucose, POC 392(H) 70 - 100 mg/dL 10/04/2017 4:54 EDT [facility] 10/04/2017 4:53 EDT 10/04/2017 4:54 EDT Robert Ulrich MD POINT OF CARE TEST OR DERABLES Final Result Performing Organization Address [facility]/State/ZIP Co de Phone Number [facility] * LEGIONELLA ANTIGEN DETECTION, URINE (10/04/2017 4:20 EDT) [facility] Legionella Antigen Detection Negative Negative 10/05/2017 16:48 EDT [facility] Comment: Negative for L. pneumophila serogroup 1 antigen, suggesting no recent or current infection. Infection due to Legionella cannot be ruled out since other serogroups and species may cause disease, antigen may not be present in urine in early infection, and the level of antigen present in the urine may be below the detection limit of the test. Test Performed by: [facility] [address], [place] [address] 10/04/2017 4:20 EDT 10/04/2017 5:02 EDT us Robert Ulrich MD MICROBIOLOGY - GENERA L ORDERABLES Final Result [facility] * MISCELLANEOUS TEST, LAMAR (10/04/2017 4:20 EDT) [facility] MISCELLANEOUS TEST - [facility] SEE BELOW () 10/07/2017 14:59 EDT [facility] Comment: Test ?Result ? Flag ??Unit ?? RefValue Histoplasma Ag, U ??Histoplasma Ag Result ? Negative ?Negative No Histoplasma antigen detected. Repeat testing on a new sample if clinically indicated. This test was performed using the [employer] Histoplasma capsulatum galactomannan EIA. ??Histoplasma Ag Value ?0.00 ? ng/mL ? REFERENCE VALUE 0.00 - 0.10 = Negative 0.11 - 0.49 = Indeterminate >=0.50 = Positive ADDITIONAL INFORMATION This test was developed and its performance characteristics determined by [facility] in a manner consistent with CLIA requirements. This test has not been cleared or approved by the U.S. Food and Drug Administration. Test Performed by: [facility] [address] [place] [address] 10/04/2017 4:20 EDT 10/04/2017 11:11 EDT [facility] - 10/07/2017 14:59 EDT AOT: 10/04/17 1110: [facility] HISTOPLASMA URINE us Robert Ulrich MD CHEMISTRY & BLOOD GAS ORDERABLES Final Result [facility] * URINALYSIS/COMPLETE - [facility] (10/04/2017 4:20 EDT) URINE APPEARANCE - [facility] Clear CLEAR 10/04/2017 5:17 [facility] URINE AMORPH CRYSTAL - [facility] RARE 10/04/2017 5:21 [facility] URINE BACTERIA - [facility] NEG 10/04/2017 5:21 [facility] URINE BILIRUBIN - DIPSTICK - [facility] Negative NEGATIVE 10/04/2017 5:17 [facility] URINE BLOOD - [facility] Trace NEG 10/04/2017 5:17 [facility] URINE COLOR - [facility] Yellow YELLOW 10/04/2017 5:17 [facility] URINE GLUCOSE - DIPSTICK - [facility] 3+ NEGATIVE 10/04/2017 5:17 [facility] URINE KETONE - [facility] Negative NEGATIVE 10/04/2017 5:17 [facility] URINE LEUK ESTERASE - [facility] Negative NEG 10/04/2017 5:17 [facility] URINE NITRITE - DIPSTICK - [facility] Negative NEG 10/04/2017 5:17 [facility] URINE PH - [facility] 5.5 4.0 - 8.0 8 5:17 [facility] URINE PROTEIN - DIPSTICK - [facility] 1+ NEG 10/04/2017 5:17 EDT [facility] URINE RBC - [facility] RARE rbc/hpf 10/05/19 18 5:21 EDT [facility] URCULTIF+? - [facility] No Culture Indicated 10/04/2017 5:21 EDT [facility] Comment:CULTURE IS NOT INDIC ATED, BASED ON RESULTS OF THE URINALYSIS URINE SPECIFIC GRAVITY - [facility] <=1.005 1.001 - 1.035 10/04/2017 5:17 EDT [facility] URINE SQUAMOUS CELLS - [facility] NEG NEG #/hpf 10/04/2017 5:21 EDT [facility] URINE UROBILINOGEN - DIPSTICK - [facility] 0.2 0.2 - 1.0 10/04/2017 5:17 EDT [facility] URINE WBC - [facility] NEG NEG wbc/hpf 018 5:21 EDT [facility] 10/04/2017 4:20 EDT 10/04/2017 5:02 EDT Narrative [facility] - 10/04/2017 5:21 EDT AOT: 10/04/17 1110: [facility] HISTOPLASMA URINE us Robert Ulrich MD CHEMISTRY & BLOOD GAS ORDERABLES Final Result [facility] * CT ANGIO CHEST PE PROTOCOL (10/04/2017 4:12 EDT) Anatomical Region Laterality Modality Chest Other 10/04/2017 4:12 EDT Narrative 10/04/2017 4:12 EDT ? EXAM: CAT SCAN/CTA CHEST PE PROTOCOL ?EX. D/ (0358) ? CLINICAL INFORMATION: ? severe acute hypox resp failure, hx asthma, elev D-dimer ? EXAM: ? CT Angiography Chest With Intravenous Contrast ? EXAM DATE/TIME: ? Exam ordered ??10/04/2017 3:40 AM ? CLINICAL HISTORY: ? 62 years old, ??female; Signs and symptoms; Dyspnea and ? shortness of breath; Additional info: Severe acute hypox resp ? failure, HX asthma, elev d-dimer, eval for pna, edema, effusion, ? pe ? TECHNIQUE: ? Axial computed tomographic angiography images of the chest ? with intravenous contrast using pulmonary embolism protocol. ? All CT scans at this facility use at least one of these dose ? optimization techniques: automated exposure control; mA and/or ? kV adjustment per patient size (includes targeted exams where ? dose is matched to clinical indication); or iterative ? reconstruction. ? MIP reconstructed images were created and reviewed. ? CONTRAST: ? 100 mL of OMNI 350 administered intravenously. ? COMPARISON: ? CR - CHEST (PA ?? LAT) 2017-10-04 01:50 ? FINDINGS: ? Pulmonary arteries: ??Unremarkable. ??No pulmonary embolism. ? Aorta: ??Minimal atherosclerotic disease. No aneurysm. ? Lungs: ??There are multifocal regions of groundglass opacity ? throughout the lungs becoming more confluent at the bases. ? Findings suggest pulmonary edema although multifocal pneumonia ? could appear this way as well. ? Pleural space: ??Trace pleural effusions. ??No pneumothorax. ? Heart: ??Unremarkable. ??No cardiomegaly. ??No significant ? pericardial effusion. ? Bones/joints: ??Degenerative changes of the spine. ? Soft tissues: ??Unremarkable. ? Lymph nodes: ??Unremarkable. ??No enlarged lymph nodes. ? IMPRESSION: ? Multifocal airspace disease, more confluent at the lung bases. ? PAGE 1 ? Signed Report ? (CONTINUED) ? Findings may represent edema or multifocal infiltrates. ? No pulmonary emboli, aneurysm or dissection. ? REPORT SIGNED IN OTHER VENDOR SYSTEM 10/04/2017 ?Reported By: Lara Brunner MD ? CC: ? Transcribed Date/Time: 10/04/2017 (0412) ? Academic Affairs Coordinator: .VRAD ? Printed Date/Time: 09/09/2018 (1732) ? PAGE 2 ? Signed Report ? Procedure Note Lara Brunner E - 01/26/2019 EXAM: CAT SCAN/CTA CHEST PE PROTOCOL EX. D/ (0358) CLINICAL INFORMATION: severe acute hypox resp failure, hx asthma, elev D-dimer EXAM: CT Angiography Chest With Intravenous Contrast EXAM DATE/TIME: Exam ordered 10/04/2017 3:40 AM CLINICAL HISTORY: 62 years old, female; Signs and symptoms; Dyspnea and shortness of breath; Additional info: Severe acute hypox resp failure, HX asthma, elev d-dimer, eval for pna, edema, effusion, pe TECHNIQUE: Axial computed tomographic angiography images of the chest with intravenous contrast using pulmonary embolism protocol. All CT scans at this facility use at least one of these dose optimization techniques: automated exposure control; mA and/or kV adjustment per patient size (includes targeted exams where dose is matched to clinical indication); or iterative reconstruction. MIP reconstructed images were created and reviewed. CONTRAST: 100 mL of OMNI 350 administered intravenously. COMPARISON: CR - CHEST (PA LAT) 2017-10-04 01:50 FINDINGS: Pulmonary arteries: Unremarkable. No pulmonary embolism. Aorta: Minimal atherosclerotic disease. No aneurysm. Lungs: There are multifocal regions of groundglass opacity throughout the lungs becoming more confluent at the bases. Findings suggest pulmonary edema although multifocal pneumonia could appear this way as well. Pleural space: Trace pleural effusions. No pneumothorax. Heart: Unremarkable. No cardiomegaly. No significant pericardial effusion. Bones/joints: Degenerative changes of the spine. Soft tissues: Unremarkable. Lymph nodes: Unremarkable. No enlarged lymph nodes. IMPRESSION: Multifocal airspace disease, more confluent at the lung bases. PAGE 1 Signed Report (CONTINUED) Findings may represent edema or multifocal infiltrates. No pulmonary emboli, aneurysm or dissection. REPORT SIGNED IN OTHER VENDOR SYSTEM 10/04/2017 Reported By: Lara Brunner MD CC: Transcribed Date/Time: 10/04/2017 (0412) Academic Affairs Coordinator: Printed Date/Time: 09/09/2018 (7649) PAGE 2 Signed Report us Robert Ulrich MD IMG CT ORDERABLES Fin al Result * XR CHEST 1 VIEW (10/04/2017 3:09 EDT) Anatomical Region Laterality Modality Other 10/04/2017 3:09 EDT Narrative 10/04/2017 3:10 EDT ? EXAM: RADIOLOGY/CHEST-PORTABLE ?EX. D/ (0207) ? CLINICAL INFORMATION: ? DYSPNEA ? EXAM: ? XR Chest, 1 View ? EXAM DATE/TIME: ? Exam ordered ??10/04/2017 1:51 AM ? CLINICAL HISTORY: ? 62 years old, ??female; Signs and symptoms; Shortness of ? breath; Additional info: Dyspnea ? TECHNIQUE: ? Frontal view of the chest. ? COMPARISON: ? No relevant prior studies available. ? FINDINGS: ? Lungs: ??See below. ? Pleural space: ??Unremarkable. ??No pneumothorax. ? Heart: ??Unremarkable. ??No cardiomegaly. ? Mediastinum: ??Unremarkable. ? Bones/joints: ??Degenerative changes throughout the spine. ? Vasculature: ??Mild pulmonary venous congestion and mild patchy ? airspace opacities in the lower lungssuspicious for pulmonary ? edema. ? IMPRESSION: ? Mild pulmonary venous congestion and patchy airspace disease in ? the lower lung suspicious for pulmonary edema. Cannot exclude ? superimposed infection. ? REPORT SIGNED IN OTHER VENDOR SYSTEM 10/04/2017 ?Reported By: Lara Brunner MD ? CC: Ander Landeros MD ? Transcribed Date/Time: 10/04/2017 (0310) ? Academic Affairs Coordinator: ? Printed Date/Time: 09/09/2018 (1733) ? PAGE 1 ? Signed Report ? Procedure Note Lara Brunner E - 01/26/2019 EXAM: RADIOLOGY/CHEST-PORTABLE EX. D/ (0207) CLINICAL INFORMATION: DYSPNEA EXAM: XR Chest, 1 View EXAM DATE/TIME: Exam ordered 10/04/2017 1:51 AM CLINICAL HISTORY: 62 years old, female; Signs and symptoms; Shortness of breath; Additional info: Dyspnea TECHNIQUE: Frontal view of the chest. COMPARISON: No relevant prior studies available. FINDINGS: Lungs: See below. Pleural space: Unremarkable. No pneumothorax. Heart: Unremarkable. No cardiomegaly. Mediastinum: Unremarkable. Bones/joints: Degenerative changes throughout the spine. Vasculature: Mild pulmonary venous congestion and mild patchy airspace opacities in the lower lungssuspicious for pulmonary edema. IMPRESSION: Mild pulmonary venous congestion and patchy airspace disease in the lower lung suspicious for pulmonary edema. Cannot exclude superimposed infection. REPORT SIGNED IN OTHER VENDOR SYSTEM 10/04/2017 Reported By: Lara Brunner MD CC: Ander Landeros MD Transcribed Date/Time: 10/04/2017 (0310) Academic Affairs Coordinator: Printed Date/Time: 09/09/2018 (2286) PAGE 1 Signed Report Ander Landeros MD IMG DIAGNOSTIC IMAGING O RDERABLES Final Result * (ABNORMAL) ASHISH BLOOD GASES W/CHEMISTRIES - [facility] (10/04/2017 2:40 EDT) Carboxyhemoglobin 3.6 % 018 2:54 [facility] Comment: NORMAL NON SMOKER 0-1.5 % SMOKER 1.5 % OR GREATER Ionized Calcium 1.06(L) 1.11 - 1.32 mmol/L 10/04/2017 2:54 [facility] Oxygen Therapy (FIO2) 90.0 2:54 [facility] O2 DELIVERY DEVICE - [facility] High Flow NC 10/04/2017 2:54 [facility] Comment:High Flow Cannula Fi O2 90% O2 Saturation 47.9(L) 95 - 98 % 10/04/2017 2:54 [facility] SITE - [facility] PL 10/04/2017 2:54 [facility] VENOUS BLOOD - [facility] VENOUS 10/04 2:54 [facility] Base Level -1.1 -3 - 3 meq/L 10/04/2017 2:54 [facility] HN LAB ANION GAP, VENOUS 11 5 - 15 10/04/2017 2:54 [facility] tCO2, Venous 26.5 24 - 29 mmol/L 10/04/2017 2:54 EDT [facility] HN LAB CHLORIDE, VENOUS 98 98 - 109 mmol/L 10/04/2017 2:54 EDT [facility] HN LAB POTASSIUM, VENOUS 4.5 3.5 - 4.9 mmol/L 10/04/2017 2:54 EDT [facility] HN LAB SODIUM, VENOUS 135(L) 138 - 146 mmol/L 10/04/2017 2:54 EDT [facility] hCO3, Cord Blood Venous 25.0 23 - 28 mmol/L 10/04/2017 2:54 EDT [facility] pCO2, Venous 46.6 41 - 51 mm Hg 10/04/2017 2:54 EDT [facility] pH, Venous 7.35 7.31 - 7.41 10/04/2017 2:54 EDT [facility] pO2, Venous <45.6(H) 25 - 40 mm Hg 10/04/2017 2:54 EDT [facility] 10/04/2017 2:40 EDT 10/04/2017 2:51 EDT us Yuri Chao MD CHEMISTRY & BLOOD GAS ORDER ARTHUR Final Result Performing Organization Address City/[facility]/ZIP Co de Phone Number [facility] * (ABNORMAL) THYROID CASCADE (10/04/2017 1:50 EDT) TSH 4.79(H) 0.46 - 4.68 uIU/mL 10/04/2017 4:47 EDT [facility] 10/04/2017 1:50 EDT 10/04/2017 4:04 EDT us Ander Landeros MD CHEMISTRY & BLOOD GAS OR DERABLES Final Result [facility] * T4 FREE (10/04/2017 1:50 EDT) FREE T4 - [facility] 1.38 0.78 - 2.19 ng/dl 10/04/2017 5:39 EDT [facility] 10/04/2017 1:50 EDT 10/04/2017 4:04 EDT Ander Landeros MD CHEMISTRY & BLOOD GAS OR DERABLES Final Result Performing Organization Address City/[facility]/ZIP Co de Phone Number [facility] * (ABNORMAL) D-DIMER (10/04/2017 1:50 EDT) D-Dimer 0.94(HH) mg/L FEU 10/04/2017 2:56 EDT [facility] Comment: <0.5 mg/L = Negative DVT/PE Negative Predictive Value Cutoff*: <0.50 mg/L (FEU) *Intended for use in conjunction with a non-high pre-test probability (PTP) assessment to aid in exclusion of DVT/PE. Reference Range for Normal Health Subjects; <0.59 mg/L (FEU) 10/04/2017 1:50 EDT 10/04/2017 2:40 EDT Ander Landeros MD HEMATOLOGY & PF4 ORDERAB LES Final Result Performing Organization Address [facility] Co de Phone Number [facility] * MAGNESIUM (10/04/2017 1:08 EDT) Magnesium 1.80 1.7 - 2.8 mg/dL 10/04/2017 2:16 EDT [facility] 10/04/2017 1:08 EDT 10/04/2017 1:56 EDT Ander Landeros MD CHEMISTRY & BLOOD GAS OR DERABLES Final Result Performing Organization Address [facility]/ZIP Co de Phone Number [facility] * (ABNORMAL) C REACTIVE PROTEIN (10/04/2017 1:08 EDT) C-Reactive Protein 19.3(H) <10.0 mg/L 10/04/2017 4:25 [facility] 10/04/2017 1:08 EDT 10/04/2017 1:56 EDT us Ander Landeros MD CHEMISTRY & BLOOD GAS OR DERABLES Final Result [facility] * (ABNORMAL) COMPREHENSIVE METABOLIC PANEL (CMP) (10/04/2017 1:08 EDT) Albumin % 4.3 3.4 - 4.9 g/dL 10/04/2017 2:16 [facility] ALKALINE PHOSPHATASE - [facility] 103 38 - 126 U/L 10/04/2017 2:16 [facility] BILIRUBIN TOTAL 0.4 0.2 - 1.3 mg/dL 10/04/2017 2:16 [facility] BUN - [facility] 12 10 - 26 mg/dL 10/04/2017 2:16 [facility] CALCIUM - [facility] 9.6 8.5 - 10.5 mg/dL 10/04/2017 2:16 [facility] Chloride 100 96 - 110 mmol/L 10/04/2017 2:33 [facility] CO2 Total 20(L) 22 - 32 mEq/L 10/04/2017 2:33 [facility] CREATININE 0.63 0.52 - 1.04 mg/dL 10/04/2017 2:16 [facility] eGFR >60 10/04/2017 2:16 [facility] Comment: Chronic renal impairment is defined as GFR <60 Multiply result by 1.210 for patients. eGFR calculated using the IDMS-traceable MDRD Study Equation. ??(effective 01/22/2014) Anion Gap 20(H) 0 - 18 10/04/2017 2:34 [facility] GLUCOSE - [facility] 526(HH) 70 - 100 mg/dL 10/04/2017 2:35 [facility] Comment: Result called to GORDON LAWLER IN ER 10/04/17 0235 Result called by Potassium 3.5 3.5 - 5.0 mEq/L 10/04/2017 2:16 EDT [facility] Sodium 140 136 - 145 mEq/L 10/04/2017 2:33 EDT [facility] TOTAL PROTEIN - [facility] 7.7 6.2 - 8.2 gm/dL 10/04/2017 2:16 EDT [facility] SGOT/AST - [facility] 101(H) 14 - 36 U/L 10/04/2017 2:16 EDT [facility] SGPT/ALT - [facility] 93(H) 9 - 52 U/L 8 2:16 EDT [facility] 10/04/2017 1:08 EDT 10/04/2017 1:56 EDT us Ander Landeros MD CHEMISTRY & BLOOD GAS OR DERABLES Final Result Performing Organization Address [facility] Co de Phone Number [facility] * (ABNORMAL) NT PRO BNP (10/04/2017 1:08 EDT) NT-pro BNP 505(H) <300 pg/mL 10/04/2017 2:16 EDT [facility] Comment: NT-proBNP values less than 300 pg/ml have a 99% negative predictive value for excluding acute congestive heart failure. A diagnostic NT-proBNP cutoff of 900 pg/ml has been suggested in adults over 50 years of age in the absence of renal failure. A cutoff of 1200 pg/ml for patients with eGFR <60 yields a diagnostic sensitivity and specificity of 89% and 72% for acute congestive failure. (OCD Paco Jeronimo, PhD, The International Collaborative of NT-proBNP (ICON) Study 10/04/2017 1:08 EDT 10/04/2017 1:56 EDT us Ander Landeros MD CHEMISTRY & BLOOD GAS OR DERABLES Final Result Performing Organization Address City/[facility]/ZIP Co de Phone Number [facility] * TROPONIN I (10/04/2017 1:08 EDT) [facility] Troponin I (ng/mL) <0.012 0.000 - 0.034 ng/mL 10/04/2017 2:19 EDT [facility] Comment: Interpretation comments: ??Cutoff for a positive troponin result is set at the 99th percentile of the upper reference limit. ??Elevated troponin must always be interpreted in the context of the clinical presentation. ?Serial troponin testing 3-6 hr from baseline is favored over relying on a single troponin level. 10/04/2017 1:08 EDT 10/04/2017 1:56 EDT us Yuri Chao MD CHEMISTRY & BLOOD GAS ORDER ARTHUR Final Result [facility] * (ABNORMAL) COMPLETE BLOOD COUNT WITH DIFFERENTIAL (AUTO) (10/04/2017 1:08 EDT) [facility] ABSOLUTE NEUTROPHIL COUN - [facility] 5.15 1.7 - 7.0 10e3/ul 10/04/2017 2:03 [facility] BASO # - [facility] 0.05 0.0 - 0.3 10e3/uL 10/04/2017 2:03 [facility] BASO % - [facility] 0 0 - 2 % 10/04/2017 2:03 [facility] EOS # - [facility] 0.41 0.05 - 0.5 10e3/uL 10/04/2017 2:03 [facility] EOS % - [facility] 3 0 - 5 % 10/04/2017 2:03 [facility] GRAN % - [facility] 42 40 - 80 % 10/04/2017 2:03 [facility] HEMATOCRIT - [facility] 51.5(H) 34.0 - 47.0 % 10/04/2017 2:03 [facility] HEMOGLOBIN - [facility] 17.0(H) 11.2 - 15.7 g/dl 10/04/2017 2:03 [facility] IG# - [facility] 0.10(H) 0 - 0.07 10e3/uL 10/04/2017 2:03 EDT [facility] IG% - [facility] 0.8 0 - 0.9 % 10/04/2017 2:03 [facility] LYMPH # - [facility] 6.08(H) 0.9 - 2.9 10e3/uL 10/04[facility]2017 [facility] 49(H) 20 - 40 % 10/04/2017 2:03 [facility] MEAN CORPUSCULAR HGB - [facility] 28.6 26 - 34 pg 10/04/2017 2:03 [facility] MEAN CORPUSCULAR HGB CONC - [facility] 33.0 31 - 36 g/dL 10/04/2017 2:03 [facility] MEAN CELL VOLUME - [facility] 86.6 77 - 100 fl 10/04/2017 2:03 [facility] MONO # - [facility] 0.61 0.3 - 0.9 10e3/uL 10/04/2017 2:03 [facility] MONO% - [facility] 5 0 - 12 % 10/04/2017 2:03 [facility] PLATELET COUNT 330 150 - 400 10e3/ul 10/04/2017 2:03 [facility] RED BLOOD COUNT - [facility] 5.95(H) 3.8 - 5.2 10e6/ul 10/04/2017 2:03 [facility] RED CELL DISTRI WIDTH - [facility] 13.6 11.8 - 15.6 % 10/04/2017 2:03 [facility] WHITE BLOOD COUNT - [facility] 12.4(H) 3.5 - 10.5 10e3/ul 10/04/2017 2:03 [facility] 10/04/2017 1:08 EDT 10/04/2017 1:57 EDT us Ander Landeros MD HEMATOLOGY & PF4 ORDERAB LES Final Result [facility] documented in this encounter Visit Diagnoses Not on filedocumented in this encounter Care Teams Water Vessel Captain Relationship Specialty Start Date End Date Kaylah Raymundo FNP [address] [place], [place] [address] PCP - General 09/12/13 documented as of this encounter
--- OUTSIDE RECORDS SUMMARY | 2024-04-08 12:34 | XMS_ITS | Clinical Summary ---
Author Organization [facility] Address [address] [place] [address] Care Team Providers Care Sanitarian Inspector Name Role Phone Kaylah Raymundo PETER Primary Care Provider [phone] Allergies No known active allergies Medications chlorthalidone (HYGROTON) 25 mg tablet Take 25 mg by mouth daily. Active amLODIPine (NORVASC) 10 mg tablet Take 10 mg by mouth daily. Active Active Problems No known active problems Surgical History Surgery Date Site/Laterality Comments CATARACT REMOVAL WITH IMPLANT 11-29-2013 Left CATARACT REMOVAL WITH IMPLANT 02-28-2014 Right Medical History Medical History Date Comments Hypertension Family History Medical History Relation Comments Macular Degeneration Mother Diabetes Neg Hx Glaucoma Neg Hx Relation Status Comments Mother Social History Tobacco Use Types Packs/Day Years [...] file Not on file Not on file Obstetrics History Plan of Treatment Health Maintenance Due Date Last Done Comments Hepatitis C Screen 1955 Fall Risk Screening 2021 COVID-19 Vaccine (2023- season) 2023 RSV Immunization ( o r 60+ Years) (1 - 1-dose 75+ series) 06/13/2031 [place] Care Teams Sanitarian Inspector Relationship Specialty Start Date End Date Kaylah Raymundo FNP [address] [place] [address] PCP - General 09/12/13
--- OUTSIDE RECORDS SUMMARY | 2024-04-08 12:34 | XMS_ITS | Encounter Summary ---
Author Organization [facility] Address [address] [place] [address] Care Team Providers Care Bat Carrier Name Role Phone Kaylah Raymundo PETER Primary Care Provider [phone] Encounter Details Date Type Department Care Team (Late st Contact Info) Description 10/19/2014 Historical Results Only [facility] Radiology Results [address] [place], [place] [id number] Rani Lyons MD Social History Tobacco Use Types Packs/Day Years [...] shopping? Answer Date of Assessment Author No 09/10/2014 10:58 EDT documented as of this encounter Mental Status * Because of a physical, mental, or emotional condition, does this person have serious difficulty concentrating, remembering, or making decisions? Answer Entry Date Author No 09/10/2014 10:58 EDT documented in this encounter Plan of Treatment Not on file documented as of this encounter Procedures Procedure Name Priority Date/Time Associated Diagnosis Comments XR FOOT LEFT 3 OR MORE VIEWS 10/19/2014 16:44 EDT documented in this encounter Results * XR FOOT LEFT 3 OR MORE VIEWS (10/19/2014 16:44 EDT) Anatomical Region Laterality Modality Lower Extremities Left Other 10/19/2014 16:4 4 EDT Narrative 10/19/2014 16:55 EDT ? EXAM: RADIOLOGY/FOOT-LEFT-3+VIEW ?EX. D/ (1537) ? CLINICAL INFORMATION: ? LEFT LEG PAIN ? FOOT-LEFT-3+VIEW ? Signs and Symptoms/Comments: Left foot pain; left leg pain ? Comparison: None. ? Findings: ? 3 views of the Left foot were obtained. ? Small corticated fragment is seen adjacent to the base of the fibular ? sesamoid. This is likely developmental or related to remote trauma. ? The joint spaces are essentially preserved. ? Note is made of a small os peroneus. A corticated bony fragment is ? seen adjacent to the anterior aspect of the talus is also likely ? developmental or sequelae of old trauma. ? There is exuberant spurring of the posterior process of the calcaneus ? at the insertion of Achilles tendon. The overlying soft tissues are ? swollen which may indicate the presence of retrocalcaneal bursitis. ? There is also spurring of the calcaneus at the origin of the plantar ? aponeurosis. ? Impression: ? 1. ??Findings in the foot at the level of the posterior aspect of the ? 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 evaluation, particularly if this is the location of the patient's ? pain. ? 2. ??Joint spaces are preserved. No fracture is identified. ? REPORT SIGNED IN OTHER VENDOR SYSTEM 10/19/2014 ?Reported By: Chevy Cuellar MD ? CC: ? Transcribed Date/Time: 10/19/2014 (1655) ? [employer] Ch[employer] Director: HIS.POWSCR ? Printed Date/Time: 08/30/2018 (0001) ? PAGE 1 ? Signed Report ? Procedure Note Chevy Cuellar MD - 01/24/2019 EXAM: RADIOLOGY/FOOT-LEFT-3+VIEW EX. D/ (1537) CLINICAL INFORMATION: LEFT LEG PAIN FOOT-LEFT-3+VIEW Signs and Symptoms/Comments: Left foot pain; left leg pain Comparison: None. Findings: 3 views of the Left foot were obtained. Small corticated fragment is seen adjacent to the base of thefibular sesamoid. This is likely developmental or related to remote trauma. The joint spaces are essentially preserved. Note is made of a small os peroneus. A corticated bony fragment is seen adjacent to the anterior aspect of the talus is also likely developmental or sequelae of old trauma. There is exuberant spurring of the posterior process of thecalcaneus at the insertion of Achilles tendon. The overlying soft tissues are swollen which may indicate the presence of retrocalcaneal bursitis. There is also spurring of the calcaneus at the origin of theplantar aponeurosis. Impression: 1. 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 2. Joint spaces are preserved. No fracture is identified. REPORT SIGNED IN OTHER VENDOR SYSTEM 10/19/2014 Reported By: Chevy Cuellar MD CC: Transcribed Date/Time: 10/19/2014 (3936) [facility] Director: Printed Date/Time: 08/30/2018 (0001) PAGE 1 Signed Report us Rani Lyons MD IMG DIAGNOSTIC IMAGING ORDERABLE S Final Result documented in this encounter Visit Diagnoses Not on filedocumented in this encounter Care Teams Bat Carrier Relationship Specialty Start Date End Date Kaylah Raymundo FNP [address] [place] [address] PCP - General 09/12/13 documented as of this encounter
--- OUTSIDE RECORDS SUMMARY | 2024-04-08 12:34 | XMS_ITS | Encounter Summary ---
Author Organization [facility] Address [address] [place] [address] Care Team Providers Care Marketing Project Coordinator Name Role Phone Kaylah Raymundo PETER Primary Care Provider [phone] Reason for Visit * Reason Comments Post-OP Follow Up POW #1 s/p CE/PCIOL, right eye Encounter Details Date Type Department Care Team (Late st Contact Info) Description 03/08/2014 8:45 EST Office Visit [facility] [address] [place], [place] [address] Carter Martinez MD [address] [place] [phone] Social History Tobacco Use Types Packs/Day Years [...] Progress Notes * Carter Martinez MD - 03/08/2014 0904 EST Chief Complaint: Pseudophakia, Cataract Post-Op Week 1, right eye, HPI The patient is a 58 y.o. female, POW #1 s/p CE/PCIOL, right eye. Patient denies eye pain and has used drops as instructed. Location: Pain: 0 - No pain Quality: Severity: Duration: Timing: Lasts: Context: Doing well, using drops as directed. Modifying factors: Associated Signs & Symptoms: Visual Fluctuations: None Attestation: Base Eye Exam Visual Acuity Right Left Dist sc 20/25 20/40 Method: Snellen - Linear Tonometry Right Left Pressure 16 Method: Applanation Time: 9:09 Neuro/Psych Oriented x3: Yes Mood/Affect: Normal Slit Lamp and Fundus Exam Slit Lamp Exam Right Left Lids/Lashes Normal Normal Conjunctiva/Sclera White and quiet White and quiet Cornea Incisions sealed, trace SPK Clear Anterior Chamber deep, Cell: Rare Deep and quiet Iris Round and reactive Round and reactive Lens Posterior chamber intraocular lens Posterior chamber intraocular lens Fundus Exam Right Left Vitreous Clear view to posterior pole IMPRESSION & PLAN: POW #1 s/p CE/PCIOL, right eye (03/01/14) -patient is doing well -D/C Vigamox -Continue ketorolac QID until bottle runs out -Taper PF TID X 1 week, BID X 1 week (according to drop schedule given) -Warnings and precautions discussed -return in 3 weeks for dilated right eye post-op & refraction of both eyes I have reviewed the patient's past medical, [...] other means- Primary documented in this encounter Eye Exam Visual Acuity (Snellen - Linear) Right eye Left eye Dist sc 20/25 20/40 Tonometry (Applanation, 9:09) Right eye Left eye Pressure 16 Neuro/Psych Oriented x3: Yes Mood/Affect: Normal Slit Lamp Exam Right eye Left eye Lids/Lashes Normal Normal Conjunctiva/Sclera White and quiet White and gene et Cornea Incisions sealed, trace SPK Swathi r Anterior Chamber deep, Cell: Rare Deep and quiet Iris Round and reactive Round and parker ctive Lens Posterior chamber in traocular lens Posterior chamber intraocular lens Vitreous Clear view to posterior pole Care Teams Marketing Project Coordinator Relationship Specialty Start Date End Date Kaylah Raymundo FNP [address] [place] [address] PCP - General 09/12/13 documented as of this encounter
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
--- OUTSIDE RECORDS SUMMARY | 2024-04-08 12:34 | XMS_ITS | Encounter Summary ---
Author Organization [facility] Address [address] [place] [address] Care Team Providers Care Grocery Deliverer Name Role Phone Kaylah Raymundo PETER Primary Care Provider [phone] Encounter Details Date Type Department Care Team (Late st Contact Info) Description 10/06/2017 Historical Results Only [facility] - Main [address] [id number] Jules Mancnii MD [address] [place] [address] Social History Tobacco Use Types Packs/Day Years [...] Associated Diagnosis Comments POCT GLUCOSE, INTERFACED Routine 10/06/2017 12:06 EDT POCT GLUCOSE, INTERFACED Routine 10/06/2017 7:53 EDT CALCIUM, CORRECTED Routine 10/06/2017 6: 55 EDT COMPLETE BLOOD COUNT WITH DIFFERENTIAL (AUTO) Routine 10/06/2017 6:55 EDT MAGNESIUM Routine 10/06/2017 6:55 EDT BASIC METABOLIC PANEL (BMP) Routine 10/06/2017 6:55 EDT documented in this encounter Results * (ABNORMAL) POCT GLUCOSE (10/06/2017 12:06 EDT) Glucose, POC 144(H) 70 - 100 mg/dL 10/06/2017 12:13 EDT [facility] 10/06/2017 12:0 6 EDT 10/06/2017 12:13 EDT Jules Mancini MD POINT OF CARE TEST ORDERABL ES Final Result Performing Organization Address [facility]/ZIP Co de Phone Number [facility] * (ABNORMAL) POCT GLUCOSE (10/06/2017 7:53 EDT) Glucose, POC 131(H) 70 - 100 mg/dL 10/06/2017 8:08 EDT [facility] 10/06/2017 7:53 EDT 10/06/2017 8:08 EDT Jules Mancini MD POINT OF CARE TEST ORDERABL ES Final Result Performing Organization Address [facility]/State/ZIP Co de Phone Number [facility] * MAGNESIUM (10/06/2017 6:55 EDT) Magnesium 1.70 1.7 - 2.8 mg/dL 10/06/2017 7:58 EDT [facility] 10/06/2017 6:55 EDT 10/06/2017 7:04 EDT us Jules Mancini MD CHEMISTRY & BLOOD GAS ORDER ARTHUR Final Result [facility] * CALCIUM, CORRECTED - CV (10/06/2017 6:55 EDT) Albumin % 3.4 3.4 - 4.9 g/dL [facility]2017 [facility] - [facility] 9.78 8.5 - 10.6 mg/dL 10/06/2017 7:58 [facility] 10/06/2017 6:55 EDT 10/06/2017 7:04 EDT Jules Mancini MD CHEMISTRY & BLOOD GAS ORDER ARTHUR Final Result Performing Organization Address [facility]/ZIP Co de Phone Number [facility] * (ABNORMAL) BASIC METABOLIC PANEL (BMP) (10/06/2017 6:55 EDT) BUN - [facility] 21 10 - 26 mg/dL 10/06/2017 7:58 [facility] CALCIUM - [facility] 9.3 8.5 - 10.5 mg/dL 10/06/2017 7:58 [facility] Chloride 99 96 - 110 mmol/L 10/06/2017 7:58 [facility] CO2 Total 30 22 - 32 mEq/L 10/06/2017 7:58 [facility] CREATININE 0.66 0.52 - 1.04 mg/dL 10/06/2017 7:58 [facility] eGFR >60 10/06/2017 7:58 [facility] Comment: Chronic renal impairment is defined as GFR <60 Multiply result by 1.210 for patients. eGFR calculated using the IDMS-traceable MDRD Study Equation. ??(effective 01/22/2014) Anion Gap 10 0 - 18 10/06/2017 7:58 [facility] GLUCOSE - [facility] 135(H) 70 - 100 mg/dL 10/06/2017 7:58 EDT [facility] Potassium 3.4(L) 3.5 - 5.0 mEq/L 10/06/2017 7:58 EDT [facility] Sodium 139 136 - 145 mEq/L 10/06/2017 7:58 EDT [facility] 10/06/2017 6:55 EDT 10/06/2017 7:04 EDT us Jules Mancini MD CHEMISTRY & BLOOD GAS ORDER ARTHUR Final Result [facility] * (ABNORMAL) COMPLETE BLOOD COUNT WITH DIFFERENTIAL (AUTO) (10/06/2017 6:55 EDT) ABSOLUTE NEUTROPHIL COUN - [facility] 9.24(H) 1.7 - 7.0 10e3/ul 10/06/2017 7:33 [facility] BASO # - [facility] 0.03 0.0 - 0.3 10e3/uL 10/06/2017 7:33 [facility] BASO % - [facility] 0 0 - 2 % 10/06/2017 7:33 [facility] EOS # - [facility] 0.14 0.05 - 0.5 10e3/uL 10/06/2017 7:33 [facility] EOS % - [facility] 1 0 - 5 % 10/06/2017 7:33 T [facility] GRAN % - [facility] 49 40 - 80 % 10/06/2017 7:33 [facility] HEMATOCRIT - [facility] 46.2 34.0 - 47.0 % 10/06/2017 7:33 [facility] HEMOGLOBIN - [facility] 15.3 11.2 - 15.7 g/dl 10/06/2017 7:33 [facility] IG# - [facility] 0.08(H) 0 - 0.07 10e3/uL 10/06/2017 7:33 [facility] IG% - [facility] 0.4 0 - 0.9 % 10/06/2017 7:33 [facility] LYMPH # - [facility] 8.44(H) 0.9 - 2.9 10e3/uL 10/06/2017 7:33 [facility] LYMPH% - [facility] 45(H) 20 - 40 % 10/06/2017 7:33 [facility] MEAN CORPUSCULAR HGB - [facility] 28.1 26 - 34 pg 10/06/2017 7:33 [facility] MEAN CORPUSCULAR HGB CONC - [facility] 33.1 31 - 36 g/dL 10/06/2017 7:33 [facility] MEAN CELL VOLUME - [facility] 84.9 77 - 100 fl 10/06/2017 7:33 [facility] MONO # - [facility] 1.00(H) 0.3 - 0.9 10e3/uL 10/06/2017 7:33 [facility] MONO% - [facility] 5 0 - 12 % 10/06/2017 7:33 [facility] PLATELET COUNT 275 150 - 400 10e3/ul 10/06/2017 7:33 [facility] RED BLOOD COUNT - [facility] 5.44(H) 3.8 - 5.2 10e6/ul 10/06/2017 7:33 [facility] RED CELL DISTRI WIDTH - [facility] 13.7 11.8 - 15.6 % 10/06/2017 7:33 [facility] WHITE BLOOD COUNT - [facility] 18.9(H) 3.5 - 10.5 10e3/ul 10/06/2017 7:33 [facility] 10/06/2017 6:55 EDT 10/06/2017 7:04 EDT us Jules Mancini MD HEMATOLOGY & PF4 ORDERABLES Final Result [facility] documented in this encounter Visit Diagnoses Not on filedocumented in this encounter Care Teams Grocery Deliverer Relationship Specialty Start Date End Date Kaylah Raymundo FNP [address] [place] [address] PCP - General 09/12/13 documented as of this encounter
--- OUTSIDE RECORDS SUMMARY | 2024-04-08 12:35 | XMS_ITS | Encounter Summary ---
Author Organization [facility] Address [address] [place] [address] Care Team Providers Care Foil Stamp Operator Name Role Phone Unavailable Primary Care Provider Unavailabl e Encounter Details Date Type Department Care Team (Late st Contact Info) Description 09/23/2005 Results Only [facility] - Maple conversion [address] [place] [address] Clint Raymundo FNP [address] [place], [place] [id number] Social History Tobacco Use Types Packs/Day Years Used Date Smoking Tobacco: Never Assessed Comments Unknown Sex and Gender Information Value Date Recorded Sex Assigned at Not on file Legal Sex Female 18:12 EST Gender Identity Not on file Sexual Orientation Not on file documented as of this encounter Plan of Treatment Not on file documented as of this encounter Procedures Procedure Name Priority Date/Time Associated Diagnosis Comments CYTOPATHOLOGY Routine 09/23/2005 0:00 EDT documented in this encounter Results * CYTOPATHOLOGY (09/23/2005 0:00 EDT) Pathology Report: CYTOPATHOLOGY REPORT Reports generated via electronic interface contain original data; however they are lacking the format of the original report. Caution should be taken when reading/interpreti ng unformatted reports. Name: ? DEBI ROSS ? Accession #: ? [id number] : ? 1955 (Age: 50) ??F ?Collect Date: ? 09/23/2005 Location: ? [facility] ? Receive Date: ? 09/24/2005 Provider: ?CLINT JACOBSP Copy to: ? Specimen/Source: ?ThinPrep Pap Test, Cervix/Endocervix, processed on [employer] ThinPrep Imaging System, with manual evaluation Last Menstrual Period: ? Other: ? HPVA - HPV testing requested if ASC-US on the current ThinPrep Pap test. ? SPECIMEN ADEQUACY ? Satisfactory for Evaluation - transformation zone component present GENERAL CATEGORIZATION ? Negative for Intraepithelial Lesion or Malignancy INTERPRETATION ? Reactive cellular changes associated with inflammation present (includes repair). ? Document reviewed and electronically signed by: ? NAIMA YU MD ? Report Date: ??09/30/2005 17:14 End of Report SANJUANA ROBERTS 09/23/2005 09/24/2005 us Clint JACOBSP PATHOLOGY ORDERABLES Final Resul t SANJUANA ROBERTS [address] [place] [address] documented in this encounter Visit Diagnoses Not on filedocumented in this encounter
--- OUTSIDE RECORDS SUMMARY | 2024-04-08 12:35 | XMS_ITS | Encounter Summary ---
Author Organization [facility] Address [address] [place] [address] Care Team Providers Care Mine Surveyor Name Role Phone Kaylah Raymundo PETER Primary Care Provider [phone] Reason for Visit * Reason Comments Eye Flashes And/Or Floaters New floater left eye Encounter Details Date Type Department Care Team (Late st Contact Info) Description 01/22/2014 9:45 EST Office Visit [facility] Ophthalmology [facility] [address], [place] [address] Carter Martinez MD [address] [place] [phone] Social History Tobacco Use Types Packs/Day Years [...] Progress Notes * Carter Martinez MD - 01/22/2014 1040 EST Chief Complaint Patient presents with ??? Eye Flashes And/Or Floaters New floater left eye HPI The patient is a 58 y.o. female seeing new floater & flashes in the left eye since yesterday. Right Eye: Blurred Vision;Problem with Night Vision;Dryness Left Eye: NL;Floaters;Flashes;Dryness Visual Aid: Current Rx Age Location: Pain: 0 - No pain Quality: Severity: Duration: Timing: Lasts: Context: had flash of light left eye last sridevi then noted spider like floater, no flashes this am but still sees floater but appears to be breaking up Modifying factors: finished all post op drops left eye, using Thera tears both eyes Associated Signs & Symptoms: Hx CE/ PC IOL left eye 11-29-2013, due to have CE right eye 02-28-2014 Attestation: ROS Constitutional: NL ENT/Mouth NL Cardiovascular: High Blood Pressure Respiratory: NL Gastrointestinal: Genitourinary: NL Musculoskeletal: NL Integumentary: NL Neurologic: NL Psychiatric: NL Endocrine: NL Hematologic: NL Immunologic: NL Phys Asst: Exposures: None Other: Attestation: Base Eye Exam Visual Acuity Right Left Dist sc 20/60 -2 20/30 -2 Dist ph sc 20/40 20/20-2 Method: Snellen - Linear Tonometry Right Left Pressure 18 15 Method: Applanation Time: 9:55 Pupils Dark APD Right 3.5 None Left 3 None Visual Elkins Right Left Result Full Full Extraocular Movement Right Left Result Full Full Neuro/Psych Oriented x3: Yes Mood/Affect: Normal Dilation Both eyes: 1.0% Mydriacyl, 2.5% Braxton Synephrine @ 9:56 Slit Lamp and Fundus Exam Slit Lamp Exam Right Left Lids/Lashes Normal trace Blepharitis Conjunctiva/Sclera White and quiet White and quiet Cornea Clear incisions sealed,clear Anterior Chamber Deep and quiet Deep and quiet Iris Round and reactive Round and reactive Lens 1+ Nuclear sclerosis, 3+ Cortical cataract, 3+ Posterior subcapsular cataract Centered posterior chamber intraocular lens Fundus Exam Right Left Vitreous trace pigmented cell, Irving ring Disc Normal C/D Ratio 0.2 Macula Normal Vessels Normal Periphery Normal DIAGNOSTIC TESTS: IMPRESSION & PLAN: 1. POW#8 CEw/PCIOL, left eye (11/29/13) 2.Posterior vitreous detachment, left eye No retinal breaks or tears on 360 degree with three mirror lens -Discussed signs/symptoms of retinal detachment and the patient knows to call/return if they occur -Return 1 week for repeat dilated exam 3.cataract, right eye -scheduled for surgery 02/28/14 I have reviewed the patient's past medical, family, social and surgical history. I have also reviewed the patient's medications, allergies, and problem list. I performed my own HPI and have reviewed the [facility]'s ROS as well. I completed this exam personally. Carter Martinez MD I am scribing for Carter Martinez MD, while he is personally performing the service. Maggie Casas Patient Education Topic: PVD Method: Verbal Taught to: Patient Barriers: None Outcomes: independent Signature: Carter Martinez MD documented in this encounter Plan of Treatment Not on file documented as of this encounter Visit Diagnoses Diagnosis PVD (posterior vitreous detachment), left eye- Primary Vitreous degeneration Lens replaced by other means documented in this encounter Discontinued Medications Medication Sig Discontinue Reason Start Date End Da te ketOROLAC tromethamine (ACULAR LS) 0.4 % drops Place 1 Drop into the right eye 4 times daily. Therapy completed 01/04/2014 01/22/2014 ofloxacin (OCUFLOX) 0.3 % ophthalmic solution Place 1 Drop into the right eye 4 times daily. Error 01/04/2014 01/22/2014 prednisoLONE (PRED FORTE) 1 % ophthalmic suspension Place 1 Drop into the right eye 4 times daily for 28 days. Error 01/04/2014 01/22/2014 documented as of this encounter Eye Exam Visual Acuity (Snellen - Linear) Right eye Left eye Dist sc 20/60 -2 20/30 -2 Dist ph sc 20/40 20/20-2 Tonometry (Applanation, 9:55) Right eye Left eye Pressure 18 15 Pupils Dark APD Right eye 3.5 None Left eye 3 None Visual Elkins Right eye Left eye Full Full Extraocular Movement Right eye Left eye Full Full Neuro/Psych Oriented x3: Yes Mood/Affect: Normal Dilation Both eyes: 1.0% Mydriacyl, 2 .5% Braxton Synephrine @ 9:56 Slit Lamp Exam Right eye Left eye Lids/Lashes Normal trace Blephariti s Conjunctiva/Sclera White and quiet White and gene et Cornea Clear incisions sealed ,clear Anterior Chamber Deep and quiet Deep and quiet Iris Round and reactive Round and parker ctive Lens 1+ Nuclear sclerosis , 3+ Cortical cataract, 3+ Posterior subcapsular cataract Centered posterior chamber intraocular lens Vitreous trace pigmented cell, Irving ring Fundus Exam Right eye Left eye Disc Normal C/D Ratio 0.2 Macula Normal Vessels Normal Periphery Normal Care Teams Mine Surveyor Relationship Specialty Start Date End Date Kaylah Raymundo FNP [address] [place], [place] [phone] PCP - General 09/12/13 documented as of this encounter
--- OUTSIDE RECORDS SUMMARY | 2024-04-08 12:35 | XMS_ITS | Encounter Summary ---
Author Organization [facility] Address [address] [place] [address] Care Team Providers Care Automotive Service Cashier Name Role Phone Kaylah Raymundo PETER Primary Care Provider [phone] Reason for Visit * Reason Onset Date Comments Pre-op Exam 11/07/2013 Encounter Details Date Type Department Care Team (Late st Contact Info) Description 11/07/2013 16:00 EDT Office Visit [facility] Ophthalmology [facility] [address] [place] [address] Carter Martinez MD [address] [place] [phone] Social History Tobacco Use Types Packs/Day Years [...] Refills Last Filled Start Date End Date ofloxacin (OCUFLOX) 0.3 % ophthalmic solution Place 1 Drop into the left eye 4 times daily. 1 Bottle 0 11/07/2013 01/04/2014 prednisoLONE (PRED FORTE) 1 % ophthalmic suspension Place 1 Drop into the left eye 4 times daily for 28 days. 1 Bottle 2 11/07/2013 01/04/2014 ketOROLAC tromethamine (ACULAR LS) 0.4 % drops Place 1 Drop into the left eye 4 times daily. 5 mL 2 11/07/2013 01/04/2014 documented in this encounter Progress Notes * Heather Vazquez - 11/07/2013 1553 EDT BIOMETRY Right eye Left eye Type: Lenstar Lenstar Indication: IOL Calculations IOL Calculations Biometry Completed by HEATHER VAZQUEZ Original tests to be found in patients shadow chart HEATHER VAZQUEZ 11/07/2013 documented in this encounter Plan of Treatment Not on file documented as of this encounter Visit Diagnoses Diagnosis Senile nuclear sclerosis- Primary documented in this encounter Care Teams Automotive Service Cashier Relationship Specialty Start Date End Date Kaylah Raymundo FNP [address] [place] [address] PCP - General 09/12/13 documented as of this encounter
--- OUTSIDE RECORDS SUMMARY | 2024-04-08 12:35 | XMS_ITS | Encounter Summary ---
Author Organization [facility] Address [address] [place] [address] Care Team Providers Care Restaurant General Manager Name Role Phone Kaylah Raymundo PETER Primary Care Provider [phone] Reason for Visit * Reason Comments Post-OP Follow Up POW#1 CE PCIOL, left eye Encounter Details Date Type Department Care Team (Late st Contact Info) Description 12/07/2013 10:15 EDT Office Visit [facility] Ophthalmology [facility] [address], [place] [phone] Carter Martinez MD [address] [place] [phone] Social History Tobacco Use Types Packs/Day Years [...] Progress Notes * Carter Martinez MD - 12/07/2013 1022 EDT Chief Complaint: Pseudophakia, Cataract Post-op week 1, left eye HPI The patient is a 58 y.o. female, POW #1 s/p CE/PCIOL, left eye. she denies eye pain and has used drops as instructed. HPI Location: Pain: Quality: Severity: Duration: Timing: Lasts: Context: POW#1 left eye, PCIOL. Pt doing well, taking all drops as directed Modifying factors: Associated Signs & Symptoms: Visual Fluctuations: None Attestation: Base Eye Exam Visual Acuity Right Left Dist sc 20/50 20/30 +2 Method: Snellen - Linear Tonometry Right Left Pressure 16 18 Method: Applanation Time: 10:32 Neuro/Psych Oriented x3: Yes Mood/Affect: Normal Slit Lamp and Fundus Exam Slit Lamp Exam Right Left Lids/Lashes Normal Normal Conjunctiva/Sclera White and quiet White and quiet Cornea 1+ SPK incisions sealed, temporal suture (removed today), 1+ SPK Anterior Chamber Deep and quiet deep, Trace Cell Iris Round and reactive Round and reactive Lens 1+ Nuclear sclerosis, 3+ Cortical cataract, 3+ Posterior subcapsular cataract Centered posterior chamber intraocular lens Fundus Exam Right Left Vitreous clear view to posterior pole Refraction Manifest Refraction (Auto) Sphere Cylinder [place] Right -5.75 +3.50 100 Left +0.25 +1.00 125 IMPRESSION & PLAN: POW #1 s/p CE/PCIOL, left eye -patient is doing well -Suture removed at slit lamp today; drop of betadine 5% given prior to removal and drop of Ofloxacin given post removal -Continue Vigamox x 2 days then D/C -Continue ketorolac QID until bottle runs out -Taper PF TID X 1 week, BID X 1 week (according to drop schedule given) -Warnings and precautions discussed I have reviewed the patient's past medical, family, social and surgical history. I have also reviewed the patient's medications, allergies, and problem list. I performed my own HPI and have reviewed the [facility]'s ROS as well. documented in this encounter Plan of Treatment Not on file documented as of this encounter Visit Diagnoses Diagnosis Lens replaced by other means- Primary documented in this encounter Eye Exam Visual Acuity (Snellen - Linear) Right eye Left eye Dist sc 20/50 20/30 +2 Tonometry (Applanation, 10:32) Right eye Left eye Pressure 16 18 Neuro/Psych Oriented x3: Yes Mood/Affect: Normal Slit Lamp Exam Right eye Left eye Lids/Lashes Normal Normal Conjunctiva/Sclera White and quiet White and gene et Cornea 1+ SPK incisions sealed , temporal suture (removed today), 1+ SPK Anterior Chamber Deep and quiet deep, Trace Elisa l Iris Round and reactive Round and parker ctive Lens 1+ Nuclear sclerosis , 3+ Cortical cataract, 3+ Posterior subcapsular cataract Centered posterior chamber intraocular lens Vitreous clear view to po sterior pole Manifest Refraction (Auto) Sphere Cylinder [place] Right eye -5.75 +3.50 100 Left eye +0.25 +1.00 125 Care Teams Restaurant General Manager Relationship Specialty Start Date End Date Kaylah Raymundo FNP [address] [place] [address] PCP - General 09/12/13 documented as of this encounter
--- OUTSIDE RECORDS SUMMARY | 2024-04-08 12:35 | XMS_ITS | Encounter Summary ---
Author Organization [facility] Address [address] [place] [address] Care Team Providers Care Specification Consultant Name Role Phone Unavailable Primary Care Provider Unavailabl e Encounter Details Date Type Department Care Team (Late st Contact Info) Description 05/29/2010 Results Only [facility] - [facility] ([facility] [address], [place] [address] Clint Raymundo FNP [address] [place], [place] [id number] Social History Tobacco Use Types Packs/Day Years [...] Priority Date/Time Associated Diagnosis Comments CYTOPATHOLOGY Routine 05/29/2010 0:00 EST documented in this encounter Results * CYTOPATHOLOGY (05/29/2010 0:00 EST) Pathology Report: CYTOPATHOLOGY REPORT ? Reports generated via electronic interface contain original data; ? however they are lacking the format of the original report. ? Caution should be taken when reading/interpreti ng unformatted reports. ? Name: ? DEBI ROSS ? Accession #: ? [id number] ? : ? 1955 (Age: 54) ??F ?Collect Date: ? 05/29/2010 ? Location: ? [facility] ? Receive Date: ? 05/30/2010 ? Provider: ?CLINT GREEN ? Copy to: ? Specimen/Source: ?Pap Test, Cervix/Endocervix, ThinPrep Imaging System ? with manual evaluation ? Last Menstrual Period: ? 3/10/11 ? Other: ? Additional clinical information: LAN ANALYST Clinical/Treatment History - ? SPECIMEN ADEQUACY ? Satisfactory for Evaluation ? - transformation zone component absent ? GENERAL CATEGORIZATION ? Negative for Intraepithelial Lesion or Malignancy ? Document reviewed and electronically signed by: ? Janki Washington, SCT(ASCP) ? Report Date: ??06/04/2010 09:43 ? End of Report ? SANJUANA ROBERTS 05/29/2010 05/30/2010 us Clint Raymundo ENVIRONMENTAL LABORATORY TECHNICIAN PATHOLOGY ORDERABLES Final Resul t SANJUANA ROBERTS [address] [place] [address] documented in this encounter Visit Diagnoses Not on filedocumented in this encounter
--- OUTSIDE RECORDS SUMMARY | 2024-04-08 12:35 | XMS_ITS | Encounter Summary ---
Author Organization [facility] Address [address] [place] [address] Care Team Providers Care Habilitation Specialist Name Role Phone Kaylah Raymundo PETER Primary Care Provider [phone] Encounter Details Date Type Department Care Team (Latest Contact Info) Description 11/29/2013 22:45 EDT - 11/29/2013 23:59 EDT Hospital Encounter [facility] [address] [place] [address] Unknown, Provider, MD Discharge Disposition: Home or [...] on file documented as of this encounter Medications at Time of Discharge amLODIPine (NORVASC) 10 mg tablet Take 10 mg by mouth daily. chlorthalidone (HYGROTON) 25 mg tablet Take 25 mg by mouth daily. ketOROLAC tromethamine (ACULAR LS) 0.4 % drops Place 1 Drop into the left eye 4 times daily. 5 mL 2 11/07/2013 01/04/2014 ofloxacin (OCUFLOX) 0.3 % ophthalmic solution Place 1 Drop into the left eye 4 times daily. 1 Bottle 0 11/07/2013 01/04/2014 prednisoLONE (PRED FORTE) 1 % ophthalmic suspension Place 1 Drop into the left eye 4 times daily for 28 days. 1 Bottle 2 11/07/2013 01/04/2014 documented as of this encounter Discharge Disposition Disposition Code Departure Means Destination Home or Self [facility]sp documented in this encounter Plan of Treatment Not on file documented as of this encounter Visit Diagnoses Not on filedocumented in this encounter Care Teams Habilitation Specialist Relationship Specialty Start Date End Date Kaylah Raymundo FNP [address] [place] [address] PCP - General 09/12/13 documented as of this encounter
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
--- OUTSIDE RECORDS SUMMARY | 2024-04-08 12:35 | XMS_ITS | Encounter Summary ---
Author Organization [facility] Address [address] [place] [address] Care Team Providers Care Dumpcart Driver Name Role Phone Kaylah Raymundo PETER Primary Care Provider [phone] Reason for Visit * Reason Comments Post-OP Follow Up POM #1 s/p CE/PCIOL, left eye Encounter Details Date Type Department Care Team (Late st Contact Info) Description 01/04/2014 10:00 EDT Office Visit [facility] Ophthalmology [facility] [address] [place] [address] Carter Martinez MD [address] [place] [phone] Social History Tobacco Use Types Packs/Day Years [...] eye 4 times daily. 1 Bottle 0 01/04/2014 01/22/2014 ketOROLAC tromethamine (ACULAR LS) 0.4 % drops Place 1 Drop into the right eye 4 times daily. 5 mL 2 01/04/2014 01/22/2014 prednisoLONE (PRED FORTE) 1 % ophthalmic suspension Place 1 Drop into the right eye 4 times daily for 28 days. 1 Bottle 2 01/04/2014 01/22/2014 documented in this encounter Progress Notes * Carter Martinez MD - 01/04/2014 1006 EDT Chief Complaint: Pseudophakia, Cataract Post-Op Month 1, left eye(s) HPI POM #1 s/p CE/PCIOL, left eye(s). Location: Pain: 0 - No pain Quality: Severity: Duration: Timing: Lasts: Context: Modifying factors: Associated Signs & Symptoms: Visual Fluctuations: None Attestation: Base Eye Exam Visual Acuity Right Left Dist sc 20/60 20/30 Method: Snellen - Linear Tonometry Right Left Pressure 13 Method: Applanation Time: 10:18 Pupils Pupils Right PERRL Left PERRL Visual Elkins Right Left Result Full Full Method: Counting fingers Extraocular Movement Right Left Result Full Full Neuro/Psych Oriented x3: Yes Mood/Affect: Normal Dilation Left eye: 1.0% Mydriacyl, 2.5% Phenylephrine @ 10:18 Slit Lamp and Fundus Exam Slit Lamp Exam Right Left Lids/Lashes Normal Normal Conjunctiva/Sclera White and quiet White and quiet Cornea 1+ SPK incisions sealed,clear Anterior Chamber Deep and quiet Deep and quiet Iris Round and reactive Round and reactive Lens 1+ Nuclear sclerosis, 3+ Cortical cataract, 3+ Posterior subcapsular cataract Centered posterior chamber intraocular lens Fundus Exam Right Left Vitreous Normal Disc Normal C/D Ratio 0.25 Macula Normal Vessels Normal Periphery Normal Refraction Manifest Refraction (Auto) Sphere Cylinder [place] Dist Right -3.25 +1.75 030 20/30 Left +0.50 +0.50 100 20/20 IMPRESSION & PLAN: POM #1 s/p CE/PCIOL, left eye(s) -patient is doing well; eye quiet, no signs of infection -DC PF and ketorolac -will perform MRX after surgery of right eye -signed consent & meds ordered for right eye, scheduled 01-24-14 I have reviewed the patient's past medical, [...] eye 4 times daily for 28 days. Reorder 11/07/2013 01/04/2014 ketOROLAC tromethamine (ACULAR LS) 0.4 % drops Place 1 Drop into the left eye 4 times daily. Reorder 11/07/2013 01/04/2014 ofloxacin (OCUFLOX) 0.3 % ophthalmic solution Place 1 Drop into the left eye 4 times daily. Reorder 11/07/2013 01/04/2014 documented as of this encounter Eye Exam Visual Acuity (Snellen - Linear) Right eye Left eye Dist sc 20/60 20/30 Tonometry (Applanation, 10:18) Right eye Left eye Pressure 13 Pupils Pupils Right eye PERRL Left eye PERRL Visual Elkins (Counting fingers) Right eye Left eye Full Full Extraocular Movement Right eye Left eye Full Full Neuro/Psych Oriented x3: Yes Mood/Affect: Normal Dilation Left eye: 1.0% Mydriacyl, 2. 5% Phenylephrine @ 10:18 Slit Lamp Exam Right eye Left eye Lids/Lashes Normal Normal Conjunctiva/Sclera White and quiet White and gene et Cornea 1+ SPK incisions sealed ,clear Anterior Chamber Deep and quiet Deep and quiet Iris Round and reactive Round and parker ctive Lens 1+ Nuclear sclerosis , 3+ Cortical cataract, 3+ Posterior subcapsular cataract Centered posterior chamber intraocular lens Vitreous Normal Fundus Exam Right eye Left eye Disc Normal C/D Ratio 0.25 Macula Normal Vessels Normal Periphery Normal Manifest Refraction (Auto) Sphere Cylinder [place] Dist VA Right eye -3.25 +1.75 030 20/30 Left eye +0.50 +0.50 100 20/20 Care Teams Dumpcart Driver Relationship Specialty Start Date End Date Kaylah Raymundo FNP [address] [place] [address] PCP - General 09/12/13 documented as of this encounter
--- OUTSIDE RECORDS SUMMARY | 2024-04-08 12:35 | XMS_ITS | Encounter Summary ---
Author Organization [facility] Address [address] [place] [address] Care Team Providers Care Watch Parts Inspector Name Role Phone Kaylah Raymundo PETER Primary Care Provider [phone] Reason for Visit * Reason Onset Date Comments Post-OP Follow Up 03/01/2014 POD #1 CE/ PC IOL right eye Encounter Details Date Type Department Care Team (Late st Contact Info) Description 03/01/2014 8:15 EST Office Visit [facility] Ophthalmology [facility] [address] [place] [address] Carter Martinez MD [address] [place] [phone] Social History Tobacco Use Types Packs/Day Years [...] Progress Notes * Carter Martinez MD - 03/01/2014 0901 EST Chief Complaint: Pseudophakia, Cataract Post-Op Day 1, right eye HPI The patient is a 58 y.o. female, POD #1 s/p Cataract extraction with PCIOL, right eye. There was nopain overnight and the patient slept with the shield in place. Location: Pain: 0 - No pain Quality: Severity: Duration: Timing: Lasts: Context: comfortable night, no pain or flashes or floaters Modifying factors: all post op drops inserted right eye this am in office Associated Signs & Symptoms: Visual Fluctuations: None Attestation: Base Eye Exam Visual Acuity Right Left Dist sc 20/30 -2 Method: Snellen - Linear Tonometry Right Left Pressure 16 14 Method: Applanation Time: 9:11 Neuro/Psych Oriented x3: Yes Mood/Affect: Normal Slit Lamp and Fundus Exam Slit Lamp Exam Right Left Lids/Lashes Normal Normal Conjunctiva/Sclera White and quiet White and quiet Cornea Incisions sealed with trace edema Clear Anterior Chamber 1-2+ Cell Deep and quiet Iris Round and reactive Round and reactive Lens Posterior chamber intraocular lens Posterior chamber intraocular lens Fundus Exam Right Left Vitreous Clear view to posterior pole IMPRESSION & PLAN: POD #1 s/p Cataract Extraction with PCIOL, right eye -patient is doing well -Use Vigamox, ketorolac and PF QID (drop schedule given) -Continue to wear plastic shield over eye at night for 1 week. -Warnings and precautions discussed. -RTC 1 week or sooner PRN eye redness/pain or worsening vision I have reviewed the patient's past medical, [...] other means- Primary documented in this encounter Historical Medications * This list may reflect changes made after this encounter. prednisoLONE (PRED FORTE) 1 % ophthalmic suspension Place 1 Drop into the right eye 4 times daily. 03/26/2014 ketOROLAC (ACULAR) 0.5 % ophthalmic solution Place 1 Drop into the right eye 4 times daily. 04/24/2014 ofloxacin (OCUFLOX) 0.3 % ophthalmic solution Place 1 Drop into the right eye 4 times daily. 04/24/2014 added in this encounter Eye Exam Visual Acuity (Snellen - Linear) Right eye Left eye Dist sc 20/30 -2 Tonometry (Applanation, 9:11) Right eye Left eye Pressure 16 14 Neuro/Psych Oriented x3: Yes Mood/Affect: Normal Slit Lamp Exam Right eye Left eye Lids/Lashes Normal Normal Conjunctiva/Sclera White and quiet White and gene et Cornea Incisions sealed with trace pavithra a Clear Anterior Chamber 1-2+ Cell Deep and quiet Iris Round and reactive Round and parker ctive Lens Posterior chamber in traocular lens Posterior chamber intraocular lens Vitreous Clear view to posterior pole Care Teams Watch Parts Inspector Relationship Specialty Start Date End Date Kaylah Raymundo FNP [address] [place], [place] [address] PCP - General 09/12/13 documented as of this encounter
--- OUTSIDE RECORDS SUMMARY | 2024-04-08 12:35 | XMS_ITS | Encounter Summary ---
Author Organization [facility] Address [address] [place] [address] Care Team Providers Care National Guard Member Name Role Phone Unavailable Primary Care Provider Unavailabl e Encounter Details Date Type Department Care Team (Late st Contact Info) Description 02/23/2007 Results Only [facility] - [address] [phone] Rani Lyons MD Social History Tobacco Use [...] Priority Date/Time Associated Diagnosis Comments CYTOPATHOLOGY Routine 02/23/2007 0:00 EST documented in this encounter Results * CYTOPATHOLOGY (02/23/2007 0:00 EST) Pathology Report: CYTOPATHOLOGY REPORT Reports generated via electronic interface contain original data; however they are lacking the format of the original report. Caution should be taken when reading/interpreti ng unformatted reports. Name: ? DEBI ROSS ? Accession #: ? [id number] : ? 1955 (Age: 51) ??F ?Collect Date: ? 02/23/2007 Location: ? [facility] ? Receive Date: ? 02/24/2007 Provider: ?RANI LYONS MD Copy to: ? Specimen/Source: ?ThinPrep Pap Test, Endocervix, processed on EMBIPrep Imaging System, with manual evaluation Last Menstrual Period: ? 01/21/07 Other: ? HPVA - HPV testing requested if ASC-US on the current ThinPrep Pap test. ? SPECIMEN ADEQUACY ? Satisfactory for Evaluation - transformation zone component present GENERAL CATEGORIZATION ? Negative for Intraepithelial Lesion or Malignancy ? Document reviewed and electronically signed by: ? Blanche Miller, IVAN(ASCP)(IAC) ? Report Date: ??02/28/2007 13:08 End of Report [facility] 02/23/2007 02/24/2007 us Rani Lyons MD PATHOLOGY ORDERABLES Final Resul t [facility] [address] [place] [address] documented in this encounter Visit Diagnoses Not on filedocumented in this encounter
--- OUTSIDE RECORDS SUMMARY | 2024-04-08 12:35 | XMS_ITS | Encounter Summary ---
Author Organization [facility] Address [address] [place] [address] Care Team Providers Care Lpn Or Medical Assistant Name Role Phone Kaylah Raymundo PETER Primary Care Provider [phone] Reason for Visit * Reason Comments Follow-up 1 week f/u PVD, left eye. Encounter Details Date Type Department Care Team (Late st Contact Info) Description 01/29/2014 8:15 EST Office Visit [facility] Ophthalmology [facility] [address] [place], [place] [phone] Carter Martinez MD [address] [place] [phone] Social History Tobacco Use Types Packs/Day Years [...] Progress Notes * Carter Martinez MD - 01/29/2014 0856 EST Chief Complaint Patient presents with ??? Follow-up 1 week f/u PVD, left eye. HPI The patient is a 58 y.o. female here with no new floaters or flashes. She reports that her vision is stable. Right Eye: NL Left Eye: Visual Aid: Current Rx Age Location: Pain: 0 - No pain Quality: Severity: Duration: Timing: Lasts: Context: Modifying factors: Associated Signs & Symptoms: Attestation: ROS Constitutional: NL ENT/Mouth Cardiovascular: Respiratory: Gastrointestinal: Genitourinary: Musculoskeletal: Integumentary: Neurologic: Psychiatric: Endocrine: Hematologic: Immunologic: Tube Coremaker: Exposures: None Other: Attestation: Base Eye Exam Visual Acuity Right Left Dist sc 20/50 -3 20/30 -3 Method: Snellen - Linear Tonometry Right Left Pressure 16 16 Method: Applanation Time: 8:38 Neuro/Psych Oriented x3: Yes Mood/Affect: Normal Dilation Left eye: 1.0% Mydriacyl, 2.5% Phenylephrine @ 8:38 Slit Lamp and Fundus Exam Slit Lamp [...] Normal DIAGNOSTIC TESTS: IMPRESSION & PLAN: 1. POW#9 CEw/PCIOL, left eye (11/29/13) 2.Posterior vitreous detachment, left eye No retinal breaks or tears on 360 degree with three mirror lens -Discussed signs/symptoms of retinal detachment and the patient knows to call/return if they occur -Return as needed, will plan to re-evaluate after right cataract surgery. 3.cataract, right eye -scheduled for surgery 02/28/14 [...] service. Maggie Casas Patient Education Topic: PVD f/u Method: Verbal Taught to: Patient Barriers: None Outcomes: independent Signature: Carter Martinez MD documented in this encounter Plan of Treatment Not on file documented as of this encounter Visit Diagnoses Diagnosis PVD (posterior vitreous detachment), left eye- Primary Vitreous degeneration Lens replaced by other means documented in this encounter Eye Exam Visual Acuity (Snellen - Linear) Right eye Left eye Dist sc 20/50 -3 20/30 -3 Tonometry (Applanation, 8:38) Right eye Left eye Pressure 16 16 Neuro/Psych Oriented x3: Yes Mood/Affect: Normal Dilation Left eye: 1.0% Mydriacyl, 2. 5% Phenylephrine @ 8:38 Slit Lamp Exam Right eye Left eye Lids/Lashes Normal trace Blephariti s Conjunctiva/Sclera White and quiet White and gene et Cornea Clear incisions sealed ,clear Anterior Chamber Deep and quiet Deep and quiet Iris Round and reactive Round and parker ctive Lens 1+ Nuclear sclerosis , 3+ Cortical cataract, 3+ Posterior subcapsular cataract Centered posterior chamber intraocular lens Vitreous Irving ring, Shaf er's sign negative Fundus Exam Right eye Left eye Disc Normal C/D Ratio 0.3 Macula Normal Vessels Normal Periphery Normal Care Teams Lpn Or Medical Assistant Relationship Specialty Start Date End Date Kaylah Raymundo FNP [address] [place] [address] PCP - General 09/12/13 documented as of this encounter
--- OUTSIDE RECORDS SUMMARY | 2024-04-08 12:35 | XMS_ITS | Encounter Summary ---
Author Organization [facility] Address [address] [place] [address] Care Team Providers Care Food And Drug Inspector Name Role Phone Unavailable Primary Care Provider Unavailabl e Encounter Details Date Type Department Care Team (Late st Contact Info) Description 04/25/2013 Results Only [facility] Laboratory Services - [facility] ([facility] [place] [address] [place], [place] [address] Clint Raymundo FNP [address] [place], [place] [phone] Social History Tobacco Use Types Packs/Day Years [...] Name Priority Date/Time Associated Diagnosis Comments PAP TEST- RESULT ONLY Routine 04/25/2013 0:00 EST documented in this encounter Results * PAP TEST- RESULT ONLY (04/25/2013 0:00 EST) Pathology Report: CYTOPATHOLOGY REPORT Reports generated via electronic interface contain original data; however they are lacking the format of the original report. Caution should be taken when reading/interpreti ng unformatted reports. Name: ? DEBI ROSS ? Accession #: ? [id number] : ? 1955 (Age: 57) ??F ?Collect Date: ? 04/25/2013 Location: ? [facility] ? Receive Date: ? 04/27/2013 Provider: ?CLINT RAYMUNDO INDUSTRIAL CHEMICALS SUPERVISOR Copy to: ? Specimen/Source: ?Pap Test, Source Not Provided, ThinPrep Imaging System with manual evaluation Last Menstrual Period: ? 2 YEARS ? SPECIMEN ADEQUACY ? Satisfactory for Evaluation - transformation zone component present GENERAL CATEGORIZATION ? Negative for Intraepithelial Lesion or Malignancy INTERPRETATION ? Reactive cellular changes associated with inflammation present (includes repair). ? Document reviewed and electronically signed by: ? [facility] ? Report Date: ??05/04/2013 16:20 End of Report [facility] 04/25/2013 04/27/2013 us Clint Raymundo INDUSTRIAL CHEMICALS SUPERVISOR PATHOLOGY ORDERABLES Final Resul t [facility] [address] [place] [address] documented in this encounter Visit Diagnoses Not on filedocumented in this encounter
--- OUTSIDE RECORDS SUMMARY | 2024-04-08 12:35 | XMS_ITS | Encounter Summary ---
Author Organization [facility] Address [address] [place] [address] Care Team Providers Care Clinical Ob Name Role Phone Kaylah Raymundo PETER Primary Care Provider [phone] Reason for Visit * Reason Comments Follow-up 1 day post op for le ft eye. No pain eye is just goopy. I gave her all of her drops. Encounter Details Date Type Department Care Team (Late st Contact Info) Description 11/30/2013 8:35 EDT Office Visit [facility] Ophthalmology [facility] [address] [place] [address] Carter Martinez MD [address] [place] [id number] Social History Tobacco Use Types Packs/Day Years [...] Progress Notes * Carter Martinez MD - 11/30/2013 0907 EDT Chief Complaint: Pseudophakia, Cataract Post-Op Day 1, left eye HPI The patient is a 58 y.o. female, POD #1 s/p cataract extraction with PCIOL, left eye. There was no pain overnight and the patient slept with the shield in place. HPI Location: Pain: 0 - No pain Quality: Severity: Duration: Timing: Lasts: Context: Modifying factors: Associated Signs & Symptoms: Visual Fluctuations: None Attestation: Base Eye Exam Visual Acuity Right Left Dist sc 20/40 20/60 Method: Snellen - Linear Comments: With +1.50 lens Sees 20/20 distance Tonometry Right Left Pressure 14 16 Method: Tonopen Time: 8:49 Visual Elkins Right Left Result Full Full Method: Counting fingers Extraocular Movement Right Left Result Full Full Neuro/Psych Oriented x3: Yes Mood/Affect: Normal Slit Lamp and Fundus Exam Slit Lamp Exam Right Left Lids/Lashes Normal Normal Conjunctiva/Sclera White and quiet Trace Injection Cornea Clear incisions sealed, temporal suture, trace edema temporally Anterior Chamber Deep and quiet deep, 2+ Cell Iris Round and reactive, dilates to 7.5mm slightly dilated Lens 1+ Nuclear sclerosis, 3+ Cortical cataract, 3+ Posterior subcapsular cataract Centered posterior chamber intraocular lens Fundus Exam Right Left Vitreous clear view to posterior pole C/D Ratio 0.35 Macula Normal IMPRESSION & PLAN: POD #1 s/p Cataract Extraction with PCIOL, left eye -patient is doing well (20/20 w/+1.50 lens) -Use Vigamox, ketorolac and PF QID (drop schedule given) -continue to wear plastic shield over eye at night for 1 week -Warnings and precautions discussed -RTC 1 week or sooner PRN eye redness/pain or worsening vision -pt will hold off on right eye surgery until this winter. I have reviewed the patient's past medical, family, social and surgical history. I have also reviewed the patient's medications, allergies, and problem list. I performed my own HPI and have reviewed the [facility]'s ROS as well. I personally completed this exam myself. Carter Martinez MD documented in this encounter Plan of Treatment Not on file documented as of this encounter Visit Diagnoses Diagnosis Lens replaced by other means- Primary documented in this encounter Eye Exam Visual Acuity (Snellen - Linear) Right eye Left eye Dist sc 20/40 20/60 With +1.50 lens Sees 20/20 distance Tonometry (Tonopen, 8:49) Right eye Left eye Pressure 14 16 Visual Elkins (Counting fingers) Right eye Left eye Full Full Extraocular Movement Right eye Left eye Full Full Neuro/Psych Oriented x3: Yes Mood/Affect: Normal Slit Lamp Exam Right eye Left eye Lids/Lashes Normal Normal Conjunctiva/Sclera White and quiet Trace Injecti on Cornea Clear incisions sealed , temporal suture, trace edema temporally Anterior Chamber Deep and quiet deep, 2+ Cell Iris Round and reactive, dilates to 7.5mm slightly dilated Lens 1+ Nuclear sclerosis , 3+ Cortical cataract, 3+ Posterior subcapsular cataract Centered posterior chamber intraocular lens Vitreous clear view to po sterior pole Fundus Exam Right eye Left eye C/D Ratio 0.35 Macula Normal Care Teams Clinical Ob Relationship Specialty Start Date End Date Kaylah Raymundo FNP [address] [place] [address] PCP - General 09/12/13 documented as of this encounter
--- NOTE | 2024-04-13 10:56 | NUR.NOTE ---
Access chart to determine PCP for prior authorization which was faxed to them. Prior auth for: Levemir FlexPen 100unit/ml pen injectors. Nursing Note:
== END 2024-04-08 12:28 | disposition home or self-care (01) ==
LOC: ER 12:32
PROVIDERS: Emergency Provider Emergency Medicine; PCP Nurse Practitioner Family
DX: E11.65 Type 2 diabetes mellitus with hyperglycemia (principal); E11.22 Type 2 diabetes mellitus with diabetic chronic kidney disease; I12.9 Hypertensive chronic kidney disease with stage 1 through stage 4 chronic kidney disease, or unspecified chronic kidney disease; N18.31 Chronic kidney disease, stage 3a; E78.5 Hyperlipidemia, unspecified; I69.354 Hemiplegia and hemiparesis following cerebral infarction affecting left non-dominant side; F17.210 Nicotine dependence, cigarettes, uncomplicated; Z79.4 Long term (current) use of insulin; Z79.84 Long term (current) use of oral hypoglycemic drugs; Z79.01 Long term (current) use of anticoagulants
CPT/HCPCS: 36415; 80053; 82962; 99283; 81003; 83036; 85025

== ENCOUNTER 2024-05-26 00:28 | Outpatient (CLI) | payer MEDICARE, MEDICAID, SELFPAY ==
--- NOTE | 2024-05-26 | DI.MAMMO_ITS ---
Exam(s) MAMMO SCREENING EXAM: MAMMO SCREENING CLINICAL HISTORY: SCREENING, Z12.31. TECHNIQUE: Bilateral full field digital CC and MLO mammographic images were obtained with 3D tomosyn thesis and utilizing computer aided detection (CAD). COMPARISON: Prior mammogram September 2021 was reviewed. There are no other prior mammograms available f or review. FINDINGS: There are no new right breast findings. Left breast on CC view nodular density measuring 8 by 3 mm and located 5 cm medial to the nipple. On the MLO view this is located above the level the nipple, approximately 2.5 cm in from the nipple o n the MLO view. There are no malignant-appearing microcalcification groups in this region or elsewhere in either [address]. There is no significant architectural distortion nor skin thickening-retraction. IMPRESSION: 1. No radiographic evidence of malignancy in the right breast. 2. New asymmetric density-possible nodule anteromedially left breast measuring approximately 8 x 3 mm . Spot compression views and breast ultrasound recommended. BI-RADS Category 0 - Incomplete: Need additional imaging evaluation Breast Density - Category B - Scattered areas of fibroglandular density Breast density Category C or D implies that the patient has dense breast tissue. Dense breast tissue can make it harder to find cancer on a mammogram. Dense breast tissue is also associated with an incr eased risk of breast cancer. This information about the result of the mammogram report was provided to the patient to raise their awareness. Use this report when you speak with the patient about their risks for breast cancer, which includes their family history. At that time, you may recommend additional screening tests (Ultrasoun d or MRI) as these tests may add significant information. A negative radiographic report should not delay biopsy if a dominant or clinically suspicious mass is present. Up to ten percent of cancers are not identified on mammography. A negative report may reinforce clinical impression. Adenosis and dense breasts may obscure an underlying neoplasm. False positive reports average 6 to 10%. Patient will receive a letter notifying them of these results.
== END 2024-05-26 00:48 ==
LOC: DI 00:28
PROVIDERS: PCP Nurse Practitioner Family; Visit Provider Nurse Practitioner Family
DX: Z12.31 Encounter for screening mammogram for malignant neoplasm of breast (principal); R92.323 Mammographic fibroglandular density, bilateral breasts
CPT/HCPCS: 77063; 77067

== ENCOUNTER 2024-06-01 01:15 | Outpatient (CLI) | payer MEDICARE, MEDICAID, SELFPAY ==
--- NOTE | 2024-06-01 10:22 | DI.MAMMO_ITS ---
Exam(s) MG MAMMO SCREEN CALL BACK UNI US BREAST LT LIMITED EXAM: MG MAMMO SCREEN CALL BACK UNI and U/S breast LT limited CLINICAL HISTORY: F/U MAMMO, NEW ASYMMETRIC DENSITY,? NODULE LT. TECHNIQUE: Craniocaudal and mediolateral oblique Full Field Digital Mammography views of the left br east with Computer Aided Diagnosis followed by Tomosynthesis and limited left breast ultrasound. COMPARISON: Comparison is made with prior examinations. FINDINGS: Mammography/Tomosynthesis: Masses/Architectural Distortion: The area of concern does not persist on the additional views. No teran spicious masses or areas of architectural distortion are present. Microcalcifictions: No suspicious pleomorphic-type are seen. Skin Thickening/Nipple Retraction: None. Limited left breast US: Echotexture: Normal appearance of the glandular tissue. Shadowing: No suspicious foci. Cyst: None. Solid lesions: None seen. Ductal dilation: None. IMPRESSION: 1. No evidence of malignancy is noted. 2. Unless there is more urgent need, follow-up screening mammography is recommended, as per [place] [employer] guidelines. 3. The findings were discussed with the patient on the date of the examination. BI-RADS Category 1 - Negative Breast Density - Category B - Scattered areas of fibroglandular density Breast density Category C or D implies that the patient has dense breast tissue. Dense breast tissue can make it harder to find cancer on a mammogram. Dense breast tissue is also associated with an incr eased risk of breast cancer. This information about the result of the mammogram report was provided to the patient to raise their awareness. Use this report when you speak with the patient about their risks for breast cancer, which includes their family history. At that time, you may recommend additional screening tests (Ultrasoun d or MRI) as these tests may add significant information. A negative radiographic report should not delay biopsy if a dominant or clinically suspicious mass is present. Up to ten percent of cancers are not identified on mammography. A negative report may reinforce clinical impression. Adenosis and dense breasts may obscure an underlying neoplasm. False positive reports average 6 to 10%. Patient will receive a letter notifying them of these results.
== END 2024-06-01 01:35 ==
LOC: DI 01:15
PROVIDERS: PCP Nurse Practitioner Family; Visit Provider Nurse Practitioner Family
DX: R92.8 Other abnormal and inconclusive findings on diagnostic imaging of breast (principal); Z12.31 Encounter for screening mammogram for malignant neoplasm of breast
CPT/HCPCS: 76642; 77063; 77067

== ENCOUNTER 2024-07-21 16:05 | Outpatient (REF) | payer MEDICARE, MEDICAID, SELFPAY ==
[2024-07-21 21:36] LABS: Abs Immature Grans 0.03 10^3/uL (0.0-0.06); Absolute Basophil Count 0.08 10^3/uL (0.0-0.2); Absolute Eosinophil Count 0.37 10^3/uL (0.0-0.7); Absolute Lymphocyte Count 3.65 10^3/uL (1.2-3.4); Absolute Monocyte Count 0.52 10^3/uL (0.1-0.8); Absolute Neutrophil Count 5.13 10^3/uL (1.2-6.7); Basophils % 0.8 %; Eosinophils % 3.8 %; HCT 45.1 % (36.0-46.0); HGB 14.9 g/dL (11.2-15.7); Immature Grans % 0.3 %; Lymphocytes % 37.3 %; MCV 88 fL (80-95); MPV 9.3 fL (8.0-11.0); Monocytes % 5.3 %; Neutrophils % 52.5 %; Platelet Count 331 10^3/uL (130-400); RBC 5.13 10^6/uL (3.93-5.22); RDW 13.2 % (11.7-14.6); RDW-SD 43.1 fL; WBC 9.78 10^3/uL (4.4-10.8)
[2024-07-21 21:45] LABS: ALT 43 U/L (14-59); AST 20 U/L (15-37); Albumin 3.8 g/dL (3.4-5.0); Alkaline Phosphatase 90 U/L (46-116); Anion Gap 8.7 mmol/L (3-11); BUN 19 mg/dL (7-18); Bilirubin, Total 0.3 mg/dL (0.2-1.0); CO2 27.3 mmol/L (21.0-32.0); Calcium 9.2 mg/dL (8.5-10.1); Chloride 107 mmol/L (98-107); Estimated GFR 61.36 (mL/min/1.73m2); Glucose 104 mg/dL (74-106); Potassium 3.8 mmol/L (3.5-5.1); Sodium 143 mmol/L (136-145); Total Protein 7.2 g/dL (6.4-8.2)
[2024-07-21 22:04] LABS: Reticulocyte 1.7 % (0.5-2.4)
[2024-07-24 13:29] LABS: Albumin 57.7 % (55.8-66.1); Total Protein 6.9 g/dL (6.3-8.2)
[2024-07-25 11:42] LABS: Erythropoietin 15.6 mIU/mL (2.6 - 18.5)
== END 2024-07-21 16:06 | disposition home or self-care (01) ==
LOC: NCHCN 16:05
PROVIDERS: PCP Nurse Practitioner Family; Visit Provider Nurse Practitioner Family
DX: D75.1 Secondary polycythemia (principal)
CPT/HCPCS: 80053; 82668; 84165; 85025; 85045